=== PATIENT | male | born 1965 | race Two or more races ===

== ENCOUNTER 2020-02-14 14:00 | Emergency (ER) | payer SELFPAY ==
--- NOTE | 2020-02-14 14:34 | XR_ITS ---
EXAMINATION: XR CHEST CLINICAL INFORMATION: Lower extremity swelling. Rule out CHF COMPARISON: None TECHNIQUE: Frontal view of the chest was obtained. FINDINGS: The lungs are hypoinflated. There is mild cardiac enlargement. There may be some minimal upper zone redistribution but some of this could be due to hypoinflation and no gross CHF is present. No pleural effusions are seen. No consolidation or lung mass present. XR/XR chest 1V IMPRESSION: Hypoinflated lungs. No acute intrathoracic disease.
--- NOTE | 2020-02-14 14:36 | ED.EXTPRO ---
HPI - Extremity Problem General Chief complaint: General Medical Stated complaint: BOTH LEG SWELLING Time Seen by Provider: 02/14/20 14:34 Source: patient and no experience Mode of arrival: ambulatory Limitations: no limitations History of Present Illness HPI Narrative: 55-year-old male presented with bilateral lower extremity swelling for couple weeks, patient declined fever or chills, patient also declined any shortness of breath. MD Complaint: extremity swelling Onset (ago): week(s) (3) Pain Consistency: constant Location: left and right Severity scale (1-10): 7 Radiation: none Relieving factors: nothing Exacerbating factors: nothing Related Data Previous Rx's Medication Instructions Recorded furosemide [Lasix] 20 mg PO DAILY #10 tab 02/14/20 Allergies Allergy/AdvReac Type Severity Reaction Status Date / Time No Known Allergies Allergy Unverified 01/01/20 15:41 Review of Systems Review of Systems: All other systems are reviewed and are negative Constitutional: Reports as per HPI and Reports no additional constitutional complaints Eyes: Reports as per HPI and Reports no additional eye complaints Reports system reviewed and no additional complaints, except as documented Cardiovascular: Reports as per HPI and Reports no additional cardiovascular complaints Respiratory: Reports as per HPI and Reports no additional respiratory complaints Gastrointestinal: Reports as per HPI and Reports no additional gastrointestinal complaints Genitourinary: Reports no additional female genitourinary complaints Musculoskeletal: Reports no additional musculoskeletal complaints Skin/Breast: Reports system reviewed and no additional complaints, except as docu Psychiatric: Reports no additional psychiatric complaints Endocrine: Reports no additional endocrine complaints Hematologic/Lymphatic: Reports no additional hematologic/lymphatic complaints Allergic/Immunologic: Reports no additional allergic/immunologic complaints Reports system reviewed and no additional complaints, except as documented and Reports Abnormal speech present [facility] Past Medical History Medical History Depression Hypertension Social History Social History Alcohol intake: never Smoking Status: Never smoker Use of substances other than those prescribed or required for medical reasons: No Advance Directives: No Advance Directives Information Provided: Yes Physical Exam Vital Signs: Vital Signs: Vital Signs Temp Pulse Resp BP Pulse Ox 02/14/20 15:22 98.5 F 75 18 122/76 94 02/14/20 14:37 99.2 F 77 18 161/89 H 97 Body Mass Index 43.2 Appearance: Alert. Oriented X3. No acute distress. Head: Normal external exam. Normocephalic. Atraumatic. No Reed signs noted. No raccoon eyes noted Eyes: PERRLA. EOMI. Conjunctiva and sclera normal. Eyelids normal. ENT: EAC normal. TM's Normal. Pharynx normal. Uvula midline. Moist mucous membranes. No trismus noted. No drooling noted. No muffled voice noted. Neck: Normal inspection. Neck supple. FROM. No adenopathy. Thyroid Normal. No meningeal signs. No neck mass noted. CVS: Normal heart rate and rhythm. Heart sound normal. No murmurs noted. Pulses normal throughout. Respiratory: No respiratory distress. Painless inspiration. Breath sounds normal. No wheezes/rales/rhonchi noted. Chest nontender. No accessory muscle usage noted or decreased air movement noted. Abdomen: Soft and nontender. Bowel sounds normal in all 4 quadrants. No distention noted. No organomegaly noted. No visible injury noted. Back: No CVA tenderness. Full range of motion noted. Skin: Skin warm and dry. Normal skin color. Normal skin turgor. No rashes/lesions/lacerations noted. Extremities: bilateral lower extremity Pitting edema +2. Extremities exhibit normal range of motion. Extremities nontender. Neuro: Oriented X 3. No motor deficit. No sensory deficit. Reflexes normal. Course Course Course Narrative: 55 years old male presented with few weeks of bilateral lower extremity swelling, patient declined any respiratory symptoms, no history of liver/ renal is show, will check chest x-ray check renal function test, LFTs, BMP, patient has no risk for PE/DVT. Will reassess. MDM - Extremity (Nontraumatic) MDM Narrative Medical decision making narrative: assessment and plan. 55-year-old male presented with bilateral leg swelling for the past month, patient had workup in the emergency department showed normal x-ray for CHF, with a negative BNP, patient also have a normal renal function test, and normal LFTs. At this point will start the patient on low-dose of Lasix helped to diurese and will instruct the patient to follow-up with PCP, and elevate lower extremities. Lab Data Result diagrams: 02/14/20 15:00 02/14/20 15:00 Labs: Lab Results 02/14/20 02/14/20 02/14/20 Range/Units 15:00 15:00 15:00 WBC 7.6 (4.8-10.8) X10*3/uL RBC 4.51 L (4.60-5.80) X10*6/uL Hgb 14.1 (14.0-18.0) g/dl Hct 43.4 (42-52) % MCV 96.2 (80-98) fL MCH 31.3 (27.0-33.0) pg MCHC 32.5 (31.0-36.0) g/dl RDW 14.3 (11.0-16.0) % Plt Count 204 (160-400) X10*3/uL MPV 9.9 (9.4-12.4) fL Immature Gran % (Auto) 0.4 (0.0-0.4) % Neut % (Auto) 61.2 (45-73) % Lymph % (Auto) 27.9 (20-40) % [place] % (Auto) 7.9 (2-11) % Eos % (Auto) 2.1 (0-4) % Baso % (Auto) 0.5 (0-2) % Lymph # (Auto) 2.1 (1.2-4.9) X10*3/uL [place] # (Auto) 0.6 (0.1-1.2) X10*3/uL Eos # (Auto) 0.2 (0.0-0.4) X10*3/uL Baso # (Auto) 0.0 (0.0-0.2) X10*3/uL Abs Immat Gran (auto) 0.03 (0.00-0.03) X10*3/uL Absolute Neuts (auto) 4.6 (2.0-8.3) X10*3/uL Absolute Nucleated RBC 0.000 (0.0-0.012) X10*3/uL Nucleated RBC % (auto) 0.0 (0.0-0.2) /100WBC Sodium 140 (135-145) mmol/L Potassium 4.3 (3.3-5.1) mmol/l Chloride 101 (96-108) mmol/L Carbon Dioxide 31 H (22-29) mmol/L Anion Gap 12 (12-20) BUN 13 (9-16) mg/dL Creatinine 0.84 (0.5-1.4) mg/dL Estim Creat Clear Calc 110.2 Estimated GFR > 60 Random Glucose 93 (60-115) mg/dL Calcium 8.3 L (8.4-10.2) mg/dL Total Bilirubin 0.4 (0.0-1.0) mg/dL Direct Bilirubin 0.2 (0.0-0.5) mg/dL AST 46 H (5-37) U/L ALT 40 (0-40) U/L Alkaline Phosphatase 98 (39-117) U/L B-Natriuretic Peptide 55 (<100) pg/mL Total Protein 7.7 (6.5-8.0) g/dL Albumin 4.4 (3.5-5.0) g/dL Lipase 17 (8-78) U/L Urine Color Urine Appearance Urine pH (5.0-8.0) Ur Specific [place] (1.005-1.025) Urine Protein (NEG-TRACE) MG/DL Urine Glucose (UA) (NEG) MG/DL Urine Ketones (NEG) MG/DL Urine Blood (NEG) Urine Nitrite (NEG) Ur Leukocyte Esterase (NEG) 02/14/20 Range/Units 15:13 WBC (4.8-10.8) X10*3/uL RBC (4.60-5.80) X10*6/uL Hgb (14.0-18.0) g/dl Hct (42-52) % MCV (80-98) fL MCH (27.0-33.0) pg MCHC (31.0-36.0) g/dl RDW (11.0-16.0) % Plt Count (160-400) X10*3/uL MPV (9.4-12.4) fL Immature Gran % (Auto) (0.0-0.4) % Neut % (Auto) (45-73) % Lymph % (Auto) (20-40) % [place] % (Auto) (2-11) % Eos % (Auto) (0-4) % Baso % (Auto) (0-2) % Lymph # (Auto) (1.2-4.9) X10*3/uL [place] # (Auto) (0.1-1.2) X10*3/uL Eos # (Auto) (0.0-0.4) X10*3/uL Baso # (Auto) (0.0-0.2) X10*3/uL Abs Immat Gran (auto) (0.00-0.03) X10*3/uL Absolute Neuts (auto) (2.0-8.3) X10*3/uL Absolute Nucleated RBC (0.0-0.012) X10*3/uL Nucleated RBC % (auto) (0.0-0.2) /100WBC Sodium (135-145) mmol/L Potassium (3.3-5.1) mmol/l Chloride (96-108) mmol/L Carbon Dioxide (22-29) mmol/L Anion Gap (12-20) BUN (9-16) mg/dL Creatinine (0.5-1.4) mg/dL Estim Creat Clear Calc Estimated GFR Random Glucose (60-115) mg/dL Calcium (8.4-10.2) mg/dL Total Bilirubin (0.0-1.0) mg/dL Direct Bilirubin (0.0-0.5) mg/dL AST (5-37) U/L ALT (0-40) U/L Alkaline Phosphatase (39-117) U/L B-Natriuretic Peptide (<100) pg/mL Total Protein (6.5-8.0) g/dL Albumin (3.5-5.0) g/dL Lipase (8-78) U/L Urine Color YELLOW Urine Appearance CLEAR Urine pH 6.5 (5.0-8.0) Ur Specific [place] 1.025 (1.005-1.025) Urine Protein NEG (NEG-TRACE) MG/DL Urine Glucose (UA) NEG (NEG) MG/DL Urine Ketones NEG (NEG) MG/DL Urine Blood NEG (NEG) Urine Nitrite NEG (NEG) Ur Leukocyte Esterase NEG (NEG) Discharge Plan Discharge Clinical Impression: Lower extremity edema Patient Disposition: Home, Self-Care Instructions: Edema (ED) Prescriptions: New furosemide [Lasix] 20 mg tablet 20 mg PO DAILY Qty: 10 RF: 0 Referrals: Name,MD Olayinka [Primary Care Provider] - 2 days
[2020-02-14 14:37] VITALS: BP 161/89; PULSE 77; RESP 18; TEMP 37.3; O2SAT 97; BMI 43.2
[2020-02-14 15:20] LABS: MANUAL DIFF FLAG NO
[2020-02-14 15:22] VITALS: BP 122/76; PULSE 75; RESP 18; TEMP 36.9; O2SAT 94
[2020-02-14 15:23] LABS: Basophils Percent Auto 0.5 % (0-2); Eosinophils Absolute Auto 0.2 X10*3/uL (0.0-0.4); Eosinophils Percent Auto 2.1 % (0-4); Hematocrit 43.4 % (42-52); Hemoglobin 14.1 g/dl (14.0-18.0); Imm Gran Abs Auto 0.03 X10*3/uL (0.00-0.03); Imm Gran Pct Auto 0.4 % (0.0-0.4); Lymphocytes Absolute Auto 2.1 X10*3/uL (1.2-4.9); Lymphocytes Percent Auto 27.9 % (20-40); Mean Corpuscular HGB Conc 32.5 g/dl (31.0-36.0); Mean Corpuscular Hemoglobin 31.3 pg (27.0-33.0); Mean Corpuscular Volume 96.2 fL (80-98); Mean Platelet Volume 9.9 fL (9.4-12.4); Monocytes Absolute Auto 0.6 X10*3/uL (0.1-1.2); Monocytes Percent Auto 7.9 % (2-11); Neutrophils Absolute Auto 4.6 X10*3/uL (2.0-8.3); Neutrophils Percent Auto 61.2 % (45-73); Platelet Count 204 X10*3/uL (160-400); Red Blood Count 4.51 X10*6/uL (4.60-5.80); Red Cell Distribution Width 14.3 % (11.0-16.0); White Blood Count 7.6 X10*3/uL (4.8-10.8)
[2020-02-14 15:45] LABS: Glucose Urine UA NEG (NEG); Leukocyte Esterase Urine NEG (NEG); Nitrite Urine NEG (NEG); PH 6.5 (5.0-8.0); Specific Gravity - Urine 1.025 (1.005-1.025); Urine Blood NEG (NEG); Urine Ketones NEG (NEG); Urine Protein NEG (NEG-TRACE)
[2020-02-14 15:46] LABS: Appearance Urine CLEAR; Color Urine YELLOW
[2020-02-14 15:55] LABS: Alanine Aminotransferase 40 U/L (0-40); Albumin Level 4.4 g/dL (3.5-5.0); Alkaline Phosphatase 98 U/L (39-117); Anion Gap 12 (12-20); Aspartate Amino Transferase 46 U/L (5-37); Bilirubin Direct 0.2 mg/dL (0.0-0.5); Bilirubin Total 0.4 mg/dL (0.0-1.0); Blood Urea Nitrogen 13 mg/dL (9-16); Calcium 8.3 mg/dL (8.4-10.2); Carbon Dioxide 31 mmol/L (22-29); Chloride 101 mmol/L (96-108); Creatinine Clr Calc Pharmacy 110.2; Estimated Glomerular Filt Rate > 60; Glucose Random 93 mg/dL (60-115); Lipase 17 U/L (8-78); Potassium 4.3 mmol/l (3.3-5.1); Sodium 140 mmol/L (135-145); Total Protein 7.7 g/dL (6.5-8.0)
[2020-02-14 16:02] LABS: B Type Natriuretic Peptide 55 pg/mL (<100)
[2020-02-14 16:39] VITALS: BP 127/81; PULSE 73; RESP 16; TEMP 36.4; O2SAT 95
== END 2020-02-14 16:43 | disposition home or self-care (01) ==
PROVIDERS: Emergency Provider Emergency Medicine; PCP Internal Medicine Geriatric Medicine
DX: R60.0 Localized edema (principal); M79.605 Pain in left leg; M79.604 Pain in right leg; R06.02 Shortness of breath; Z79.899 Other long term (current) drug therapy
CPT/HCPCS: 36415; 71045; 80048; 80076; 81003; 83690; 83880; 85025; 99283; 99284

== ENCOUNTER → 2020-04-15 11:34 | Outpatient (BNVA) | payer BC, SELFPAY | PROVIDERS: PCP Internal Medicine Geriatric Medicine; Visit Provider Surgery Vascular Surgery | DX: Z76.89 Persons encountering health services in other specified circumstances (principal) ==

== ENCOUNTER 2020-05-03 13:06 | Outpatient (REF) | payer BC, SELFPAY ==
--- NOTE | 2020-05-03 13:10 | US_ITS ---
EXAMINATION: RIGHT and LEFT LOWER EXTREMITY VENOUS ULTRASOUND (Reflux Exam) CLINICAL INDICATION: leg pain and varicose veins. COMPARISON: None. TECHNIQUE: Color flow triplex imaging and compression Doppler was performed to evaluate both the deep and the superficial systems bilaterally. To evaluate the superficial system, the examination was performed in the upright position. Color-flow Doppler ultrasound and compression ultrasound were utilized. In addition, maneuvers were utilized to demonstrate reflux. FINDINGS: 1. DEEP VENOUS ULTRASOUND OF THE RIGHT LOWER EXTREMITY: Respiratory variation, normal compression and augmented flow are noted in the right common femoral vein as well as the right popliteal vein and there is no evidence of deep venous thrombosis at these locations. There is no evidence of reflux in the deep system the common femoral vein. There is 0.7 second reflux in the popliteal vein. Popliteal vein. There is no evidence of a Moulton's cyst. 2. SUPERFICIAL ULTRASOUND WITH DOPPLER OF RIGHT LOWER EXTREMITY: The right great saphenous vein at the saphenofemoral junction measures 8 mm, at the mid thigh 4 mm, vxtkd-jsf-mxka 3 mm, wjjaa-lhs-oeto 3 mm, at mid calf 3 mm and at the ankle measures 3 mm. There is no reflux demonstrated in the right great saphenous vein. The right small saphenous vein measures 2-3 mm and demonstrates 0.8 seconds reflux reflux. There is an accessory lateral greater saphenous vein measures between 3 and 4 mm and does not demonstrate reflux. There is a varicosity in the proximal thigh that measures 3 mm and does not demonstrate reflux. 3. DEEP VENOUS ULTRASOUND OF THE LEFT LOWER EXTREMITY: Respiratory variation, normal compression and augmented flow are noted in the left common femoral vein as well as the left popliteal vein and there is no evidence of deep venous thrombosis at these locations. There is no evidence of reflux in the deep system in either the common femoral vein or the popliteal vein. . There is no evidence of a Moulton's cyst. 4. SUPERFICIAL ULTRASOUND WITH DOPPLER OF LEFT LOWER EXTREMITY: Left great saphenous vein at the saphenofemoral junction measures 9 mm, at the mid thigh 5 mm, qitnx-lmp-zing 4 mm, rwyms-jpb-wkjc 3 mm, at mid calf 1 mm and at the ankle measures 3 mm. There is no reflux demonstrated in the left great saphenous vein. The left small saphenous vein measures 2-3 mm and shows no reflux. There are varicosities in the thigh and calf measuring up to 3 and 4 mm but do not demonstrate reflux. US/US venous duplex LE BI IMPRESSION: 1. No evidence of DVT. Right popliteal vein reflux. 2. No greater saphenous vein reflux. Right lesser saphenous vein reflux.
== END 2020-05-03 13:07 | disposition home or self-care (01) ==
LOC: HO.US 13:06
PROVIDERS: PCP Internal Medicine Geriatric Medicine; Visit Provider Surgery Vascular Surgery
DX: I83.11 Varicose veins of right lower extremity with inflammation (principal); I83.893 Varicose veins of bilateral lower extremities with other complications
CPT/HCPCS: 93970

== ENCOUNTER → 2020-05-18 13:22 | Outpatient (BNVA) | payer BC, SELFPAY | PROVIDERS: PCP Internal Medicine Geriatric Medicine; Visit Provider Surgery Vascular Surgery ==

== ENCOUNTER 2021-06-27 20:35 | Inpatient (IN) | payer BC, SELFPAY ==
--- NOTE | 2021-06-27 | ECG_ITS ---
Test Reason : SOB Blood Pressure : / mmHG Vent. Rate : 076 BPM Atrial Rate : 076 BPM P-R Int : 182 ms QRS Dur : 090 ms QT Int : 414 ms P-R-T Axes : 043 060 063 degrees QTc Int : 465 ms Normal sinus rhythm Normal ECG When compared with ECG of 14-NOV-2017 22:13, No significant change was found Referred By: Generic ED Physician Electronically Signed By:ADELAIDE SENIOR
--- NOTE | ~2021-06-27 | CT_ITS ---
EXAMINATION: CT ABDOMEN AND PELVIS WITHOUT CONTRAST CLINICAL INFORMATION: Abdominal distention with shortness of breath. COMPARISON: 03/07/2019 TECHNIQUE: Multidetector volumetric imaging was performed from the superior aspect of the liver through the pubic symphysis. Sagittal and coronal reformatted images were obtained on the technologist's workstation. This CT examination was performed using dose optimization techniques as appropriate, variously including the following: *Automated exposure control *Adjustment of mA and/or kV according to patient size (this includes techniques or standardized protocols for targeted exams where dose is matched to indication/reason for exam; i.e. extremities or head) *Use of iterative reconstruction technique DLP: 1052 mGy-cm FINDINGS: LUNG BASES: The visualized lung bases are unremarkable. LIVER, GALLBLADDER, AND BILIARY TREE: The liver is normal in size and shape with decreased attenuation. No focal hepatic lesion or biliary ductal dilatation is present. The gallbladder is unremarkable with no evidence of radiopaque gallstones, gallbladder wall thickening, or obvious pericholecystic inflammatory changes. PANCREAS: Mild atrophy with no focal abnormality. No ductal dilatation. SPLEEN: Unremarkable. ADRENAL GLANDS: Unremarkable. KIDNEYS AND URETERS: The kidneys are normal in size, shape, and attenuation. No hydronephrosis, hydroureter, or calculi seen. Mild symmetric perinephric stranding. BLADDER: Unremarkable. GASTROINTESTINAL TRACT: Small hiatal hernia. Decompressed stomach. Normal caliber small bowel. No obstruction. A portion of the small bowel extends into a periumbilical hernia with no associated abnormality. Scattered colonic diverticulosis. No diverticulitis. Normal appendix. No free air or free fluid. ABDOMINAL WALL: Periumbilical hernia containing a portion of small bowel. This is not obstructing. LYMPH NODES: Normal. VASCULAR: Unremarkable. PELVIC VISCERA: The prostate and seminal vesicles are unremarkable. OSSEOUS STRUCTURES: No acute or suspicious osseous abnormality. Degenerative changes of the spine and hips. CT/CT abdomen pelvis wo con IMPRESSION: No acute finding in the abdomen or pelvis. Small periumbilical hernia containing a short segment of small bowel. No obstruction or inflammation. Colonic diverticulosis without diverticulitis. Hepatic steatosis. Fleischner guidelines were followed.
--- NOTE | ~2021-06-27 | XR_ITS ---
EXAMINATION: XR CHEST CLINICAL INFORMATION: Shortness of breath COMPARISON: 02/14/2020 TECHNIQUE: Frontal view of the chest was obtained. FINDINGS: The lungs are well expanded. Central vascular prominence without overt edema. No consolidation or effusion. No pneumothorax. The cardiomediastinal silhouette is within normal limits. XR/XR chest 1V IMPRESSION: Central vascular prominence without overt edema.
[2021-06-27 21:12] VITALS: BP 153/77; PULSE 79; RESP 17; TEMP 36.9; O2SAT 98; BMI 41.1
[2021-06-27 22:29] LABS: MANUAL DIFF FLAG NO
[2021-06-27 22:36] LABS: Basophils Absolute Auto 0.1 X10*3/uL (0.0-0.2); Basophils Percent Auto 0.6 % (0-2); Eosinophils Absolute Auto 0.1 X10*3/uL (0.0-0.4); Eosinophils Percent Auto 1.2 % (0-4); Hematocrit 43.8 % (42.0-52.0); Hemoglobin 14.3 g/dl (14.0-18.0); Imm Gran Abs Auto 0.04 X10*3/uL (0.00-0.03); Imm Gran Pct Auto 0.5 % (0.0-0.4); Lymphocytes Absolute Auto 1.3 X10*3/uL (1.2-4.9); Lymphocytes Percent Auto 15.8 % (20-40); Mean Corpuscular HGB Conc 32.6 g/dl (31.0-36.0); Mean Corpuscular Hemoglobin 32.4 pg (27.0-33.0); Mean Corpuscular Volume 99.1 fL (80.0-98.0); Mean Platelet Volume 9.9 fL (9.4-12.4); Monocytes Absolute Auto 0.5 X10*3/uL (0.1-1.2); Monocytes Percent Auto 5.3 % (2-11); Neutrophils Absolute Auto 6.5 x10*3/uL (2.0-8.3); Neutrophils Percent Auto 76.6 % (45-73); Platelet Count 163 X10*3/uL (160-400); Red Blood Count 4.42 X10*6/uL (4.60-5.80); Red Cell Distribution Width 14.3 % (11.0-16.0); White Blood Count 8.4 X10*3/uL (4.8-10.8)
[2021-06-27 23:02] LABS: Alanine Aminotransferase 80 U/L (0-40); Albumin Level 3.9 g/dL (3.5-5.0); Alkaline Phosphatase 107 U/L (39-117); Anion Gap 12 (12-20); Aspartate Amino Transferase 73 U/L (5-37); Bilirubin Total 0.3 mg/dL (0.0-1.0); Blood Urea Nitrogen 11 mg/dL (9-16); Carbon Dioxide 31 mmol/L (22-29); Chloride 100 mmol/L (96-108); Creatinine Clr Calc Pharmacy 132.2; Estimated Glomerular Filt Rate > 60; Glucose Random 114 mg/dL (60-115); Potassium 4.4 mmol/L (3.3-5.1); Sodium 139 mmol/L (135-145); Total Protein 7.7 g/dL (6.5-8.0)
[2021-06-27 23:35] VITALS: BP 182/92; PULSE 82; RESP 18; TEMP 36.6; O2SAT 94
[2021-06-28] VITALS (7 sets, daily range): BP systolic 136–157; BP diastolic 75–95; PULSE 72–88; RESP 15–20; TEMP 36.6–37.9; O2SAT 91–99
--- NOTE | 2021-06-28 00:42 | ED_ITS ---
HPI - General Adult General Chief complaint: Abdominal Pain Stated complaint: Multiple complaints/SOB Time Seen by Provider: 06/28/21 00:40 Source: patient, family () and educational sign language interpreter Mode of arrival: ambulatory Limitations: no limitations History of Present Illness HPI narrative: 56 years old male male came in for evaluation of abdominal distension and body swelling. Alcoholic patient actively and currently drinking alcohol daily, patient was told by PCP he had liver issue but patient continued to drink alcohol. For the past 3- 4 days patient noted that he is swelling and gaining weight faster than his usual, significant abdominal swelling causing bloating feeling with difficulty breathing especially at night time when he lays supine. Patient gained about 20 lb in the last week. Related Data Home Medications Medication Instructions Recorded Confirmed buprenorphine 8 mg-naloxone 2 mg 2 film BUCCAL DAILY 04/15/20 sublingual film (Suboxone) docusate sodium 100 mg capsule 100 mg PO DAILY 04/15/20 (Colace) lisinopril 10 mg tablet 10 mg PO DAILY 04/15/20 naloxone 4 mg/actuation nasal 4 mg INTRANASAL Q2M PRN 04/15/20 spray (Narcan) nicotine 21 mg/24 hr daily 1 patch TRANSDERMAL DAILY 04/15/20 transdermal patch quetiapine 100 mg tablet (Seroquel) 100 mg PO DAILY 04/15/20 sennosides 8.6 mg capsule (senna) 8.6 mg PO BID 04/15/20 Previous Rx's Medication Instructions Recorded furosemide 20 mg tablet (Lasix) 20 mg PO DAILY #10 tab 02/14/20 Allergies Allergy/AdvReac Type Severity Reaction Status Date / Time No Known Allergies Allergy Verified 05/18/20 13:27 Review of Systems Review of Systems: All other systems are reviewed and are negative Constitutional: Reports as per HPI and Reports no additional constitutional comp laints Eyes: Reports as per HPI and Reports no additional eye complaints Reports system reviewed and no additional complaints, except as documented Cardiovascular: Reports as per HPI and Reports no additional cardiovascular complaints Respiratory: Reports as per HPI and Reports no additional respiratory complaints Gastrointestinal: Reports as per HPI and Reports no additional gastrointestinal complaints Genitourinary: Reports no additional female genitourinary complaints Musculoskeletal: Reports no additional musculoskeletal complaints Skin/Breast: Reports system reviewed and no additional complaints, except as docu Psychiatric: Reports no additional psychiatric complaints Endocrine: Reports no additional endocrine complaints Hematologic/Lymphatic: Reports no additional hematologic/lymphatic complaints Allergic/Immunologic: Reports no additional allergic/immunologic complaints Reports system reviewed and no additional complaints, except as documented and Reports Abnormal speech present [facility], [facility] Past Medical History Medical History Depression Hypertension Social History Social History Alcohol intake: never Advance Directives: No Physical Exam ED Vital Signs: Vital Signs - 24 hr 06/27/21 21:12 06/27/21 23:35 Temperature 98.4 F 97.9 F Pulse Rate 79 82 Respiratory Rate 17 18 Blood Pressure 153/77 H 182/92 H Pulse Oximetry 98 94 BMI result Body Mass Index 41.1 Vital signs have been reviewed as appeared to be correct. Blood pressure normal. Heart rate normal. Respiration rate normal. Temperature normal. Oxygen saturation normal. Appearance: Alert. Oriented X3. No acute distress. Head: Normal external exam. Normocephalic. Atraumatic. No Reed signs noted. No raccoon eyes noted Eyes: PERRLA. EOMI. Conjunctiva and sclera normal. Eyelids normal. ENT: TM's Normal. Pharynx normal. Uvula midline. Moist mucous membranes. No trismus noted. No drooling noted. No muffled voice noted. Neck: Normal inspection. Neck supple. FROM. No adenopathy. Thyroid Normal. No m eningeal signs. No neck mass noted. CVS: Normal heart rate and rhythm. Heart sound normal. No murmurs noted. Pulses normal throughout. Respiratory: No respiratory distress. Painless inspiration. Breath sounds normal. No wheezes/rales/rhonchi noted. Chest nontender. No accessory muscle usage noted or decreased air movement noted. Abdomen: Soft, distended, nontender, no rebound tenderness, Bowel sounds normal in all 4 quadrants. No distention noted. No organomegaly noted. No visible injury noted. Back: No CVA tenderness. Full range of motion noted. Skin: Skin warm and dry. Normal skin color. Normal skin turgor. No rashes/lesions/lacerations noted. Extremities: No lower extremity edema. Extremities exhibit normal range of motion. Extremities nontender. Neuro: Oriented X 3. Cranial nerve exam: II-XII are grossly intact No motor deficit. No sensory deficit. Reflexes normal. Course Course Course Narrative: Assessment and plan. 56-year-old male came in for evaluation of generalized body swelling and gaining 20 lb in about 7 days, patient is alcohol abuser and a daily basis, CT of the abdomen pelvis did not reveal severe or advanced liver disease, no ascites in the abdomen. Will admit the patient for diureses. Medical Decision Making Medical Records Medical records reviewed: Yes I reviewed the patient's medical records. Lab Data Lab results reviewed: Yes I reviewed the patient's lab results. Result diagrams: 06/27/21 22:21 06/27/21 22:21 Labs: Lab Results 06/27/21 06/27/21 06/28/21 Range/Units 22:21 22:21 01:01 WBC 8.4 (4.8-10.8) X10*3/uL RBC 4.42 L (4.60-5.80) X10*6/uL Hgb 14.3 (14.0-18.0) g/dl Hct 43.8 (42.0-52.0) % MCV 99.1 H (80.0-98.0) fL MCH 32.4 (27.0-33.0) pg MCHC 32.6 (31.0-36.0) g/dl RDW 14.3 (11.0-16.0) % Plt Count 163 (160-400) X10*3/uL MPV 9.9 (9.4-12.4) fL Immature Gran % (Auto) 0.5 H (0.0-0.4) % Neut % (Auto) 76.6 H (45-73) % Lymph % (Auto) 15.8 L (20-40) % [place] % (Auto) 5.3 (2-11) % Eos % (Auto) 1.2 (0-4) % Baso % (Auto) 0.6 (0-2) % Lymph # (Auto) 1.3 (1.2-4.9) X10*3/uL [place] # (Auto) 0.5 (0.1-1.2) X10*3/uL Eos # (Auto) 0.1 (0.0-0.4) X10*3/uL Baso # (Auto) 0.1 (0.0-0.2) X10*3/uL Abs Immat Gran (auto) 0.04 H (0.00-0.03) X10*3/uL Absolute Neuts (auto) 6.5 (2.0-8.3) x10*3/uL Absolute Nucleated RBC 0.000 (0.0-0.012) X10*3/uL Nucleated RBC % (auto) 0.0 (0.0-0.2) /100WBC PT 12.7 (9.9-13.0) SEC INR 1.1 (0.9-1.1) APTT 34.2 (24.1-38.0) SEC Sodium 139 (135-145) mmol/L Potassium 4.4 (3.3-5.1) mmol/L Chloride 100 (96-108) mmol/L Carbon Dioxide 31 H (22-29) mmol/L Anion Gap 12 (12-20) BUN 11 (9-16) mg/dL Creatinine 0.82 (0.5-1.4) mg/dL Estim Creat Clear Calc 132.2 Estimated GFR > 60 Random Glucose 114 (60-115) mg/dL Calcium 9.0 D (8.4-10.2) mg/dL Total Bilirubin 0.3 (0.0-1.0) mg/dL AST 73 H (5-37) U/L ALT 80 H (0-40) U/L Alkaline Phosphatase 107 (39-117) U/L Troponin I High Sens (<3.5-35.0) ng/L B-Natriuretic Peptide (<100) pg/mL Total Protein 7.7 (6.5-8.0) g/dL Albumin 3.9 (3.5-5.0) g/dL 06/28/21 Range/Units 01:01 WBC (4.8-10.8) X10*3/uL RBC (4.60-5.80) X10*6/uL Hgb (14.0-18.0) g/dl Hct (42.0-52.0) % MCV (80.0-98.0) fL MCH (27.0-33.0) pg MCHC (31.0-36.0) g/dl RDW (11.0-16.0) % Plt Count (160-400) X10*3/uL MPV (9.4-12.4) fL Immature Gran % (Auto) (0.0-0.4) % Neut % (Auto) (45-73) % Lymph % (Auto) (20-40) % [place] % (Auto) (2-11) % Eos % (Auto) (0-4) % Baso % (Auto) (0-2) % Lymph # (Auto) (1.2-4.9) X10*3/uL [place] # (Auto) (0.1-1.2) X10*3/uL Eos # (Auto) (0.0-0.4) X10*3/uL Baso # (Auto) (0.0-0.2) X10*3/uL Abs Immat Gran (auto) (0.00-0.03) X10*3/uL Absolute Neuts (auto) (2.0-8.3) x10*3/uL Absolute Nucleated RBC (0.0-0.012) X10*3/uL Nucleated RBC % (auto) (0.0-0.2) /100WBC PT (9.9-13.0) SEC INR (0.9-1.1) APTT (24.1-38.0) SEC Sodium (135-145) mmol/L Potassium (3.3-5.1) mmol/L Chloride (96-108) mmol/L Carbon Dioxide (22-29) mmol/L Anion Gap (12-20) BUN (9-16) mg/dL Creatinine (0.5-1.4) mg/dL Estim Creat Clear Calc Estimated GFR Random Glucose (60-115) mg/dL Calcium (8.4-10.2) mg/dL Total Bilirubin (0.0-1.0) mg/dL AST (5-37) U/L ALT (0-40) U/L Alkaline Phosphatase (39-117) U/L Troponin I High Sens 9.0 (<3.5-35.0) ng/L B-Natriuretic Peptide 66 (<100) pg/mL Total Protein (6.5-8.0) g/dL Albumin (3.5-5.0) g/dL Imaging Data CT abdomen pelvis: Attestation: I personally reviewed and interpreted this imaging study as follows: Radiologist's impression: No acute finding in the abdomen or pelvis. Small periumbilical hernia containing a short segment of small bowel. No obstruction or inflammation. Colonic diverticulosis without diverticulitis. Chest x-ray: Attestation: I personally reviewed and interpreted this imaging study as follows: Radiologist's impression: Central vascular prominence without overt edema. Discharge Plan Discharge Clinical Impression: Edema Patient Disposition: Admitted As Inpatient Prescriptions: No Action furosemide [Lasix] 20 mg tablet 20 mg PO DAILY Qty: 10 0RF
[2021-06-28 01:14] LABS: INTERNATIONAL NORM RATIO 1.1 (0.9-1.1); Prothrombin Time 12.7 SEC (9.9-13.0)
[2021-06-28 01:17] LABS: Partial Thromboplastin Time 34.2 SEC (24.1-38.0)
[2021-06-28 01:28] LABS: B Type Natriuretic Peptide 66 pg/mL (<100)
[2021-06-28] MEDS: Furosemide 40 MG/4 ML VIAL IVPUSH ×3 (03:30→17:28)
--- NOTE | 2021-06-28 05:24 | P.HPHOSP_ITS ---
History of Present Illness Date of Service: 06/28/21 Chief Complaint: Weight gain 56-year-old male with a past medical history of tobacco dependence, alcohol abuse, anxiety, depression, hypertension presented to the hospital today with a chief complaint of weight gain. Patient reported that over the past 2-3 weeks he has gained about 20 lb. Noted swelling in his bilateral legs; also mentioned that he always has abdominal umbilical hernia-denies any abdominal pain; denies any change in his umbilical hernia. Mentions he has abdominal is distended. X-ray also complains of shortness of breath especially on exertion and also reports orthopnea but attributes to possible AMANDA. Mentions he snores a lot. Having a formal diagnosis of AMANDA. Also reports he has been tired lately. Denies any fever chills cough. Denies any GI symptoms. Mentioned that because of the weight pain he went to the clinic today and he was asked to go to the ER for further evaluation. Mentions that he drinks alcohol daily. Reports he was in alcohol detox in the past. Denies any history of alcohol withdrawal seizures. Review of all other systems is negative except mentioned above ER course: Per ER team patient's chest x-ray showed conditions; proBNP within normal limits; noted to have significant swelling concern for anasarca; CT abdomen showed no acute intra-abdominal process; noted hepatic steatosis. Given Lasix 40 mg IV. Admitted for further management. [facility] Medical History Depression Hypertension Pertinent family history: Reviewed Social History Alcohol intake: never Advance Directives: No Meds Allergies Allergy/AdvReac Type Severity Reaction Status Date / Time No Known Allergies Allergy Verified 05/18/20 13:27 Active Medications: Current Medications Acetaminophen (Acetaminophen 325 Mg Tablet) 650 mg PO Q6H PRN PRN Reason: Pain, Mild (Pain Scale 1-3) Enoxaparin Sodium (Enoxaparin Sodium 40 Mg/0.4 Ml Syringe) 40 mg SUBCUT Q24H [facility] Famotidine (Famotidine 20 Mg Tablet) 20 mg PO BID [facility] Famotidine (Famotidine/Pf 20 Mg/2 Ml Vial) 20 mg IVPUSH BID [facility] Folic Acid (Folic Acid 1 Mg Tablet) 1 mg PO DAILY [facility] Stop: 07/01/21 08:59 Furosemide (Furosemide 40 Mg/4 Ml Vial) 40 mg IVPUSH BIDWM ROBYN; Protocol Melatonin (Melatonin 3 Mg Tablet) 6 mg PO BEDTIME PRN PRN Reason: Insomnia Multivitamins/Vitamin C (Multivitamin Tablet) 1 tab PO DAILY [facility] Stop: 07/01/21 08:59 Nicotine (Nicotine 14 Mg Patch.Td24) 14 mg TRANSDERMA DAILY [facility] Senna (Sennosides 8.6 Mg Tablet) 17.2 mg PO BEDTIME PRN PRN Reason: Constipation Sodium Chloride (0.9 % Sodium Chloride Flush 3 Ml Syringe) 3 ml IVFLUSH QSHIFT [facility]YN Thiamine HCl (Thiamine Hcl 100 Mg Tablet) 100 mg PO DAILY [facility] Stop: 07/01/21 08:59 Home Medications Medication Instructions Recorded Confirmed Last Taken Type buprenorphine 8 mg-naloxone 2 mg 2 film BUCCAL DAILY 04/15/20 Unknown History sublingual film (Suboxone) docusate sodium 100 mg capsule 100 mg PO DAILY 04/15/20 Unknown History (Colace) lisinopril 10 mg tablet 10 mg PO DAILY 04/15/20 Unknown History naloxone 4 mg/actuation nasal 4 mg INTRANASAL Q2M PRN 04/15/20 Unknown History spray (Narcan) nicotine 21 mg/24 hr daily 1 patch TRANSDERMAL DAILY 04/15/20 Unknown History transdermal patch quetiapine 100 mg tablet (Seroquel) 100 mg PO DAILY 04/15/20 Unknown History sennosides 8.6 mg capsule (senna) 8.6 mg PO BID 04/15/20 Unknown History Physical Exam Vital Signs and Narrative: Vital Signs: Last Vital Signs Temp 97.9 F 06/28/21 04:29 Pulse 80 06/28/21 04:29 Resp 16 06/28/21 04:29 BP 136/75 06/28/21 04:29 Pulse Ox 92 06/28/21 04:29 BMI result Body Mass Index 41.1 Gen: Appears be in no acute distress HEENT: NCAT, Moist mucosa. Pulmonary: Vesicular breath sounds, fair air entry. Fine crackles present CVS: Normal S1-S2 Abdomen: BS+, Soft, Nontender. Distended; umbilical hernia noted; no tenderness or erythema. Extremities: Warm well perfused. 2+ pitting edema Neuro: Alert and awake. Grossly nonfocal Results Labs CBC and Chem 7: 06/27/21 22:21 06/27/21 22:21 Labs: Laboratory Results - last 24 hr 06/27/21 06/27/21 06/28/21 22:21 22:21 01:01 MCV 99.1 H MCH 32.4 MCHC 32.6 RDW 14.3 Plt Count 163 MPV 9.9 Immature Gran % (Auto) 0.5 H Neut % (Auto) 76.6 H Lymph % (Auto) 15.8 L [place] % (Auto) 5.3 Eos % (Auto) 1.2 Baso % (Auto) 0.6 Lymph # (Auto) 1.3 [place] # (Auto) 0.5 Eos # (Auto) 0.1 Baso # (Auto) 0.1 Abs Immat Gran (auto) 0.04 H Absolute Neuts (auto) 6.5 Absolute Nucleated RBC 0.000 Nucleated RBC % (auto) 0.0 PT 12.7 INR 1.1 APTT 34.2 Anion Gap 12 Estim Creat Clear Calc 132.2 Estimated GFR > 60 Random Glucose 114 Calcium 9.0 D Total Bilirubin 0.3 AST 73 H ALT 80 H Alkaline Phosphatase 107 B-Natriuretic Peptide Total Protein 7.7 Albumin 3.9 06/28/21 01:01 MCV MCH MCHC RDW Plt Count MPV Immature Gran % (Auto) Neut % (Auto) Lymph % (Auto) [place] % (Auto) Eos % (Auto) Baso % (Auto) Lymph # (Auto) [place] # (Auto) Eos # (Auto) Baso # (Auto) Abs Immat Gran (auto) Absolute Neuts (auto) Absolute Nucleated RBC Nucleated RBC % (auto) PT INR APTT Anion Gap Estim Creat Clear Calc Estimated GFR Random Glucose Calcium Total Bilirubin AST ALT Alkaline Phosphatase B-Natriuretic Peptide 66 Total Protein Albumin Imaging Radiologist's Impressions: Impressions Abdomen/Pelvis CT 06/28/21 01:40 IMPRESSION: No acute finding in the abdomen or pelvis. Small periumbilical hernia containing a short segment of small bowel. No obstruction or inflammation. Colonic diverticulosis without diverticulitis. Hepatic steatosis. Fleischner guidelines were followed. Chest X-Ray 06/28/21 03:15 IMPRESSION: Central vascular prominence without overt edema. Assessment and Plan (1) Edema: Status: Acute (2) CHF (congestive heart failure): Status: Acute Plan 56-year-old male with a past medical history of tobacco dependence, alcohol abuse, anxiety, depression, hypertension presented to the hospital today with a chief complaint of weight gain/shortness of breath/orthopnea/tiredness. Admitted for following New onset CHF: Patient reports 21 lb weight gain in 2-3 weeks. Noted have pedal edema; congestion on chest x-ray; abdominal distension noted as well. Concern for an sulcal. Liver panel within normal limits CT scan showed hepatic steatosis; no evidence of ascites. ProBNP within normal limits-probably confounded by obesity. Continue Lasix 40 mg IV b.i.d. Cardiology consult Echocardiogram Daily weights and I's and O's Will obtain a venous duplex EKG nonischemic. High sensitivity Troponin 9. Shortness of breath: Likely in the setting of CHF. Also consult for possible AMANDA versus obesity hypoventilation syndrome. Patient would benefit pulmonology follow-up/disease sleep studies. D-dimer pending History of hypertension: Patient was on lisinopril. Will continue. Alcohol abuse: Monitor on CIWA protocol with Ativan. -folate and multivitamins. DVT prophylaxis: Lovenox Code status: Full code Quality Stroke Does the patient have a stroke diagnosis?: No VTE Prior VTE?: No VTE Risk Level:: Medical - moderate - high VTE Device Contraindication: Treatment Not Indicated VTE Drug Contraindication: N/A - Med Ordered
[2021-06-28 06:01] LABS: COVID-19 Test Negative (Negative)
[2021-06-28 07:32] LABS: Magnesium 1.7 mg/dL (1.6-2.6)
[2021-06-28] MEDS: Folic Acid 1 MG TABLET PO (07:32)
[2021-06-28] MEDS: Nicotine 14 MG PATCH.TD24 TRANSDERMA (07:32)
[2021-06-28] MEDS: Thiamine HCL 100 MG TABLET PO (07:33)
[2021-06-28] MEDS: lisinopriL 20 MG TABLET PO (07:33)
[2021-06-28] MEDS: Famotidine 20 MG TABLET PO ×2 (07:33→21:29)
[2021-06-28] MEDS: Multivitamin TABLET 1 TAB PO (07:33)
[2021-06-28] MEDS: Enoxaparin Sodium 40 MG/0.4 ML SYRINGE SUBCUT (07:33)
[2021-06-28 07:41] LABS: D Dimer High Sensitivity 220 NG/ML
[2021-06-28] MEDS: ondansetron HCL 4 MG/2 ML VIAL IVPUSH ×2 (07:50→21:20)
--- NOTE | 2021-06-28 08:00 | CA_ITS ---
Transthoracic Echocardiogram Patient (Last, First, Middle): Eliot Ivan, Gender: Male Date of : 1965 Age: 56 Procedure Date: 06/28/2021 Procedure Type: Transthoracic Echocardiogram Location: ER Height: 175.26 cm Weight: 126.1 kg BSA: 2.38 m2 Heart Rate: bpm BP: 136 / 75 mmHg [employer]: Referring MD: Jose Kelly MD Symptoms: chf Study Quality: Fair ECG Rhythm: Sinus Conclusions: - The left ventricular systolic function is normal. The visually estimated ejection fraction is between 65-70%. - No obvious valvular pathology seen on this study. Findings Left Ventricle Normal left ventricular cavity size. There is mildly increased left ventricular wall thickness. The left ventricular systolic function is normal. The visually estimated ejection fraction is between 65-70%. There is no evidence of regional wall motion abnormalities. Diastolic function is normal for age. Right Ventricle Normal right ventricular cavity size and systolic function. Atria Both atria are normal in size. Aortic Valve The aortic valve was not well visualized. There is no aortic valve stenosis. There is no aortic valve regurgitation. Mitral Valve The mitral valve appears normal. There is no mitral valve regurgitation. There is no mitral valve stenosis. Pulmonic Valve The pulmonic valve was not well visualized. Tricuspid Valve Normal tricuspid valve structure. There is trace tricuspid valve regurgitation. The pulmonary artery systolic pressure is normal. Great Vessels The asc aorta is normal in size. Venous The inferior vena cava is normal in size and collapses greater than 50% with inspiration. Pericardium/Pleural There is no evidence of pericardial effusion. Prior Study Comparison No prior study available for comparison. Recommendations, Care & Conclusions No obvious valvular pathology seen on this study. Measurements 2D Linear Measurements IVSd: 1.22 0.6-0.9/0.6-1.0 cm LVIDd: 5.29 3.9-5.3/4.2-5.9 cm LVIDd Index: 2.22 2.4-3.2/2.2-3.1 cm/m2 LVIDs: 3.16 2.0-3.6 cm LVPWd: 1.28 0.7-1.1 cm LA Diam: 4.00 2.7-3.8/3.0-4.0 cm LAIDs Index: 1.68 1.5-2.3 cm/m2 LV Mass: 337.68 67-162/88-224 g LV Mass Index: 141.88 43-95/49-115 g/m2 LVOT Diam: 2.20 3.0+(-)1.3 cm Mitral Valve MV Pk E: 0.67 MV PK A: 0.60 MV Decel Time: 190.00 E/A: 1.10 E'Lateral: 8.81 E'Medial: 7.62 E/E' Med: 8.80 E/E' Lat: 7.60 PHT: 56.00 MVA PHT: 3.93 Decel Real: 3.52 Aortic Valve AoV Pk Jn: 1.40 AoV Mn Jn: 1.02 AoV VTI: 0.28 AoV Pk Grad: 8.00 Aov Mn Grad: 5.00 MICHAEL Cont.VTI: 3.92 LVOT LVOT Pk Jn: 1.27 LVOT Mn Jn: 0.96 LVOT VTI: 0.29 LVOT Pk Grad: 6.00 LVOT Mn Grad: 4.00 LVOT Diam: 2.20 LVOT Area: 3.80 Diastolic Function MV Pk E: 0.67 MV Pk A: 0.60 E/A: 1.10 E'Medial: 7.62 E/E' Med: 8.80 E' Laterial: 8.81 E/E' Lat: 7.60 Tricuspid Valve TR Pk Jn: 2.54 TR Pk Grad: 26.00 Great Vessels Aorta Sinus of Valsalva: 3.70 2.0-3.[address] [place]: 3.30 1.7-3.4 cm Ao Asc: 3.40 2.1-3.4 cm Pulmonary Valve PV Pk Jn: 0.96 Peak PV Grad: 4.00 Updated in Other Vendor System with Status of Final Tee Farias MD electronically signed on 06/28/2021 12:40:15 PM with status of Final
--- NOTE | 2021-06-28 08:28 | PHA.MEDREC ---
Pharmacy Consult ? Medication Reconciliation Pharmacy has completed the medication reconciliation. Patient states he is only currently taking Lisinopril.
--- NOTE | 2021-06-28 10:20 | PM.CNCAR ---
History of Present Illness History of Present Illness Date of Service: 06/28/21 Chief complaint: CHF Narrative: This is a cardiology consultation regarding congestive heart failure. Patient denies any known cardiac problems including coronary disease or congestive heart failure or in fact anything else cardiac related. It seems that he smokes as well as consumes excessive alcohol. Additionally, he states that he uses heroin nasally. Last doses within the last couple of days. Presentation is because of shortness of breath as well as leg swelling, feeling of distention in the abdomen, weight gain. He is not able to clearly say how long it has been going on for. No clear anginal-type complaints. He has been diagnosed to have possibly congestive heart failure hence we have been asked to see him. Review of Systems Review of Systems: Yes all other systems are reviewed and are negative Cardiovascular: Cardiovascular: Reports as per HPI, Reports no additional cardiovascular complaints, Denies acrocyanosis, Denies cool extremities, Denies chest pain, Denies diaphoresis, Denies syncope, Denies claudication, Reports leg edema, Denies lightheadedness, Denies palpitations and Reports dyspnea Respiratory: Respiratory: Reports dyspnea Neurologic: Denies syncope Endocrine: Endocrine: Denies palpitations [facility] Past Medical History Medical History Depression Heroin abuse Hypertension Family History Pertinent family history: Patient denies any significant cardiac history in the family. Social History Social History Alcohol intake: current Patient Tobacco Use Status: Current everyday Tobacco user Advance Directives: No Meds Allergies Allergy/AdvReac Type Severity Reaction Status Date / Time No Known Allergies Allergy Verified 05/18/20 13:27 Active Medications: Current Medications Acetaminophen (Acetaminophen 325 Mg Tablet) 650 mg PO Q6H PRN PRN Reason: Pain, Mild (Pain Scale 1-3) Enoxaparin Sodium (Enoxaparin Sodium 40 Mg/0.4 Ml Syringe) 40 mg SUBCUT Q24H [facility] Last Admin: 06/28/21 07:33 Dose: 40 mg Documented by: Famotidine (Famotidine 20 Mg Tablet) 20 mg PO BID [facility] Last Admin: 06/28/21 07:33 Dose: 20 mg Documented by: Folic Acid (Folic Acid 1 Mg Tablet) 1 mg PO DAILY [facility] Stop: 07/01/21 08:59 Last Admin: 06/28/21 07:32 Dose: 1 mg Documented by: Furosemide (Furosemide 40 Mg/4 Ml Vial) 40 mg IVPUSH BIDWM [facility]; Protocol Last Admin: 06/28/21 07:33 Dose: 40 mg Documented by: Lisinopril (Lisinopril 20 Mg Tablet) 20 mg PO DAILY [facility]; Protocol Last Admin: 06/28/21 07:33 Dose: 20 mg Documented by: Lorazepam (Lorazepam 1 Mg Tablet) 1 mg PO Q4H PRN PRN Reason: Breakthrough alcohol withdrawa Stop: 07/02/21 05:23 Melatonin (Melatonin 3 Mg Tablet) 6 mg PO BEDTIME PRN PRN Reason: Insomnia Multivitamins/Vitamin C (Multivitamin Tablet) 1 tab PO DAILY [facility] Stop: 07/01/21 08:59 Last Admin: 06/28/21 07:33 Dose: 1 tab Documented by: Nicotine (Nicotine 14 Mg Patch.Td24) 14 mg TRANSDERMA DAILY [facility] Last Admin: 06/28/21 07:32 Dose: 14 mg Documented by: Ondansetron HCl (Ondansetron Hcl 4 Mg/2 Ml Vial) 4 mg IVPUSH Q8H PRN PRN Reason: Nausea and Vomiting Last Admin: 06/28/21 07:50 Dose: 4 mg Documented by: Senna (Sennosides 8.6 Mg Tablet) 17.2 mg PO BEDTIME PRN PRN Reason: Constipation Sodium Chloride (0.9 % Sodium Chloride Flush 3 Ml Syringe) 3 ml IVFLUSH QSHIFT [facility] Last Admin: 06/28/21 07:07 Dose: Not Given Documented by: Thiamine HCl (Thiamine Hcl 100 Mg Tablet) 100 mg PO DAILY [facility] Stop: 07/01/21 08:59 Last Admin: 06/28/21 07:33 Dose: 100 mg Documented by: Home Medications Medication Instructions Recorded Confirmed Last Taken Type lisinopril 20 mg tablet 1 tab PO DAILY 06/28/21 06/28/21 06/28/21 History Physical Exam Vital Signs: Vital Signs: Last Vital Signs Temp 100.3 F 06/28/21 07:16 Pulse 72 06/28/21 07:16 Resp 17 06/28/21 07:16 BP 152/81 H 06/28/21 07:16 Pulse Ox 93 06/28/21 07:16 BMI result Body Mass Index 41.1 Const: General: comfortable HENMT: Other: Unremarkable Neck: Neck: Yes normal visual inspection Chest: Chest palpation & inspection: normal inspection of the chest Resp: Auscultation: clear to auscultation bilaterally Cardio: Palpation: normal PMI Heart sounds: S1 normal heart sound present, S2 normal heart sound present, no gallops, no murmurs and no rubs GI: Palpation (GI): Soft to palpation Back/Spine/Pelvis: Other: unremarkable Skin: Lesions: other Neuro: General: other Extrem: Other: 1+ edema General: Yes other Psych: Mental Status: other Objective Labs and Meds Result diagrams: 06/27/21 22:21 06/27/21 22:21 Lab results: Laboratory Results - last 24 hr 06/27/21 06/27/21 06/28/21 22:21 22:21 01:01 WBC 8.4 RBC 4.42 L Hgb 14.3 Hct 43.8 MCV 99.1 H MCH 32.4 MCHC 32.6 RDW 14.3 Plt Count 163 MPV 9.9 Immature Gran % (Auto) 0.5 H Neut % (Auto) 76.6 H Lymph % (Auto) 15.8 L [place] % (Auto) 5.3 Eos % (Auto) 1.2 Baso % (Auto) 0.6 Lymph # (Auto) 1.3 [place] # (Auto) 0.5 Eos # (Auto) 0.1 Baso # (Auto) 0.1 Abs Immat Gran (auto) 0.04 H Absolute Neuts (auto) 6.5 Absolute Nucleated RBC 0.000 Nucleated RBC % (auto) 0.0 PT 12.7 INR 1.1 APTT 34.2 D-Dimer High Sensitivty Sodium 139 Potassium 4.4 Chloride 100 Carbon Dioxide 31 H Anion Gap 12 BUN 11 Creatinine 0.82 Estim Creat Clear Calc 132.2 Estimated GFR > 60 Random Glucose 114 Calcium 9.0 D Magnesium Total Bilirubin 0.3 AST 73 H ALT 80 H Alkaline Phosphatase 107 Troponin I High Sens B-Natriuretic Peptide Total Protein 7.7 Albumin 3.9 COVID-19 ([facility]) COVID-19 Clin Com 06/28/21 06/28/21 06/28/21 01:01 05:41 07:02 WBC RBC Hgb Hct MCV MCH MCHC RDW Plt Count MPV Immature Gran % (Auto) Neut % (Auto) Lymph % (Auto) [place] % (Auto) Eos % (Auto) Baso % (Auto) Lymph # (Auto) [place] # (Auto) Eos # (Auto) Baso # (Auto) Abs Immat Gran (auto) Absolute Neuts (auto) Absolute Nucleated RBC Nucleated RBC % (auto) PT INR APTT D-Dimer High Sensitivty Sodium Potassium Chloride Carbon Dioxide Anion Gap BUN Creatinine Estim Creat Clear Calc Estimated GFR Random Glucose Calcium Magnesium 1.7 Total Bilirubin AST ALT Alkaline Phosphatase Troponin I High Sens 9.0 B-Natriuretic Peptide 66 Total Protein Albumin COVID-19 ([facility]) Negative COVID-19 Clin Com See Note 06/28/21 07:02 WBC RBC Hgb Hct MCV MCH MCHC RDW Plt Count MPV Immature Gran % (Auto) Neut % (Auto) Lymph % (Auto) [place] % (Auto) Eos % (Auto) Baso % (Auto) Lymph # (Auto) [place] # (Auto) Eos # (Auto) Baso # (Auto) Abs Immat Gran (auto) Absolute Neuts (auto) Absolute Nucleated RBC Nucleated RBC % (auto) PT INR APTT D-Dimer High Sensitivty 220 Sodium Potassium Chloride Carbon Dioxide Anion Gap BUN Creatinine Estim Creat Clear Calc Estimated GFR Random Glucose Calcium Magnesium Total Bilirubin AST ALT Alkaline Phosphatase Troponin I High Sens B-Natriuretic Peptide Total Protein Albumin COVID-19 ([facility]) COVID-19 Clin Com ECG Interpretation: EKG with sinus rhythm at 76; no significant ST-T changes and otherwise unremarkable. Imaging Radiologist's impression: Impressions Abdomen/Pelvis CT 06/28/21 01:40 IMPRESSION: No acute finding in the abdomen or pelvis. Small periumbilical hernia containing a short segment of small bowel. No obstruction or inflammation. Colonic diverticulosis without diverticulitis. Hepatic steatosis. Fleischner guidelines were followed. Chest X-Ray 06/28/21 03:15 IMPRESSION: Central vascular prominence without overt edema. Assessment and Plan (1) Acute congestive heart failure: Status: Acute (2) Essential hypertension: Status: Acute (3) Heroin abuse: Status: Acute Plan Blood pressure is on the higher side but not too high. Currently 152/81 mm Hg. Renal function seems stable. LFTs are abnormal. High sensitivity troponins within range. Cardiac BNP is also within range. Chest x-ray reported to have central vascular prominence without overt edema. He could possibly have right heart dysfunction related to obesity, probable sleep apnea. We could empirically diurese him. Echocardiogram to be obtained. Will follow up with you. Procedures Date of Service Date of Service: 06/28/21
--- NOTE | 2021-06-28 11:07 | PM.EVENT ---
Event Note Date of Service: 06/28/21 Event Note: here with heart failure--continue IV diuretics
--- NOTE | 2021-06-28 11:46 | MHC.CM.PN ---
pt in ed called and spoke with pts who he lives with,she explions that pt was coming to op support for his etoh ..but astopped he is vax x 3 she will bring hi mho me when dcd
--- NOTE | 2021-06-28 17:52 | PC.NURSE ---
Pt is alert and oriented, abdomen is distended, BLE swollen. pt resting in hospital bed. RN went in to take pts vitals and give pt his IV lasix pts O2 sat found to be 75% on room air. Pt placed on 4L O2 via nasal cannula with positve effect O2sat 98%. Dr. Mathias made aware via tigertext with no response to follow. Pt also requesting something to help hime with detox because he is an active heroin user. Dr. Mathias made aware and RN awaiting further orders.
--- NOTE | 2021-06-28 20:00 | PM.EVENT ---
Event Note Date of Service: 06/28/21 Event Note: ETOH withdrawal: pt scoring 12 on CIWA s/w phenobarb protocol; discontinued Ativan. Opiate abuse: Clonidine prn; Addiction medicine consult. COWS protocol.
[2021-06-28] MEDS: PHENobarbitaL sodium 130 MG/ML VIAL 283 MG IM (21:20)
[2021-06-28] MEDS: PHENobarbitaL sodium 130 MG/ML VIAL 212 MG IM (23:41)
--- NOTE | 2021-06-29 00:03 | PC.NURSE ---
Pt medicated per JUN. Pt tolerated well Pt states complete relief from nausea and JUÁREZ Denies any aches Denies any hallucinations Will continue to monitor
[2021-06-29 00:04] VITALS: PULSE 85
[2021-06-29] MEDS: PHENobarbitaL sodium 130 MG/ML VIAL 212 MG IM (03:17)
[2021-06-29 04:00] VITALS: BP 110/56; PULSE 68; RESP 16; TEMP 36.2; O2SAT 95
[2021-06-29 04:56] LABS: MANUAL DIFF FLAG NO
[2021-06-29 04:59] LABS: Basophils Percent Auto 0.3 % (0-2); Eosinophils Absolute Auto 0.1 X10*3/uL (0.0-0.4); Eosinophils Percent Auto 0.5 % (0-4); Hematocrit 44.2 % (42.0-52.0); Hemoglobin 13.9 g/dl (14.0-18.0); Imm Gran Abs Auto 0.03 X10*3/uL (0.00-0.03); Imm Gran Pct Auto 0.3 % (0.0-0.4); Lymphocytes Absolute Auto 1.7 X10*3/uL (1.2-4.9); Lymphocytes Percent Auto 16.4 % (20-40); Mean Corpuscular HGB Conc 31.4 g/dl (31.0-36.0); Mean Corpuscular Hemoglobin 31.9 pg (27.0-33.0); Mean Corpuscular Volume 101.4 fL (80.0-98.0); Mean Platelet Volume 9.7 fL (9.4-12.4); Monocytes Absolute Auto 0.9 X10*3/uL (0.1-1.2); Monocytes Percent Auto 8.6 % (2-11); Neutrophils Absolute Auto 7.9 x10*3/uL (2.0-8.3); Neutrophils Percent Auto 73.9 % (45-73); Platelet Count 164 X10*3/uL (160-400); Red Blood Count 4.36 X10*6/uL (4.60-5.80); Red Cell Distribution Width 14.5 % (11.0-16.0); White Blood Count 10.6 X10*3/uL (4.8-10.8)
[2021-06-29 05:17] LABS: Anion Gap 13 (12-20); Blood Urea Nitrogen 21 mg/dL (9-16); Calcium 9.4 mg/dL (8.4-10.2); Carbon Dioxide 34 mmol/L (22-29); Chloride 96 mmol/L (96-108); Creatinine Clr Calc Pharmacy 56.4; Estimated Glomerular Filt Rate 36; Glucose Random 126 mg/dL (60-115); Potassium 4.3 mmol/L (3.3-5.1); Sodium 139 mmol/L (135-145)
[2021-06-29 08:25] VITALS: BP 131/56; PULSE 77; RESP 13; TEMP 36.3; O2SAT 92
[2021-06-29] MEDS: Folic Acid 1 MG TABLET PO (08:37)
[2021-06-29] MEDS: Famotidine 20 MG TABLET PO (08:37)
[2021-06-29] MEDS: PHENobarbitaL 15 MG TABLET 45 MG PO (08:37)
[2021-06-29] MEDS: lisinopriL 20 MG TABLET PO (08:37)
[2021-06-29] MEDS: Enoxaparin Sodium 40 MG/0.4 ML SYRINGE SUBCUT (08:37)
[2021-06-29] MEDS: Multivitamin TABLET 1 TAB PO (08:37)
[2021-06-29] MEDS: Thiamine HCL 100 MG TABLET PO (08:37)
[2021-06-29] MEDS: Furosemide 40 MG/4 ML VIAL IVPUSH (08:38)
[2021-06-29] MEDS: 0.9 % Sodium Chloride Flush 3 ML SYRINGE IVFLUSH (08:38)
[2021-06-29] MEDS: Nicotine 14 MG PATCH.TD24 TRANSDERMA (08:42)
[2021-06-29 08:45] VITALS: BP 149/91; PULSE 79; RESP 20; O2SAT 94
--- NOTE | 2021-06-29 08:49 | PC.NURSE ---
pt alert and oriented, skin appropriate for ethnicity, respirations even and unlabored, pt reports back pain but statues it is do to the bed, prding edema to the lower extremities is improving about +1 at this time, no visible tremer at this time, vs stable, ns on the monitor
[2021-06-29] MEDS: ondansetron HCL 4 MG/2 ML VIAL IVPUSH (10:18)
--- NOTE | 2021-06-29 10:18 | PC.NURSE ---
pt medicated with zofran for nausea
--- NOTE | 2021-06-29 11:16 | PM.DS ---
DS: Providers Provider Date of Service: 06/29/21 Date of admission: 06/28/21 05:21 Primary care physician: Olayinka Shi MD Consults: 06/28/21 05:21 Consult to Cardiology Routine Consulting Provider: Tee Farias Reason for consultation: CHF 06/28/21 19:58 Addiction Medicine Routine Consulting Provider: Elvira Evans Reason for consultation: opiate abuse DS: Diagnosis Discharge Diagnosis (1) Acute congestive heart failure: Status: Resolved (2) Essential hypertension: (3) Heroin abuse: Status: Acute DS: Summary Hospital Course Hospital Course: Chief Complaint: Weight gain 56-year-old male with a past medical history of tobacco dependence, alcohol abuse, anxiety, depression, hypertension presented to the hospital today with a chief complaint of weight gain.? Patient reported that over the past 2-3 weeks he has gained about 20 lb.? Noted swelling in his bilateral legs; also mentioned that he always has abdominal umbilical hernia-denies any abdominal pain; denies any change in his umbilical hernia.? Mentions he has abdominal is distended.? X-ray also complains of shortness of breath especially on exertion and also reports orthopnea but attributes to possible AMANDA.? Mentions he snores a lot.? Having a formal diagnosis of AMANDA. Also reports he has been tired lately. Denies any fever chills cough.? Denies any GI symptoms.? Mentioned that because of the weight pain he went to the clinic today and he was asked to go to the ER for further evaluation. Mentions that he drinks alcohol daily.? Reports he was in alcohol detox in the past.? Denies any history of alcohol withdrawal seizures. Review of all other systems is negative except mentioned above ER course: Per ER team patient's chest x-ray showed conditions; proBNP within normal limits; noted to have significant swelling concern for anasarca; CT abdomen showed no acute intra-abdominal process; noted hepatic steatosis.? Given Lasix 40 mg IV.? Admitted for further management. Hospital course: 56-year-old male with a past medical history of tobacco dependence, alcohol abuse, anxiety, depression, hypertension presented to the hospital today with a chief complaint of weight gain/shortness of breath/orthopnea/tiredness. Admitted for following New onset CHF: Patient reports 21 lb weight gain in 2-3 weeks. Noted have pedal edema; congestion on chest x-ray; abdominal distension noted as well.? Concern for an sulcal.? Liver panel within normal limits CT scan showed hepatic steatosis; no evidence of ascites.? ProBNP within normal limits-probably confounded by obesity. Continue Lasix 40 mg IV b.i.d. Cardiology consult Echocardiogram Daily weights and I's and O's Will obtain a venous duplex EKG nonischemic.? High sensitivity Troponin 9. Shortness of breath:? Likely in the setting of CHF.? Also consult for possible AMANDA versus obesity hypoventilation syndrome.? Patient would benefit pulmonology follow-up/disease sleep studies. D-dimer pending History of hypertension:? Patient was on lisinopril.? Will continue.? Alcohol abuse: Monitor on CIWA protocol with Ativan. -folate and multivitamins. Time Spent with Patient Time attestation: Total time spent providing and/or coordinating discharge services: Discharge coordination time: Greater than 30 minutes Quality: Stroke Does the patient have a stroke diagnosis?: No Physical Exam Vital Signs: Vital Signs: Last Vital Signs Temp 97.3 F 06/29/21 08:25 Pulse 79 06/29/21 08:45 Resp 20 06/29/21 08:45 BP 149/91 H 06/29/21 08:45 Pulse Ox 94 06/29/21 08:45 BMI result Body Mass Index 41.1 DS: Data Data Completed and Pending Labs on day of discharge: Laboratory Results - last 24 hr 06/29/21 06/29/21 04:35 04:35 WBC 10.6 RBC 4.36 L Hgb 13.9 L Hct 44.2 MCV 101.4 H MCH 31.9 MCHC 31.4 RDW 14.5 Plt Count 164 MPV 9.7 Immature Gran % (Auto) 0.3 Neut % (Auto) 73.9 H Lymph % (Auto) 16.4 L [place] % (Auto) 8.6 Eos % (Auto) 0.5 Baso % (Auto) 0.3 Lymph # (Auto) 1.7 [place] # (Auto) 0.9 Eos # (Auto) 0.1 Baso # (Auto) 0.0 Abs Immat Gran (auto) 0.03 Absolute Neuts (auto) 7.9 Absolute Nucleated RBC 0.000 Nucleated RBC % (auto) 0.0 Sodium 139 Potassium 4.3 Chloride 96 Carbon Dioxide 34 H Anion Gap 13 BUN 21 H D Creatinine 1.92 H Estim Creat Clear Calc 56.4 Estimated GFR 36 Random Glucose 126 H Calcium 9.4 Discharge Plan Discharge Anticipated Discharge Date/Time: 06/29/21 11:03 Patient Disposition: Home, Self-Care Discharge Diagnosis: Acute on chronic heart failure Referrals: Name,MD Olayinka [Primary Care Provider] - 1 Week Discharge Medications: Continued lisinopril 20 mg tablet 1 tab PO DAILY 0RF Discharge Orders: Discharge Order (Routine); Ordered 07/16/21 Ordered By: Antony Mathias Diet: advance to usual diet Activity on Discharge: As tolerated Stand Alone Forms: Patient Portal Discharge page Care Plan Goals: Control of heart failure, avoid rehospitalization Health Concerns: congestive heart failure, cocaine use Plan of Treatment: Take all your medications as directed and avoid cocaine use Assessment: as above Discharge Date/Time: 06/29/21 17:55
--- NOTE | 2021-06-29 11:28 | MHC.CM.PN ---
pt dcd home no skilled services ordered by
--- NOTE | 2021-06-29 11:38 | PM.PNCARD ---
Subjective Subjective Date of Service: 06/29/21 Interval history: He states that he feels well. No specific complaints. Review of Systems Review of Systems Yes all other systems are reviewed and are negative Cardiovascular: Reports as per HPI, Reports no additional cardiovascular complaints, Denies acrocyanosis, Denies cool extremities, Denies chest pain, Denies diaphoresis, Denies syncope, Denies claudication, Denies leg edema, Denies lightheadedness, Denies palpitations and Denies dyspnea Respiratory: Denies dyspnea Denies syncope Endocrine: Denies palpitations Physical Exam Vital Signs: Last Vital Signs Temp 97.3 F 06/29/21 08:25 Pulse 79 06/29/21 08:45 Resp 20 06/29/21 08:45 BP 149/91 H 06/29/21 08:45 Pulse Ox 94 06/29/21 08:45 BMI result Body Mass Index 41.1 Const General: comfortable HENMT Other: Unremarkable Neck Neck: Yes normal visual inspection Chest Chest palpation & inspection: normal inspection of the chest Resp Auscultation: clear to auscultation bilaterally Cardio Palpation: normal PMI Heart sounds: S1 normal heart sound present, S2 normal heart sound present, no gallops, no murmurs and no rubs GI Palpation (GI): Soft to palpation Back/Spine/Pelvis Other: unremarkable Skin Lesions: other Neuro General: other Extrem General: Yes other Psych Mental Status: other Objective Labs and Meds Result diagrams: 06/29/21 04:35 06/29/21 04:35 Lab results: Laboratory Results - last 24 hr 06/29/21 06/29/21 04:35 04:35 WBC 10.6 RBC 4.36 L Hgb 13.9 L Hct 44.2 MCV 101.4 H MCH 31.9 MCHC 31.4 RDW 14.5 Plt Count 164 MPV 9.7 Immature Gran % (Auto) 0.3 Neut % (Auto) 73.9 H Lymph % (Auto) 16.4 L [place] % (Auto) 8.6 Eos % (Auto) 0.5 Baso % (Auto) 0.3 Lymph # (Auto) 1.7 [place] # (Auto) 0.9 Eos # (Auto) 0.1 Baso # (Auto) 0.0 Abs Immat Gran (auto) 0.03 Absolute Neuts (auto) 7.9 Absolute Nucleated RBC 0.000 Nucleated RBC % (auto) 0.0 Sodium 139 Potassium 4.3 Chloride 96 Carbon Dioxide 34 H Anion Gap 13 BUN 21 H D Creatinine 1.92 H Estim Creat Clear Calc 56.4 Estimated GFR 36 Random Glucose 126 H Calcium 9.4 Progress Note: A&P Assessment and plan (1) Essential hypertension: Status: Acute (2) Heroin abuse: Status: Acute (3) Alcohol abuse: Status: Acute (4) NAIN (acute kidney injury): Status: Acute Plan Based on echocardiogram as well as cardiac BNP, no evidence of any heart failure. Probably all from excessive drinking as well as heroin use. His creatinine is also bumped since arrival. Hence we can hold off on diuretics. Also hold lisinopril and consider some IV fluids. Strongly counseled patient about cutting back on alcohol as well as not using heroin. 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 Discussed with Dr. Mathias. Fall Risk Details Current Medications: Current Medications Acetaminophen (Acetaminophen 325 Mg Tablet) 650 mg PO Q6H PRN PRN Reason: Pain, Mild (Pain Scale 1-3) Clonidine HCl (Clonidine Hcl 0.1 Mg Tablet) 0.1 mg PO BID PRN; Protocol PRN Reason: Anxiety Enoxaparin Sodium (Enoxaparin Sodium 40 Mg/0.4 Ml Syringe) 40 mg SUBCUT Q24H [facility] Last Admin: 06/29/21 08:37 Dose: 40 mg Documented by: Famotidine (Famotidine 20 Mg Tablet) 20 mg PO BID [facility] Last Admin: 06/29/21 08:37 Dose: 20 mg Documented by: Folic Acid (Folic Acid 1 Mg Tablet) 1 mg PO DAILY [facility] Stop: 07/01/21 08:59 Last Admin: 06/29/21 08:37 Dose: 1 mg Documented by: Furosemide (Furosemide 40 Mg/4 Ml Vial) 40 mg IVPUSH BIDWM [facility]; Protocol Last Admin: 06/29/21 08:38 Dose: 40 mg Documented by: Lisinopril (Lisinopril 20 Mg Tablet) 20 mg PO DAILY [facility]; Protocol Last Admin: 06/29/21 08:37 Dose: 20 mg Documented by: Medication (No Benzodiazepines) 1 each MISCELLANE DAILY [facility] Melatonin (Melatonin 3 Mg Tablet) 6 mg PO BEDTIME PRN PRN Reason: Insomnia Multivitamins/Vitamin C (Multivitamin Tablet) 1 tab PO DAILY [facility] Stop: 07/01/21 08:59 Last Admin: 06/29/21 08:37 Dose: 1 tab Documented by: Nicotine (Nicotine 14 Mg Patch.Td24) 14 mg TRANSDERMA DAILY [facility] Last Admin: 06/29/21 08:42 Dose: 14 mg Documented by: Ondansetron HCl (Ondansetron Hcl 4 Mg/2 Ml Vial) 4 mg IVPUSH Q8H PRN PRN Reason: Nausea and Vomiting Last Admin: 06/29/21 10:18 Dose: 4 mg Documented by: Phenobarbital (Phenobarbital 15 Mg Tablet) 45 mg PO BID [facility] Stop: 06/30/21 21:01 Last Admin: 06/29/21 08:37 Dose: 45 mg Documented by: Phenobarbital (Phenobarbital 15 Mg Tablet) 15 mg PO BID [facility] Stop: 07/02/21 21:01 Phenobarbital (Phenobarbital 15 Mg Tablet) 15 mg PO DAILY [facility] Stop: 07/04/21 09:01 Senna (Sennosides 8.6 Mg Tablet) 17.2 mg PO BEDTIME PRN PRN Reason: Constipation Sodium Chloride (0.9 % Sodium Chloride Flush 3 Ml Syringe) 3 ml IVFLUSH QSHIFT [facility] Last Admin: 06/29/21 08:38 Dose: 3 ml Documented by: Thiamine HCl (Thiamine Hcl 100 Mg Tablet) 100 mg PO DAILY [facility] Stop: 07/01/21 08:59 Last Admin: 06/29/21 08:37 Dose: 100 mg Documented by: Time Spent With Patient Time: Total time spent is greater than 50% in coordination of care (as documented) at patient's floor/unit and/or counseling patient: Time with patient: less than 15 minutes Progress Note: Quality Stroke Does the patient have a stroke diagnosis?: No Procedures Date of Service Date of Service: 06/29/21
--- NOTE | 2021-06-29 12:07 | P.PNIM_ITS ---
Subjective Subjective Date of Service: 06/29/21 Interval History: f/u on heart failure--unclear if heart failure despite leg edema, creatine has nearly double on Lasix Review of Systems no sob no chest pain Physical Exam Vital Signs: Vital Signs: Last Vital Signs Temp 97.3 F 06/29/21 08:25 Pulse 79 06/29/21 08:45 Resp 20 06/29/21 08:45 BP 149/91 H 06/29/21 08:45 Pulse Ox 94 06/29/21 08:45 BMI result Body Mass Index 41.1 Const: Other: General: AO X 3, no acute distress Resp: CTA bilateral CVS: S1,S2,RRR GI: +BS, NT, no distention Skin: No rash Neuro: motor grossly intact Psych: appropriate affect Objective Data Active Medications Acetaminophen (Acetaminophen 325 Mg Tablet) 650 mg PO Q6H PRN PRN Reason: Pain, Mild (Pain Scale 1-3) Clonidine HCl (Clonidine Hcl 0.1 Mg Tablet) 0.1 mg PO BID PRN; Protocol PRN Reason: Anxiety Enoxaparin Sodium (Enoxaparin Sodium 40 Mg/0.4 Ml Syringe) 40 mg SUBCUT Q24H [facility] Last Admin: 06/29/21 08:37 Dose: 40 mg Documented by: TIANA Famotidine (Famotidine 20 Mg Tablet) 20 mg PO BID [facility] Last Admin: 06/29/21 08:37 Dose: 20 mg Documented by: TIANA Folic Acid (Folic Acid 1 Mg Tablet) 1 mg PO DAILY [facility] Stop: 07/01/21 08:59 Last Admin: 06/29/21 08:37 Dose: 1 mg Documented by: TIANA Furosemide (Furosemide 40 Mg/4 Ml Vial) 40 mg IVPUSH BIDWM [facility]; Protocol Last Admin: 06/29/21 08:38 Dose: 40 mg Documented by: TIANA Sodium Chloride (Ns) 1,000 mls @ 100 mls/hr IVCONT .Q10H [facility] Lisinopril (Lisinopril 20 Mg Tablet) 20 mg PO DAILY [facility]; Protocol Last Admin: 06/29/21 08:37 Dose: 20 mg Documented by: TIANA Medication (No Benzodiazepines) 1 each MISCELLANE DAILY [facility] Melatonin (Melatonin 3 Mg Tablet) 6 mg PO BEDTIME PRN PRN Reason: Insomnia Multivitamins/Vitamin C (Multivitamin Tablet) 1 tab PO DAILY [facility] Stop: 07/01/21 08:59 Last Admin: 06/29/21 08:37 Dose: 1 tab Documented by: TIANA Nicotine (Nicotine 14 Mg Patch.Td24) 14 mg TRANSDERMA DAILY [facility] Last Admin: 06/29/21 08:42 Dose: 14 mg Documented by: TIANA Ondansetron HCl (Ondansetron Hcl 4 Mg/2 Ml Vial) 4 mg IVPUSH Q8H PRN PRN Reason: Nausea and Vomiting Last Admin: 06/29/21 10:18 Dose: 4 mg Documented by: TIANA Phenobarbital (Phenobarbital 15 Mg Tablet) 45 mg PO BID [facility] Stop: 06/30/21 21:01 Last Admin: 06/29/21 08:37 Dose: 45 mg Documented by: TIANA Phenobarbital (Phenobarbital 15 Mg Tablet) 15 mg PO BID [facility] Stop: 07/02/21 21:01 Phenobarbital (Phenobarbital 15 Mg Tablet) 15 mg PO DAILY [facility] Stop: 07/04/21 09:01 Senna (Sennosides 8.6 Mg Tablet) 17.2 mg PO BEDTIME PRN PRN Reason: Constipation Sodium Chloride (0.9 % Sodium Chloride Flush 3 Ml Syringe) 3 ml IVFLUSH QSHIFT [facility] Last Admin: 06/29/21 08:38 Dose: 3 ml Documented by: TIANA Thiamine HCl (Thiamine Hcl 100 Mg Tablet) 100 mg PO DAILY [facility] Stop: 07/01/21 08:59 Last Admin: 06/29/21 08:37 Dose: 100 mg Documented by: TIANA Labs CBC & Chem 7: 06/29/21 04:35 06/29/21 04:35 Labs: Laboratory Results - last 24 hr 06/29/21 06/29/21 04:35 04:35 MCV 101.4 H MCH 31.9 MCHC 31.4 RDW 14.5 Plt Count 164 MPV 9.7 Immature Gran % (Auto) 0.3 Neut % (Auto) 73.9 H Lymph % (Auto) 16.4 L [place] % (Auto) 8.6 Eos % (Auto) 0.5 Baso % (Auto) 0.3 Lymph # (Auto) 1.7 [place] # (Auto) 0.9 Eos # (Auto) 0.1 Baso # (Auto) 0.0 Abs Immat Gran (auto) 0.03 Absolute Neuts (auto) 7.9 Absolute Nucleated RBC 0.000 Nucleated RBC % (auto) 0.0 Anion Gap 13 Estim Creat Clear Calc 56.4 Estimated GFR 36 Random Glucose 126 H Calcium 9.4 Assessment and Plan (1) NAIN (acute kidney injury): Status: Acute (2) Alcohol abuse: Status: Acute (3) Heroin abuse: Status: Acute Plan 56-year-old male with a past medical history of tobacco dependence, alcohol abuse, anxiety, depression, hypertension presented to the hospital today with a chief complaint of weight gain/shortness of breath/orthopnea/tiredness. Admitted for following Leg edema--no clear evidence of heart failure and worse renal function with diuretics.. Stop Lasix, and monitor NAIN likely from Lasix and Lisinpril. DC Lasix, hold Lisinopril and give IVF History of hypertension:? Hold lisinopril for now Alcohol abuse: Monitor on CIWA protocol with Ativan. -folate and multivitamins. cocaine use --advised to stop Neep for inaptient: NAIN that needs IV fluid and further monitoring DVT prophylaxis:? Lovenox Code status:? Full code Quality Stroke Does the patient have a stroke diagnosis?: No VTE Prior VTE?: No VTE Risk Level:: Medical - moderate - high VTE Device Contraindication: Treatment Not Indicated VTE Drug Contraindication: N/A - Med Ordered
[2021-06-29 13:09] VITALS: BP 144/82; PULSE 77; RESP 13; O2SAT 95
[2021-06-29] MEDS: 0.9 % Sodium Chloride 1,000 ML 100 ML IVCONT (13:20)
--- NOTE | 2021-06-29 16:46 | HO.ADDICT_ITS ---
History of Present Illness Date of Service: 06/29/2021 Chief Complaint: CHF Reason for Consult: opioid use Requesting physician: Jose Kelly Sources of Information: patient interviewed and chart reviewed HPI Narrative: Patient is a 56 year old Hebrew speaking male with alcohol use disorder currently medically admitted with acute CHF. Consult requested as patient reported heroin use. Patient seen in overflow room 1.He was awake, alert, pleasant and engaged in interview. He reports significant alcohol use, I start at 6am and stop at 7pm --several beers, nips and 1/2-1 litre of vodka. He is currently receiving phenobarb per protocol. Regarding opioid use he states he has been using on and off for about 20 years, but withing the last 1-2 years he has started using with more regularity. Difficult to determine amount of use as he provided several different answers ranging from 1-2 bags IN to 15bags IN everyday. Also inconsistent reporting last use, initially states 3 days prior to ED visit, then stating right before ED visit. COWS was ordered overnight and score of 2 obtained. When seen by this bid writer he reported nausea, but denied any other withdrawal sx including anxiety, restlessness, chills, diaphoresis, loose stools, yawning, runny nose or teary eyes. None observed by this bid writer either. Patient stating that he would like to initiate methadone and had presented to [facility] in the past, but was declined admission due to alcohol use. He has been prescribed suboxone--most recently January 2021, but reports that he is unable to maintain recovery with this medication. Reports occasional cocaine use. Review of Systems Constitutional: Reports as per HPI and Reports no additional constitutional com plaints Diagnostics Vital Signs (24Hr): Vital Signs - 24 hr 06/28/21 17:22 06/28/21 21:22 06/28/21 23:42 Temperature 98.6 F Pulse Rate 87 82 85 Respiratory Rate 20 18 20 Blood Pressure 157/92 H 136/81 139/95 H Pulse Oximetry 94 99 91 L 06/29/21 04:00 06/29/21 08:25 06/29/21 08:45 Temperature 97.2 F 97.3 F Pulse Rate 68 77 79 Respiratory Rate 16 13 20 Blood Pressure 110/56 L 131/56 L 149/91 H Pulse Oximetry 95 92 94 06/29/21 13:09 Temperature Pulse Rate 77 Respiratory Rate 13 Blood Pressure 144/82 H Pulse Oximetry 95 BMI result Body Mass Index 41.1 Labs Results: 06/29/21 04:35 06/29/21 04:35 Labs: Laboratory Results - last 48 hr 06/27/21 06/27/21 06/28/21 22:21 22:21 01:01 WBC 8.4 RBC 4.42 L Hgb 14.3 Hct 43.8 MCV 99.1 H MCH 32.4 MCHC 32.6 RDW 14.3 Plt Count 163 MPV 9.9 Immature Gran % (Auto) 0.5 H Neut % (Auto) 76.6 H Lymph % (Auto) 15.8 L [place] % (Auto) 5.3 Eos % (Auto) 1.2 Baso % (Auto) 0.6 Lymph # (Auto) 1.3 [place] # (Auto) 0.5 Eos # (Auto) 0.1 Baso # (Auto) 0.1 Abs Immat Gran (auto) 0.04 H Absolute Neuts (auto) 6.5 Absolute Nucleated RBC 0.000 Nucleated RBC % (auto) 0.0 PT 12.7 INR 1.1 APTT 34.2 D-Dimer High Sensitivty Sodium 139 Potassium 4.4 Chloride 100 Carbon Dioxide 31 H Anion Gap 12 BUN 11 Creatinine 0.82 Estim Creat Clear Calc 132.2 Estimated GFR > 60 Random Glucose 114 Calcium 9.0 D Magnesium Total Bilirubin 0.3 AST 73 H ALT 80 H Alkaline Phosphatase 107 Troponin I High Sens B-Natriuretic Peptide Total Protein 7.7 Albumin 3.9 COVID-19 ([facility]) COVID-19 Clin Com 06/28/21 06/28/21 06/28/21 01:01 05:41 07:02 WBC RBC Hgb Hct MCV MCH MCHC RDW Plt Count MPV Immature Gran % (Auto) Neut % (Auto) Lymph % (Auto) [place] % (Auto) Eos % (Auto) Baso % (Auto) Lymph # (Auto) [place] # (Auto) Eos # (Auto) Baso # (Auto) Abs Immat Gran (auto) Absolute Neuts (auto) Absolute Nucleated RBC Nucleated RBC % (auto) PT INR APTT D-Dimer High Sensitivty Sodium Potassium Chloride Carbon Dioxide Anion Gap BUN Creatinine Estim Creat Clear Calc Estimated GFR Random Glucose Calcium Magnesium 1.7 Total Bilirubin AST ALT Alkaline Phosphatase Troponin I High Sens 9.0 B-Natriuretic Peptide 66 Total Protein Albumin COVID-19 ([facility]) Negative COVID-19 Clin Com See Note 06/28/21 06/29/21 06/29/21 07:02 04:35 04:35 WBC 10.6 RBC 4.36 L Hgb 13.9 L Hct 44.2 MCV 101.4 H MCH 31.9 MCHC 31.4 RDW 14.5 Plt Count 164 MPV 9.7 Immature Gran % (Auto) 0.3 Neut % (Auto) 73.9 H Lymph % (Auto) 16.4 L [place] % (Auto) 8.6 Eos % (Auto) 0.5 Baso % (Auto) 0.3 Lymph # (Auto) 1.7 [place] # (Auto) 0.9 Eos # (Auto) 0.1 Baso # (Auto) 0.0 Abs Immat Gran (auto) 0.03 Absolute Neuts (auto) 7.9 Absolute Nucleated RBC 0.000 Nucleated RBC % (auto) 0.0 PT INR APTT D-Dimer High Sensitivty 220 Sodium 139 Potassium 4.3 Chloride 96 Carbon Dioxide 34 H Anion Gap 13 BUN 21 H D Creatinine 1.92 H Estim Creat Clear Calc 56.4 Estimated GFR 36 Random Glucose 126 H Calcium 9.4 Magnesium Total Bilirubin AST ALT Alkaline Phosphatase Troponin I High Sens B-Natriuretic Peptide Total Protein Albumin COVID-19 ([facility]) COVID-19 Clin Com Imaging Radiology Impressions: ITS Impressions Abdomen/Pelvis CT 06/28/21 01:40 IMPRESSION: No acute finding in the abdomen or pelvis. Small periumbilical hernia containing a short segment of small bowel. No obstruction or inflammation. Colonic diverticulosis without diverticulitis. Hepatic steatosis. Fleischner guidelines were followed. Chest X-Ray 06/28/21 03:15 IMPRESSION: Central vascular prominence without overt edema. Mental Status Exam Mental Status Exam Patient Appearance: Appropriate (distnended abdomen ) Patient Orientation: Person, Place, Time and Situation Level of Consciousness: Awake, Appropriate and Alert Mood Description: Relaxed Affect Description: Appropriate and Relaxed Speech Pattern: Clear Thought Process: Goal Oriented Thought Content: positive for Goal Oriented Judgement: Fair Medications Medications Current Medications Acetaminophen (Acetaminophen 325 Mg Tablet) 650 mg PO Q6H PRN PRN Reason: Pain, Mild (Pain Scale 1-3) Clonidine HCl (Clonidine Hcl 0.1 Mg Tablet) 0.1 mg PO BID PRN; Protocol PRN Reason: Anxiety Enoxaparin Sodium (Enoxaparin Sodium 40 Mg/0.4 Ml Syringe) 40 mg SUBCUT Q24H [facility] Last Admin: 06/29/21 08:37 Dose: 40 mg Documented by: Famotidine (Famotidine 20 Mg Tablet) 20 mg PO BID [facility] Last Admin: 06/29/21 08:37 Dose: 20 mg Documented by: Folic Acid (Folic Acid 1 Mg Tablet) 1 mg PO DAILY [facility] Stop: 07/01/21 08:59 Last Admin: 06/29/21 08:37 Dose: 1 mg Documented by: Furosemide (Furosemide 40 Mg/4 Ml Vial) 40 mg IVPUSH BIDWM [facility]; Protocol Last Admin: 06/29/21 08:38 Dose: 40 mg Documented by: Sodium Chloride (Ns) 1,000 mls @ 100 mls/hr IVCONT .Q10H [facility] Last Admin: 06/29/21 13:20 Dose: 100 mls/hr Documented by: Medication (No Benzodiazepines) 1 each MISCELLANE DAILY [facility] Melatonin (Melatonin 3 Mg Tablet) 6 mg PO BEDTIME PRN PRN Reason: Insomnia Multivitamins/Vitamin C (Multivitamin Tablet) 1 tab PO DAILY [facility] Stop: 07/01/21 08:59 Last Admin: 06/29/21 08:37 Dose: 1 tab Documented by: Nicotine (Nicotine 14 Mg Patch.Td24) 14 mg TRANSDERMA DAILY [facility] Last Admin: 06/29/21 08:42 Dose: 14 mg Documented by: Ondansetron HCl (Ondansetron Hcl 4 Mg/2 Ml Vial) 4 mg IVPUSH Q8H PRN PRN Reason: Nausea and Vomiting Last Admin: 06/29/21 10:18 Dose: 4 mg Documented by: Phenobarbital (Phenobarbital 15 Mg Tablet) 45 mg PO BID [facility] Stop: 06/30/21 21:01 Last Admin: 06/29/21 08:37 Dose: 45 mg Documented by: Phenobarbital (Phenobarbital 15 Mg Tablet) 15 mg PO BID [facility] Stop: 07/02/21 21:01 Phenobarbital (Phenobarbital 15 Mg Tablet) 15 mg PO DAILY [facility] Stop: 07/04/21 09:01 Senna (Sennosides 8.6 Mg Tablet) 17.2 mg PO BEDTIME PRN PRN Reason: Constipation Sodium Chloride (0.9 % Sodium Chloride Flush 3 Ml Syringe) 3 ml IVFLUSH QSHIFT [facility] Last Admin: 06/29/21 08:38 Dose: 3 ml Documented by: Thiamine HCl (Thiamine Hcl 100 Mg Tablet) 100 mg PO DAILY [facility] Stop: 07/01/21 08:59 Last Admin: 06/29/21 08:37 Dose: 100 mg Documented by: Allergies Allergies Allergy/AdvReac Type Severity Reaction Status Date / Time No Known Allergies Allergy Verified 05/18/20 13:27 Assessment & Plan Assessment & Plan (1) Alcohol use disorder, severe, dependence: Status: Acute Code(s): F10.20 - Alcohol dependence, uncomplicated Assessment and Plan: * still receiving phenobarb * ? of OUD. Currently not showing any signs or symptoms of opioid withdrawal. Continue to monitor COWS. If he begins to score on the COWS, may administer 10mg methadone and reassess need for additional dose * UDS ordered. * Will follow up in AM I spent _50 minutes with the patient and/or on the patient floor today, greater than?50% of which was spent counseling/coordinating care. PMFSH Past Medical History Medical History Depression Heroin abuse Hypertension Social History Social History Alcohol intake: current Patient Tobacco Use Status: Current everyday Tobacco user Use of substances other than those prescribed or required for medical reasons: Yes Substance Use Type: Heroin Advance Directives: No service: No
[2021-06-29 17:20] VITALS: BP 142/75; PULSE 82; RESP 12; TEMP 36.7; O2SAT 93
== END 2021-06-29 17:55 | disposition home or self-care (01) | DRG 469 ==
LOC: HO.ED 06-28 03:37 → HO.EDOVER 06-28 05:26
PROVIDERS: Admitting Provider Hospitalist; Emergency Provider Emergency Medicine; PCP Internal Medicine Geriatric Medicine; Visit Provider Internal Medicine
DX: N17.9 Acute kidney failure, unspecified (principal); E66.2 Morbid (severe) obesity with alveolar hypoventilation; I10 Essential (primary) hypertension; F32.A Depression, unspecified; F11.10 Opioid abuse, uncomplicated; F17.210 Nicotine dependence, cigarettes, uncomplicated; T50.1X5A Adverse effect of loop [high-ceiling] diuretics, initial encounter; T46.4X5A Adverse effect of angiotensin-converting-enzyme inhibitors, initial encounter; F41.9 Anxiety disorder, unspecified; Z68.41 Body mass index [BMI] 40.0-44.9, adult; F10.10 Alcohol abuse, uncomplicated; Z20.822 Contact with and (suspected) exposure to COVID-19; Z71.6 Tobacco abuse counseling; Z79.899 Other long term (current) drug therapy
CPT/HCPCS: 36415; 71045; 74176; 80048; 80053; 83735; 83880; 84484; 85025; 85379; 85610; 85730; 87635; 93005; 93306; 96374; 99285; J1650; J1940; J2405; J2560

== ENCOUNTER 2022-02-17 17:46 | Inpatient (IN) | payer MEDICAID, SELFPAY ==
--- NOTE | ~2022-02-17 | XR_ITS ---
EXAMINATION: XR CHEST CLINICAL INFORMATION: Shortness of breath COMPARISON: Chest x-ray June 2021 TECHNIQUE: Frontal view of the chest was obtained. FINDINGS: No significant abnormality is noted involving the heart, lungs, mediastinum, bony thorax or soft tissues. XR/XR chest 1V IMPRESSION: Unremarkable examination.
[2022-02-17 18:09] VITALS: BP 122/65; PULSE 82; RESP 22; TEMP 36.6; O2SAT 90; BMI 53.9
[2022-02-17 18:15] VITALS: O2SAT 96
[2022-02-17 18:29] LABS: MANUAL DIFF FLAG NO
[2022-02-17 18:30] LABS: Basophils Absolute Auto 0.1 X10*3/uL (0.0-0.2); Basophils Percent Auto 0.4 % (0-2); Eosinophils Absolute Auto 0.1 X10*3/uL (0.0-0.4); Eosinophils Percent Auto 0.5 % (0-4); Hematocrit 43.8 % (42.0-52.0); Hemoglobin 14.3 g/dl (14.0-18.0); Imm Gran Abs Auto 0.04 X10*3/uL (0.00-0.03); Imm Gran Pct Auto 0.3 % (0.0-0.4); Lymphocytes Absolute Auto 1.8 X10*3/uL (1.2-4.9); Lymphocytes Percent Auto 12.2 % (20-40); Mean Corpuscular HGB Conc 32.6 g/dl (31.0-36.0); Mean Corpuscular Hemoglobin 32.9 pg (27.0-33.0); Mean Corpuscular Volume 100.7 fL (80.0-98.0); Mean Platelet Volume 9.4 fL (9.4-12.4); Monocytes Absolute Auto 0.8 X10*3/uL (0.1-1.2); Monocytes Percent Auto 5.6 % (2-11); Neutrophils Absolute Auto 11.9 x10*3/uL (2.0-8.3); Platelet Count 198 X10*3/uL (160-400); Red Blood Count 4.35 X10*6/uL (4.60-5.80); Red Cell Distribution Width 13.8 % (11.0-16.0); White Blood Count 14.7 X10*3/uL (4.8-10.8)
[2022-02-17 18:42] LABS: Anion Gap 19 (12-20); Blood Urea Nitrogen 8 mg/dL (9-16); Calcium 8.7 mg/dL (8.4-10.2); Carbon Dioxide 27 mmol/L (22-29); Chloride 96 mmol/L (96-108); Creatinine Clr Calc Pharmacy 121.3; Estimated Glomerular Filt Rate > 60; Glucose Random 123 mg/dL (60-115); Potassium 4.1 mmol/L (3.3-5.1); Sodium 138 mmol/L (135-145)
[2022-02-17 18:43] LABS: COVID-19 Test Negative (Negative)
[2022-02-17 18:49] LABS: B Type Natriuretic Peptide 77 pg/mL (<100)
--- NOTE | 2022-02-17 23:30 | ED_ITS ---
HPI - General Adult General Chief complaint: General Medical Stated complaint: cellulitis in legs, pain, cant walk Time Seen by Provider: 02/17/22 23:00 Source: patient and family Mode of arrival: ambulatory Limitations: no limitations History of Present Illness HPI narrative: Patient comes to the emergency room complaining of left lower extremity pain, redness and more swelling than usual. Patient does have history of CHF. Denies fever chills. Patient reports that he has noticed blisters in his feet. Mariam francois did not want to come to the emergency room but his made him come. The patient's reports that the patient is not compliant with his medications. He does take some of his medications intermittently, skips days at the time. Related Data Home Medications Medication Instructions Recorded Confirmed lisinopril 20 mg tablet 1 tab PO DAILY 06/28/21 06/28/21 Allergies Allergy/AdvReac Type Severity Reaction Status Date / Time No Known Allergies Allergy Verified 05/18/20 13:27 Review of Systems Review of Systems: Constitutional : No Weight loss, No Fever, No Chills, No Night Sweats, No Fatigue, No Malaise ENT/Mouth : No Hearing loss, No Ear Pain, No Nasal Congestion, No Sinus Pain, No Hoarseness, No sore throat, No Rhinorrhea, No Swallowing Difficulty Eyes: No Eye Pain, No Swelling, No Redness, No Foreign Body, No Discharge, No Vision Changes Cardiovascular : No Chest Pain, No SOB, No Dyspnea on Exertion, No Orthopnea, No Edema, No Palpitations Respiratory : No Cough, No Sputum, No Wheezing, No Smoke Exposure, No Dyspnea Gastrointestinal : No Nausea, No Vomiting, No Diarrhea, No Constipation, No abdominal Pain, No Hematochezia, No Melena Genitourinary : no irregular bleeding, No Dysuria, No Urinary Frequency, No Hematuria, No Urinary Incontinence, No Urgency, No Flank Pain, No Urinary Flow Changes, No Hesitancy Musculoskeletal : No joint pain, No Myalgias, No Joint Swelling Skin : Complaining of lower extremities skin erythema, pain to palpation, warm lower extremities Neuro : No Weakness, No Numbness, No Paresthesias, No Loss of Consciousness, No Dizziness, No Headache Psych : No Anxiety/Panic, No Depression, No SI/HI/AH/VH, No Social Issues, Heme/Lymph: No Bruising, No Bleeding,No Lymphadenopathy Endocrine : No Polyuria, No Polydipsia, No Temperature Intolerance PENDING SALE TO [facility] Past Medical History Medical History CHF (congestive heart failure) Depression Edema Essential hypertension Heroin abuse Hypertension Social History Social History Alcohol intake: current Alcohol intake frequency: a few times a week Alcohol type: beer Patient Tobacco Use Status: Current everyday Tobacco user Smoked in Last 30 Days: Yes Use of substances other than those prescribed or required for medical reasons: Yes Substance Use Type: Heroin Substance Use Frequency: Occasionally Last Used Substance: Hours (ago) Advance Directives: No Advance Directives Information Provided: No service: No Physical Exam ED Vital Signs: Vital Signs - 24 hr 02/17/22 18:09 02/17/22 18:15 Temperature 97.9 F Pulse Rate 82 Respiratory Rate 22 H Blood Pressure 122/65 Pulse Oximetry 90 L 96 Oxygen Delivery Method Room Air Nasal Cannula Oxygen Flow Rate 2 BMI result Body Mass Index 53.9 Const Other: Appearance: Alert. Oriented X3. No acute distress. Eyes: Pupils equal, round and reactive to light. ENT: Pharynx normal. Neck: Normal inspection. Neck supple. No lymph nodes noted. No crepitus CVS: Normal heart rate and rhythm. Pulses normal. Normal S1 and S2 Respiratory: No respiratory distress. Breath sounds normal. No Wheezing. No rales Abdomen: Soft and nontender. No rigidity. No distention. Skin: Skin warm and dry. See extremities below Extremities: Bilateral +3 pitting edema, erythema present from toes to below the knee, painful to palpation, warm to touch Neuro: Oriented X 3. No motor deficit. No sensory deficit. Moving all extremities. No slurred speech. CN 2 through 12 grossly intact Psych: calm, cooperative, normal affect Course Course Course Narrative: I discussed with the patient on his the labs. I discussed with the patient that we could increase his Lasix and also he could start antibiotics. However, the patient's states that she is very concerned that the patient is not compliant with medications. She is concerned that the cellulitis might get worse because of the patient's noncompliance and even if the cellulitis gets worse at home, it would be very hard to get him to the hospital. I discussed the above-mentioned with Dr. Turner, we will admit the patient to the hospital. Patient was started on IV cefazolin. Medical Decision Making Lab Data Result diagrams: 02/17/22 18:25 02/17/22 18:25 Labs: Lab Results 02/17/22 02/17/22 02/17/22 Range/Units 18:25 18:25 18:25 WBC 14.7 H (4.8-10.8) X10*3/uL RBC 4.35 L (4.60-5.80) X10*6/uL Hgb 14.3 (14.0-18.0) g/dl Hct 43.8 (42.0-52.0) % MCV 100.7 H (80.0-98.0) fL MCH 32.9 (27.0-33.0) pg MCHC 32.6 (31.0-36.0) g/dl RDW 13.8 (11.0-16.0) % Plt Count 198 (160-400) X10*3/uL MPV 9.4 (9.4-12.4) fL Immature Gran % (Auto) 0.3 (0.0-0.4) % Neut % (Auto) 81.0 H (45-73) % Lymph % (Auto) 12.2 L (20-40) % [place] % (Auto) 5.6 (2-11) % Eos % (Auto) 0.5 (0-4) % Baso % (Auto) 0.4 (0-2) % Lymph # (Auto) 1.8 (1.2-4.9) X10*3/uL [place] # (Auto) 0.8 (0.1-1.2) X10*3/uL Eos # (Auto) 0.1 (0.0-0.4) X10*3/uL Baso # (Auto) 0.1 (0.0-0.2) X10*3/uL Abs Immat Gran (auto) 0.04 H (0.00-0.03) X10*3/uL Absolute Neuts (auto) 11.9 H (2.0-8.3) x10*3/uL Absolute Nucleated RBC 0.000 (0.0-0.012) X10*3/uL Nucleated RBC % (auto) 0.0 (0.0-0.2) /100WBC Sodium 138 (135-145) mmol/L Potassium 4.1 (3.3-5.1) mmol/L Chloride 96 (96-108) mmol/L Carbon Dioxide 27 (22-29) mmol/L Anion Gap 19 (12-20) BUN 8 L D (9-16) mg/dL Creatinine 0.82 (0.5-1.4) mg/dL Estim Creat Clear Calc 121.3 Estimated GFR > 60 Random Glucose 123 H (60-115) mg/dL Calcium 8.7 D (8.4-10.2) mg/dL B-Natriuretic Peptide 77 (<100) pg/mL COVID-19 ([facility]) (Negative) COVID-19 Clin Com 02/17/22 Range/Units 18:25 WBC (4.8-10.8) X10*3/uL RBC (4.60-5.80) X10*6/uL Hgb (14.0-18.0) g/dl Hct (42.0-52.0) % MCV (80.0-98.0) fL MCH (27.0-33.0) pg MCHC (31.0-36.0) g/dl RDW (11.0-16.0) % Plt Count (160-400) X10*3/uL MPV (9.4-12.4) fL Immature Gran % (Auto) (0.0-0.4) % Neut % (Auto) (45-73) % Lymph % (Auto) (20-40) % [place] % (Auto) (2-11) % Eos % (Auto) (0-4) % Baso % (Auto) (0-2) % Lymph # (Auto) (1.2-4.9) X10*3/uL [place] # (Auto) (0.1-1.2) X10*3/uL Eos # (Auto) (0.0-0.4) X10*3/uL Baso # (Auto) (0.0-0.2) X10*3/uL Abs Immat Gran (auto) (0.00-0.03) X10*3/uL Absolute Neuts (auto) (2.0-8.3) x10*3/uL Absolute Nucleated RBC (0.0-0.012) X10*3/uL Nucleated RBC % (auto) (0.0-0.2) /100WBC Sodium (135-145) mmol/L Potassium (3.3-5.1) mmol/L Chloride (96-108) mmol/L Carbon Dioxide (22-29) mmol/L Anion Gap (12-20) BUN (9-16) mg/dL Creatinine (0.5-1.4) mg/dL Estim Creat Clear Calc Estimated GFR Random Glucose (60-115) mg/dL Calcium (8.4-10.2) mg/dL B-Natriuretic Peptide (<100) pg/mL COVID-19 ([facility]) Negative (Negative) COVID-19 Clin Com See Note Critical Care Time Critical Care Time Critical Care Time: Yes Total Critical Care Time: 30 Attestation: I have personally provided critical care time. Time includes review of lab data, radiology results, discussion with consultants, and monitoring for potential decompensation. Intervention performed as documented. Discharge Plan Discharge Clinical Impression: Lower extremity cellulitis Patient Disposition: Admitted As Inpatient Prescriptions: No Action lisinopril 20 mg tablet 1 tab PO DAILY
--- NOTE | 2022-02-17 23:56 | PM.IMHP ---
History of Present Illness Date of Service: 02/17/22 Chief Complaint: leg redness, and swelling 57-year-old male with past medical history of abuse, presents to the hospital with complaints of right lower extremity redness, swelling for the past 1 week. is concerned because she has to use the patient is a very poor patient, he does not take medications, on does not take care while of himself. He reports no fever no chills, reports pain in the right lower extremity that worsened over the past few days. Pt uses 2L of oxygen at home- states his doctor started him on it because he was SOB. Denies hx of COPD or heart ds. On review of EMR- it seems pt placed on O2 for ROJAS, pending pulm eval. Denies any chest pain, no shortness of breath, no headache or change in vision, no abdominal pain, no urinary symptoms. On arrival to the ED patient hemodynamically stable with no significant abnormal vitals except for slightly elevated respiratory rate of 22 Labs are significant for WBC count of 14.7, AST of 93, ALT of 72, alk-phos of 182 , BNP of 77, Patient's started on IV antibiotics will be admitted for further management Review of Systems Review of Systems: Yes all other systems are reviewed and are negative [facility] Medical History (Updated 02/18/22 @ 06:27 by Houston Campbell MD) CHF (congestive heart failure) Depression Edema Essential hypertension Heroin abuse Hypertension Family History (Updated 02/18/22 @ 06:27 by Houston Campbell MD) Other No family history of coronary artery disease Surgical History (Updated 02/18/22 @ 06:27 by Houston Campbell MD) No pertinent past surgical history Social History Alcohol intake: current Alcohol intake frequency: a few times a week Alcohol type: beer Patient Tobacco Use Status: Current everyday Tobacco user Smoked in Last 30 Days: Yes Use of substances other than those prescribed or required for medical reasons: Yes Substance Use Type: Heroin Substance Use Frequency: Occasionally Last Used Substance: Hours (ago) Advance Directives: No Advance Directives Information Provided: No service: No Meds Allergies Allergy/AdvReac Type Severity Reaction Status Date / Time No Known Allergies Allergy Verified 05/18/20 13:27 Active Medications: Current Medications Acetaminophen (Acetaminophen 325 Mg Tablet) 650 mg PO Q6H PRN PRN Reason: Pain, Mild (Pain Scale 1-3) Docusate Sodium (Docusate Sodium 100 Mg Capsule) 100 mg PO DAILY PRN PRN Reason: Constipation Enoxaparin Sodium (Enoxaparin Sodium 40 Mg/0.4 Ml Syringe) 40 mg SUBCUT Q24H [facility] Ondansetron HCl (Ondansetron Hcl 4 Mg/2 Ml Vial) 4 mg IVPUSH Q8H PRN PRN Reason: Nausea and Vomiting Sodium Chloride (0.9 % Sodium Chloride Flush 3 Ml Syringe) 3 ml IVFLUSH QSHIFT [facility] Home Medications Medication Instructions Recorded Confirmed Last Taken Type lisinopril 20 mg tablet 1 tab PO DAILY 06/28/21 02/18/22 06/28/21 History Physical Exam Vital Signs and Narrative: Vital Signs: Last Vital Signs Temp 97.9 F 02/17/22 18:09 Pulse 82 02/17/22 18:09 Resp 22 H 02/17/22 18:09 BP 122/65 02/17/22 18:09 Pulse Ox 96 02/17/22 18:15 O2 Del Method 02/17/22 18:15 O2 Flow Rate 2 02/17/22 18:15 BMI result Body Mass Index 53.9 Const: General: cooperative and no acute distress Orientation/consciousness: patient oriented x3 Eyes: General: appearance normal, both eyes and all related structures Resp: Effort & Inspection: normal respiratory effort Auscultation: clear to auscultation bilaterally Cardio: Rate: regular rate Rhythm: regular rhythm GI: Palpation (GI): Soft to palpation Auscultation: normal bowel sounds Skin: Other: Right lower extremity erythema, warmth, edema, tenderness Neuro: General: patient oriented x3 Cognition (Neuro): normal cognition Extrem: Other: Lower extremities both with nonpitting pedal edema worse on the right General: Yes normal to inspection Results Labs CBC and Chem 7: 02/17/22 18:25 02/17/22 18:25 Labs: Laboratory Results - last 24 hr 02/17/22 02/17/22 02/17/22 18:25 18:25 18:25 MCV 100.7 H MCH 32.9 MCHC 32.6 RDW 13.8 Plt Count 198 MPV 9.4 Immature Gran % (Auto) 0.3 Neut % (Auto) 81.0 H Lymph % (Auto) 12.2 L [place] % (Auto) 5.6 Eos % (Auto) 0.5 Baso % (Auto) 0.4 Lymph # (Auto) 1.8 [place] # (Auto) 0.8 Eos # (Auto) 0.1 Baso # (Auto) 0.1 Abs Immat Gran (auto) 0.04 H Absolute Neuts (auto) 11.9 H Absolute Nucleated RBC 0.000 Nucleated RBC % (auto) 0.0 Anion Gap 19 Estim Creat Clear Calc 121.3 Estimated GFR > 60 Random Glucose 123 H Calcium 8.7 D B-Natriuretic Peptide 77 COVID-19 ([facility]) COVID-19 Clin Com 02/17/22 18:25 MCV MCH MCHC RDW Plt Count MPV Immature Gran % (Auto) Neut % (Auto) Lymph % (Auto) [place] % (Auto) Eos % (Auto) Baso % (Auto) Lymph # (Auto) [place] # (Auto) Eos # (Auto) Baso # (Auto) Abs Immat Gran (auto) Absolute Neuts (auto) Absolute Nucleated RBC Nucleated RBC % (auto) Anion Gap Estim Creat Clear Calc Estimated GFR Random Glucose Calcium B-Natriuretic Peptide COVID-19 ([facility]) Negative COVID-19 Clin Com See Note Assessment and Plan (1) Cellulitis of right leg: Status: Acute (2) Alcohol use disorder, severe, dependence: Status: Acute Plan 57-year-old male with past medical history of heroin as well as alcohol abuse presents to the hospital with complaints of lower extremity redness swelling and tenderness # acute cellulitis of right lower extremity - has erythema, tenderness, warmth, extending all the way to the just below the knee - has leukocytosis - will treat with IV antibiotics - Follow cultures # chronic hypoxic respiratory failure - patient on 2 L of oxygen at baseline - echocardiogram from earlier this year evaluated shows ejection fraction of 60-65% with no systolic or diastolic dysfunction - patient was to be seen by pulmonology for the above - continue oxygen as needed # lower extremity edema - no evidence of CHF - patient has low BNP, is also evaluated by Cardiology back in June and felt that patient does not have any underlying CHF, unlikely related to alcohol and heroin abuse - albumin is normal - SCDs # alcohol abuse - no evidence of withdrawal at this time - reports that he drinks 6 pack every day - will place on CIWa - thiamine and folic acid # hypertension - stable - continue lisinopril DVT prophylaxis: Lovenox Quality Stroke Does the patient have a stroke diagnosis?: No VTE Prior VTE?: No VTE Risk Level:: Medical - moderate - high VTE Device Contraindication: Treatment Not Indicated VTE Drug Contraindication: N/A - Med Ordered
[2022-02-17 23:57] LABS: COVID-19 Test Negative (Negative); IDNOW Serial# 16C4AD1C
[2022-02-17 23:59] LABS: Lactic Acid 1.5 mmol/L (0.5-2.0)
[2022-02-18] MEDS: ondansetron HCL 4 MG/2 ML VIAL IVPUSH ×2 (00:01→23:00)
[2022-02-18] MEDS: Enoxaparin Sodium 40 MG/0.4 ML SYRINGE SUBCUT ×2 (00:01→22:59)
[2022-02-18] MEDS: ceFAZolin Sodium/Dextrose,Iso 2 GM/50 ML PIGGYBACK IV ×2 (00:01→23:00)
[2022-02-18 00:03] LABS: Alanine Aminotransferase 72 U/L (0-40); Albumin Level 3.9 g/dL (3.5-5.0); Alkaline Phosphatase 182 U/L (39-117); Aspartate Amino Transferase 93 U/L (5-37); Bilirubin Direct 0.4 mg/dL (0.0-0.5); Bilirubin Total 0.9 mg/dL (0.0-1.0)
[2022-02-18] MEDS: 0.9 % Sodium Chloride Flush 3 ML SYRINGE IVFLUSH ×3 (01:30→23:17)
[2022-02-18 05:55] VITALS: BP 128/65; PULSE 75; RESP 20; TEMP 37.2; O2SAT 95
[2022-02-18 06:38] LABS: MANUAL DIFF FLAG NO
[2022-02-18 06:41] LABS: Basophils Absolute Auto 0.1 X10*3/uL (0.0-0.2); Basophils Percent Auto 0.4 % (0-2); Eosinophils Absolute Auto 0.2 X10*3/uL (0.0-0.4); Hemoglobin 14.7 g/dl (14.0-18.0); Imm Gran Abs Auto 0.09 X10*3/uL (0.00-0.03); Imm Gran Pct Auto 0.5 % (0.0-0.4); Lymphocytes Absolute Auto 3.3 X10*3/uL (1.2-4.9); Lymphocytes Percent Auto 18.5 % (20-40); Mean Corpuscular Volume 103.4 fL (80.0-98.0); Mean Platelet Volume 9.8 fL (9.4-12.4); Monocytes Absolute Auto 1.2 X10*3/uL (0.1-1.2); Monocytes Percent Auto 6.7 % (2-11); Neutrophils Percent Auto 72.9 % (45-73); Platelet Count 231 X10*3/uL (160-400); Red Blood Count 4.45 X10*6/uL (4.60-5.80); Red Cell Distribution Width 14.1 % (11.0-16.0); White Blood Count 17.8 X10*3/uL (4.8-10.8)
[2022-02-18 06:57] LABS: Anion Gap 19 (12-20); Blood Urea Nitrogen 13 mg/dL (9-16); Calcium 9.1 mg/dL (8.4-10.2); Carbon Dioxide 30 mmol/L (22-29); Chloride 93 mmol/L (96-108); Creatinine Clr Calc Pharmacy 59.9; Estimated Glomerular Filt Rate 43; Glucose Random 115 mg/dL (60-115); Potassium 4.3 mmol/L (3.3-5.1); Sodium 138 mmol/L (135-145)
[2022-02-18 07:57] VITALS: BP 124/70
[2022-02-18] MEDS: lisinopriL 20 MG TABLET PO (07:59)
--- NOTE | 2022-02-18 08:36 | MHC.CM.PN ---
PT REPORTS HE LIVES ALONE, HIS LIVES IN A SEPARATE APARTMENT HE REPORTS HE IS INDEPENDENT WITH CARE HE HAS A CANE AND USES 2L OR O2 @ [facility] HE DENIES HAVING ANY HOME SERVICES PT REPORTS HE IS COVID VAX, NOT BOOSTED PCP: JORDY CHAPMAN OBSERVATION NOTICE DELIVERED, COPY SENT TO [facility] CURRENT DC PLAN IS HOME VS HOME WITH [facility] TO TRANSPORT
[2022-02-18 10:07] LABS: C Reactive Protein 4.72 mg/dL (< or = 0.50); Magnesium 1.6 mg/dL (1.6-2.6)
--- NOTE | 2022-02-18 10:09 | PHA.MEDREC ---
Pharmacy Consult ? Medication Reconciliation Pharmacy has completed the medication reconciliation. Patient states they stopped taking the quetiapine. Despite claim history, patient states they take medications daily and last took it yesterday.
[2022-02-18 10:45] LABS: Folate 10.8 ng/mL (> or = 4.0); Vitamin B12 700 pg/mL (200-900)
[2022-02-18 10:47] LABS: Amphetamine Screen Urine Not Detected (Not Detect); Barbiturates, Urine Not Detected (Not Detect); Benzodiazepines Screen Urine Not Detected (Not Detect); Cannabinoid Screen Urine Not Detected (Not Detect); Cocaine Screen Urine Not Detected (Not Detect); Fentanyl, urine POSITIVE (Not Detect); Opiate Screen Urine POSITIVE (Not Detect); Phencyclidine Screen Urine Not Detected (Not Detect)
[2022-02-18] MEDS: Thiamine HCL 100 MG TABLET PO (10:50)
[2022-02-18] MEDS: Cyanocobalamin (Vitamin B-12) 1,000 MCG TABLET 1000 MCG PO (10:50)
[2022-02-18] MEDS: 0.9 % Sodium Chloride 1,000 ML 999 ML IV (10:51)
[2022-02-18] MEDS: Lactated Ringers 1,000 ML 125 ML IVCONT ×2 (12:46→20:13)
[2022-02-18 12:47] VITALS: BP 122/61; PULSE 74; RESP 18; O2SAT 97
[2022-02-18 13:09] VITALS: BP 140/81; PULSE 74; RESP 24; TEMP 37.2; O2SAT 98
--- NOTE | 2022-02-18 14:11 | PC.NURSE ---
report obtained from melchor pt brought from main ed, this nurse resumed care for patient, patient a&ox3, c/o mild 2/10 lower back pain, pt ate 100% of lunch, IVF running per order, O2 NC intact, call nichols within reach, will continue to monitor
--- NOTE | 2022-02-18 14:58 | HO.PM.IMPN ---
Subjective Subjective Date of Service: 02/18/22 Interval History: RLE pain/redness ongoing inhalation heroin use Review of Systems Review of Systems: Yes all other systems are reviewed and are negative Physical Exam Vital Signs: Vital Signs: Last Vital Signs Temp 98.9 F 02/18/22 13:09 Pulse 74 02/18/22 13:09 Resp 24 H 02/18/22 13:09 BP 140/81 H 02/18/22 13:09 Pulse Ox 98 02/18/22 13:09 O2 Del Method 02/18/22 13:09 O2 Flow Rate 4 02/18/22 13:09 BMI result Body Mass Index 53.9 Gen: in no acute distress HEENT: sclera anicteric, moist mucus membranes Neck: supple Lungs: clear to auscultation bilaterally Heart: regular rate and rhythm, no murmurs Abd: soft, non-tender, non-distended, obese Ext: bilateral lower extremity edema Skin: warm/well-perfused, RLE warmth/tenderness without purulent collections Neuro: alert and oriented x3, no focal findings Psych: appropriate affect Objective Data Active Medications Acetaminophen (Acetaminophen 325 Mg Tablet) 650 mg PO Q6H PRN PRN Reason: Pain, Mild (Pain Scale 1-3) Cyanocobalamin (Cyanocobalamin (Vitamin B-12) 1,000 Mcg Tablet) 1,000 mcg PO DAILY [facility] Last Admin: 02/18/22 10:50 Dose: 1,000 mcg Documented By: IRINA Docusate Sodium (Docusate Sodium 100 Mg Capsule) 100 mg PO DAILY PRN PRN Reason: Constipation Enoxaparin Sodium (Enoxaparin Sodium 40 Mg/0.4 Ml Syringe) 40 mg SUBCUT Q24H [facility] Last Admin: 02/18/22 00:01 Dose: 40 mg Documented By: IRINA Folic Acid (Folic Acid 1 Mg Tablet) 1 mg PO DAILY [facility] Cefazolin Sodium/Dextrose (Ancef) 2 gm in 50 mls @ 100 mls/hr IV Q8H [facility] Lactated Ringer's (Lr) 1,000 mls @ 125 mls/hr IVCONT .Q8H [facility] Last Admin: 02/18/22 12:46 Dose: 125 mls/hr Documented By: IRINA Lisinopril (Lisinopril 20 Mg Tablet) 20 mg PO DAILY [facility]; Protocol Last Admin: 02/18/22 07:59 Dose: 20 mg Documented By: LIZZY Comments: 124/70 Ondansetron HCl (Ondansetron Hcl 4 Mg/2 Ml Vial) 4 mg IVPUSH Q8H PRN PRN Reason: Nausea and Vomiting Last Admin: 02/18/22 00:01 Dose: 4 mg Documented By: IRINA Sodium Chloride (0.9 % Sodium Chloride Flush 3 Ml Syringe) 3 ml IVFLUSH QSHIFT [facility] Last Admin: 02/18/22 08:00 Dose: 3 ml Documented By: LIZZY Thiamine HCl (Thiamine Hcl 100 Mg Tablet) 100 mg PO DAILY [facility] Last Admin: 02/18/22 10:50 Dose: 100 mg Documented By: IRINA Labs CBC & Chem 7: 02/18/22 06:31 02/18/22 06:31 Labs: Laboratory Results - last 24 hr 02/17/22 02/17/22 02/17/22 18:25 18:25 18:25 MCV 100.7 H MCH 32.9 MCHC 32.6 RDW 13.8 Plt Count 198 MPV 9.4 Immature Gran % (Auto) 0.3 Neut % (Auto) 81.0 H Lymph % (Auto) 12.2 L [place] % (Auto) 5.6 Eos % (Auto) 0.5 Baso % (Auto) 0.4 Lymph # (Auto) 1.8 [place] # (Auto) 0.8 Eos # (Auto) 0.1 Baso # (Auto) 0.1 Abs Immat Gran (auto) 0.04 H Absolute Neuts (auto) 11.9 H Absolute Nucleated RBC 0.000 Nucleated RBC % (auto) 0.0 Anion Gap 19 Estim Creat Clear Calc 121.3 Estimated GFR > 60 Random Glucose 123 H Lactic Acid Calcium 8.7 D Magnesium Total Bilirubin Direct Bilirubin AST ALT Alkaline Phosphatase C-Reactive Protein B-Natriuretic Peptide 77 Total Protein Albumin Vitamin B12 Folate Ur Random Sodium Urine Creatinine Urine Opiates Screen Urine Fentanyl Screen Ur Barbiturates Screen Ur Phencyclidine Scrn Ur Amphetamines Screen U Benzodiazepines Scrn Urine Cocaine Screen U Marijuana (THC) Screen COVID-19 ([facility]) COVID-19 Clin Com 02/17/22 02/17/22 02/17/22 18:25 23:34 23:34 MCV MCH MCHC RDW Plt Count MPV Immature Gran % (Auto) Neut % (Auto) Lymph % (Auto) [place] % (Auto) Eos % (Auto) Baso % (Auto) Lymph # (Auto) [place] # (Auto) Eos # (Auto) Baso # (Auto) Abs Immat Gran (auto) Absolute Neuts (auto) Absolute Nucleated RBC Nucleated RBC % (auto) Anion Gap Estim Creat Clear Calc Estimated GFR Random Glucose Lactic Acid 1.5 Calcium Magnesium Total Bilirubin 0.9 Direct Bilirubin 0.4 AST 93 H ALT 72 H Alkaline Phosphatase 182 H D C-Reactive Protein B-Natriuretic Peptide Total Protein 8.0 Albumin 3.9 Vitamin B12 Folate Ur Random Sodium Urine Creatinine Urine Opiates Screen Urine Fentanyl Screen Ur Barbiturates Screen Ur Phencyclidine Scrn Ur Amphetamines Screen U Benzodiazepines Scrn Urine Cocaine Screen U Marijuana (THC) Screen COVID-19 ([facility]) Negative COVID-MedSynergies See Note 02/17/22 02/18/22 02/18/22 23:40 06:31 06:31 MCV 103.4 H MCH 33.0 MCHC 32.0 RDW 14.1 Plt Count 231 MPV 9.8 Immature Gran % (Auto) 0.5 H Neut % (Auto) 72.9 Lymph % (Auto) 18.5 L [place] % (Auto) 6.7 Eos % (Auto) 1.0 Baso % (Auto) 0.4 Lymph # (Auto) 3.3 [place] # (Auto) 1.2 Eos # (Auto) 0.2 Baso # (Auto) 0.1 Abs Immat Gran (auto) 0.09 H Absolute Neuts (auto) 13.0 H Absolute Nucleated RBC 0.000 Nucleated RBC % (auto) 0.0 Anion Gap 19 Estim Creat Clear Calc 59.9 Estimated GFR 43 Random Glucose 115 Lactic Acid Calcium 9.1 Magnesium 1.6 Total Bilirubin Direct Bilirubin AST ALT Alkaline Phosphatase C-Reactive Protein 4.72 H B-Natriuretic Peptide Total Protein Albumin Vitamin B12 Folate Ur Random Sodium Urine Creatinine Urine Opiates Screen Urine Fentanyl Screen Ur Barbiturates Screen Ur Phencyclidine Scrn Ur Amphetamines Screen U Benzodiazepines Scrn Urine Cocaine Screen U Marijuana (THC) Screen COVID-19 ([facility]) Negative COVID-Med[employer]nerg[employer] See Note 02/18/22 02/18/22 02/18/22 06:31 09:42 09:42 MCV MCH MCHC RDW Plt Count MPV Immature Gran % (Auto) Neut % (Auto) Lymph % (Auto) [place] % (Auto) Eos % (Auto) Baso % (Auto) Lymph # (Auto) [place] # (Auto) Eos # (Auto) Baso # (Auto) Abs Immat Gran (auto) Absolute Neuts (auto) Absolute Nucleated RBC Nucleated RBC % (auto) Anion Gap Estim Creat Clear Calc Estimated GFR Random Glucose Lactic Acid Calcium Magnesium Total Bilirubin Direct Bilirubin AST ALT Alkaline Phosphatase C-Reactive Protein B-Natriuretic Peptide Total Protein Albumin Vitamin B12 700 Folate 10.8 Ur Random Sodium 43.0 Urine Creatinine 349.49 Urine Opiates Screen POSITIVE H Urine Fentanyl Screen POSITIVE H Ur Barbiturates Screen Not Detected Ur Phencyclidine Scrn Not Detected Ur Amphetamines Screen Not Detected U Benzodiazepines Scrn Not Detected Urine Cocaine Screen Not Detected U Marijuana (THC) Screen Not Detected COVID-19 ([facility]) COVID-19 Clin Com Assessment and Plan (1) Cellulitis of right leg: Status: Acute Plan d#2 57yo M with alcohol + opioid abuse presenting with RLE redness/swelling # RLE cellulitis - continue cefazolin d#2, follow cultures, monitor WBCs # chronic hypoxic resp failure - on 2L O2. no evidence of CHF per prior Cardiology eval. Outpt pulm appt needs to be rescheduled # chronic LE edema - furosemide # alcohol abuse - CIWA, B vitamins # opioid abuse - Addiction Medicine consultation # mood disorder - bupropion # HTN - continue lisinopril # VTE ppx: LMWH In my clinical judgment, the patient requires continued inpatient hospitalization for the following reasons: IV ABX Quality Stroke Does the patient have a stroke diagnosis?: No VTE Prior VTE?: No VTE Risk Level:: Medical - moderate - high VTE Device Contraindication: Treatment Not Indicated VTE Drug Contraindication: N/A - Med Ordered
[2022-02-18 15:24] VITALS: BP 132/81; PULSE 79; RESP 18; TEMP 36.6; O2SAT 95
--- NOTE | 2022-02-18 18:37 | P.PNADD_ITS ---
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 Currently medically admitted lower extremity cellulitis. Consult requested due to ongoing alcohol and opioid use. Patient seen in overflow room 6. Awake, alert, pleasant and engaged in interview. Patient reports he drinks at least a 6 pack of beer and 6-8 nips of rum every day. Also using intranasal heroin btwn 2-4 days per week--using btwn 5-6 bags on the days he does use. He reports nausea and back pain as withdrawal sx at home when he doesn't use. He is very familiar with [facility] as he was previously prescribed buprenorphine (which he did not find effective) and methadone--but due to ongoing alcohol use could not continue (or start--unclear which one). Reports that after last medical admission he had seval days of not using or drinking and he noted a positive change in his motivation, mood, etc. Declined initiation of buprenorphine during this admission. Discussed risks for ongoing use and also had an extensive discussion regarding safer use as he appears to be in precontemplation or contemplation stage of change related to substance use. At time of interview denied any withdrawal sx and did not appear to be experiencing any restlessness, rhinorrhea, tremor, etc. Review of Systems Constitutional: Reports as per HPI Mental Status Exam Mental Status Exam Patient Appearance: Appropriate Level of Consciousness: Awake, Appropriate and Alert Patient Behavior: Appropriate, Talkative and Cooperative Mood Description: Calm Affect Description: Calm and Appropriate Patient Cognition Impaired: No Thought Process: Intact and Linear Judgement: Fair Diagnostics Vital Signs (24Hr): Vital Signs - 24 hr 02/18/22 05:55 02/18/22 07:57 02/18/22 12:47 Temperature 98.9 F Pulse Rate 75 74 Respiratory Rate 20 18 Blood Pressure 128/65 124/70 122/61 Pulse Oximetry 95 97 Oxygen Delivery Method Nasal Cannula Nasal Cannula Oxygen Flow Rate 3 3 02/18/22 13:09 02/18/22 15:24 Temperature 98.9 F 98 F Pulse Rate 74 79 Respiratory Rate 24 H 18 Blood Pressure 140/81 H 132/81 Pulse Oximetry 98 95 Oxygen Delivery Method Nasal Cannula Nasal Cannula Oxygen Flow Rate 4 3 BMI result Body Mass Index 53.9 Labs Results: 02/18/22 06:31 02/18/22 06:31 Labs: Laboratory Results - last 48 hr 02/17/22 02/17/22 02/17/22 18:25 18:25 18:25 WBC 14.7 H RBC 4.35 L Hgb 14.3 Hct 43.8 MCV 100.7 H MCH 32.9 MCHC 32.6 RDW 13.8 Plt Count 198 MPV 9.4 Immature Gran % (Auto) 0.3 Neut % (Auto) 81.0 H Lymph % (Auto) 12.2 L [place] % (Auto) 5.6 Eos % (Auto) 0.5 Baso % (Auto) 0.4 Lymph # (Auto) 1.8 [place] # (Auto) 0.8 Eos # (Auto) 0.1 Baso # (Auto) 0.1 Abs Immat Gran (auto) 0.04 H Absolute Neuts (auto) 11.9 H Absolute Nucleated RBC 0.000 Nucleated RBC % (auto) 0.0 Sodium 138 Potassium 4.1 Chloride 96 Carbon Dioxide 27 Anion Gap 19 BUN 8 L D Creatinine 0.82 Estim Creat Clear Calc 121.3 Estimated GFR > 60 Random Glucose 123 H Lactic Acid Calcium 8.7 D Magnesium Total Bilirubin Direct Bilirubin AST ALT Alkaline Phosphatase C-Reactive Protein B-Natriuretic Peptide 77 Total Protein Albumin Vitamin B12 Folate Ur Random Sodium Urine Creatinine Urine Opiates Screen Urine Fentanyl Screen Ur Barbiturates Screen Ur Phencyclidine Scrn Ur Amphetamines Screen U Benzodiazepines Scrn Urine Cocaine Screen U Marijuana (THC) Screen COVID-19 ([facility]) COVID-19 Clin Com 02/17/22 02/17/22 02/17/22 18:25 23:34 23:34 WBC RBC Hgb Hct MCV MCH MCHC RDW Plt Count MPV Immature Gran % (Auto) Neut % (Auto) Lymph % (Auto) [place] % (Auto) Eos % (Auto) Baso % (Auto) Lymph # (Auto) [place] # (Auto) Eos # (Auto) Baso # (Auto) Abs Immat Gran (auto) Absolute Neuts (auto) Absolute Nucleated RBC Nucleated RBC % (auto) Sodium Potassium Chloride Carbon Dioxide Anion Gap BUN Creatinine Estim Creat Clear Calc Estimated GFR Random Glucose Lactic Acid 1.5 Calcium Magnesium Total Bilirubin 0.9 Direct Bilirubin 0.4 AST 93 H ALT 72 H Alkaline Phosphatase 182 H D C-Reactive Protein B-Natriuretic Peptide Total Protein 8.0 Albumin 3.9 Vitamin B12 Folate Ur Random Sodium Urine Creatinine Urine Opiates Screen Urine Fentanyl Screen Ur Barbiturates Screen Ur Phencyclidine Scrn Ur Amphetamines Screen U Benzodiazepines Scrn Urine Cocaine Screen U Marijuana (THC) Screen COVID-19 ([facility]) Negative COVID-19 Clin Com See Note 02/17/22 02/18/22 02/18/22 23:40 06:31 06:31 WBC 17.8 H RBC 4.45 L Hgb 14.7 Hct 46.0 MCV 103.4 H MCH 33.0 MCHC 32.0 RDW 14.1 Plt Count 231 MPV 9.8 Immature Gran % (Auto) 0.5 H Neut % (Auto) 72.9 Lymph % (Auto) 18.5 L [place] % (Auto) 6.7 Eos % (Auto) 1.0 Baso % (Auto) 0.4 Lymph # (Auto) 3.3 [place] # (Auto) 1.2 Eos # (Auto) 0.2 Baso # (Auto) 0.1 Abs Immat Gran (auto) 0.09 H Absolute Neuts (auto) 13.0 H Absolute Nucleated RBC 0.000 Nucleated RBC % (auto) 0.0 Sodium 138 Potassium 4.3 Chloride 93 L Carbon Dioxide 30 H Anion Gap 19 BUN 13 D Creatinine 1.66 H Estim Creat Clear Calc 59.9 Estimated GFR 43 Random Glucose 115 Lactic Acid Calcium 9.1 Magnesium 1.6 Total Bilirubin Direct Bilirubin AST ALT Alkaline Phosphatase C-Reactive Protein 4.72 H B-Natriuretic Peptide Total Protein Albumin Vitamin B12 Folate Ur Random Sodium Urine Creatinine Urine Opiates Screen Urine Fentanyl Screen Ur Barbiturates Screen Ur Phencyclidine Scrn Ur Amphetamines Screen U Benzodiazepines Scrn Urine Cocaine Screen U Marijuana (THC) Screen COVID-19 ([facility]) Negative COVID-19 Clin Com See Note 02/18/22 02/18/22 02/18/22 06:31 09:42 09:42 WBC RBC Hgb Hct MCV MCH MCHC RDW Plt Count MPV Immature Gran % (Auto) Neut % (Auto) Lymph % (Auto) [place] % (Auto) Eos % (Auto) Baso % (Auto) Lymph # (Auto) [place] # (Auto) Eos # (Auto) Baso # (Auto) Abs Immat Gran (auto) Absolute Neuts (auto) Absolute Nucleated RBC Nucleated RBC % (auto) Sodium Potassium Chloride Carbon Dioxide Anion Gap BUN Creatinine Estim Creat Clear Calc Estimated GFR Random Glucose Lactic Acid Calcium Magnesium Total Bilirubin Direct Bilirubin AST ALT Alkaline Phosphatase C-Reactive Protein B-Natriuretic Peptide Total Protein Albumin Vitamin B12 700 Folate 10.8 Ur Random Sodium 43.0 Urine Creatinine 349.49 Urine Opiates Screen POSITIVE H Urine Fentanyl Screen POSITIVE H Ur Barbiturates Screen Not Detected Ur Phencyclidine Scrn Not Detected Ur Amphetamines Screen Not Detected U Benzodiazepines Scrn Not Detected Urine Cocaine Screen Not Detected U Marijuana (THC) Screen Not Detected COVID-19 ([facility]) COVID-19 Clin Com Imaging Radiology Impressions: ITS Impressions Chest X-Ray 02/18/22 06:35 IMPRESSION: Unremarkable examination. Medications Medications Current Medications Acetaminophen (Acetaminophen 325 Mg Tablet) 650 mg PO Q6H PRN PRN Reason: Pain, Mild (Pain Scale 1-3) Bupropion HCl (Bupropion Hcl Xl 300 Mg Tab.Er.24h) 300 mg [facility] Cyanocobalamin (Cyanocobalamin (Vitamin B-12) 1,000 Mcg Tablet) 1,000 mcg PO DAILY [facility] Last Admin: 02/18/22 10:50 Dose: 1,000 mcg Docusate Sodium (Docusate Sodium 100 Mg Capsule) 100 mg PO DAILY PRN PRN Reason: Constipation Enoxaparin Sodium (Enoxaparin Sodium 40 Mg/0.4 Ml Syringe) 40 mg SUBCUT Q24H [facility] Last Admin: 02/18/22 00:01 Dose: 40 mg Folic Acid (Folic Acid 1 Mg Tablet) 1 mg PO [facility]ILY [facility] Furosemide (Furosemide 40 Mg Tablet) 40 mg PO DAILY [facility]; Protocol Cefazolin Sodium/Dextrose (Ancef) 2 gm in 50 mls @ 100 mls/hr IV Q8H [facility] Lactated Ringer's (Lr) 1,000 mls @ 125 mls/hr IVCONT .Q8H [facility] Last Admin: 02/18/22 12:46 Dose: 125 mls/hr Lisinopril (Lisinopril 20 Mg Tablet) 20 mg PO DAILY [facility]; Protocol Last Admin: 02/18/22 07:59 Dose: 20 mg Ondansetron HCl (Ondansetron Hcl 4 Mg/2 Ml Vial) 4 mg IVPUSH Q8H PRN PRN Reason: Nausea and Vomiting Last Admin: 02/18/22 00:01 Dose: 4 mg Sodium Chloride (0.9 % Sodium Chloride Flush 3 Ml Syringe) 3 ml IVFLUSH QSHIFT [facility] Last Admin: 02/18/22 16:05 Dose: Not Given Thiamine HCl (Thiamine Hcl 100 Mg Tablet) 100 mg PO DAILY [facility] Last Admin: 02/18/22 10:50 Dose: 100 mg Allergies Allergies Allergy/AdvReac Type Severity Reaction Status Date / Time No Known Allergies Allergy Verified 05/18/20 13:27 Assessment & Plan Assessment & Plan (1) Alcohol use disorder, severe, dependence: Status: Acute Code(s): F10.20 - Alcohol dependence, uncomplicated Assessment and Plan: * discussed CSS admission following discharge from [facility]--unclear if patient will be open to this (2) Opioid use disorder: Status: Acute Code(s): F11.90 - Opioid use, unspecified, uncomplicated Assessment and Plan: * no withdrawal sx noted or reported * declined buprenorphine induction at time of interview--encouraged to request follow up should he change his mind * RS to follow up during admission I spent __45____ minutes with the patient and/or on the patient floor today, greater than?50% of which was spent counseling/coordinating care.
[2022-02-18 20:30] VITALS: BP 129/75; PULSE 84; RESP 18; TEMP 36.6; O2SAT 98
[2022-02-18] MEDS: diazePAM 2 MG TABLET PO (23:00)
[2022-02-19] VITALS: BP 138/72; PULSE 70; RESP 16; TEMP 36.3; O2SAT 98
[2022-02-19] MEDS: Lactated Ringers 1,000 ML 125 ML IVCONT
--- NOTE | 2022-02-19 01:02 | PC.NURSE ---
Pt asleep resting comfortably
[2022-02-19 04:00] VITALS: BP 118/75; PULSE 70; RESP 16; TEMP 36; O2SAT 100
[2022-02-19] MEDS: ceFAZolin Sodium/Dextrose,Iso 2 GM/50 ML PIGGYBACK IV ×3 (06:18→22:37)
[2022-02-19 07:02] LABS: Hematocrit 42.5 % (42.0-52.0); Hemoglobin 13.5 g/dl (14.0-18.0); Mean Corpuscular HGB Conc 31.8 g/dl (31.0-36.0); Mean Corpuscular Hemoglobin 33.3 pg (27.0-33.0); Mean Corpuscular Volume 104.9 fL (80.0-98.0); Platelet Count 190 X10*3/uL (160-400); Red Blood Count 4.05 X10*6/uL (4.60-5.80); Red Cell Distribution Width 13.9 % (11.0-16.0); White Blood Count 12.8 X10*3/uL (4.8-10.8)
[2022-02-19 07:06] LABS: Alanine Aminotransferase 57 U/L (0-40); Albumin Level 3.6 g/dL (3.5-5.0); Alkaline Phosphatase 161 U/L (39-117); Anion Gap 17 (12-20); Aspartate Amino Transferase 86 U/L (5-37); Blood Urea Nitrogen 13 mg/dL (9-16); Calcium 9.1 mg/dL (8.4-10.2); Carbon Dioxide 32 mmol/L (22-29); Chloride 95 mmol/L (96-108); Creatinine Clr Calc Pharmacy 104.7; Estimated Glomerular Filt Rate > 60; Glucose Random 94 mg/dL (60-115); Magnesium 1.8 mg/dL (1.6-2.6); Potassium 4.7 mmol/L (3.3-5.1); Sodium 139 mmol/L (135-145); Total Protein 7.6 g/dL (6.5-8.0)
[2022-02-19 07:52] VITALS: BP 142/81; PULSE 73; RESP 14; O2SAT 94
[2022-02-19] MEDS: lisinopriL 20 MG TABLET PO (09:19)
[2022-02-19] MEDS: Furosemide 40 MG TABLET PO (09:19)
[2022-02-19] MEDS: buPROPion HCl XL 300 MG TAB.ER.24H PO (09:19)
[2022-02-19] MEDS: Cyanocobalamin (Vitamin B-12) 1,000 MCG TABLET 1000 MCG PO (09:20)
[2022-02-19] MEDS: Folic Acid 1 MG TABLET PO (09:20)
[2022-02-19] MEDS: Thiamine HCL 100 MG TABLET PO (09:20)
--- NOTE | 2022-02-19 09:29 | PC.NURSE ---
pt received walking back from BR. Ambulates with steady gait. A/O x 4. Lungs with slight wheezes throughout, SaO2 89% without O2, O2 replaced. Pt medicated, made comfortable. Now resting in NAD. Awaiting bed assignment.
--- NOTE | 2022-02-19 10:18 | HO.PM.IMPN ---
Subjective Subjective Date of Service: 02/19/22 Interval History: RLE pain/redness/swelling improved no fever no withdrawal symptoms not interested in MAT Review of Systems Review of Systems: Yes all other systems are reviewed and are negative Physical Exam Vital Signs: Vital Signs: Last Vital Signs Temp 96.8 F 02/19/22 04:00 Pulse 73 02/19/22 07:52 Resp 14 02/19/22 07:52 BP 142/81 H 02/19/22 07:52 Pulse Ox 94 02/19/22 07:52 O2 Del Method 02/19/22 07:52 O2 Flow Rate 3 02/19/22 07:52 BMI result Body Mass Index 53.9 Gen: in no acute distress HEENT: sclera anicteric, moist mucus membranes Neck: supple Lungs: clear to auscultation bilaterally Heart: regular rate and rhythm, no murmurs Abd: soft, non-tender, non-distended, obese Ext: bilateral lower extremity edema 2+ chronic Skin: warm/well-perfused, RLE warmth/tenderness without fluctuant areas Neuro: alert and oriented x3, no focal findings Psych: appropriate affect Objective Data Active Medications Acetaminophen (Acetaminophen 325 Mg Tablet) 650 mg PO Q6H PRN PRN Reason: Pain, Mild (Pain Scale 1-3) Bupropion HCl (Bupropion Hcl Xl 300 Mg Tab.Er.24h) 300 mg PO DAILY [facility]S [facility] Last Admin: 02/19/22 09:19 Dose: 300 mg Documented By: JAILENE Cyanocobalamin (Cyanocobalamin (Vitamin B-12) 1,000 Mcg Tablet) 1,000 mcg PO DAILY [facility] 234 BEDS AT [facility] Last Admin: 02/19/22 09:20 Dose: 1,000 mcg Documented By: JAILENE Docusate Sodium (Docusate Sodium 100 Mg Capsule) 100 mg PO DAILY PRN PRN Reason: Constipation Enoxaparin Sodium (Enoxaparin Sodium 40 Mg/0.4 Ml Syringe) 40 mg SUBCUT Q24H [facility]S [facility]CLUDE 234 BEDS AT [facility] Last Admin: 02/18/22 22:59 Dose: 40 mg Documented By: IRENE Folic Acid (Folic Acid 1 Mg Tablet) 1 mg PO DAILY [facility] 234 BEDS AT [facility] Last Admin: 02/19/22 09:20 Dose: 1 mg Documented By: JAILENE Furosemide (Furosemide 40 Mg Tablet) 40 mg PO DAILY [facility] 234 BEDS AT [facility]; Protocol Last Admin: 02/19/22 09:19 Dose: 40 mg Documented By: JAILENE Cefazolin Sodium/Dextrose (Ancef) 2 gm in 50 mls @ 100 mls/hr IV Q8H [facility]S [facility]CLUDE 234 BEDS AT [facility] Last Infusion: 02/19/22 06:57 Dose: 0 mls/hr Documented By: IRENE Lactated Ringer's (Lr) 1,000 mls @ 100 mls/hr IVCONT .Q10H [facility]S [facility]CLUDE 234 BEDS AT THE [facility] Stop: 02/20/22 12:00 Lisinopril (Lisinopril 20 Mg Tablet) 20 mg PO DAILY [facility] 234 BEDS AT [facility]; Protocol Last Admin: 02/19/22 09:19 Dose: 20 mg Documented By: JAILENE Ondansetron HCl (Ondansetron Hcl 4 Mg/2 Ml Vial) 4 mg IVPUSH Q8H PRN PRN Reason: Nausea and Vomiting Last Admin: 02/18/22 23:00 Dose: 4 mg Documented By: IRENE Sodium Chloride (0.9 % Sodium Chloride Flush 3 Ml Syringe) 3 ml IVFLUSH QSHIFT COUNTS INCLUDE 234 BEDS AT [facility] Last Admin: 02/18/22 23:17 Dose: 3 ml Documented By: IRENE Thiamine HCl (Thiamine Hcl 100 Mg Tablet) 100 mg PO DAILY [facility] 234 BEDS AT [facility] Last Admin: 02/19/22 09:20 Dose: 100 mg Documented By: JAILENE Labs CBC & Chem 7: 02/19/22 06:32 02/19/22 06:32 Labs: Laboratory Results - last 24 hr 02/19/22 02/19/22 06:32 06:32 MCV 104.9 H MCH 33.3 H MCHC 31.8 RDW 13.9 Plt Count 190 MPV 10.0 Absolute Nucleated RBC 0.000 Nucleated RBC % (auto) 0.0 Anion Gap 17 Estim Creat Clear Calc 104.7 Estimated GFR > 60 Random Glucose 94 Calcium 9.1 Magnesium 1.8 Total Bilirubin 1.0 AST 86 H ALT 57 H Alkaline Phosphatase 161 H Total Protein 7.6 Albumin 3.6 Microbiology Microbiology Results: Microbiology 02/17/22 23:34 Blood Culture - Preliminary Blood - Venous No growth after 24 hours. 02/17/22 23:34 Blood Culture - Preliminary Blood - Venous No growth after 24 hours. Assessment and Plan (1) Cellulitis of right leg: Status: Acute Plan d#3 57yo M with alcohol + opioid abuse presenting with RLE redness/swelling # RLE cellulitis - continue cefazolin d#3, follow blood cultures, monitor WBCs which are coming down # chronic hypoxic resp failure - on 2L O2. no evidence of CHF per prior Cardiology eval. Outpt pulm appt needs to be rescheduled # chronic LE edema - continue maintenance furosemide # alcohol abuse - CIWA, B vitamins; no withdrawal syndrome # opioid abuse - Addiction Medicine consulted + pt uninterested in MAT - screen for HBV/HCV/HIV # mood disorder - continue bupropion # HTN - continue lisinopril # morbid obesity - diet/exercise counseling # VTE ppx: LMWH In my clinical judgment, the patient requires continued inpatient hospitalization for the following reasons: IV ABX Quality Stroke Does the patient have a stroke diagnosis?: No VTE Prior VTE?: No VTE Risk Level:: Medical - moderate - high VTE Device Contraindication: Treatment Not Indicated VTE Drug Contraindication: N/A - Med Ordered
[2022-02-19 11:15] VITALS: BP 122/68; PULSE 77; RESP 18; O2SAT 96
[2022-02-19] MEDS: Enoxaparin Sodium 40 MG/0.4 ML SYRINGE SUBCUT (23:32)
[2022-02-19] MEDS: 0.9 % Sodium Chloride Flush 3 ML SYRINGE IVFLUSH (23:32)
--- NOTE | 2022-02-19 23:35 | PC.NURSE ---
care of patient assumed at 2300. he is found watching TV in stretcher. he is alert, oriented x4. he is receiving IV antibiotics for lower extremity cellulitis. pitting edema and discoloration noted to bilatearl lower legs. abdomen also obese and firm. he denies pain currently and states he was told he might be discharged in the morning. he is provided with a cup of ice per request. call nichols within reach.
[2022-02-20 01:08] VITALS: PULSE 70; RESP 20; TEMP 35.8; O2SAT 98
[2022-02-20] MEDS: Lactated Ringers 1,000 ML 100 ML IVCONT (01:15)
[2022-02-20 05:14] LABS: HBS Num1 1.45 mIU/mL (0-7.99); HBc Num1 0.07 S/CO (0.00-0.79); HBsAGNum1 0.21 S/CO (0.00-0.99); HIV AB/AG Nonreactive (Nonreactive); HIV Num 1 0.13 S/CO (0.00-0.99); Hepatitis B Core Antibody Nonreactive (Nonreactive); Hepatitis B Surface Antigen Negative (Negative); ~Hepatitis B Surface Antibody NONREACTIVE (Nonreactive)
[2022-02-20 06:10] VITALS: BP 154/82; PULSE 70; RESP 20; TEMP 36.1; O2SAT 97
[2022-02-20] MEDS: ceFAZolin Sodium/Dextrose,Iso 2 GM/50 ML PIGGYBACK IV (06:33)
[2022-02-20 08:11] VITALS: BP 154/82; PULSE 70; O2SAT 90
[2022-02-20] MEDS: Cyanocobalamin (Vitamin B-12) 1,000 MCG TABLET 1000 MCG PO (08:33)
[2022-02-20] MEDS: lisinopriL 20 MG TABLET PO (08:33)
[2022-02-20] MEDS: Folic Acid 1 MG TABLET PO (08:33)
[2022-02-20] MEDS: Furosemide 40 MG TABLET PO (08:33)
[2022-02-20] MEDS: Thiamine HCL 100 MG TABLET PO (08:33)
[2022-02-20] MEDS: buPROPion HCl XL 300 MG TAB.ER.24H PO (08:33)
[2022-02-20] MEDS: 0.9 % Sodium Chloride Flush 3 ML SYRINGE IVFLUSH (08:34)
--- NOTE | 2022-02-20 08:38 | PC.NURSE ---
PT IS A/O X 4 NO SOB/ANA ROSA NOTED LUNGS - CTA. SPEAKS IN FULL SENTENCES, AMB (I) GAIT STEADY TO AND FROM BATHROOM AND BTB. HEART SOUNDS REGULAR, ABD - OBESE, ROUND FIRM NON-TENDER, BX = X 4 QUADS. GIULIANA LOWER LEG 2-3+ PITTING EDEMA WITH REDNESS WITH R LEG REDNESS. PT AWARE OF PLAN OF CARE.
[2022-02-20 09:16] LABS: Hematocrit 41.2 % (42.0-52.0); Hemoglobin 13.1 g/dl (14.0-18.0); Mean Corpuscular HGB Conc 31.8 g/dl (31.0-36.0); Mean Corpuscular Volume 103.8 fL (80.0-98.0); Platelet Count 178 X10*3/uL (160-400); Red Blood Count 3.97 X10*6/uL (4.60-5.80); Red Cell Distribution Width 13.6 % (11.0-16.0); White Blood Count 10.8 X10*3/uL (4.8-10.8)
[2022-02-20 09:32] LABS: Anion Gap 14 (12-20); Blood Urea Nitrogen 12 mg/dL (9-16); C Reactive Protein 4.92 mg/dL (< or = 0.50); Calcium 9.3 mg/dL (8.4-10.2); Carbon Dioxide 35 mmol/L (22-29); Chloride 94 mmol/L (96-108); Creatinine Clr Calc Pharmacy 111.7; Estimated Glomerular Filt Rate > 60; Glucose Random 110 mg/dL (60-115); Potassium 4.9 mmol/L (3.3-5.1); Sodium 138 mmol/L (135-145)
--- NOTE | 2022-02-20 11:52 | W.MHC.F2F ---
Service Date Service Date: 02/20/22 Encounter Date of encounter: 02/20/22 Reasons for Services Signs and symptoms assessed: dyspnea balance gait Reason for physical therapy: home safety and mobility, therapeutic exercises, gait/transfer training, assess need for DME, ADL training and energy conservation MD Overseeing Care: Olayinka Jose Guadalupe Homebound: Leaving the home is medically contraindicated at this time without the asist of a device and/or another person due th the listed conditions above and below. Reason homebound: shortness of breath with minimal effort and weakness related to hospital stay Certification: Based on the above findings, I certify that this patient is confined to the home and needs intermittent [facility] care, physical therapy and/or speech therapy, or continues to need occupational therapy. The patient is under my care, and I have initiated the establishment of the plan of care. The patient will be followed by a physician who will periodically review the plan of care.
--- NOTE | 2022-02-20 12:00 | PM.DS ---
DS: Providers Provider Date of Service: 02/20/22 Date of admission: 02/17/22 23:26 Date of discharge: 02/20/22 Primary care physician: Olayinka Shi MD Consults: 02/18/22 09:37 Addiction Medicine Routine Consulting Provider: Addiction Covering Reason for consultation: etoh + heroin DS: Diagnosis Discharge Diagnosis (1) Cellulitis of right leg: Status: Acute (2) Opioid use disorder: Status: Acute (3) Alcohol use disorder, severe, dependence: Status: Acute (4) NAIN (acute kidney injury): Status: Acute (5) Varicose veins of right lower extremity with inflammation: Status: Acute DS: Summary Hospital Course Hospital Course: from admission H+P by hospitalist Houston Campbell MD, 02/17/22: 57-year-old male with past medical history of abuse, presents to the hospital with complaints of right lower extremity redness, swelling for the past 1 week.? is concerned because she has to use the patient is a very poor patient, he does not take medications, on does not take care while of himself.? He reports no fever no chills, reports pain in the right lower extremity that worsened over the past few days. Pt uses 2L of oxygen at home- states his doctor started him on it because he was SOB. Denies hx of COPD or heart ds. On review of EMR- it seems pt placed on O2 for ROJAS, pending pulm eval. Denies any chest pain, no shortness of breath, no headache or change in vision, no abdominal pain, no urinary symptoms. On arrival to the ED patient hemodynamically stable with no significant abnormal vitals except for slightly elevated respiratory rate of 22 Labs are significant for WBC count of 14.7, AST of 93, ALT of 72, alk-phos of 182 , BNP of 77, Patient's started on IV antibiotics will be admitted for further management 57yo M with alcohol + opioid abuse and varicose veins with chronic venous insufficiency presenting with worsening RLE redness/swelling. Found to have leukocytosis and NAIN with SCr 1.66. He was admitted to the hospitalist service on observation status and treated with IV cefazolin. Blood cultures were negative and leukocytosis resolved. No signs of alcohol withdrawal. He was started on B vitamin supplementation. He was not interested in MAT for opioid use disorder [urine toxicology was positive for fentanyl]. NAIN resolved with IV fluid hydration and furosemide was resumed. He was discharged home with [facility] services for home PT and should follow-up with his primary care doctor in [address] [facility]'s outpatient MAT programs for AUD and OUD should be considered if the patient expresses willingness. Time Spent with Patient Time attestation: Total time spent providing and/or coordinating discharge services: 30 Discharge coordination time: Less than 30 minutes Quality: Safe Use of Opioids Does Pt have an Active Cancer Diagnosis on the Problem List?: No Quality: Stroke Does the patient have a stroke diagnosis?: No Physical Exam Vital Signs: Vital Signs: Last Vital Signs Temp 96.9 F 02/20/22 06:10 Pulse 70 02/20/22 08:11 Resp 20 02/20/22 06:10 BP 154/82 H 02/20/22 08:11 Pulse Ox 90 L 02/20/22 08:11 O2 Del Method 02/20/22 06:10 O2 Flow Rate 3 02/20/22 06:10 BMI result Body Mass Index 53.9 Gen: in no acute distress HEENT: sclera anicteric, moist mucus membranes Neck: supple Lungs: clear to auscultation bilaterally Heart: regular rate and rhythm, no murmurs Abd: soft, non-tender, non-distended, obese Ext: bilateral lower extremity edema 2+ chronic Skin: warm/well-perfused, RLE minimal redness/warmth/tenderness without fluctuant areas Neuro: alert and oriented x3, no focal findings Psych: appropriate affect DS: Data Data Completed and Pending Completed studies during hospitalization [Text1]: Laboratory Results WBC 10.8 X10*3/uL (4.8-10.8) 02/20/22 08:49 RBC 3.97 X10*6/uL (4.60-5.80) L 02/20/22 08:49 Hgb 13.1 g/dl (14.0-18.0) L 02/20/22 08:49 Hct 41.2 % (42.0-52.0) L 02/20/22 08:49 MCV 103.8 fL (80.0-98.0) H 02/20/22 08:49 MCH 33.0 pg (27.0-33.0) 02/20/22 08:49 MCHC 31.8 g/dl (31.0-36.0) 02/20/22 08:49 RDW 13.6 % (11.0-16.0) 02/20/22 08:49 Plt Count 178 X10*3/uL (160-400) 02/20/22 08:49 MPV 10.0 fL (9.4-12.4) 02/20/22 08:49 Immature Gran % (Auto) 0.5 % (0.0-0.4) H 02/18/22 06:31 Neut % (Auto) 72.9 % (45-73) 02/18/22 06:31 Lymph % (Auto) 18.5 % (20-40) L 02/18/22 06:31 [place] % (Auto) 6.7 % (2-11) 02/18/22 06:31 Eos % (Auto) 1.0 % (0-4) 02/18/22 06:31 Baso % (Auto) 0.4 % (0-2) 02/18/22 06:31 Lymph # (Auto) 3.3 X10*3/uL (1.2-4.9) 02/18/22 06:31 [place] # (Auto) 1.2 X10*3/uL (0.1-1.2) 02/18/22 06:31 Eos # (Auto) 0.2 X10*3/uL (0.0-0.4) 02/18/22 06:31 Baso # (Auto) 0.1 X10*3/uL (0.0-0.2) 02/18/22 06:31 Abs Immat Gran (auto) 0.09 X10*3/uL (0.00-0.03) H 02/18/22 06:31 Absolute Neuts (auto) 13.0 x10*3/uL (2.0-8.3) H 02/18/22 06:31 Absolute Nucleated RBC 0.000 X10*3/uL (0.0-0.012) 02/20/22 08:49 Nucleated RBC % (auto) 0.0 /100WBC (0.0-0.2) 02/20/22 08:49 Sodium 138 mmol/L (135-145) 02/20/22 08:49 Potassium 4.9 mmol/L (3.3-5.1) 02/20/22 08:49 Chloride 94 mmol/L (96-108) L 02/20/22 08:49 Carbon Dioxide 35 mmol/L (22-29) H 02/20/22 08:49 Anion Gap 14 (12-20) 02/20/22 08:49 BUN 12 mg/dL (9-16) 02/20/22 08:49 Creatinine 0.89 mg/dL (0.5-1.4) 02/20/22 08:49 Estim Creat Clear Calc 111.7 02/20/22 08:49 Estimated GFR > 60 02/20/22 08:49 Random Glucose 110 mg/dL (60-115) 02/20/22 08:49 Lactic Acid 1.5 mmol/L (0.5-2.0) 02/17/22 23:34 Calcium 9.3 mg/dL (8.4-10.2) 02/20/22 08:49 Magnesium 1.8 mg/dL (1.6-2.6) 02/19/22 06:32 Total Bilirubin 1.0 mg/dL (0.0-1.0) 02/19/22 06:32 Direct Bilirubin 0.4 mg/dL (0.0-0.5) 02/17/22 23:34 AST 86 U/L (5-37) H 02/19/22 06:32 ALT 57 U/L (0-40) H 02/19/22 06:32 Alkaline Phosphatase 161 U/L (39-117) H 02/19/22 06:32 C-Reactive Protein 4.92 mg/dL (< or = 0.50) H 02/20/22 08:49 B-Natriuretic Peptide 77 pg/mL (<100) 02/17/22 18:25 Total Protein 7.6 g/dL (6.5-8.0) 02/19/22 06:32 Albumin 3.6 g/dL (3.5-5.0) 02/19/22 06:32 Vitamin B12 700 pg/mL (200-900) 02/18/22 06:31 Folate 10.8 ng/mL (> or = 4.0) 02/18/22 06:31 Ur Random Sodium 43.0 mmol/L 02/18/22 09:42 Urine Creatinine 349.49 mg/dL 02/18/22 09:42 Urine Opiates Screen POSITIVE (Not Detect) H 02/18/22 09:42 Urine Fentanyl Screen POSITIVE (Not Detect) H 02/18/22 09:42 Ur Barbiturates Screen Not Detected (Not Detect) 02/18/22 09:42 Ur Phencyclidine Scrn Not Detected (Not Detect) 02/18/22 09:42 Ur Amphetamines Screen Not Detected (Not Detect) 02/18/22 09:42 U Benzodiazepines Scrn Not Detected (Not Detect) 02/18/22 09:42 Urine Cocaine Screen Not Detected (Not Detect) 02/18/22 09:42 U Marijuana (THC) Screen Not Detected (Not Detect) 02/18/22 09:42 COVID-19 (KOLBY) Negative (Negative) 02/17/22 23:40 COVID-19 Clin Com See Note 02/17/22 23:40 Hep Bs Antigen Negative (Negative) 02/19/22 06:32 Hep Bs Antibody NONREACTIVE (Nonreactive) 02/19/22 06:32 Hep B Core Total Ab Nonreactive (Nonreactive) 02/19/22 06:32 HIV 1&2 Ab/P24 Ag 4thGn Nonreactive (Nonreactive) 02/19/22 06:32 Impressions Chest X-Ray 02/18/22 06:35 IMPRESSION: Unremarkable examination. Discharge Plan Discharge Patient Disposition: Home Health Service Discharge Diagnosis: cellulitis, nonpurulent opioid use disorder alcohol use disorder Referrals: Name,MD Olayinka [Primary Care Provider] - 1 Week Discharge Medications: New cyanocobalamin (vitamin B-12) [Vitamin B-12] 1,000 mcg Tablet 1,000 mcg PO DAILY Qty: 30 0RF folic acid 1 mg Tablet 1 mg PO DAILY Qty: 30 0RF thiamine mononitrate (vit B1) 100 mg Tablet 100 mg PO DAILY Qty: 30 0RF cefadroxil 1 gram tablet 1,000 mg PO DAILY 5 Days Qty: 5 0RF nicotine (polacrilex) 2 mg gum 2 mg buccal Q2H PRN (Reason: nicotine craving) Qty: 110 0RF Continued lisinopril 20 mg tablet 1 tab PO DAILY furosemide 40 mg tablet 1 tab PO DAILY bupropion HCl 300 mg tablet extended release 24 hr 1 tab PO DAILY naloxone 4 mg/actuation spray,non-aerosol 4 mg intranasal Q2M PRN (Reason: Opioid Overdose) Qty: 2 0RF Discharge Orders: Discharge Order (Routine); Ordered 02/20/22 Ordered By: Rey Taveras Diet: Low salt diet Activity on Discharge: As tolerated Stand Alone Forms: Patient Portal Discharge page Care Plan Goals: cure of infection sobriety Health Concerns: cellulitis, nonpurulent opioid use disorder alcohol use disorder Plan of Treatment: take cefadroxil 1000 mg daily for 5 days avoid opioids like fentanyl and heroin and all substance of abuse. Naloxone in case of overdose. consider medication-assisted treatment at [facility]. avoid alcohol. consider treatment at [facility]. stop smoking; use nicotine gum to help you quit. Please follow up with your primary care doctor within 1 week. Return to the hospital if you experience recurrent or worsening symptoms. Assessment: See Discharge Summary.
--- NOTE | 2022-02-20 13:53 | MHC.CM.PN ---
PT WILL DC HOME TODAY WITH [facility] FOR PT SERVICES TO TRANSPORT
[2022-02-22 17:46] LABS: HCV Log PCR <1.18 NOT DETECTED Log IU/mL (NOT DETECTED); HepC Viral Load <15 NOT DETECTED IU/mL (NOT DETECTED)
== END 2022-02-20 13:00 | disposition home health service (06) | DRG 383 ==
LOC: HO.ED 23:44 → HO.EDOVER 23:49
PROVIDERS: Admitting Provider Internal Medicine; Emergency Provider Emergency Medicine; PCP Internal Medicine Geriatric Medicine; Visit Provider Family Medicine
DX: L03.115 Cellulitis of right lower limb (principal); J96.11 Chronic respiratory failure with hypoxia; N17.9 Acute kidney failure, unspecified; Z99.81 Dependence on supplemental oxygen; Z68.43 Body mass index [BMI] 50.0-59.9, adult; F11.10 Opioid abuse, uncomplicated; F10.20 Alcohol dependence, uncomplicated; R26.81 Unsteadiness on feet; I87.323 Chronic venous hypertension (idiopathic) with inflammation of bilateral lower extremity; G47.31 Primary central sleep apnea; E66.01 Morbid (severe) obesity due to excess calories; F17.210 Nicotine dependence, cigarettes, uncomplicated; Z71.6 Tobacco abuse counseling; Z20.822 Contact with and (suspected) exposure to COVID-19; Z91.14 Patient's other noncompliance with medication regimen; Z79.899 Other long term (current) drug therapy
CPT/HCPCS: 36415; 71045; 80048; 80053; 80076; 80307; 82607; 82746; 83605; 83735; 83880; 84300; 85025; 85027; 86140; 86704; 86706; 87040; 87340; 87389; 87522; 87635; 96365; 96366; 96372; 96375; 97162; 99218; 99285; J0690; J1650; J2405

== ENCOUNTER → 2022-03-16 14:27 | Outpatient (BNVA) | payer MEDICAID, SELFPAY | PROVIDERS: PCP Internal Medicine Geriatric Medicine; Visit Provider Internal Medicine | DX: G47.33 Obstructive sleep apnea (adult) (pediatric) (principal); E66.01 Morbid (severe) obesity due to excess calories; J98.4 Other disorders of lung; J96.91 Respiratory failure, unspecified with hypoxia | CPT/HCPCS: 99202 ==

== ENCOUNTER 2022-04-06 14:50 | Outpatient (REF) | payer MEDICAID, SELFPAY | END 2022-04-06 14:51 | disposition home or self-care (01) | LOC: HO.RESP 14:50 | PROVIDERS: PCP Internal Medicine Geriatric Medicine; Visit Provider Internal Medicine | DX: J96.91 Respiratory failure, unspecified with hypoxia (principal); E66.01 Morbid (severe) obesity due to excess calories; J98.4 Other disorders of lung | CPT/HCPCS: 94060; 94727; 94729 ==

== ENCOUNTER → 2022-04-30 20:47 | Outpatient (REF) | payer MEDICAID, SELFPAY | LOC: HO.SL 20:47 | PROVIDERS: Visit Provider Internal Medicine | DX: G47.33 Obstructive sleep apnea (adult) (pediatric) (principal) | CPT/HCPCS: 95810 ==

== ENCOUNTER → 2022-05-18 14:54 | Outpatient (BNVA) | payer MEDICAID, SELFPAY | PROVIDERS: PCP Internal Medicine Geriatric Medicine; Visit Provider Internal Medicine | DX: G47.33 Obstructive sleep apnea (adult) (pediatric) (principal); G47.31 Primary central sleep apnea; J96.91 Respiratory failure, unspecified with hypoxia; E66.01 Morbid (severe) obesity due to excess calories; F11.20 Opioid dependence, uncomplicated; F10.20 Alcohol dependence, uncomplicated; F17.210 Nicotine dependence, cigarettes, uncomplicated; Z68.42 Body mass index [BMI] 45.0-49.9, adult | CPT/HCPCS: 99212 ==

== ENCOUNTER 2022-12-14 13:19 | Outpatient (AMB) | payer MEDICAID, SELFPAY ==
--- NOTE | 2022-12-14 13:27 | A.OFFVIS_ITS ---
Intake Vital Signs 12/14/22 13:41 Height 5 ft 2 in Weight 259 lb 4 oz BMI 47.4 BP 138/68 Blood Pressure Location Lt brachial Position Sitting Intake Visit Reasons: Umbilical Hernia Intake Note: Patient is seen in office for evaluation and treatment of an umbilical hernia. Patient c/o: onset for years, has increase in size, admits to pain, sometimes feels nausea, back pain, due to constipation, denies vomit, diarrhea, or prior imaging Manager Transportation Required: No Accompanied by: Spouse Allergies No Known Allergies Allergy (Verified 12/14/22 13:37) Medication List - Last Reconciled 12/14/22 by De Orellana MD bupropion HCl 1 tab PO DAILY docusate sodium 100 mg PO BID folic acid 1 mg PO DAILY furosemide 1 tab PO DAILY lisinopril 1 tab PO DAILY naloxone 4 mg/actuation 4 mg intranasal Q2M PRN prazosin 2 mg PO BEDTIME tamsulosin 0.4 mg PO BEDTIME HPI HPI Comments History of Present Illness Details 57-year-old male patient presenting with an umbilical hernia. The hernia is been present for approximately 1 year was initially quite small but now has increased in size. He denies any significant pain but mainly is concerned about constipation. He denies nausea, vomiting, fever or chills. He denies any previous history of surgery in this location. CT abdomen and pelvis confirms an umbilical hernia containing a loop of small bowel without obstruction or inflammation. He presents to discuss possible repair. [facility] Medical History Alcohol abuse Alcohol use disorder, severe, dependence Central sleep apnea CHF (congestive heart failure) Depression Edema Essential hypertension Heroin abuse Hypertension Morbid obesity AMANDA (obstructive sleep apnea) Respiratory failure with hypoxia Restrictive lung disease Surgical History No pertinent past surgical history Family History Other No family history of coronary artery disease Social History Alcohol intake: current Alcohol intake frequency: a few times a week Alcohol type: beer Patient Tobacco Use Status: Current everyday Tobacco user Cigarette Packs Per Day: 0.5 Cigarettes Per Day: 2 Substance Use Type: Heroin service: No Current occupational status: unemployed and disabled Review of Systems Const All systems reviewed & are unremarkable except as noted in HPI and below GI Reports constipation Physical Exam Vital Signs: Last Vital Signs BP 138/68 12/14/22 13:41 BMI result Body Mass Index 47.4 Const General: cooperative and no acute distress Nutritional Appearance: well nourished Orientation/consciousness: patient oriented x3 Limitations: no limitations HEENT Head: Yes normocephalic and Yes atraumatic Ears: hearing grossly normal bilaterally Resp Effort & Inspection: normal respiratory effort, no audible wheezes, no cough and no respiratory distress Cardio Jugular venous distension: no JVD GI Other: Large pannus. No fluid wave. Obvious umbilical hernia measuring approximately 3 cm in diameter. Easily reducible with light pressure. Increases in size with Valsalva maneuvers. Nontender to palpation. No scar. Inspection: Yes normal to inspection Skin Other: Warm, dry, no rash Neuro General: patient oriented x3 Extrem General: Yes no clubbing, cyanosis or edema Assessment & Plan Assessment & Plan (1) Umbilical hernia: Code(s): K42.9 - Umbilical hernia without obstruction or gangrene Plan 57-year-old male patient presenting with a moderate size umbilical hernia which is reducible and possibly causing constipation. On examination the hernia is easily reducible with light pressure and is associated with any tenderness. I recommended an elective repair of this umbilical hernia. He is reluctant to proceed with surgery at this time. I reviewed the signs and symptoms of incarceration and strangulation encouraged him to call should any the symptoms developed. He expressed understanding and agrees with the plan. I also discussed wearing an abdominal binder to help keep the hernia reduced. He will purchase this at his local pharmacy. Coding Level of Care Code New Pt Level 4 (91127) Diagnoses Umbilical hernia K42.9
[2022-12-14 13:41] VITALS: BP 138/68; BMI 47.4
== END 2022-12-14 13:54 | disposition home or self-care (01) ==
PROVIDERS: PCP Internal Medicine Geriatric Medicine; Referring Provider Internal Medicine Geriatric Medicine; Visit Provider Surgery
DX: K42.9 Umbilical hernia without obstruction or gangrene (principal)
CPT/HCPCS: 99203

== ENCOUNTER → 2022-12-14 13:19 | Outpatient (BNVA) | payer MEDICAID, SELFPAY | PROVIDERS: PCP Internal Medicine Geriatric Medicine; Referring Provider Internal Medicine Geriatric Medicine; Visit Provider Surgery ==

== ENCOUNTER 2023-03-12 12:40 | Outpatient (REF) | payer MEDICAID, SELFPAY ==
--- NOTE | ~2023-03-12 | US_ITS ---
EXAMINATION: US SCROTUM CLINICAL INFORMATION: Right lower quadrant pain. Rule out hernia. COMPARISON: None available. TECHNIQUE: A sonogram of the scrotum was performed assessing leon-scale appearance and color Doppler flow. Spectral Doppler analysis of the arterial and venous flow were performed in the testes bilaterally. FINDINGS: RIGHT: Right testicle measures 4.3 x 2.0 x 2.7 cm, volume 12.1 mL. No focal testicular parenchymal lesions are visualized. Spectral Doppler analysis of the arterial and venous flow is normal in the right testis. Right epididymal head is normal in size. Right epididymal cyst measuring up to 1.0 cm. No right hydrocele or varicocele is seen. Right epididymal Doppler flow is normal. LEFT: Left testicle measures 4.6 x 2.1 x 2.8 cm, volume 14.1 mL. No focal testicular parenchymal lesions are visualized. Spectral Doppler analysis of the arterial and venous flow is normal in the left testis. Left epididymal head is normal in size. Left epididymal cyst measuring up to 0.5 cm. No left hydrocele or varicocele is seen. Left epididymal Doppler flow is normal. US/US scrotum IMPRESSION: 1. Bilateral testicular vascular flow identified. 2. Bilateral epididymal cysts.
[2023-03-12 13:25] LABS: MANUAL DIFF FLAG NO
[2023-03-12 13:36] LABS: Basophils Absolute Auto 0.1 X10*3/uL (0.0-0.2); Basophils Percent Auto 0.5 % (0-2); Eosinophils Absolute Auto 0.1 X10*3/uL (0.0-0.4); Eosinophils Percent Auto 1.4 % (0-4); Hematocrit 46.2 % (42.0-52.0); Hemoglobin 15.1 g/dl (14.0-18.0); Imm Gran Abs Auto 0.02 X10*3/uL (0.00-0.03); Imm Gran Pct Auto 0.2 % (0.0-0.4); Lymphocytes Absolute Auto 2.5 X10*3/uL (1.2-4.9); Lymphocytes Percent Auto 26.5 % (20-40); Mean Corpuscular HGB Conc 32.7 g/dl (31.0-36.0); Mean Corpuscular Hemoglobin 30.9 pg (27.0-33.0); Mean Corpuscular Volume 94.7 fL (80.0-98.0); Mean Platelet Volume 10.5 fL (9.4-12.4); Monocytes Absolute Auto 0.6 X10*3/uL (0.1-1.2); Monocytes Percent Auto 6.8 % (2-11); Neutrophils Percent Auto 64.6 % (45-73); Platelet Count 199 X10*3/uL (160-400); Red Blood Count 4.88 X10*6/uL (4.60-5.80); Red Cell Distribution Width 13.1 % (11.0-16.0); White Blood Count 9.4 X10*3/uL (4.8-10.8)
[2023-03-12 14:17] LABS: Alanine Aminotransferase 39 U/L (0-40); Albumin Level 3.9 g/dL (3.5-5.0); Alkaline Phosphatase 122 U/L (39-117); Anion Gap 12 (12-20); Aspartate Amino Transferase 57 U/L (5-37); Bilirubin Total 0.6 mg/dL (0.0-1.0); Blood Urea Nitrogen 12 mg/dL (9-16); Calcium 9.1 mg/dL (8.4-10.2); Carbon Dioxide 27 mmol/L (22-29); Chloride 102 mmol/L (96-108); Estimated Glomerular Filt Rate > 60; Glucose Random 98 mg/dL (60-115); Potassium 3.4 mmol/L (3.3-5.1); Sodium 138 mmol/L (135-145); Total Protein 7.8 g/dL (6.5-8.0)
[2023-03-13 07:55] LABS: HIV AB/AG Nonreactive (Nonreactive); HIV Num 1 0.04 S/CO (0.00-0.99); ~HepC Num1 0.18 S/CO (0.00-0.79); ~Hepatitis C Antibody Nonreactive (Nonreactive)
== END 2023-03-12 12:41 | disposition home or self-care (01) ==
LOC: HO.HHCL 12:40
PROVIDERS: Visit Provider Internal Medicine Geriatric Medicine
DX: Z11.4 Encounter for screening for human immunodeficiency virus [HIV] (principal); R10.31 Right lower quadrant pain; F11.10 Opioid abuse, uncomplicated; F10.10 Alcohol abuse, uncomplicated
CPT/HCPCS: 36415; 76870; 80053; 85025; 86803; 87389

== ENCOUNTER 2023-03-12 14:44 | Outpatient (REF) | payer MEDICAID, SELFPAY | END 2023-03-12 14:45 | disposition home or self-care (01) | LOC: HO.US 14:44 | PROVIDERS: PCP Internal Medicine Geriatric Medicine; Visit Provider Internal Medicine Geriatric Medicine | DX: Z13.89 Encounter for screening for other disorder (principal) ==

== ENCOUNTER 2023-07-08 20:06 | Emergency (ER) | payer MEDICAID, SELFPAY | END 2023-07-08 21:30 | disposition left against medical advice (07) | PROVIDERS: Emergency Provider Emergency Medicine; PCP Internal Medicine Geriatric Medicine | DX: R10.9 Unspecified abdominal pain (principal) ==

== ENCOUNTER 2024-08-12 20:53 | Inpatient (IN) | payer OTHER, SELFPAY ==
--- NOTE | ~2024-08-12 | CT_ITS ---
CLINICAL HISTORY: unwitnessed fall possible seizure CT Head WO Contrast COMPARISON: None FINDINGS: No acute intracranial hemorrhage. No evidence of acute infarction. No mass-effect or midline shift. Mild diffuse cortical volume loss. No hydrocephalus. Mucosal thickening and cysts or polyps in the maxillary sinuses. The mastoid air cells are clear. The visible orbits are normal. No acute fracture. Unremarkable soft tissues. IMPRESSION: No acute intracranial findings. This document has been electronically signed by: Arnaud Mcgee MD on 08/14/2024 01:30:39
[2024-08-12 20:56] VITALS: BP 166/85; PULSE 71; RESP 20; TEMP 36; O2SAT 100; BMI 32.4
--- NOTE | 2024-08-12 20:56 | ECG_ITS ---
Test Reason : MED CLEARANCE Blood Pressure : */* mmHG Vent. Rate : 58 BPM Atrial Rate : 58 BPM P-R Int : 182 ms QRS Dur : 100 ms QT Int : 448 ms P-R-T Axes : 63 31 49 degrees QTcB Int : 439 ms Sinus bradycardia Otherwise normal ECG When compared with ECG of 27-Jun-2021 22:12, No significant change was found Referred By: Shaquille Mclaughlin Electronically Signed By: Dominic Benítez
--- NOTE | 2024-08-12 20:56 | ED_ITS ---
HPI - General Adult General Chief complaint: Psychiatric Symptoms Stated complaint: Depression Time Seen by Provider: 08/12/24 21:37 Source: patient Mode of arrival: ambulatory Limitations: no limitations History of Present Illness ED Provider: Dr. Pippa Mendenhall HPI narrative: patient comes to the emergency room complaining that he is vaguely suicidal. Patient states that he has too many problems, patient states that he has not been taking his medication for several months. Denies HI Related Data Home Medications ?Medication ?Instructions ?Recorded ?Confirmed lisinopril 20 mg tablet 1 tab PO DAILY 06/28/21 08/13/24 bupropion HCl 300 mg 24 hr tablet, 1 tab PO DAILY 02/18/22 08/13/24 extended release furosemide 40 mg tablet 1 tab PO DAILY 02/18/22 08/13/24 prazosin 2 mg capsule 2 mg PO BEDTIME 03/16/22 08/13/24 tamsulosin 0.4 mg capsule 0.4 mg PO BEDTIME 03/16/22 08/13/24 docusate sodium 100 mg capsule 100 mg PO BID 12/14/22 08/13/24 hydroxyzine pamoate 25 mg capsule 25 mg PO TID PRN anxiety 08/13/24 08/13/24 nicotine (polacrilex) 2 mg buccal 2 - 4 mg PO Q2-4H PRN smoke 08/13/24 08/13/24 lozenge cessation sennosides 8.6 mg tablet (senna) 8.6 - 17.2 mg PO BEDTIME PRN 08/13/24 08/13/24 constipation trazodone 50 mg tablet 50 mg PO BEDTIME 08/13/24 08/13/24 Previous Rx's ?Medication ?Instructions ?Recorded folic acid 1 mg tablet 1 mg PO DAILY #30 tabs 02/20/22 naloxone 4 mg/actuation nasal spray 4 mg intranasal Q2M PRN Opioid 02/20/22 Overdose #2 ea Allergies Allergy/AdvReac Type Severity Reaction Status Date / Time No Known Allergies Allergy Verified 08/12/24 20:57 Review of Systems 2 Review of Systems: Constitutional : No Weight loss, No Fever, No Chills, No Night Sweats, No Fatigue, No Malaise ENT/Mouth : No Hearing loss, No Ear Pain, No Nasal Congestion, No Sinus Pain, No Hoarseness, No sore throat, No Rhinorrhea, No Swallowing Difficulty Eyes: No Eye Pain, No Swelling, No Redness, No Foreign Body, No Discharge, No Vision Changes Cardiovascular : No Chest Pain, No SOB, No Dyspnea on Exertion, No Orthopnea, No Edema, No Palpitations Respiratory : No Cough, No Sputum, No Wheezing, No Smoke Exposure, No Dyspnea Gastrointestinal : No Nausea, No Vomiting, No Diarrhea, No Constipation, No abdominal Pain, No Hematochezia, No Melena Genitourinary : no irregular bleeding, No Dysuria, No Urinary Frequency, No Hematuria, No Urinary Incontinence, No Urgency, No Flank Pain, No Urinary Flow Changes, No Hesitancy Musculoskeletal : No joint pain, No Myalgias, No Joint Swelling Skin : No Skin Lesions, No rash Neuro : No Weakness, No Numbness, No Paresthesias, No Loss of Consciousness, No Dizziness, No Headache Psych : denies anxiety, complaining of depression, vague suicidal ideation Heme/Lymph: No Bruising, No Bleeding,No Lymphadenopathy Endocrine : No Polyuria, No Polydipsia, No Temperature Intolerance PMFSH Past Medical History Medical History Central sleep apnea Respiratory failure with hypoxia Restrictive lung disease AMANDA (obstructive sleep apnea) Morbid obesity Alcohol use disorder, severe, dependence Alcohol abuse Heroin abuse Essential hypertension CHF (congestive heart failure) Edema Depression Hypertension Surgical History No pertinent past surgical history Family History Family History Other No family history of coronary artery disease Social History Social History Alcohol intake: current Alcohol intake frequency: a few times a week Alcohol type: beer Patient Tobacco Use Status: Current everyday Tobacco user Cigarette Packs Per Day: 0.5 Cigarettes Per Day: 2 Substance Use Type: Heroin Advance Directives: No Advance Directives Information Provided: No service: No Current occupational status: unemployed and disabled Physical Exam ED Vital Signs: Vital Signs - 24 hr 08/12/24 20:56 08/13/24 07:49 Temperature 96.8 F 97.9 F Pulse Rate 71 70 Respiratory Rate 20 20 Blood Pressure 166/85 H 191/92 H Pulse Oximetry 100 100 Oxygen Delivery Method Room Air Room Air Blow By BMI result Body Mass Index 32.4 Const Other: Appearance: Alert. Oriented X3. No acute distress. seems to be under the influence of alcohol versus drugs Eyes: Pupils equal, round and reactive to light. ENT: Pharynx normal. Neck: Normal inspection. Neck supple. No lymph nodes noted. No crepitus CVS: Normal heart rate and rhythm. Pulses normal. Normal S1 and S2 Respiratory: No respiratory distress. Breath sounds normal. No Wheezing. No rales Abdomen: Soft and nontender. No rigidity. No distention. Skin: Skin warm and dry. Normal skin color. Normal skin turgor. Extremities: No lower extremity edema. No Lacerations. No Rash Neuro: Oriented X 3. No motor deficit. No sensory deficit. Moving all extremities. No slurred speech. CN 2 through 12 grossly intact Psych: calm, cooperative, unwilling to answer specific questions, patient keeps saying that he has too many polyps Course Course Course Narrative: RME, this is a rapid medical exam performed by Diego Mclaughlin please refer to primary provider for complete H&P- 59 year old male presents for evaluation of depression. He reports that he has been off of his meds for the last few days. Plan for medical clearance and care team evaluation Reevaluation(s) Reevaluation #1: Time: 07:31 Date: 08/13/24 Provider: Gilberto Talbot MD Patient in physician observation for psychiatric evaluation.? No acute events reported overnight. No current complaints. VS stable.? pending CARE team evaluation. Will continue to monitor. Reevaluation #2: pt will be admited to psych unit Time: 12:25 Medications Administered Discontinued Medications Generic Name Dose Route Start Last Admin Trade Name Merna PRN Reason Stop Dose Admin Buprenorphine/Naloxone 2 film 08/13/24 07:53 08/13/24 07:56 Buprenorphine/Naloxone 8/2 Mg Film SUBLINGUAL 08/13/24 07:54 2 film ONCE ONE Administration Lorazepam 1 mg 08/13/24 08:29 08/13/24 08:35 Lorazepam 1 Mg Tablet PO 08/13/24 08:30 1 mg ONCE ONE Administration Medical Decision Making Medical Decision Making MDM Narrative: my interpretation of labs: No significant abnormality in patient's hematology and chemistry. Patient's hemoglobin is 12. Denies bloody stool or black stool. Patient has a low hemoglobin in the past Similar to today. Urinalysis negative for UTI given positive for fentanyl/opiates and cocaine care team consult pending physician observation started at 22:00 Differential Diagnosis Differential Diagnoses: The differential diagnosis associated with the presentation includes ( anxiety, depression, polysubstance abuse) Lab Data MDM Lab Attestation statement: I reviewed the patient's lab results. 08/12/24 21:29 08/12/24 21:29 Labs: Lab Results 08/12/24 08/12/24 Range/Units 21:29 21:34 WBC 7.1 (4.8-10.8) X10*3/uL RBC 3.94 L (4.60-5.80) X10*6/uL Hgb 12.0 L D (14.0-18.0) g/dl Hct 35.7 L D (42.0-52.0) % MCV 90.6 (80.0-98.0) fL MCH 30.5 (27.0-33.0) pg MCHC 33.6 (31.0-36.0) g/dl RDW 14.4 (11.0-16.0) % Plt Count 187 (160-400) X10*3/uL MPV 9.8 (9.4-12.4) fL Immature Gran % (Auto) 0.1 (0.0-0.4) % Neut % (Auto) 61.8 (45-73) % Lymph % (Auto) 30.9 (20-40) % [place] % (Auto) 5.5 (2-11) % Eos % (Auto) 1.1 (0-4) % Baso % (Auto) 0.6 (0-2) % Lymph # (Auto) 2.2 (1.2-4.9) X10*3/uL [place] # (Auto) 0.4 (0.1-1.2) X10*3/uL Eos # (Auto) 0.1 (0.0-0.4) X10*3/uL Baso # (Auto) 0.0 (0.0-0.2) X10*3/uL Abs Immat Gran (auto) 0.01 (0.00-0.03) X10*3/uL Absolute Neuts (auto) 4.4 (2.0-8.3) x10*3/uL Absolute Nucleated RBC 0.000 (0.0-0.012) X10*3/uL Nucleated RBC % (auto) 0.0 (0.0-0.2) /100WBC Sodium 140 (135-145) mmol/L Potassium 3.9 (3.3-5.1) mmol/L Chloride 106 (96-108) mmol/L Carbon Dioxide 26 (22-29) mmol/L Anion Gap 12 (12-20) BUN 11 (9-16) mg/dL Creatinine 0.64 (0.5-1.4) mg/dL Estim Creat Clear Calc 118.3 Estimated GFR > 60 Random Glucose 85 (60-115) mg/dL Calcium 9.1 (8.4-10.2) mg/dL Total Bilirubin 0.4 (0.0-1.0) mg/dL AST 49 H (5-37) U/L ALT 30 (0-40) U/L Alkaline Phosphatase 69 (39-117) U/L Total Protein 7.2 (6.5-8.0) g/dL Albumin 4.1 (3.5-5.0) g/dL Urine Color Yellow Urine Appearance Clear Urine pH 5.5 (5.0-9.0) Ur Specific [place] 1.020 (1.005-1.025) Urine Protein Negative (Neg-Trace) mg/dL Urine Glucose (UA) Negative (Negative) mg/dL Urine Ketones Negative (Negative) mg/dL Urine Blood Negative (Negative) Urine Nitrite Negative (Negative) Ur Leukocyte Esterase Negative (Negative) Urine RBC 0-2 (0-2) /HPF Urine WBC 0-5 (0-5) /HPF Ur Squamous Epith Cells 0-2 (0-2) /HPF Urine Bacteria None Seen (None Seen) Hyaline Casts 0-2 (0-2) /LPF Salicylates < 5.0 L (15-30) mg/dL Urine Opiates Screen POSITIVE H (Not Detect) Ur Buprenorphine Scrn Not Detected (Not Detect) ng/mL Ur Oxycodone Screen Not Detected (Not Detect) ng/mL Urine Methadone Screen Not Detected (Not Detect) ng/mL Urine Fentanyl Screen POSITIVE H (Not Detect) Acetaminophen < 3 (<30) mcg/mL Ur Barbiturates Screen Not Detected (Not Detect) Ur Phencyclidine Scrn Not Detected (Not Detect) Ur Amphetamines Screen Not Detected (Not Detect) U Benzodiazepines Scrn Not Detected (Not Detect) Urine Cocaine Screen POSITIVE H (Not Detect) U Marijuana (THC) Screen Not Detected (Not Detect) Ethyl Alcohol 88 mg/dL Critical Care Time Critical Care Time Critical Care Time: Yes Total Critical Care Time: 35 Attestation: I have personally provided critical care time. Time includes review of lab data, radiology results, discussion with consultants, and monitoring for potential decompensation. Intervention performed as documented. Discharge Plan Discharge Clinical Impression: Depression, Suicidal ideation, Polysubstance abuse Patient Disposition: Admitted As Inpatient Interventions: [place]roggins-Suicide Risk Severity Scale Last Done: 08/12/24 21:40 Discharge Date/Time: 08/13/24 12:22
[2024-08-12 21:33] LABS: MANUAL DIFF FLAG NO
[2024-08-12 21:35] LABS: Basophils Percent Auto 0.6 % (0-2); Eosinophils Absolute Auto 0.1 X10*3/uL (0.0-0.4); Eosinophils Percent Auto 1.1 % (0-4); Hematocrit 35.7 % (42.0-52.0); Imm Gran Abs Auto 0.01 X10*3/uL (0.00-0.03); Imm Gran Pct Auto 0.1 % (0.0-0.4); Lymphocytes Absolute Auto 2.2 X10*3/uL (1.2-4.9); Lymphocytes Percent Auto 30.9 % (20-40); Mean Corpuscular HGB Conc 33.6 g/dl (31.0-36.0); Mean Corpuscular Hemoglobin 30.5 pg (27.0-33.0); Mean Corpuscular Volume 90.6 fL (80.0-98.0); Mean Platelet Volume 9.8 fL (9.4-12.4); Monocytes Absolute Auto 0.4 X10*3/uL (0.1-1.2); Monocytes Percent Auto 5.5 % (2-11); Neutrophils Absolute Auto 4.4 x10*3/uL (2.0-8.3); Neutrophils Percent Auto 61.8 % (45-73); Platelet Count 187 X10*3/uL (160-400); Red Blood Count 3.94 X10*6/uL (4.60-5.80); Red Cell Distribution Width 14.4 % (11.0-16.0); White Blood Count 7.1 X10*3/uL (4.8-10.8)
[2024-08-12 21:49] LABS: Alanine Aminotransferase 30 U/L (0-40); Albumin Level 4.1 g/dL (3.5-5.0); Alkaline Phosphatase 69 U/L (39-117); Anion Gap 12 (12-20); Aspartate Amino Transferase 49 U/L (5-37); Bilirubin Total 0.4 mg/dL (0.0-1.0); Blood Urea Nitrogen 11 mg/dL (9-16); Calcium 9.1 mg/dL (8.4-10.2); Carbon Dioxide 26 mmol/L (22-29); Chloride 106 mmol/L (96-108); Creatinine Clr Calc Pharmacy 118.3; Estimated Glomerular Filt Rate > 60; Ethanol 88 mg/dL; Glucose Random 85 mg/dL (60-115); Potassium 3.9 mmol/L (3.3-5.1); Sodium 140 mmol/L (135-145); Total Protein 7.2 g/dL (6.5-8.0)
[2024-08-12 21:52] LABS: Appearance Urine Clear; Color Urine Yellow; Glucose Urine UA Negative (Negative); Leukocyte Esterase Urine Negative (Negative); Nitrite Urine Negative (Negative); PH 5.5 (5.0-9.0); Urine Blood Negative (Negative); Urine Ketones Negative (Negative); Urine Protein Negative (Neg-Trace)
[2024-08-12 21:54] LABS: Acetaminophen LAB < 3 mcg/mL (<30); Salicylate < 5.0 mg/dL (15-30)
[2024-08-12 21:56] LABS: Bacteria Urine None Seen (None Seen); Hyaline Casts Urine 0-2 /LPF (0-2); RBC Urine 0-2 /HPF (0-2); Squamous Epithelial Cell Urine 0-2 /HPF (0-2); WBC Urine 0-5 /HPF (0-5)
--- OUTSIDE RECORDS SUMMARY | 2024-08-12 21:58 | XMS_ITS | Encounter Summary ---
Author Organization [employer] Address [address] [facility] 7[address] [place] [address] Care Team Providers Care Regulatory Manager Name Role Phone Name, Olayinka NUGENT Primary Care Provider [phone] Reason for Visit * Reason Onset Date Comments Nurse Triage 05/17/2023 Encounter Details Date Type Department Care Team (Late st Contact Info) Description 05/17/2023 Telephone [facility] MEDICINE [address], [place] [phone] Name, MD Olayinka [address] [place], [place] [phone] Nurse Triage Social History Tobacco Use Types Packs/Day Years Used Date Smoking Tobacco: Every Day Cigarettes Passive Smoke Exposure: Current Alcohol Use Standard Drinks/Week Comments Yes 0 (1 standard drink = 0.6 oz pur e alcohol) 70 per week, 10 a day Depression Answer Date Recorded Patient Health Questionnaire-9 Score 14 08/23/2022 Housing Stability Answer Date Recorded What is your housing situation today? I have housing today, but I am worried about losing housing in the future 02/09/[address] you li ve. Do you have problems with any of the following? None of the above 02/09/2023 Food Insecurity Answer Date Recorded Within the past 12 months, y ou worried that your food would run out before you got money to buy more: Sometimes True 2022 Within the past 12 months,th e food you bought just didn't last and you didn't have enough money to get more: Sometimes True 02/09/2023 Transportation Answer Date Recorded In the past 12 months, has l ack of transportation kept you from medical appts, meetings, work or from getting things needed for daily living? No 02/09/2023 Utilities Answer Date Recorded In the past 12 months, has t he electric, gas, oil or water company threatened to shut off services in your home? I am not sure 02/09/2023 Depression Answer Date Recorded Patient Health Questionnaire-2 Score 4 08/23/2022 Sex and Gender Information Value Date Recorded Sex Assigned at Male 02/13/2022 10:15 AM EDT Legal Sex Male 10:15 AM EDT Gender Identity Male 02/13/2022 10:15 AM EDT Sexual Orientation Straight 02/13/2022 10 :15 AM EDT documented as of this encounter Miscellaneous Notes * Telephone Encounter - Ludwin Garcia RN - 05/21/2023 10:15 AM EST T/C to [phone] through [employer] id - [id number] for status check. No answer. LVM to call [facility] on [phone]. * Telephone Encounter - Maday Rodriguez RN - 05/17/2023 2:54 PM EST Call to [facility] , spoke with both pt and spouse. Pt reports having worsening depressionx 3 week. Pt has stopped all meds for depression. PT denies any SI. Pt states has occasional passing thoughts of harming others but denies a plan or intent. Pt also confirms having auditory hallucinations, anxiety depression and mood swings. Pt has hx of Pt states has no MH services in place. Pt currently at home with spouse and feels safe in home. Pt and spouse advised that pt should seek ER nowfor exam to rule out medical concerns and then if needed for Crisis eval. Offered to call EMS with spouse and patient on line. Spouse states she will call to have them come assess patient. Advised raghavendra after discharge for follow up with PCP. Spouse and pt verbalized understanding. Sent to team for ER status check PRN. Protocol Used: Depression (Adult) Protocol-Based Disposition: Go to ED Now Positive Triage Question: * Depression and unable to do any of normal activities (e.g., self care, school, work; in comparison to baseline). * All higher-acuity triage questions were negative Care Advice Discussed: * Reasons To Call Back - You feel like harming yourself - You become worse * Telephone Encounter - Maday Rodriguez RN - 05/17/2023 2:36 PM EST Second call to [facility], no answer, LVM to return call to [facility] * Telephone Encounter - Maday Rodriguez RN - 05/17/2023 2:31 PM EST Call returned to [facility] for triage. No answer LVM to return call to [facility] triage line [phone]. * Telephone Encounter - Trey Montgomery - 05/17/2023 2:24 PM EST Symptoms: Anxiety or Panic Attack, Hallucinations Outcome: Talk to a nurse or provider within 15 minutes Reason: Caller denied all higher acuity questions The caller accepted this outcome documented in this encounter Plan of Treatment Upcoming Encounters Date Type Department Care Team (Late st Contact Info) Description 08/14/2024 11:30 AM EDT Clinical Support [facility] MEDICINE [address] [place] [phone] Mark Mena, MASTER [address] [place] [address] 08/21/2024 3:00 PM EDT Office Visit [facility] MEDICINE [address] [place] [address] Giovanna Zacarias MD [address] [place] [address] 09/03/2024 2:45 PM EDT Office Visit [facility] OPTOMETRY [address] [place] [phone] Malou Leavitt, OD [address] [place] [address] 09/15/2024 10:45 AM EDT Office Visit [facility] MEDICINE [address] [place] [address] Name, MD Olayinka [address] [place] [address] documented as of this encounter Visit Diagnoses Not on filedocumented in this encounter Additional Health Concerns Assessment Noted Time PHQ-9 Depression Total Score: 14 023 3:00 PM EDT documented as of this encounter Care Teams Regulatory Manager Relationship Specialty Start Date End Date Name, MD Olayinka [address] [place] [phone] PCP - General Family Medicine 03/22/18 documented as of this encounter
--- OUTSIDE RECORDS SUMMARY | 2024-08-12 21:58 | XMS_ITS | Encounter Summary ---
Author Organization [employer] Address [address] [facility] 7t [place] [address] Care Team Providers Care Tight Barrel Inspector Name Role Phone Name, Olayinka NUGENT Primary Care Provider [phone] Encounter Details Date Type Department Care Team (Late st Contact Info) Description 05/02/2022 Orders Only [facility] MED & PEDS [address] [place], [place] [phone] Leeanne Rice LPN Social History Tobacco Use Types Packs/Day Years Used Date Smoking Tobacco: Never Assessed Sex and Gender Information Value Date Recorded Sex Assigned at Male 02/13/2022 10:15 AM EDT Legal Sex Male 10:15 AM EDT Gender Identity Male 02/13/2022 10:15 AM EDT Sexual Orientation Straight 02/13/2022 10 :15 AM EDT documented as of this encounter Plan of Treatment Upcoming Encounters Date Type Department Care Team (Late st Contact Info) Description 08/14/2024 11:30 AM EDT Clinical Support [facility] MEDICINE [address] [place] [phone] Mark Mena, MASTER [address] [place] [address] 08/21/2024 3:00 PM EDT Office Visit [facility] MEDICINE [address] [place] [phone] Giovanna Zacarias MD [address] [place] [address] 09/03/2024 2:45 PM EDT Office Visit [facility] OPTOMETRY [address] [place] [address] Malou Leavitt, OD [address] [place] [address] 09/15/2024 10:45 AM EDT Office Visit [facility] MEDICINE [address] [place] [address] Name, MD Olayinka [address] [place] [address] documented as of this encounter Visit Diagnoses Not on filedocumented in this encounter Care Teams Tight Barrel Inspector Relationship Specialty Start Date End Date Name, MD Olayinka [address] [place] [address] PCP - General Family Medicine 03/22/18 documented as of this encounter
--- OUTSIDE RECORDS SUMMARY | 2024-08-12 21:58 | XMS_ITS | Encounter Summary ---
Author Organization [email or web address] Address [address] [facility] [address] [address] [place] [address] Care Team Providers Care Home Insurance Agent Name Role Phone Name, Olayinka NUGENT Primary Care Provider [phone] Encounter Details Date Type Department Care Team (Late st Contact Info) Description 04/20/2023 Orders Only [facility] [address] [place], [place] [phone] Lashanda Oviedo FNP Constipation, unspecified constipation type (Primary Dx) Social History Tobacco Use Types Packs/Day Years [...] Description 08/14/2024 11:30 AM EDT Clinical Support [facility] MEDICINE [address] [place] [phone] Mark Mena, MASTER [address] [place] [phone] 08/21/2024 3:00 PM EDT Office Visit [facility] MEDICINE [address] [place] [phone] Giovanna Zacarias MD [address] [place] [phone] 09/03/2024 2:45 PM EDT Office Visit [facility] OPTOMETRY [address] [place] [address] Malou Leavitt, OD [address] [place] [address] 09/15/2024 10:45 AM EDT Office Visit [facility] MED[facility]INE [address] [place] [phone] Olayinka Shi MD [address] [place] [phone] Scheduled Orders Name Type Priority Associated Diagnoses Orde r Schedule Basic Metabolic Panel Lab Routine Constipation, unspecified constipation type Expected: 04/20/2023 (Approximate), Expires: 04/20/2024 documented as of this encounter Visit Diagnoses Diagnosis Constipation, unspecified constipation type- Primary documented in this encounter Additional Health Concerns Assessment Noted Time PHQ-9 Depression Total Score: 14 023 3:00 PM EDT documented as of this encounter Care Teams Home Insurance Agent Relationship Specialty Start Date End Date Name, MD Olayinka [address] [place] [address] PCP - General Family Medicine 03/22/18 documented as of this encounter
--- OUTSIDE RECORDS SUMMARY | 2024-08-12 21:58 | XMS_ITS | Clinical Summary ---
Author Organization [facility] Address [address] [place] [address] Care Team Providers Care Direct Mail Coordinator Name Role Phone Unavailable Primary Care Provider Unavailabl e Social History Tobacco Use Types Packs/Day Years Used Date Smoking Tobacco: Never Assessed Sex and Gender Information Value Date Recorded Sex Assigned at Not on file Legal Sex Male 4:55 AM EST Gender Identity Not on file Sexual Orientation Not on file Plan of Treatment Health Maintenance Due Date Last Done Comments DTaP,Tdap,and Td Vaccines (1 - Tdap) 02/08/1984 Hepatitis B Vaccines (1 of 3 - 19+ 3-dose series) 02/08/1984 Pneumococcal Vaccine: 50+ Ye ars (1 of 1 - PCV) 2015 Zoster Vaccines (1 of 2) 2015 COVID-19 Vaccine ( - 2023-2 5 season) 2023 Influenza Vaccine (Season Ended) 2024 RSV Immunization Adult Patie nts (1 - 1-dose 75+ series) 02/08/2040 HIB Vaccines Aged Out No longer eligi ble based on patient's age to complete this topic HPV Vaccines Aged Out No longer eligi ble based on patient's age to complete this topic Hepatitis A Vaccines Aged Out No long er eligible based on patient's age to complete this topic IPV Vaccines Aged Out No longer eligi ble based on patient's age to complete this topic MMR Vaccines Aged Out No longer eligi ble based on patient's age to complete this topic Meningococcal ACWY Vaccine Aged Out N o longer eligible based on patient's age to complete this topic Meningococcal B Vaccine Aged Out No l onger eligible based on patient's age to complete this topic Pneumococcal Vaccine: Pediat rics (0 to 5 Years) and At-Risk Patients (6 to 64 Years) Aged Out No longer eligible b ased on patient's age to complete this topic RSV Immunization Patients Un luna 20 months Aged Out No longer eligible b ased on patient's age to complete this topic Varicella Vaccines Aged Out No longer eligible based on patient's age to complete this topic
--- OUTSIDE RECORDS SUMMARY | 2024-08-12 21:58 | XMS_ITS | Clinical Summary ---
Author Organization [employer] Address [address] [facility] 7[address] [place] [address] Care Team Providers Care Java Systems Analyst Name Role Phone Name, Olayinka NUGENT Primary Care Provider [phone] Allergies Active Allergy Reactions Criticality Noted Date Comments Penicillins 03/22/2018 Medications * This document contains information received from the source organization and may not represent a complete record from that organization. sildenafil (Viagra) 50 MG tabletIndicati ons:Other male erectile dysfunction Take 1 tablet (50 mg) by mouth if needed each day for erectile dysfunction. 10 tablet 09/12/19 24 Active acamprosate (Campral) 333 MG EC tablet 1 tablet PO BID x 1 day, then 1 tablet PO TID for 2-3 days, then 2 pills PO TID. Do not crush, chew, or split. 180 tablet 3 02/01/20 24 Active docusate sodium (Colace) 100 MG capsule 1 or 2 capsules PO at bedtime prn constipation (stool softener). 60 capsule 2 07/16/19 25 Active sennosides (Senokot) 8.6 MG tablet 1 or 2 tablets PO at bedtime prn constipation (natural intestinal stimulant) 60 tablet 2 07/16/19 25 Active nicotine (Nicoderm CQ) 14 MG/24HR patch Place 1 patch on the skin 1 (one) time each day at the same time. 42 patch 07/16/19 25 2024 Active nicotine polacrilex (Nicorette) 2 MG lozenge 1 or 2 lozenges PO q 2-4 hours instead of a cigarette. 100 lozenge 1 07/16/19 25 Active hydrOXYzine pamoate (Vistaril) 25 MG capsule 1 tablet PO TID prn anxiety. May cause drowsiness. 45 capsule 1 07/16/19 25 Active traZODone (Desyrel) 50 MG tablet Take 1 tablet (50 mg) by mouth at bedtime. 30 tablet 1 07/16/19 25 2024 Active Buprenorphine HCl-Naloxone HCl (Suboxone) 8-2 MG SL filmIndication s:Opioid type dependence, continuous (CMS/HCC) Place 1 Film under the tongue 2 times daily for 7 days. 14 Film 07/18/19 25 Active docusate sodium (Colace) 100 MG capsule Take 1 tab po bid prn constipation 20 capsule 04/13/20 23 2024 Discontinued(D uplicate order (will not trigger notification to Pharmacy)) traZODone (Desyrel) 50 MG tablet Take 1 tablet (50 mg) by mouth at bedtime. 30 tablet 01/07/20 24 2024 Discontinued(D uplicate order (will not trigger notification to Pharmacy)) hydrOXYzine HCl (Atarax) 25 MG tabletIndicati ons:Anxiety Take 1 tablet (25 mg) by mouth if needed in the morning, at noon, and at bedtime for itching or anxiety. 90 tablet 01/07/20 24 2024 Discontinued(D uplicate order (will not trigger notification to Pharmacy)) nicotine (Nicoderm CQ) 21 MG/24HR patch Place 1 patch on the skin 1 (one) time each day at the same time. 30 patch 3 01/07/20 24 2024 Discontinued nicotine polacrilex (Nicotine Mini) 2 MG lozenge 1 lozenge PO every 2-4 hours instead of a cigarette. 100 lozenge 1 02/01/20 24 2024 Discontinued(D uplicate order (will not trigger notification to Pharmacy)) Buprenorphine HCl-Naloxone HCl (Suboxone) 8-2 MG SL filmIndication s:Opioid type dependence, continuous (CMS/HCC) Place 1 Film under the tongue 2 times daily for 10 days. 19 Film 07/16/19 25 2024 Discontinued(R eorder (will not trigger notification to Pharmacy)) Active Problems Problem Noted Date Diagnosed Date AMANDA (obstructive sleep apnea) 11/30/2022 Anxiety 08/23/2022 Benign prostatic hyperplasia 08/23/2022 Daytime somnolence 08/23/2022 Severe obesity 08/23/2022 Snoring 08/23/2022 Vascular insufficiency 08/23/2022 Auditory hallucinations 08/07/2018 Depressive disorder 08/07/2018 Mood swings 08/07/2018 Polysubstance abuse 05/29/2018 Alcohol abuse 03/22/2018 Hypertensive disorder 03/22/2018 Obesity (BMI 30-39.9) 03/22/2018 Opioid abuse 03/22/2018 Encounters Date Type Department Care Team Description 08/12/2024 Orders Only GENERIC EXTERNAL DATA DEPARTMENT Provider, Generic External Data 07/21/2024 Patient Outreach [facility] [address] [place] [phone] Royer Hansen Recovery Supports 07/18/2024 Patient Outreach [facility] [address] [place] [phone] Royer Hansen Recovery Supports 07/17/2024 Refill [facility] [address] [place] [phone] Giovanna Zacarias MD Opioid type dependence, continuous (CMS/HCC) 07/15/2024 10:30 AM EDT Office Visit [address] [address] Robin Bean MD Opioid type dependence, continuous (CMS/HCC) (Primary Dx); Tobacco use disorder; Opioid use, unspecified, uncomplicated 07/15/2024 Travel 07/08/2024 10:00 AM EDT Office Visit [address] [address] Baylee Contreras RN Uncomplicated opioid dependence (CMS/HCC) (Primary Dx) 07/08/2024 Patient Outreach [address] [address] Royer Hansen Recovery Supports 07/08/2024 Travel 07/04/[address] [address] Agata Rojas, MASTER OBAT Communication 06/27/2024 Population Health Risk Score [facility] ([facility]) Department [address] [place] [phone] Provider, Population Health Generic 05/15/2024 Telephone [facility] [address] [place] [address] Name, MD Olayinka [employer] (Oxygen) from Last 3 Months Immunizations Name Administration Dates Next Due Hep B, adult 09/12/2023,11/15/2018 Influenza, seasonal, injectable, preservative fr ee 01/07/2024 Moderna Covid-19 Vaccine 12+ 08/04/2020,07/08/19 21 Pneumococcal Conjugate PCV 20 09/12/2023 Pneumococcal Polysaccharide PPSV23 08/03/2021 Tdap 08/03/2021 Zoster, Recombinant 11/02/2022,09/01/2022 Social History Tobacco Use Types Packs/Day Years Used Date Smoking Tobacco: Some Days Cigarettes Passive Smoke Exposure: Current Tobacco Cessation:Ready to Q uit: Not Asked; Counseling Given: Not Answered Alcohol Use Standard Drinks/Week Comments Yes 0 (1 standard drink = 0.6 oz pur e alcohol) 70 per week, 10 a day Depression Answer Date Recorded Patient Health Questionnaire-9 Score 17 09/12/2023 Patient Health Questionnaire-9 Score 17 09/12/2023 Last PHQ-9: Questionnaire Data Not on file 0 09/12/2023 Housing Stability Answer Date Recorded What is your housing situation today? I have ronnie plasencia 09/12/[address] you li ve. Do you have problems with any of the following? None of the above 09/12/2023 Food Insecurity Answer Date Recorded Within the past 12 months, y ou worried that your food would run out before you got money to buy more: Never True 09/12/2023 Within the past 12 months,th e food you bought just didn't last and you didn't have enough money to get more: Never True Transportation Answer Date Recorded In the past 12 months, has l ack of transportation kept you from medical appts, meetings, work or from getting things needed for daily living? No 09/12/2023 Utilities Answer Date Recorded In the past 12 months, has t he electric, gas, oil or water company threatened to shut off services in your home? No 09/12/2023 Depression Answer Date Recorded Patient Health Questionnaire-2 Score 6 09/12/2023 Sex and Gender Information Value Date Recorded Sex Assigned at Male 02/13/2022 10:15 AM EDT Legal Sex Male 10:15 AM EDT Gender Identity Male 02/13/2022 10:15 AM EDT Sexual Orientation Straight 02/13/2022 10 :15 AM EDT Last Filed Vital Signs Vital Sign Reading Time Taken Comments Blood Pressure 136/81 02/01/2024 11:15 AM EDT Pulse 67 02/01/2024 11:15 AM EDT Temperature 36.4 ??C (97.6 ??F) 02/01/2024 11:15 AM E DT Respiratory Rate 14 01/07/2024 3:27 PM EDT Oxygen Saturation 98% 01/07/2024 3:27 PM EDT Inhaled Oxygen Concentration - - Weight 77.3 kg (170 lb 6.4 oz) 01/07/2024 3:27 P M EDT Height 167.6 cm (5' 6 ) 01/07/2024 3:27 PM EDT Body Mass Index 27.5 01/07/2024 3:27 PM EDT Plan of Treatment Upcoming Encounters Date Type Department Care Team (Late st Contact Info) Description 08/14/2024 11:30 AM EDT Clinical Support [facility] [address] [place] [phone] Mark Mena, MASTER [address] [place] [address] 08/21/2024 3:00 PM EDT Office Visit [facility] [address] [place] [phone] Giovanna Zacarias MD [address] [place] [address] 09/03/2024 2:45 PM EDT Office Visit [facility] [address] [place] [address] Malou Leavitt, RENAN [address] [place] [address] 09/15/2024 10:45 AM EDT Office Visit [facility] [address] [place] [phone] Name, MD Olayinka [address] [place] [address] Health Maintenance Due Date Last Done Comments CT Colonography 1965 Colonoscopy 1965 Colorectal Cancer Screening 1965 FIT DNA/Cologuard 1965 FIT 1965 FOBT 1965 Lipid Panel 1965 Sigmoidoscopy 1965 Alcohol/Substance Use Screening 1977 Hepatitis B Vaccines (3 of 3 - 19+ 3-dose series) 11/07/2023 09/12/2023, 11/15/2018 COVID-19 Vaccine (2023-2 5 season) 2023 09/19/2021, 08/04/2020, 07/07/2020 Depression Screening 09/11/2024 09/12/2023, 09/12/2023 SDOH Screening 09/11/2024 09/12/2023 Tobacco Screening 01/31/2025 02/01/2024 DTaP/Tdap/Td Vaccines (2 - T d or Tdap) 08/04/2031 08/03/2021 RSV Patients and Patients Aged 60 years or older (1 - 1-dose 75+ series) 02/08/2040 Zoster Vaccines Completed 11/02/2022, 09/01/2022 HIV Screening Completed 03/12/2023, 03/19/2020 Hepatitis C Screening Completed 03/12/2023 , 03/19/2020 Pneumococcal Vaccine: 50+ Years Completed 09/12/2023, 08/03/2021 Influenza Vaccine Completed 01/07/2024 HIB Vaccines Aged Out No longer eligi ble based on patient's age to complete this topic HPV Vaccines Aged Out No longer eligi ble based on patient's age to complete this topic Hepatitis A Vaccines Discontinued IPV Vaccines Aged Out No longer eligi ble based on patient's age to complete this topic Meningococcal Vaccine Aged Out No caio jeannie eligible based on patient's age to complete this topic RSV under 20 months Aged Out No longe r eligible based on patient's age to complete this topic Rotavirus Vaccines Aged Out No longer eligible based on patient's age to complete this topic Procedures Procedure Name Priority Date/Time Associated Diagnosis Comments URINALYSIS, COMPLETE, WITH REFLEX TO CULTURE Routine 08/12/2024 9:34 PM EDT ACETAMINOPHEN LEVEL Routine 08/12/2024 9 :29 PM EDT SALICYLATE Routine 08/12/2024 9:29 PM EDT ETHANOL Routine 08/12/2024 9:29 PM EDT COMPREHENSIVE METABOLIC PANEL Routine 08/12/2024 9:29 PM EDT CBC WITH AUTO DIFFERENTIAL Routine 08/12/2024 9:29 PM EDT POCT ZACHARY-14 URINE DRUG SCREEN Routine 07/15/2024 12:01 PM EDT Opioid type dependence, continuous (CMS/HCC) POCT ZACHARY-14 URINE DRUG SCREEN Routine 07/08/2024 10:28 AM EDT Uncomplicated opioid dependence (CMS/HCC) HEPATITIS C ANTIBODY Routine 03/12/2023 12:44 PM EST Opioid abuse (CMS/HCC) Alcohol abuse HIV 1/2 ANTIGEN/ANTIBODY, FOURTH GENERATION W/RFL Routine 03/12/2023 12:44 PM EST Opioid abuse (CMS/HCC) Alcohol abuse from Last 3 Months or Most Recently Relevant to Health Maintenance Results * Ethanol (08/12/2024 9:29 PM EDT) ETHANOL (MG/DL) IN SER/PLAS 88 mg/dL [facility] Comment:Serum/plasma ethanol results are to be used formedical/treatment purposes only. 08/12/2024 9:29 PM EDT 08/12/2024 9:32 PM EDT us Generic External Data Provider LAB BLOOD ORDERAB LES Final Result [facility] [address] [place] [phone] * (ABNORMAL) CBC auto differential (08/12/2024 9:29 PM EDT) White Blood Count 7.1 4.8 - 10.8 X10*3/uL [facility] Red Blood Count 3.94(L) 4.60 - 5.80 X10*6/uL [facility] Hemoglobin 12.0(L) 14.0 - 18.0 g/dl [facility] Hematocrit 35.7(L) 42.0 - 52.0 % [facility] Mean Corpuscular Volume 90.6 80.0 - 98.0 fL [facility] Mean Corpuscular Hemoglobin 30.5 27.0 - 33.0 pg [facility] Mean Corpuscular HGB Conc 33.6 31.0 - 36.0 g/dl [facility] Red Cell Distribution Width 14.4 11.0 - 16.0 % [facility] Platelet Count 187 160 - 400 X10*3/uL [facility] Mean Platelet Volume 9.8 9.4 - 12.4 fL [facility] Neutrophils Percent Auto 61.8 45 - 73 % [facility] Imm Gran Pct Auto 0.1 0.0 - 0.4 % [facility] Lymphocytes Percent Auto 30.9 20 - 40 % [facility] Monocytes Percent Auto 5.5 2 - 11 % [facility] Eosinophils Percent Auto 1.1 0 - 4 % [facility] Basophils Percent Auto 0.6 0 - 2 % [facility] NRBC Pct Auto 0.0 0.0 - 0.2 /100WBC [facility] Neutrophils Absolute Auto 4.4 2.0 - 8.3 x10*3/uL [facility] Imm Gran Abs Auto 0.01 0.00 - 0.03 X10*3/uL [facility] Lymphocytes Absolute Auto 2.2 1.2 - 4.9 X10*3/uL [facility] Monocytes Absolute Auto 0.4 0.1 - 1.2 X10*3/uL [facility] Eosinophils Absolute Auto 0.1 0.0 - 0.4 X10*3/uL [facility] Basophils Absolute Auto 0.0 0.0 - 0.2 X10*3/uL [facility] NRBC Abs Auto 0.000 0.0 - 0.012 X10*3/uL [facility] 08/12/2024 9:29 PM EDT 08/12/2024 9:32 PM EDT us Generic External Data Provider LAB BLOOD ORDERAB LES Final Result Performing Organization Address City/[facility]/ZIP Co de Phone Number [facility] [address] [place] [phone] * Acetaminophen level (08/12/2024 9:29 PM EDT) Acetaminophen LAB <3 <30 mcg/mL [facility] 08/12/2024 9:29 PM EDT 08/12/2024 9:32 PM EDT us Generic External Data Provider LAB BLOOD ORDERAB LES Final Result Performing Organization Address [facility] Co de Phone Number [facility] [address] [place] [address] [phone] * (ABNORMAL) Salicylate (08/12/2024 9:29 PM EDT) Salicylate <5.0(L) 15 - 30 mg/dL [facility] 08/12/2024 9:29 PM EDT 08/12/2024 9:32 PM EDT us Generic External Data Provider LAB BLOOD ORDERAB LES Final Result Performing Organization Address [facility] Co de Phone Number [facility] [address] [place] [phone] * (ABNORMAL) Comprehensive Metabolic Panel (08/12/2024 9:29 PM EDT) Sodium 140 135 - 145 mmol/L [facility] Potassium 3.9 3.3 - 5.1 mmol/L [facility] Chloride 106 96 - 108 mmol/L [facility] Carbon Dioxide 26 22 - 29 mmol/L [facility] Anion Gap 12 12 - 20 [facility] Urea Nitrogen (BUN) 11 9 - 16 mg/dL [facility] Creatinine, Serum 0.64 0.5 - 1.4 mg/dL [facility] Creatinine Clr Calc Pharmacy 118.3 [facility] Comment:eGFR (calculated fro m the MDRD study equation) and eCrCl(calculated from the Cockcroft-Gault equation) are based ondifferent parameters and may not yield comparable results.If eCrCl result is absurd, please check patient'sheight/weight. Estimated Glomerular Filt Rate >60 [facility] Comment:Chronic Kidney Disea se: Estimated GFR < 60 mL/min/[id number] Kidney Disease: Estimated GFR < 15 mL/min/1.73m2 Glucose 85 60 - 115 mg/dL [facility] Calcium 9.1 8.4 - 10.2 mg/dL [facility] Bilirubin, Total 0.4 0.0 - 1.0 mg/dL [facility] Aspartate Amino Transferase 49(H) 5 - 37 U/L [facility] Alanine Aminotransferase 30 0 - 40 U/L [facility] Total Protein 7.2 6.5 - 8.0 g/dL [facility] Albumin Level 4.1 3.5 - 5.0 g/dL [facility] Alkaline Phosphatase 69 39 - 117 U/L [facility] 08/12/2024 9:29 PM EDT 08/12/2024 9:32 PM EDT us Generic External Data Provider LAB BLOOD ORDERAB LES Final Result [facility] [address] [place] [phone] [phone] * POCT ZACHARY-14 Urine Drug Screen (07/15/2024 12:01 PM EDT) Only the most recent of2 resultswithin the time period is included. Pathologist [facility] THC Negative Cocaine Screen, Urine Negative Opiate Screen, Urine Negative Methamphetamine Screen Urine Negative Amphetamine Screen, Urine Negative Benzodiazepines Screen, Urine Negative Barbiturate Screen, Urine Negative Methadone Screen, Urine Negative Buprenophine Screen, Urine Positive TCA, Urine Negative MDMA Urine Negative ng/mL Oxycodone Screen, Urine Negative Phencyclidine (PCP), Urine Negative Fentanyl, Urine Positive Urine Urine specimen obtained by clean catch procedure / Unknown 07/15/2024 12:01 PM EDT Robin Bean MD POINT OF CARE TEST ENTER/EDIT ORDERABLES Final Result * Hepatitis C Ab (03/12/2023 12:44 PM EST) [facility] Hepatitis C Antibody Nonreactive Nonreactive [facility] Comment:Antibodies to HCV no t detected; does not exclude early acuteHCV infection. Blood Venous blood specimen / Unknown 03/12/2023 12:44 PM EST 03/12/2023 1:22 PM EST Olayinka Shi MD LAB BLOOD ORDERABLES Final Resul t [facility] [address] [place] [phone] * HIV-1/2 Antigen and Antibodies, Fourth Generation, with Reflexes (03/12/2023 12:44 PM EST) [facility] HIV AB/AG Nonreactive Nonreactive [facility] Comment:HIV-1 p24 Ag and/or HIV-1/HIV-2 Ab not detected.A test result that is nonreactive does not exclude thepossibility of exposure to or infection with HIV-1 and/orHIV-2. Nonreactive results in this assay for individualswith prior exposure to HIV-1 and/or HIV-2 may be due toantigen and antibody levels that are below the limit ofdetection of this assay.The [email or web address] HIV Ag/Ab Combo assay result andsupplemental assay results should be interpreted inconjunction with the patient's clinical presentation,history and other laboratory results. If the results areinconsistent with clinical evidence, additional testing issuggested to confirm the result. Blood Venous blood specimen / Unknown 03/12/2023 12:44 PM EST 03/12/2023 1:22 PM EST us Olayinka Shi MD LAB BLOOD ORDERABLES Final Resul t [facility] [address] [place] [phone] from Last 3 Months or Most Recently Relevant to Health Maintenance [facility] * Guarantor: Eliot Ivan Account Type Relation to Patient Date of Phone Billing Address Personal/Family Self Geetha Cardenas [place] Care Teams Java Systems Analyst Relationship Specialty Start Date End Date Name, MD Olayinka [address] [place] [address] PCP - General Family Medicine 03/22/18
--- OUTSIDE RECORDS SUMMARY | 2024-08-12 21:58 | XMS_ITS | Encounter Summary ---
Author Organization [email or web address] Address [address] [place] [address] Care Team Providers Care Grocery Store Bagger Name Role Phone Name, Olayinka NUGENT Primary Care Provider [phone] Encounter Details Date Type Department Care Team ([facility] st Contact Info) Description 02/09/2023 Abstract [facility] [address] [place], [place] [phone] Name, MD Olayinka [address] [place] [address] Social History Tobacco Use Types Packs/Day Years Used Date Smoking Tobacco: Every Day Cigarettes Alcohol Use Standard Drinks/Week Comments Yes 0 [...] the past 12 months, has t he [employer], gas, oil or water company threatened to [...] Description 08/14/2024 11:30 AM EDT Clinical Support [facility] [address] [place] [phone] Mark Mena, MASTER [address] [place] [phone] 08/21/2024 3:00 PM EDT Office Visit [facility] [address] [place] [phone] Giovanna Zacarias MD [address] [place] [phone] 09/03/2024 2:45 PM EDT Office Visit [facility] OPTOMETRY [address] [place] [phone] TarMalou do, OD [address] [place] [phone] 09/15/2024 10:45 AM EDT Office Visit [facility] [address] [place] [phone] Olayinka Shi MD [address] [place] [phone] documented as of this encounter Visit Diagnoses Not on filedocumented in this encounter Additional Health Concerns Assessment Noted Time PHQ-9 Depression Total Score: 14 023 3:00 PM EDT documented as of this encounter Care Teams Grocery Store Bagger Relationship Specialty Start Date End Date Olayinka Shi MD [address] [place] [phone] PCP - General Family Medicine 03/22/18 documented as of this encounter
--- OUTSIDE RECORDS SUMMARY | 2024-08-12 21:58 | XMS_ITS | Encounter Summary ---
Author Organization [employer] Address [address] [facility] [address] [place] [address] Care Team Providers Care Transporter Driver Name Role Phone Name, Olayinka NUGENT Primary Care Provider [phone] Encounter Details Date Type Department Care Team (Late st Contact Info) Description 08/12/2024 Orders Only GENERIC EXTERNAL DATA DEPARTMENT Provider, Generic External Data Social History Tobacco Use Types Packs/Day Years Used Date Smoking Tobacco: Some Days Cigarettes Passive Smoke Exposure: Current Alcohol Use [...] Description 08/14/2024 11:30 AM EDT Clinical Support [facility] [address] [place] [phone] Mark Mena, RN [address] [place] [address] 08/21/2024 3:00 PM EDT Office Visit [facility] [address] [place] [phone] Giovanna Zacarias MD [address] [place] [phone] 09/03/2024 2:45 PM EDT Office Visit [facility] OPTOMETRY [address] [place] [address] Tarka, Malou, OD [address] [place] [address] 09/15/2024 10:45 AM EDT Office Visit [facility] [address] [place] [phone] Olayinka Shi MD [address] [place] [phone] Pending Results Name Type Priority Associated Diagnoses Date /Time Urinalysis, Complete, with Reflex to Culture Lab Routine 08/12/2024 9:3 4 PM EDT documented as of this encounter Procedures Procedure Name Priority Date/Time Associated Diagnosis Comments URINALYSIS, COMPLETE, WITH REFLEX TO CULTURE Routine 08/12/2024 9:34 PM EDT ETHANOL Routine 08/12/2024 9:29 PM EDT CBC WITH AUTO DIFFERENTIAL Routine 08/12/2024 9:29 PM EDT ACETAMINOPHEN LEVEL Routine 08/12/2024 9 :29 PM EDT SALICYLATE Routine 08/12/2024 9:29 PM EDT COMPREHENSIVE METABOLIC PANEL Routine 08/12/2024 9:29 PM EDT documented in this encounter Results * Acetaminophen level (08/12/2024 9:29 PM EDT) Acetaminophen LAB <3 <30 mcg/mL [facility] 08/12/2024 9:29 PM EDT 08/12/2024 9:32 PM EDT Generic External Data Provider LAB BLOOD ORDERAB LES Final Result Performing Organization Address City/[facility]/ZIP Co de Phone Number [facility] [address] [place] [phone] * (ABNORMAL) Salicylate (08/12/2024 9:29 PM EDT) Salicylate <5.0(L) 15 - 30 mg/dL [facility] 08/12/2024 9:29 PM EDT 08/12/2024 9:32 PM EDT Generic External Data Provider LAB BLOOD ORDERAB LES Final Result Performing Organization Address City/[facility]/ZIP Co de Phone Number [facility] [address] [place] [phone] * Ethanol (08/12/2024 9:29 PM EDT) ETHANOL (MG/DL) IN SER/PLAS 88 mg/dL [facility] Comment:Serum/plasma ethanol results are to be used formedical/treatment purposes only. 08/12/2024 9:29 PM EDT 08/12/2024 9:32 PM EDT us Generic External Data Provider LAB BLOOD ORDERAB LES Final Result [facility] [address] [place], [place] [phone] * (ABNORMAL) Comprehensive Metabolic Panel (08/12/2024 9:29 PM EDT) Sodium 140 135 - 145 mmol/L [facility] Potassium 3.9 3.3 - 5.1 mmol/L [facility] Chloride 106 96 - 108 mmol/L [facility] Carbon Dioxide 26 22 - 29 mmol/L [facility] Anion Gap 12 12 - 20 [facility] Urea Nitrogen (BUN) 11 9 - 16 mg/dL [facility] Creatinine, Serum 0.64 0.5 - 1.4 mg/dL [facility] Creatinine Clr Calc Pharmacy 118.3 [facility] Comment:eGFR (calculated fro m the MDRD study equation) and eCrCl(calculated from the Cockcroft-Gault equation) are based ondifferent parameters and may not yield comparable results.If eCrCl result is absurd, please check patient'sheight/weight. Estimated Glomerular Filt Rate >60 [facility] Comment:Chronic Kidney Disea se: Estimated GFR < 60 mL/min/[id number] Kidney Disease: Estimated GFR < 15 mL/min/1.73m2 Glucose 85 60 - 115 mg/dL [facility] Calcium 9.1 8.4 - 10.2 mg/dL [facility] Bilirubin, Total 0.4 0.0 - 1.0 mg/dL [facility] Aspartate Amino Transferase 49(H) 5 - 37 U/L [facility] Alanine Aminotransferase 30 0 - 40 U/L [facility] Total Protein 7.2 6.5 - 8.0 g/dL [facility] Albumin Level 4.1 3.5 - 5.0 g/dL [facility] Alkaline Phosphatase 69 39 - 117 U/L [facility] 08/12/2024 9:29 PM EDT 08/12/2024 9:32 PM EDT us Generic External Data Provider LAB BLOOD ORDERAB LES Final Result [facility] [address] [place] [phone] * (ABNORMAL) CBC auto differential (08/12/2024 9:29 PM EDT) White Blood Count 7.1 4.8 - 10.8 X10*3/uL [facility] Red Blood Count 3.94(L) 4.60 - 5.80 X10*6/uL [facility] Hemoglobin 12.0(L) 14.0 - 18.0 g/dl [facility] Hematocrit 35.7(L) 42.0 - 52.0 % [facility] Mean Corpuscular Volume 90.6 80.0 - 98.0 fL [facility] Mean Corpuscular Hemoglobin 30.5 27.0 - 33.0 pg [facility] Mean Corpuscular HGB Conc 33.6 31.0 - 36.0 g/dl [facility] Red Cell Distribution Width 14.4 11.0 - 16.0 % [facility] Platelet Count 187 160 - 400 X10*3/uL [facility] Mean Platelet Volume 9.8 9.4 - 12.4 fL [facility] Neutrophils Percent Auto 61.8 45 - 73 % [facility] Imm Gran Pct Auto 0.1 0.0 - 0.4 % [facility] Lymphocytes Percent Auto 30.9 20 - 40 % [facility] Monocytes Percent Auto 5.5 2 - 11 % [facility] Eosinophils Percent Auto 1.1 0 - 4 % [facility] Basophils Percent Auto 0.6 0 - 2 % [facility] NRBC Pct Auto 0.0 0.0 - 0.2 /100WBC [facility] Neutrophils Absolute Auto 4.4 2.0 - 8.3 x10*3/uL [facility] Imm Gran Abs Auto 0.01 0.00 - 0.03 X10*3/uL [facility] Lymphocytes Absolute Auto 2.2 1.2 - 4.9 X10*3/uL [facility] Monocytes Absolute Auto 0.4 0.1 - 1.2 X10*3/uL [facility] Eosinophils Absolute Auto 0.1 0.0 - 0.4 X10*3/uL [facility] Basophils Absolute Auto 0.0 0.0 - 0.2 X10*3/uL [facility] NRBC Abs Auto 0.000 0.0 - 0.012 X10*3/uL [facility] 08/12/2024 9:29 PM EDT 08/12/2024 9:32 PM EDT us Generic External Data Provider LAB BLOOD ORDERAB LES Final Result Performing Organization Address City/State/[facility] Co de Phone Number [facility] [address] [place] [phone] documented in this encounter Visit Diagnoses Not on filedocumented in this encounter Additional Health Concerns Assessment Noted Time PHQ-9 Depression Total Score: 17 024 2:41 PM EDT documented as of this encounter Care Teams Transporter Driver Relationship Specialty Start Date End Date Name, MD Olayinka [address] [place] [address] PCP - General Family Medicine 03/22/18 documented as of this encounter
[2024-08-12 22:01] LABS: Amphetamine Screen Urine Not Detected (Not Detect); Barbiturates, Urine Not Detected (Not Detect); Benzodiazepines Screen Urine Not Detected (Not Detect); Buprenorphine Scr Not Detected (Not Detect); Cannabinoid Screen Urine Not Detected (Not Detect); Cocaine Screen Urine POSITIVE (Not Detect); Fentanyl, urine POSITIVE (Not Detect); Methadone Screen, Urine Not Detected (Not Detect); Opiate Screen Urine POSITIVE (Not Detect); Oxycodone Screen Urine Not Detected (Not Detect); Phencyclidine Screen Urine Not Detected (Not Detect)
--- NOTE | 2024-08-12 23:00 | PC.NURSE ---
late entry- assumed care of pt at 2300. PT appears to be sleeping, respirations even an unlabored, even chest wall rising. [address] plan for dual diagnosis bed search
[2024-08-13 07:49] VITALS: BP 191/92; PULSE 70; RESP 20; TEMP 36.6; O2SAT 100
[2024-08-13] MEDS: Buprenorphine/Naloxone 8/2 mg FILM 2 FILM SUBLINGUAL (07:56)
--- NOTE | 2024-08-13 07:57 | PC.NURSE ---
Pt restless, pacing around unit requesting suboxone. MD Talbot made aware.
--- NOTE | 2024-08-13 08:29 | PC.NURSE ---
Pt requesting medication for anxiety, MD Talbot made aware.
[2024-08-13] MEDS: LORazepam 1 MG TABLET PO ×2 (08:35→21:28)
--- NOTE | 2024-08-13 12:02 | PC.NURSE ---
Report called to Katherine on M3.
[2024-08-13 12:43] VITALS: BP 153/83; PULSE 66; RESP 17; TEMP 36.3; O2SAT 95; BMI 29.1
--- NOTE | 2024-08-13 15:00 | HO.PSYADMNOT ---
[facility] Date of Service: 08/13/24 Chief Complaint: SI Sources of Information: patient interviewed, chart reviewed and crisis/core team assessment reviewed HPI Subjective Notes: Woo Warning and Conditional Voluntary Narrative: Patient is a 59-year-old male with history of MDD, PTSD, opiate use disorder and alcohol use disorder who self presented to [facility] due to suicidal ideation, homicidal ideation, increased auditory and visual hallucinations secondary to increased depression and substance use. Per crisis report, patient reports having increased depression, suicidal ideation, homicidal ideation and an increase in auditory and visual hallucinations. Patient reports he has been struggling with substance use and has been staying on the streets. He reports he from his 2 months ago and has been homeless since. Patient reports poor sleep and appetite. Reports no plan or intent of harming a specific person or himself. He reports auditory hallucinations of voices calling him. Utox positive for opiates, fentanyl, cocaine, alcohol. During admission assessment, patient presents alert and oriented x3. Calm and cooperative. dope maintenance worker present. Patient reports feeling anxious and depressed; patient stated, I feel too depressed to do anything. I want to get help to get into a substance program and I want to start something for my depression . Patient reports auditory hallucinations at times; but did not go into detail. He reports poor sleep. Denies SI/HI/VH at this time. Patient reports he does not have outpatient psychiatric providers but he would like referrals. This is patient's 1st inpatient psychiatric hospitalization. Denies history of SA/SIB. Patient reports he has been using heroin and cocaine(3-4 bags daily) and drinking a pt of vodka and a 12 pack of beer daily for the past 3 weeks. Patient is in the process of with his and is currently homeless. Past Psychiatric History: Patient reports he does not have outpatient psychiatric providers. This is patient's 1st inpatient psychiatric hospitalization. Denies history of SA/SIB. Medical Evaluation Reviewed: Yes [facility] Medical History Central sleep apnea Respiratory failure with hypoxia Restrictive lung disease AMANDA (obstructive sleep apnea) Morbid obesity Alcohol use disorder, severe, dependence Alcohol abuse Heroin abuse Essential hypertension CHF (congestive heart failure) Edema Depression Hypertension Surgical History No pertinent past surgical history Family History: Unknown Social History: Homeless. In the process of a divorce. Two children. Disability. Highest level of education completed 11th grade. Substance History: He reports Luis Angel heroin and cocaine use. Daily alcohol use. Trauma History: Yes Diagnostics Vital Signs (24Hr): Vital Signs - 24 hr 08/12/24 20:56 08/13/24 07:49 08/13/24 12:43 Temperature 96.8 F 97.9 F 97.3 F Pulse Rate 71 70 66 Respiratory Rate 20 20 17 Blood Pressure 166/85 H 191/92 H 153/83 H Pulse Oximetry 100 100 95 Oxygen Delivery Method Room Air Room Air Blow By Room Air BMI result Body Mass Index 29.1 Labs 08/12/24 21:29 08/12/24 21:29 Labs: Laboratory Results - last 48 hr 08/12/24 08/12/24 21:29 21:34 WBC 7.1 RBC 3.94 L Hgb 12.0 L D Hct 35.7 L D MCV 90.6 MCH 30.5 MCHC 33.6 RDW 14.4 Plt Count 187 MPV 9.8 Immature Gran % (Auto) 0.1 Neut % (Auto) 61.8 Lymph % (Auto) 30.9 [place] % (Auto) 5.5 Eos % (Auto) 1.1 Baso % (Auto) 0.6 Lymph # (Auto) 2.2 [place] # (Auto) 0.4 Eos # (Auto) 0.1 Baso # (Auto) 0.0 Abs Immat Gran (auto) 0.01 Absolute Neuts (auto) 4.4 Absolute Nucleated RBC 0.000 Nucleated RBC % (auto) 0.0 Sodium 140 Potassium 3.9 Chloride 106 Carbon Dioxide 26 Anion Gap 12 BUN 11 Creatinine 0.64 Estim Creat Clear Calc 118.3 Estimated GFR > 60 Random Glucose 85 Calcium 9.1 Total Bilirubin 0.4 AST 49 H ALT 30 Alkaline Phosphatase 69 Total Protein 7.2 Albumin 4.1 Urine Color Yellow Urine Appearance Clear Urine pH 5.5 Ur Specific [place] 1.020 Urine Protein Negative Urine Glucose (UA) Negative Urine Ketones Negative Urine Blood Negative Urine Nitrite Negative Ur Leukocyte Esterase Negative Urine RBC 0-2 Urine WBC 0-5 Ur Squamous Epith Cells 0-2 Urine Bacteria None Seen Hyaline Casts 0-2 Salicylates < 5.0 L Urine Opiates Screen POSITIVE H Ur Buprenorphine Scrn Not Detected Ur Oxycodone Screen Not Detected Urine Methadone Screen Not Detected Urine Fentanyl Screen POSITIVE H Acetaminophen < 3 Ur Barbiturates Screen Not Detected Ur Phencyclidine Scrn Not Detected Ur Amphetamines Screen Not Detected U Benzodiazepines Scrn Not Detected Urine Cocaine Screen POSITIVE H U Marijuana (THC) Screen Not Detected Ethyl Alcohol 88 Meds/Allergies Meds Home Medications ?Medication ?Instructions ?Recorded ?Confirmed ?Type lisinopril 20 mg tablet 1 tab PO DAILY 06/28/21 08/13/24 History bupropion HCl 300 mg 24 hr tablet, 1 tab PO DAILY 02/18/22 08/13/24 History extended release furosemide 40 mg tablet 1 tab PO DAILY 02/18/22 08/13/24 History prazosin 2 mg capsule 2 mg PO BEDTIME 03/16/22 08/13/24 History tamsulosin 0.4 mg capsule 0.4 mg PO BEDTIME 03/16/22 08/13/24 History docusate sodium 100 mg capsule 100 mg PO BID 12/14/22 08/13/24 History buprenorphine 8 mg-naloxone 2 mg 1 film sublingual BID 08/13/24 08/13/24 History sublingual film (Suboxone) hydroxyzine pamoate 25 mg capsule 25 mg PO TID PRN anxiety 08/13/24 08/13/24 History nicotine (polacrilex) 2 mg buccal 2 - 4 mg PO Q2-4H PRN smoke 08/13/24 08/13/24 History lozenge cessation sennosides 8.6 mg tablet (senna) 8.6 - 17.2 mg PO BEDTIME PRN 08/13/24 08/13/24 History constipation trazodone 50 mg tablet 50 mg PO BEDTIME 08/13/24 08/13/24 History Allergies Allergies Allergy/AdvReac Type Severity Reaction Status Date / Time No Known Allergies Allergy Verified 08/12/24 20:57 Mental Status Exam Mental Status Exam Narrative: Pt is alert and oriented; behavior is cooperative and calm; dressed in casual attire; mood is described as anxious and depressed ; eye contact appropriate; Speech is normal rate, volume and not pressured; thought process is organized and goal directed; Thought content is on tx; denies SI/HI/VH. +AH Assessment & Plan Assessment & Plan (1) MDD (major depressive disorder), recurrent episode, moderate: Status: Acute Code(s): F33.1 - Major depressive disorder, recurrent, moderate (2) PTSD (post-traumatic stress disorder): Status: Acute Code(s): F43.10 - Post-traumatic stress disorder, unspecified (3) Opioid use disorder: Status: Acute Code(s): F11.90 - Opioid use, unspecified, uncomplicated (4) Cocaine use disorder: Status: Acute Code(s): F14.10 - Cocaine abuse, uncomplicated (5) Homelessness: Status: Acute Code(s): Z59.00 - Homelessness unspecified Plan Patient is a 59-year-old male with history of MDD, PTSD, opiate use disorder and alcohol use disorder who self presented to [facility] ER due to suicidal ideation, homicidal ideation, increased auditory and visual hallucinations secondary to increased depression and substance use. Plan: CV 15 minute safety checks Continue home medications CIWA protocol Obtain collateral Referral to outpatient psychiatric providers Referral to substance abuse program Encourage groups Discharge planning Patient educated on: diagnosis and medication risk/benefits Reason for continued inpatient stay Substantial Risk for: med/psych decompensation Statement Statement: I have reviewed the history and physical and performed a pertinent examination on my patient. No changes have occurred unless specified. If the History and Physical was not performed prior to admission, the Hospitalist's service will be consulted for completing the admission physical. Time Spent With Patient Time: Total time managing care of this patient today _60___ minutes.
--- NOTE | 2024-08-13 16:58 | PC.ADMIT ---
Patient is a 59 year old male admitted from the ED POD on a CV for treatment of Major Depressive Disorder and Polysubstance abuse. Eliot cancino presented to the ED with increased depression, passive SI/HI and reports of AVH. Per crisis eval, pt has also been struggling with substance abuse while staying on the streets . Upon arrival to the unit, patient is visibly anxious/restless, unable to sit still and reports feeling as if he's experiencing withdrawals . Patient reports coming to the hospital d/t increased anxiety and depression. When asked what things have been causing this recently, pt stated That I cannot do things, like finding an apartment or figuring out my social security stuff . Patient reports going through a recent divorce which has caused him to become homeless, states I don't have an address right now, I'm just staying with someone . This is this patients first inpatient psych stay, and he expresses concerns of having no current providers (but would like referrals). Patient denies current SI/HI or AVH, but reports occasionally hearing voices calling his name when he's alone. Patient's tox screen was positive for opiates, fentanyl, cocaine, reports using 3-4 bags daily of both cocaine and heroine the past three weeks prior to coming in. Patient also reports drinking a pint and a twelve pack of vodka daily. States he's experienced 1 seizure 6months ago from withdrawals but never went to the hospital. Patient states appetite is okay, sleep is poor and he has a dx for sleep apnea, but has not been consistent in using a CPAP at home. Patient states his goal is to get into a program for substance use . Skin check was completed with no abnormal findings, placed on 15 minute checks for safety.
[2024-08-13 20:00] VITALS: BP 124/79; PULSE 89; RESP 16; TEMP 36.4; O2SAT 97
[2024-08-13 21:28] VITALS: BP 124/72
[2024-08-13] MEDS: Buprenorphine/Naloxone 8/2 mg FILM 1 FILM SUBLINGUAL (21:28)
[2024-08-13] MEDS: Prazosin HCL 1 MG CAPSULE 2 MG PO (21:28)
[2024-08-13] MEDS: Tamsulosin HCL 0.4 MG CAPSULE PO (21:28)
--- NOTE | 2024-08-14 | ECG_ITS ---
Test Reason : seizure and fall Blood Pressure : */* mmHG Vent. Rate : 78 BPM Atrial Rate : 78 BPM P-R Int : 146 ms QRS Dur : 94 ms QT Int : 416 ms P-R-T Axes : 69 62 59 degrees QTcB Int : 474 ms Normal sinus rhythm with sinus arrhythmia Possible Left atrial enlargement Borderline ECG When compared with ECG of 12-Aug-2024 21:16, No significant change was found Referred By: Katherine Navas Electronically Signed By: Dominic Benítez
[2024-08-14 00:04] VITALS: BP 96/58; PULSE 72; RESP 22; O2SAT 96
[2024-08-14 00:16] LABS: Glucose, Whole Blood 115 mg/dL (60-115)
--- NOTE | 2024-08-14 00:17 | PM.EVENT ---
Documented by User: Lise Mojica NP 08/14/24 00:19 Event Note Date of Service: 08/14/24 Event Note: rapid response called- unwitnessed seizure, hit head on the wall, seen by hospitalist, will transferred to medical floor. 00:04 Time Spent With Patient Time: Total time managing care of this patient today ____ minutes. Documented by User: Yfn Breen MD 08/24/24 23:44 Event Note Date of Service: 08/24/24
== END 2024-08-14 00:43 | disposition short-term general hospital (02) | DRG 751 ==
LOC: HO.ED 21:57 → HO.PADLT16 08-13 11:50
PROVIDERS: Physician Assistant; Admitting Provider Registered Nurse; Emergency Provider Emergency Medicine; PCP Internal Medicine Geriatric Medicine; Responsible Provider Registered Nurse; Visit Provider Psychiatry & Neurology Psychiatry
DX: F33.1 Major depressive disorder, recurrent, moderate (principal); R45.851 Suicidal ideations; R45.850 Homicidal ideations; R56.9 Unspecified convulsions; Y90.4 Blood alcohol level of 80-99 mg/100 ml; F10.90 Alcohol use, unspecified, uncomplicated; F43.10 Post-traumatic stress disorder, unspecified; F14.10 Cocaine abuse, uncomplicated; Z59.02 Unsheltered homelessness; F19.10 Other psychoactive substance abuse, uncomplicated; F11.20 Opioid dependence, uncomplicated; F17.210 Nicotine dependence, cigarettes, uncomplicated; Z71.6 Tobacco abuse counseling; Z79.899 Other long term (current) drug therapy
CPT/HCPCS: 36415; 70450; 80053; 80143; 80179; 80307; 81001; 82947; 85025; 93005; 99284; S9485

== ENCOUNTER → 2024-08-12 20:56 | Outpatient (BNV) | payer MEDICAID, SELFPAY | PROVIDERS: Admitting Provider Registered Nurse; Emergency Provider Emergency Medicine; PCP Internal Medicine Geriatric Medicine; Responsible Provider Registered Nurse; Visit Provider Internal Medicine Cardiovascular Disease | DX: R00.1 Bradycardia, unspecified (principal) | CPT/HCPCS: 93010 ==

== ENCOUNTER 2024-08-13 11:09 | Outpatient (BNV) | payer MEDICAID, SELFPAY | END 2024-08-14 | PROVIDERS: Admitting Provider Registered Nurse; Emergency Provider Emergency Medicine; PCP Internal Medicine Geriatric Medicine; Responsible Provider Registered Nurse; Visit Provider Internal Medicine Cardiovascular Disease | DX: R56.9 Unspecified convulsions (principal); W19.XXXA Unspecified fall, initial encounter | CPT/HCPCS: 93010 ==

== ENCOUNTER 2024-08-13 11:09 | Outpatient (BNV) | payer MEDICAID, SELFPAY | END 2024-08-14 | PROVIDERS: Admitting Provider Registered Nurse; Emergency Provider Emergency Medicine; PCP Internal Medicine Geriatric Medicine; Responsible Provider Registered Nurse; Visit Provider Radiology Diagnostic Radiology | DX: R56.9 Unspecified convulsions (principal); W19.XXXA Unspecified fall, initial encounter | CPT/HCPCS: 70450 ==

== ENCOUNTER → 2024-08-13 11:09 | Outpatient (BNV) | payer OTHER, MEDICAID, SELFPAY | PROVIDERS: Admitting Provider Registered Nurse; Emergency Provider Emergency Medicine; PCP Internal Medicine Geriatric Medicine; Responsible Provider Registered Nurse; Visit Provider Registered Nurse | DX: F33.1 Major depressive disorder, recurrent, moderate (principal); F43.10 Post-traumatic stress disorder, unspecified; F11.90 Opioid use, unspecified, uncomplicated; F14.10 Cocaine abuse, uncomplicated; Z59.00 Homelessness unspecified | CPT/HCPCS: 99499 ==

== ENCOUNTER → 2024-08-13 11:09 | Outpatient (BNV) | payer OTHER, SELFPAY | PROVIDERS: Admitting Provider Registered Nurse; Emergency Provider Emergency Medicine; PCP Internal Medicine Geriatric Medicine; Responsible Provider Registered Nurse; Visit Provider Registered Nurse | DX: F33.1 Major depressive disorder, recurrent, moderate (principal); F14.10 Cocaine abuse, uncomplicated; F11.90 Opioid use, unspecified, uncomplicated; F43.11 Post-traumatic stress disorder, acute; Z59.00 Homelessness unspecified | CPT/HCPCS: 99233; 99499 ==

== ENCOUNTER 2024-08-14 00:58 | Inpatient (IN) | payer MEDICAID, SELFPAY ==
--- NOTE | ~2024-08-14 | CT_ITS ---
CLINICAL HISTORY: second seizure new hit to the head --- Additional Notes or Special Instructions: se cond seizure new hit to the head CT Head WO Contrast COMPARISON: CT/SR - CT HEAD/BRAIN WO IV CON - 08/14/24 00:19 EDT FINDINGS: No acute intracranial hemorrhage. No evidence of acute infarction. No mass-effect or midline shift. Mild diffuse cortical volume loss. No hydrocephalus. Mucosal thickening in the maxillary sinuses. Cysts or polyps in the maxillary sinuses. The mastoid air cells are clear. The visible orbits are normal. No acute fracture. Unremarkable soft tissues. IMPRESSION: No acute intracranial findings. Nonemergent/incidental findings above. This document has been electronically signed by: Arnaud Mcgee MD on 08/14/2024 04:18:38
[2024-08-14] MEDS: Lactated Ringers 1,000 ML 999 ML IV (00:55)
--- NOTE | 2024-08-14 01:03 | P.HPHOSP_ITS ---
History of Present Illness Date of Service: 08/14/24 Attending physician on admission: Kevin Fenton Chief Complaint: seizure Patient is a 59-year-old male with past medical history left lower extremity cellulitis, MDD, PTSD, AMANDA not on CPAP, ETOH abuse, cocaine, fentanyl and opioid abuse encountered unwitnessed fall secondary to suspected seizure on the psychiatric unit 2330 08/13. Rapid response was called. Patient was found partly lying on the floor incontinent of urine appeared to be in a postictal state. Patient responding verbally and following commands. CT of the head ordered stat. Patient not currently on blood thinners or aspirin. While awaiting CT scan to rule out brain bleed, patient transferred to telemetry floor and an another rapid response was called for witnessed fall and active seizure activity. Unknown time of duration for 2nd seizure. Patient again responsive post seizure with postictal symptoms. Per nursing, patient did make contact with the floor and hit his head with direct impact. No open wounds found and no active bleeding. Repeat CT of the head ordered. Patient is started on Keppra load 1000 mg and Valium 10 mg IV. Seizure precautions placed. One-to-one constant observation ordered. Patient remains bed-bound. Neuro exam reassuring post 2nd seizure. Patient did not bite his tongue or the inside of his mouth. Teeth remain intact. Patient admitted to the psychiatric unit on 08/13/2024 secondary to suicidal and homicidal ideations with hallucinations. Toxicology screen positive for alcohol, opioids, cocaine and fentanyl. Patient does have record of withdrawal seizure in the past but patient is not able to recall this. Patient is not normally on antiseizure medication. Review of Systems 2 Review of Systems: Patient currently denies any chest pain or shortness of breath. Patient denied having a current headache, visual changes or nausea. Review of symptoms limited due to postictal state. [facility] Medical History Central sleep apnea Respiratory failure with hypoxia Restrictive lung disease AMANDA (obstructive sleep apnea) Morbid obesity Alcohol use disorder, severe, dependence Alcohol abuse Heroin abuse Essential hypertension CHF (congestive heart failure) Edema Depression Hypertension Functional capacity: independent ambulation Family History Other No family history of coronary artery disease Pertinent family history: Patient unable to provide Surgical History No pertinent past surgical history Social History Household Members: Friend(s) Housing: Other Housing Other:: not specified Do you presently have visiting nurse or other home services: No Alcohol intake: current Alcohol intake frequency: a few times a week Alcohol type: beer Patient Tobacco Use Status: Current everyday Tobacco user Tobacco use type: Cigarette Cigarette Packs Per Day: 0.5 Cigarettes Per Day: 2 e-Cigarette/Vaping Use: Never Used Second Hand Smoke Exposure: No Substance Use Type: Crack/Cocaine and Heroin Advance Directives: No Advance Directives Information Provided: Yes service: No Current occupational status: unemployed and disabled Ebola Risk: Travel/Contact With Anyone From Affected Area/s: No Has Patient Experienced Ebola Symptoms: No Meds Allergies Allergy/AdvReac Type Severity Reaction Status Date / Time No Known Allergies Allergy Verified 08/12/24 20:57 Active Medications: Current Medications Acetaminophen (Acetaminophen 325 Mg Tablet) 650 mg PO Q6H PRN PRN Reason: Pain, Mild 1-3,fever,headache Calcium Carbonate (Calcium Carbonate 750 Mg Tab.Chew) 750 mg PO Q4H PRN PRN Reason: Heartburn Diazepam (Diazepam 10 Mg/2 Ml Cartridge) 10 mg IVPUSH STAT STA Stop: 08/14/24 00:53 Diazepam (Diazepam 10 Mg/2 Ml Cartridge) 10 mg IVPUSH Q4H PRN PRN Reason: Seizures Lactated Ringer's (Lr) 1,000 mls @ 999 mls/hr IV .Q1H1M ROBYN Stop: 08/14/24 02:00 Lactated Ringer's (Lr) 1,000 mls @ 100 mls/hr IVCONT .Q10H ROBYN Levetiracetam (Keppra) 1,000 mg in 100 mls @ 400 mls/hr IV ONCE ONE Stop: 08/14/24 01:14 Magnesium Hydroxide (Milk Of Magnesia 30 Ml Oral.Susp) 30 ml PO DAILY PRN PRN Reason: Constipation Melatonin (Melatonin 3 Mg Tablet) 6 mg PO BEDTIME PRN PRN Reason: Insomnia Ondansetron HCl (Ondansetron Hcl 4 Mg/2 Ml Vial) 4 mg IVPUSH Q8H PRN PRN Reason: Nausea and Vomiting Senna (Sennosides 8.6 Mg Tablet) 17.2 mg PO BEDTIME ROBYN Sodium Chloride (0.9 % Sodium Chloride Flush 3 Ml Syringe) 3 ml IVFLUSH QSHIFT ROBYN Home Medications ?Medication ?Instructions ?Recorded ?Confirmed ?Last Taken ?Type furosemide 40 mg tablet 1 tab PO DAILY 02/18/22 08/13/24 02/17/22 History docusate sodium 100 mg capsule 100 mg PO BID 12/14/22 08/13/24 Unknown History nicotine (polacrilex) 2 mg buccal 2 - 4 mg PO Q2-4H PRN smoke 08/13/24 08/13/24 Unknown History lozenge cessation sennosides 8.6 mg tablet (senna) 8.6 - 17.2 mg PO BEDTIME PRN 08/13/24 08/13/24 Unknown History constipation Physical Exam 2 Vital Signs and Narrative: s/p second seizure: Alert to self only, sleepy Neuro: CN II-X11 intact, no deficits, visual acuity intact EYES: PERRLA, EOM intact HEENT: Head normocephalic atraumatic, hearing intact, no issues with swallowing, uvula midline, lips moist, nares patent no epistaxis, no laceration of tongue or inner mouth area, no teeth missing or broken Cardiac: S1 S2 RRR, no murmur, no JVD, no edema in Lower ext Pulmonary: lungs clear to ausculation B Abdominal: BS active in all 4 quadrants, no guarding, tenderness, rebounding MSK: strength 4/5 upper and lower extremities procedure : no CVA tenderness no bladder distension Extremities: no edema in lower extremities, PT and DP pulses palpable +2 Psych: Patient is sleepy, not lethargic or somnolent. Skin: Intact, no lacerations or abrasions on the scalp back and torso areas. No skin breakdown on the lower extremities. Results Labs 08/14/24 01:33 08/14/24 01:33 ECG Attestation: I personally reviewed and interpreted this ECG as follows: (Normal sinus rhythm, normal QTC, JANET) Prior ECG tracings: available for review Imaging Radiologist's Impressions: CT of the head x2 pending Initial assessment of 1st CT no obvious evidence of hemorrhaging, await radiologist's read Assessment and Plan (1) Seizure: Status: Acute Plan Patient is a 59-year-old male with past medical history left lower extremity cellulitis, MDD, PTSD, AMANDA not on CPAP, ETOH abuse, cocaine, fentanyl and opioid abuse transferred from the psychiatric unit to the medical telemetry floor status post unwitnessed fall with urinary incontinence and suspected seizure possibly from withdrawal. CT of the head pending. Patient transferred to telemetry and had a witnessed fall with seizure and further impact to the head but no obvious injury and no lacerations found involving the tongue or in the mouth. All dentition intact. Repeat CT of the head pending. Patient will require medical management for seizure activity likely secondary to withdrawal. Per nursing there is record that patient had history of withdrawal seizure in the past but patient can not recall details of this. Patient was not on antiseizure medication prior to admission. Patient was admitted approximately 24 hours ago and toxicology screen was positive for opioids, cocaine, fentanyl and alcohol. Patient received loading dose of Keppra 1000 mg. Seizure x2, possibly related to withdrawal -CT of the head x2 pending, neuro exam reassuring -EKG normal sinus rhythm, normal QTC with possible JANET -Neurology consulted for recommendations on continued Keppra dosing, MRI of the brain and EEG testing. Patient received loading dose of Keppra 1000 mg. -Valium 10 mg IV x1, Valium p.r.n. -Patient placed on CIWA protocol and one-to-one continuous observation -Seizure precautions and aspiration precautions ordered -Stat labs also ordered including CBC, CMP, magnesium, TSH Polysubstance abuse/Alcohol abuse -CIWA protocol started, IV Ativan not available, Valium ordered IV p.r.n. -Constant observation ordered -Addictions consult placed -Thiamine and folic acid ordered MDD/SI, HI, hallucinations -Per psychiatry -constant observation ordered DVT prophylaxis: Held until CT scans are completed, we will start Lovenox if CTs are negative for any hemorrhaging PPI prophylaxis: Protonix IV Quality Stroke Does the patient have a stroke diagnosis?: No Reason for No Anti-thrombotic by Day Two: Contraindicated (Until CT scans are completed) VTE Prior VTE?: No VTE Risk Level:: Medical - moderate - high VTE Device Contraindication: N/A - Device Ordered VTE Drug Contraindication: Treatment Not Tolerated
[2024-08-14 01:30] VITALS: BMI 21.4
[2024-08-14 01:38] LABS: Venous Blood Gas Refer to POC result
[2024-08-14 01:40] LABS: VBG Base Excess -4.5 mmol/L; VBG HCO3 18 mmol/L (22-26); VBG pCO2 29 mmHg; VBG pO2 47 mmHg
[2024-08-14 01:45] LABS: Basophils Percent Auto 0.2 % (0-2); Hematocrit 43.1 % (42.0-52.0); Hemoglobin 14.6 g/dl (14.0-18.0); Imm Gran Abs Auto 0.06 X10*3/uL (0.00-0.03); Imm Gran Pct Auto 0.5 % (0.0-0.4); Lymphocytes Absolute Auto 1.2 X10*3/uL (1.2-4.9); Lymphocytes Percent Auto 9.5 % (20-40); MANUAL DIFF FLAG NO; Mean Corpuscular HGB Conc 33.9 g/dl (31.0-36.0); Mean Corpuscular Hemoglobin 30.2 pg (27.0-33.0); Mean Corpuscular Volume 89.2 fL (80.0-98.0); Mean Platelet Volume 10.5 fL (9.4-12.4); Monocytes Absolute Auto 0.3 X10*3/uL (0.1-1.2); Monocytes Percent Auto 2.5 % (2-11); Neutrophils Absolute Auto 11.4 x10*3/uL (2.0-8.3); Neutrophils Percent Auto 87.3 % (45-73); PLT CLUMP 1; Red Blood Count 4.83 X10*6/uL (4.60-5.80); Red Cell Distribution Width 14.2 % (11.0-16.0); SCAN SMEAR FLAG 1; White Blood Count 13.1 X10*3/uL (4.8-10.8)
--- OUTSIDE RECORDS SUMMARY | 2024-08-14 01:46 | XMS_ITS | Clinical Summary ---
Author Organization [employer] Address [address] [facility] 7t [place] [address] Care Team Providers Care Emr Trainer Name Role Phone Name, Olayinka NUGENT Primary Care Provider [phone] Allergies Active Allergy Reactions Criticality Noted Date [...] capsule 1 tablet PO TID prn anxiety. August cause drowsiness. 45 capsule 1 07/16/19 25 Active traZODone (Desyrel) 50 MG tablet Take 1 tablet (50 mg) by mouth at bedtime. 30 tablet 1 07/16/19 25 2024 Active Buprenorphine HCl-Naloxone HCl (Suboxone) 8-2 MG SL filmIndication s:Opioid type dependence, continuous (CMS/HCC) Place 1 Film under the tongue 2 times daily for 7 days. 14 Film 07/18/19 25 Active Buprenorphine HCl-Naloxone HCl (Suboxone) 8-2 MG [...] Provider, Generic External Data 07/21/[address] [facility] [address] [place] [address] Royer Hansen Recovery Supports 07/18/[address] [facility] [address] [place] [address] Royer Hansen Recovery Supports 07/17/[address] [facility] [address] [place] [address] Giovanna Zacarias MD Opioid type dependence, continuous (CMS/HCC) 07/15/2024 10:30 AM EDT Office Visit [facility] [address] [place] [phone] Robin Bean MD Opioid type dependence, continuous (CMS/HCC) (Primary Dx); Tobacco use disorder; Opioid use, unspecified, uncomplicated 07/15/2024 Travel 07/08/2024 10:00 AM EDT Office Visit [facility] [address] [place] [address] Baylee Contreras RN Uncomplicated opioid dependence (CMS/HCC) (Primary Dx) 07/08/[address] [facility] [address] [place] [address] Royer Hansen [facility] Supp[facility] 07/08/2024 Travel 07/04/[address] [facility] [address] [place] [address] Agata Rojas, MASTER OBAT Communication 06/27/2024 Population Health Risk Score [facility] () Department [address] [place] [phone] Provider, Population Health Generic from Last 3 Months Immunizations Name Administration Dates Next Due Hep B, adult 09/12/2023,11/15/2018 Influenza, seasonal, injectable, preservative fr ee 01/07/2024 Moderna Covid-19 Vaccine 12+ 08/04/2020,07/08/19 Pneumococcal Conjugate PCV 20 09/12/2023 Pneumococcal Polysaccharide [...] Description 08/14/2024 11:30 AM EDT Clinical [address] [facility] [address] [place] [address] Mark Mena, RN [address] [place] [address] 08/21/2024 3:00 PM EDT Office Visit [facility] [address] [place] [address] Giovanna Zacarias MD [address] [place] [address] 09/03/2024 2:45 PM EDT Office Visit [facility] [address] [place] [address] Malou Leavitt, OD [address] [place] [address] 09/15/2024 10:45 AM EDT Office Visit [facility] [address] [place] [address] Jose Guadalupe, MD Olayinka [address] [place], [place] [phone] Health Maintenance Due Date Last Done Comments CT Colonography 1965 Colonoscopy 1965 Colorectal Cancer Screening 1965 FIT DNA/Cologuard 1965 FIT 1965 FOBT 1965 Lipid Panel 1965 Sigmoidoscopy 1965 Alcohol/Substance Use Screening 1977 Hepatitis B Vaccines (3 of 3 - 19+ 3-dose series) 11/07/2023 09/12/2023, 11/15/2018 COVID-19 Vaccine (4 - 2023-2 5 season) 2023 09/19/2021, 08/04/2020, 07/07/2020 Depression [...] Procedure Name Priority Date/Time Associated Diagnosis Comments CT HEAD WO CONTRAST Routine 08/14/2024 1 :30 AM EDT DRUG MONITOR, PANEL 1, SCREEN, URINE Routine 08/12/2024 9:34 PM EDT URINALYSIS, COMPLETE, WITH REFLEX TO CULTURE Routine [...] Recently Relevant to Health Maintenance Results * CT Head w/o Contrast (08/14/2024 1:30 AM EDT) Anatomical Region Laterality Modality Head, Neck Computed Tomogra phy 08/14/2024 1:30 AM EDT Narrative 08/14/2024 1:32 AM EDT ? [facility] ?[address] ?[place] [address] ? CT Scan Report ? Signed ? Patient: Moncho,Eliot ?MR#: [id number] ?? [id number] ? : 1965 ?Acct:[id number] ? Age/Sex: 59 / M ?ADM Date: 08/13/24 ? Loc: HO.PADLT16 ?306-2 ? Attending Dr: Yfn Breen MD ? Ordering Physician: Katherine Navas ?? Date of Service: 08/14/24 ?? Procedure(s): CT head/brain wo IV con ?? Accession Number(s): [id number] ? cc: Katherine NavasP-BC; Name,Olayinka NUGENT ? Report Number: ?? [id number]: Total DLP = ??747.00 mGy-cm ? CLINICAL HISTORY: unwitnessed fall possible seizure ? CT Head WO Contrast ? COMPARISON: None ? FINDINGS: ?? No acute intracranial hemorrhage. No evidence of acute infarction. No ?? mass-effect or midline shift. Mild diffuse cortical volume loss. ?? No hydrocephalus. ?? Mucosal thickening and cysts or polyps in the maxillary sinuses. ?? The mastoid air cells are clear. ?? The visible orbits are normal. ?? No acute fracture. ?? Unremarkable soft tissues. ? IMPRESSION: ?? No acute intracranial findings. ? This document has been electronically signed by: Arnaud Mcgee MD on ?? 08/14/2024 01:30:39 ? Dictated By: ?Arnaud Mcgee MD ? Signed By: ?<Electronically signed by Arnaud Mcgee MD in OV> ?08/14/24130 ? DD/ 9 ? TD/TT: 08/14/24129 ? Functional Analyst: ? Procedure Note Donotuseinterpreter, Image - 08/14/[address] [address] [address] Scan Report Signed Patient: Jose Ivan#: [id number] : 1965Acct:[id number] Age/Sex: 59 / MADM Date: 08/13/24 Loc: HO.PADLT16 306-[address]: Yfn Breen MD Ordering Physician: Katherine Navas Date of Service: 08/14/24 Procedure(s): CT head/brain wo IV con Accession Number(s): [id number] cc: Katherine NavasERICA; Name,Olayinka NUGENT Report Number: [id number]: Total DLP = 747.00 mGy-cm CLINICAL HISTORY: unwitnessed fall possible seizure CT Head WO Contrast COMPARISON: None FINDINGS: No acute intracranial hemorrhage. No evidence of acute infarction. No mass-effect or midline shift. Mild diffuse cortical volume loss. No hydrocephalus. Mucosal thickening and cysts or polyps in the maxillary sinuses. The mastoid air cells are clear. The visible orbits are normal. No acute fracture. Unremarkable soft tissues. IMPRESSION: No acute intracranial findings. This document has been electronically signed by: Arnaud Mcgee MD on 08/14/2024 01:30:39 Dictated By: Arnaud Mcgee MD Signed By: <Electronically signed by Arnaud Mcgee MD in OV> 08/14/24130 DD/ 9 TD/TT: 08/14/24129 Functional Analyst: us [facility] External Provider IMG CT PROCEDURES Edited Result - Final * Urinalysis, Complete, with Reflex to Culture (08/12/2024 9:34 PM EDT) Color Urine Yellow [facility] Appearance Urine Clear [facility] PH 5.5 5.0 - 9.0 [facility] Glucose Urine UA Negative Negative mg/dL [facility] Urine Blood Negative Negative [facility] Specific [place] - Urine 1.020 1.005 - 1.025 [facility] Urine Protein Negative Neg-Trace mg/dL [facility] Urine Ketones Negative Negative mg/dL [facility] Nitrite Urine Negative Negative [facility] Leukocyte Esterase Urine Negative Negative [facility] RBC Urine 0-2 0 - 2 /HPF [facility] Urine WBC 0-5 0 - 5 /HPF [facility] Urine Squamous Epithelial Cell 0-2 0 - 2 /HPF [facility] Urine Bacteria None Seen None Seen [facility] Hyaline Casts, Urine 0-2 0 - 2 /LPF [facility] 08/12/2024 9:34 PM EDT 08/12/2024 9:52 PM EDT Narrative [facility] - 08/12/2024 10:00 PM EDT [id number], [employer] us Generic External Data Provider LAB URINE ORDERAB LES Final Result [facility] [address] [place] [phone] * (ABNORMAL) Drug Monitoring, Panel 1, Screen, Urine (08/12/2024 9:34 PM EDT) Opiate Screen Urine POSITIVE(A) Not Detect [facility] Comment:Opiate cut-off is 30 0 ng/mL.Positive results are unconfirmed and should not be used fornon-medical purposes. Barbiturates, Urine Not Detected Not Detect [facility] Comment:Barbiturate cut-off is 200 ng/mL.Positive results are unconfirmed and should not be used fornon-medical purposes. Phencyclidine Screen Urine Not Detected Not Detect [facility] Comment:Phencyclidine cut-of f is 25 ng/mL.Positive results are unconfirmed and should not be used fornon-medical purposes. Amphetamine Screen Urine Not Detected Not Detect [facility] Comment:Amphetamine cut-off is 1000 ng/mL.Positive results are unconfirmed and should not be used fornon-medical purposes. Benzodiazepines Screen Urine Not Detected Not Detect [facility] Comment:Benzodiazepine cut-o ff is 200 ng/mL.Positive results are unconfirmed and should not be used fornon-medical purposes. Cocaine Screen Urine POSITIVE(A) Not Detect [facility] Comment:Cocaine cut-off is 3 00 ng/mL.Positive results are unconfirmed and should not be used fornon-medical purposes. Cannabinoid Screen Urine Not Detected Not Detect [facility] Comment:Cannabinoid cut-off is 50 ng/mL.Positive results are unconfirmed and should not be used fornon-medical purposes. Methadone Screen, Urine Not Detected Not Detect ng/mL [facility] Comment:Methadone cut-off is 300 ng/mL.Positive results are unconfirmed and should not be used fornon-medical purposes. FENTANYL URINE POSITIVE(A) Not Detect [facility] Comment:Fentanyl cut-off is 1 ng/mL.Positive results are unconfirmed and should not be used fornon-medical purposes. Oxycodone Urine Screen Not Detected Not Detect ng/mL [facility] Comment:Oxycodone cut-off is 100 ng/mL.Positive results are unconfirmed and should not be used fornon-medical purposes. Buprenorphine Screen Not Detected Not Detect ng/mL [facility] Comment:Buprenorphine cut-of f is 5 ng/mL.Positive results are unconfirmed and should not be used fornon-medical purposes. 08/12/2024 9:34 PM EDT 08/12/2024 9:45 PM EDT us Generic External Data Provider LAB URINE ORDERAB LES Final Result [facility] [address] [place] [address] [phone] * Ethanol (08/12/2024 9:29 PM EDT) ETHANOL (MG/DL) IN SER/PLAS 88 mg/dL [facility] Comment:Serum/plasma ethanol results are to be used formedical/treatment purposes only. 08/12/2024 9:29 PM EDT 08/12/2024 9:32 PM EDT us Generic External Data Provider LAB BLOOD ORDERAB LES Final Result [facility] [address] [place] [address] [phone] * (ABNORMAL) CBC auto differential (08/12/2024 9:29 PM EDT) White Blood Count 7.1 4.8 - 10.8 X10*3/uL [facility] Red Blood Count 3.94(L) 4.60 - 5.80 X10*6/uL [facility] Hemoglobin 12.0(L) 14.0 - 18.0 g/dl [facility] Hematocrit 35.7(L) 42.0 - 52.0 % [facility] Mean Corpuscular Volume 90.6 80.0 - 98.0 fL [facility] Mean Corpuscular Hemoglobin 30.5 27.0 - 33.0 pg [facility] Mean Corpuscular HGB Conc 33.6 31.0 - 36.0 g/dl [facility] Red Cell Distribution Width 14.4 11.0 - 16.0 % [facility] Platelet Count 187 160 - 400 X10*3/uL [facility] Mean Platelet Volume 9.8 9.4 - 12.4 fL [facility] Neutrophils Percent Auto 61.8 45 - 73 % [facility] Imm Gran Pct Auto 0.1 0.0 - 0.4 % [facility] Lymphocytes Percent Auto 30.9 20 - 40 % [facility] Monocytes Percent Auto 5.5 2 - 11 % [facility] Eosinophils Percent Auto 1.1 0 - 4 % [facility] Basophils Percent Auto 0.6 0 - 2 % [facility] NRBC Pct Auto 0.0 0.0 - 0.2 /100WBC [facility] Neutrophils Absolute Auto 4.4 2.0 - 8.3 x10*3/uL [facility] Imm Gran Abs Auto 0.01 0.00 - 0.03 X10*3/uL [facility] Lymphocytes Absolute Auto 2.2 1.2 - 4.9 X10*3/uL [facility] Monocytes Absolute Auto 0.4 0.1 - 1.2 X10*3/uL [facility] Eosinophils Absolute Auto 0.1 0.0 - 0.4 X10*3/uL [facility] Basophils Absolute Auto 0.0 0.0 - 0.2 X10*3/uL [facility] NRBC Abs Auto 0.000 0.0 - 0.012 X10*3/uL [facility] 08/12/2024 9:29 PM EDT 08/12/2024 9:32 PM EDT Generic External Data Provider LAB BLOOD ORDERAB LES Final Result Performing Organization Address City/[facility]/ZIP Co de Phone Number [facility] [address] [place] [phone] * Acetaminophen level (08/12/2024 9:29 PM EDT) Acetaminophen LAB <3 <30 mcg/mL [facility] 08/12/2024 9:29 PM EDT 08/12/2024 9:32 PM EDT Generic External Data Provider LAB BLOOD ORDERAB LES Final Result Performing Organization Address [facility] Co de Phone Number [facility] [address] [place] [phone] * (ABNORMAL) Salicylate (08/12/2024 9:29 PM EDT) Salicylate <5.0(L) 15 - 30 mg/dL [facility] 08/12/2024 9:29 PM EDT 08/12/2024 9:32 PM EDT us Generic External Data Provider LAB BLOOD ORDERAB LES Final Result [facility] [address] [place], [place] [phone] * (ABNORMAL) Comprehensive Metabolic Panel (08/12/2024 9:29 PM EDT) Sodium 140 135 - 145 mmol/L [facility] Potassium 3.9 3.3 - 5.1 mmol/L [facility] Chloride 106 96 - 108 mmol/L [facility] Carbon Dioxide 26 22 - 29 mmol/L [facility] Anion Gap 12 12 - 20 [facility] Urea Nitrogen (BUN) 11 9 - 16 mg/dL [facility] Creatinine, Serum 0.64 0.5 - 1.4 mg/dL [facility] Creatinine Clr Calc Pharmacy 118.3 [facility] Comment:eGFR (calculated fro m the MDRD study equation) and eCrCl(calculated from the Cockcroft-Gault equation) are based ondifferent parameters and may not yield comparable results.If eCrCl result is absurd, please check patient'sheight/weight. Estimated Glomerular Filt Rate >60 [facility] Comment:Chronic Kidney Disea se: Estimated GFR < 60 mL/min/1.50s8Grahmb Kidney Disease: Estimated GFR < 15 mL/min/1.73m2 Glucose 85 60 - 115 mg/dL [facility] Calcium 9.1 8.4 - 10.2 mg/dL [facility] Bilirubin, Total 0.4 0.0 - 1.0 mg/dL [facility] Aspartate Amino Transferase 49(H) 5 - 37 U/L [facility] Alanine Aminotransferase 30 0 - 40 U/L [facility] Total Protein 7.2 6.5 - 8.0 g/dL [facility] Albumin Level 4.1 3.5 - 5.0 g/dL [facility] Alkaline Phosphatase 69 39 - 117 U/L [facility] 08/12/2024 9:29 PM EDT 08/12/2024 9:32 PM EDT us Generic External Data Provider LAB BLOOD ORDERAB LES Final Result Performing Organization Address City/[facility]/ZIP Co de Phone Number [facility] [address] [place] [phone] * POCT ZACHARY-14 Urine Drug Screen (07/15/2024 12:01 PM EDT) Only the most recent of2 resultswithin the time period is included. Pathologist [facility] THC Negative Cocaine Screen, Urine Negative Opiate [...] procedure / Unknown 07/15/2024 12:01 PM EDT us Robin Bean MD POINT OF CARE TEST ENTER/EDIT ORDERABLES Final Result * Hepatitis C Ab (03/12/2023 12:44 PM EST) [facility] Hepatitis C Antibody Nonreactive Nonreactive [facility] Comment:Antibodies to HCV no t detected; does not exclude early acuteHCV infection. Blood Venous blood specimen / Unknown 03/12/2023 12:44 PM EST 03/12/2023 1:22 PM EST us Olayinka Shi MD LAB BLOOD ORDERABLES Final Resul t [facility] [address] [place] [phone] * HIV-1/2 Antigen and Antibodies, Fourth Generation, with Reflexes (03/12/2023 12:44 PM EST) Pathologist [facility] HIV AB/AG Nonreactive Nonreactive [facility] Comment:HIV-1 p24 Ag and/or HIV-1/HIV-2 Ab not detected.A test result that is nonreactive does not exclude thepossibility of exposure to or infection with HIV-1 and/orHIV-2. Nonreactive results in this assay for individualswith prior exposure to HIV-1 and/or HIV-2 may be due toantigen and antibody levels that are below the limit ofdetection of this assay.The Armor5 HIV Ag/Ab Combo assay result andsupplemental assay results should be interpreted inconjunction with the patient's clinical presentation,history and other laboratory results. If the results areinconsistent with clinical evidence, additional testing issuggested to confirm the result. Blood Venous blood specimen / Unknown 03/12/2023 12:44 PM EST 03/12/2023 1:22 PM EST us Olayinka Shi MD LAB BLOOD ORDERABLES Final Resul t [facility] [address] [place] [phone] from Last 3 Months or Most Recently Relevant to Health Maintenance Insurance [place] [facility] C3 Care Teams Emr Trainer Relationship Specialty Start Date End Date Name, MD Olayinka [address] [place] [phone] PCP - General Family Medicine 03/22/18
--- OUTSIDE RECORDS SUMMARY | 2024-08-14 01:47 | XMS_ITS | Encounter Summary ---
Author Organization [employer] Address [address] [facility] 7t [place] [address] Care Team Providers Care General Service Technician Name Role Phone Name, Olayinka NUGENT Primary Care Provider [phone] Reason for Visit * Reason Onset Date Comments Nurse Triage 05/17/2023 Encounter Details Date Type Department Care Team (Late st Contact Info) Description 05/17/2023 Telephone [facility] [address] [place], [place] [phone] Name, MD Olayinka [address] [place], [place] [phone] Nurse Triage Social History Tobacco Use Types [...] - 05/21/2023 10:15 AM EST T/C to [phone] through [employer] id - [id number] for status check. No answer. LVM to call [facility] on [phone]. * Telephone Encounter - Maday Rodriguez RN [...] no answer, LVM to return call to [facility] * Telephone Encounter - Maday Rodriguez RN - 05/17/2023 2:31 PM EST Call returned to Eliot Ivan for triage. No answer LVM to return call to [facility] triage line [phone]. * Telephone Encounter - Trey Montgomery - [...] Description 08/14/2024 11:30 AM EDT Clinical Support [facility] [address] [place] [phone] Mark Mena, MASTER [address] [place] [address] 08/21/2024 3:00 PM EDT Office Visit [facility] [address] [place] [address] Giovanna Zacarias MD [address] [place] [address] 09/03/2024 2:45 PM EDT Office Visit [facility] [address] [place] [address] Malou Leavitt, OD [address] [place] [address] 09/15/2024 10:45 AM EDT Office Visit [facility] [address] [place] [address] Name, MD Olayinka [address] [place] [address] documented as of this encounter Visit Diagnoses Not on filedocumented in this encounter Additional Health Concerns Assessment Noted Time PHQ-9 Depression Total Score: 14 023 3:00 PM EDT documented as of this encounter Care Teams General Service Technician Relationship Specialty Start Date End Date Name, MD Olayinka [address] [place] [phone] PCP - General Family Medicine 03/22/18 documented as of this encounter
--- OUTSIDE RECORDS SUMMARY | 2024-08-14 01:47 | XMS_ITS | Encounter Summary ---
Author Organization [employer] Address [address] [facility] [address] [facility] [address] [place] [address] Care Team Providers Care Pharmacist Hospital Name Role Phone Name, Olayinka NUGENT Primary Care Provider [phone] Encounter Details Date Type Department Care Team (Late st Contact Info) Description 04/20/2023 Orders Only [facility] [address] [place], [place] [phone] Lashanda Oviedo FNP Constipation, unspecified constipation type [...] Description 08/14/2024 11:30 AM EDT Clinical Support [facility] [address] [place] [address] Mark Mena, MASTER [address] [place] [phone] 08/21/2024 3:00 PM EDT Office Visit [facility] [address] [place] [address] Giovanna Zacarias MD [address] [place] [address] 09/03/2024 2:45 PM EDT Office Visit [facility] [address] [place] [address] Malou Leavitt, OD [address] [place] [address] 09/15/2024 10:45 AM EDT Office Visit [facility] [address] [place] [phone] Olayinka Shi MD [address] [place] [phone] Scheduled Orders Name Type Priority Associated Diagnoses Orde r Schedule Basic Metabolic Panel Lab Routine Constipation, unspecified constipation type Expected: 04/20/2023 (Approximate), Expires: 04/20/2024 documented as of this encounter Visit Diagnoses Diagnosis Constipation, unspecified constipation type- Primary documented in this encounter Additional Health Concerns Assessment Noted Time PHQ-9 Depression Total Score: 14 023 3:00 PM EDT documented as of this encounter Care Teams Pharmacist Hospital Relationship Specialty Start Date End Date Name, MD Olayinka [address] [place] [address] PCP - General Family Medicine 03/22/18 documented as of this encounter
--- OUTSIDE RECORDS SUMMARY | 2024-08-14 01:47 | XMS_ITS | Clinical Summary ---
Author Organization [facility] Address [address] [place] [address] Care Team Providers Care Office Coordinator Receptionist Name Role Phone Unavailable Primary Care Provider [...]
--- OUTSIDE RECORDS SUMMARY | 2024-08-14 01:47 | XMS_ITS | Encounter Summary ---
Author Organization [employer] Address [address] [facility] 7t [place] [address] Care Team Providers Care Soaking Room Operator Name Role Phone Name, Olayinka NUGENT Primary Care Provider [phone] Encounter Details Date Type Department Care Team [...] Description 08/14/2024 11:30 AM EDT Clinical Support [facility] [address] [place] [address] Mark Mena, RN [address] [place] [address] 08/21/2024 3:00 PM EDT Office Visit [facility] [address] [place] [address] Giovanna Zacarias MD [address] [place] [address] 09/03/2024 2:45 PM EDT Office Visit [facility] [address] [place] [address] TarkaMalou, OD [address] [place] [address] 09/15/2024 10:45 AM EDT Office Visit [facility] [address] [place] [address] Jose Guadalupe, MD Olayinka [address] [place] [phone] documented as of this encounter Procedures Procedure Name Priority Date/Time Associated Diagnosis Comments CT HEAD WO CONTRAST Routine 08/14/2024 1 :30 AM EDT URINALYSIS, COMPLETE, WITH REFLEX TO CULTURE Routine 08/12/2024 9:34 PM EDT DRUG MONITOR, PANEL 1, SCREEN, URINE Routine 08/12/2024 9:34 PM EDT ETHANOL Routine 08/12/2024 9:29 PM EDT CBC WITH AUTO DIFFERENTIAL Routine 08/12/2024 9:29 PM EDT ACETAMINOPHEN LEVEL Routine 08/12/2024 9 :29 PM EDT SALICYLATE Routine 08/12/2024 9:29 PM EDT COMPREHENSIVE METABOLIC PANEL Routine 08/12/2024 9:29 PM EDT documented in this encounter Results * CT Head w/o Contrast (08/14/2024 1:30 AM EDT) Anatomical Region Laterality Modality Head, Neck Computed Tomogra phy 08/14/2024 1:30 AM EDT Narrative 08/14/2024 1:32 AM EDT ? [facility] ?[address] ?[place] [address] ? CT Scan Report ? Signed ? Patient: Eliot Ivan ?MR#: [id number] ?? [id number] ? : 1965 ?Acct:[id number] ? Age/Sex: 59 / M ?ADM Date: 08/13/24 ? Loc: HO.[id number] ?306-2 ? Attending Dr: Yfn Breen MD ? Ordering Physician: Katherine Navas BARRELHEAD INSPECTOR-BC ?? Date of Service: 08/14/24 ?? Procedure(s): CT head/brain wo IV con ?? Accession Number(s): [id number] ? cc: Katherine Navas BARRELHEAD INSPECTOR-BC; Name,Olayinka NUGENT ? Report Number: ?? [id number]: Total DLP = ??747.00 mGy-cm ? CLINICAL [...] ? DD/ 9 ? TD/TT: 08/14/24129 ? Mechanical Manufacturing Technician: ? Procedure Note Donotmaninterpreter, Image - 08/14/[address] [address] [address] Scan Report Signed Patient: Jose Ivan#: [id number] : 1965Acct:[id number] Age/Sex: 59 / MADM Date: 08/13/24 Loc: [id number].[id number] 306-[address]: Yfn Breen MD Ordering Physician: Katherine Navas Date of Service: 08/14/24 Procedure(s): CT head/brain wo IV con Accession Number(s): [id number] [facility]: [facility]; Name,Olayinka NUGENT Report Number: [id number]: Total DLP = 747.00 mGy-cm CLINICAL HISTORY: [...] in OV> 08/14/24130 DD/ 9 TD/TT: 08/14/24129 Mechanical Manufacturing Technician: [facility] External Provider IMG CT PROCEDURES Edited Result - Final * (ABNORMAL) Drug Monitoring, Panel 1, Screen, Urine (08/12/2024 9:34 PM EDT) Pathologist [facility] Opiate Screen Urine POSITIVE(A) Not Detect [facility] Comment:Opiate cut-off is 30 0 ng/mL.Positive results are unconfirmed and should not be used fornon-medical purposes. Barbiturates, Urine Not Detected Not Detect [facility] Comment:Barbiturate cut-off is 200 ng/mL.Positive results are unconfirmed and should not be used fornon-medical purposes. Phencyclidine Screen Urine Not Detected Not Detect [facility] Comment:Phencyclidine cut-of f is 25 ng/mL.Positive results are unconfirmed and should not be used fornon-medical purposes. Amphetamine Screen Urine Not Detected Not Detect [facility] Comment:Amphetamine cut-off is 1000 ng/mL.Positive results are unconfirmed and should not be used fornon-medical purposes. Benzodiazepines Screen Urine Not Detected Not Detect [facility] Comment:Benzodiazepine cut-o ff is 200 ng/mL.Positive results are unconfirmed and should not be used fornon-medical purposes. Cocaine Screen Urine POSITIVE(A) Not Detect [facility] Comment:Cocaine cut-off is 3 00 ng/mL.Positive results are unconfirmed and should not be used fornon-medical purposes. Cannabinoid Screen Urine Not Detected Not Detect [facility] Comment:Cannabinoid cut-off is 50 ng/mL.Positive results are unconfirmed and should not be used fornon-medical purposes. Methadone Screen, Urine Not Detected Not Detect ng/mL [facility] Comment:Methadone cut-off is 300 ng/mL.Positive results are unconfirmed and should not be used fornon-medical purposes. FENTANYL URINE POSITIVE(A) Not Detect [facility] Comment:Fentanyl cut-off is 1 ng/mL.Positive results are unconfirmed and should not be used fornon-medical purposes. Oxycodone Urine Screen Not Detected Not Detect ng/mL [facility] Comment:Oxycodone cut-off is 100 ng/mL.Positive results are unconfirmed and should not be used fornon-medical purposes. Buprenorphine Screen Not Detected Not Detect ng/mL [facility] Comment:Buprenorphine cut-of f is 5 ng/mL.Positive results are unconfirmed and should not be used fornon-medical purposes. 08/12/2024 9:34 PM EDT 08/12/2024 9:45 PM EDT Generic External Data Provider LAB URINE ORDERAB LES Final Result Performing Organization Address [facility]/ZIP Co de Phone Number [facility] [address] [place] [address] [phone] * Urinalysis, Complete, with Reflex to Culture (08/12/2024 9:34 PM EDT) Color Urine Yellow [facility] Appearance Urine Clear [facility] PH 5.5 5.0 - 9.0 [facility] Glucose Urine UA Negative Negative mg/dL [facility] Urine Blood Negative Negative [facility] Specific Tram - Urine 1.020 1.005 - 1.025 [facility] Urine Protein Negative Neg-Trace mg/dL [facility] Urine Ketones Negative Negative mg/dL [facility] Nitrite Urine Negative Negative [facility] Leukocyte Esterase Urine Negative Negative [facility] RBC Urine 0-2 0 - 2 /HPF [facility] Urine WBC 0-5 0 - 5 /HPF [facility] Urine Squamous Epithelial Cell 0-2 0 - 2 /HPF [facility] Urine Bacteria None Seen None Seen [facility] Hyaline Casts, Urine 0-2 0 - 2 /LPF [facility] 08/12/2024 9:34 PM EDT 08/12/2024 9:52 PM EDT Narrative [facility] - 08/12/2024 10:00 PM EDT [id number], Clean Catch Generic External Data Provider LAB URINE ORDERAB LES Final Result Performing Organization Address City/[facility]/ZIP Co de Phone Number [facility] [address] [place] [address] [phone] * Acetaminophen level (08/12/2024 9:29 PM EDT) Acetaminophen LAB <3 <30 mcg/mL [facility] 08/12/2024 9:29 PM EDT 08/12/2024 9:32 PM EDT Generic External Data Provider LAB BLOOD ORDERAB LES Final Result Performing Organization Address [facility] Co de Phone Number [facility] [address] [place] [phone] * (ABNORMAL) Salicylate (08/12/2024 9:29 PM EDT) Pathologist [facility] Salicylate <5.0(L) 15 - 30 mg/dL [facility] 08/12/2024 9:29 PM EDT 08/12/2024 9:32 PM EDT Generic External Data Provider LAB BLOOD ORDERAB LES Final Result Performing Organization Address [facility] de Phone Number [facility] [address] [place] [phone] * Ethanol (08/12/2024 9:29 PM EDT) Pathologist [facility] ETHANOL (MG/DL) IN SER/PLAS 88 mg/dL [facility] Comment:Serum/plasma ethanol results are to be used formedical/treatment purposes only. 08/12/2024 9:29 PM EDT 08/12/2024 9:32 PM EDT Generic External Data Provider LAB BLOOD ORDERAB LES Final Result Performing Organization Address [facility] de Phone Number [facility] [address] [place] [phone] * (ABNORMAL) Comprehensive Metabolic Panel (08/12/2024 9:29 PM EDT) Pathologist [facility] Sodium 140 135 - 145 mmol/L [facility] Potassium 3.9 3.3 - 5.1 mmol/L [facility] Chloride 106 96 - 108 mmol/L [facility] Carbon Dioxide 26 22 - 29 mmol/L [facility] Anion Gap 12 12 - 20 [facility] Urea Nitrogen (BUN) 11 9 - 16 mg/dL [facility] Creatinine, Serum 0.64 0.5 - 1.4 mg/dL [facility] Creatinine Clr Calc Pharmacy 118.3 [facility] Comment:eGFR (calculated fro m the MDRD study equation) and eCrCl(calculated from the Cockcroft-Gault equation) are based ondifferent parameters and may not yield comparable results.If eCrCl result is absurd, please check patient'sheight/weight. Estimated Glomerular Filt Rate >60 [facility] Comment:Chronic Kidney Disea se: Estimated GFR < 60 mL/min/[id number] Kidney Disease: Estimated GFR < 15 mL/min/1.73m2 Glucose 85 60 - 115 mg/dL [facility] Calcium 9.1 8.4 - 10.2 mg/dL [facility] Bilirubin, Total 0.4 0.0 - 1.0 mg/dL [facility] Aspartate Amino Transferase 49(H) 5 - 37 U/L [facility] Alanine Aminotransferase 30 0 - 40 U/L [facility] Total Protein 7.2 6.5 - 8.0 g/dL [facility] Albumin Level 4.1 3.5 - 5.0 g/dL [facility] Alkaline Phosphatase 69 39 - 117 U/L [facility] 08/12/2024 9:29 PM EDT 08/12/2024 9:32 PM EDT us Generic External Data Provider LAB BLOOD ORDERAB LES Final Result [facility] [address] [place] [phone] * (ABNORMAL) CBC auto differential (08/12/2024 9:29 PM EDT) White Blood Count 7.1 4.8 - 10.8 X10*3/uL [facility] Red Blood Count 3.94(L) 4.60 - 5.80 X10*6/uL [facility] Hemoglobin 12.0(L) 14.0 - 18.0 g/dl [facility] Hematocrit 35.7(L) 42.0 - 52.0 % [facility] Mean Corpuscular Volume 90.6 80.0 - 98.0 fL [facility] Mean Corpuscular Hemoglobin 30.5 27.0 - 33.0 pg [facility] Mean Corpuscular HGB Conc 33.6 31.0 - 36.0 g/dl [facility] Red Cell Distribution Width 14.4 11.0 - 16.0 % [facility] Platelet Count 187 160 - 400 X10*3/uL [facility] Mean Platelet Volume 9.8 9.4 - 12.4 fL [facility] Neutrophils Percent Auto 61.8 45 - 73 % [facility] Imm Gran Pct Auto 0.1 0.0 - 0.4 % [facility] Lymphocytes Percent Auto 30.9 20 - 40 % [facility] Monocytes Percent Auto 5.5 2 - 11 % [facility] Eosinophils Percent Auto 1.1 0 - 4 % [facility] Basophils Percent Auto 0.6 0 - 2 % [facility] NRBC Pct Auto 0.0 0.0 - 0.2 /100WBC [facility] Neutrophils Absolute Auto 4.4 2.0 - 8.3 x10*3/uL [facility] Imm Gran Abs Auto 0.01 0.00 - 0.03 X10*3/uL [facility] Lymphocytes Absolute Auto 2.2 1.2 - 4.9 X10*3/uL [facility] Monocytes Absolute Auto 0.4 0.1 - 1.2 X10*3/uL [facility] Eosinophils Absolute Auto 0.1 0.0 - 0.4 X10*3/uL [facility] Basophils Absolute Auto 0.0 0.0 - 0.2 X10*3/uL [facility] NRBC Abs Auto 0.000 0.0 - 0.012 X10*3/uL [facility] 08/12/2024 9:29 PM EDT 08/12/2024 9:32 PM EDT us Generic External Data Provider LAB BLOOD ORDERAB LES Final Result Performing Organization Address City/State/[facility] Co de Phone Number [facility] [address] [place] [phone] [phone] documented in this encounter Visit Diagnoses Not on filedocumented in this encounter Additional Health Concerns Assessment Noted Time PHQ-9 Depression Total Score: 17 024 2:41 PM EDT documented as of this encounter Care Teams Soaking Room Operator Relationship Specialty Start Date End Date Name, MD Olayinka [address] [place] [address] PCP - General Family Medicine 03/22/18 documented as of this encounter
--- OUTSIDE RECORDS SUMMARY | 2024-08-14 01:47 | XMS_ITS | Encounter Summary ---
Author Organization [employer] Address [address] [facility] [address] [place] [address] Care Team Providers Care Merchandise Complaint Adjuster Name Role Phone Name, Olayinka NUGENT Primary Care Provider [phone] Encounter Details Date Type Department Care Team ([facility] st Contact Info) Description 02/09/2023 Abstract [facility] [address] [place], [place] [phone] Name, MD Olayinka [address] [place] [address] Social History Tobacco Use Types Packs/Day Years [...] the past 12 months, has t he [employer], gas, oil or water company threatened to [...] 11:30 AM EDT Clinical Support [facility] [address] [place] [phone] Mark Mena, MASTER [address] [place] [phone] 08/21/2024 3:00 PM EDT Office Visit [facility] [address] [place] [phone] Giovanna Zacarias MD [address] [place] [phone] 09/03/2024 2:45 PM EDT Office Visit [facility] OPTOMETRY [address] [place] [address] TarMalou do, OD [address] [place] [phone] 09/15/2024 10:45 AM EDT Office Visit [facility] [address] [place] [phone] Olayinka Shi MD [address] [place] [phone] documented as of this encounter Visit Diagnoses Not on filedocumented in this encounter Additional Health Concerns Assessment Noted Time PHQ-9 Depression Total Score: 14 023 3:00 PM EDT documented as of this encounter Care Teams Merchandise Complaint Adjuster Relationship Specialty Start Date End Date Olayinka Shi MD [address] [place] [phone] PCP - General Family Medicine 03/22/18 documented as of this encounter
[2024-08-14 01:50] VITALS: BP 100/58; PULSE 72; RESP 18; O2SAT 96
[2024-08-14 01:56] LABS: Troponin-I High Sensitivity 11.1 ng/L (<3.5-35.0)
[2024-08-14] MEDS: diazePAM 10 MG/2 ML CARTRIDGE IVPUSH (01:57)
[2024-08-14 02:01] LABS: Lactic Acid 2.4 mmol/L (0.5-2.0)
[2024-08-14 02:04] LABS: Alanine Aminotransferase 26 U/L (0-40); Albumin Level 3.7 g/dL (3.5-5.0); Aspartate Amino Transferase 50 U/L (5-37); Bilirubin Total 1.1 mg/dL (0.0-1.0); Blood Urea Nitrogen 15 mg/dL (9-16); Creatinine Clr Calc Pharmacy 80.8; Estimated Glomerular Filt Rate > 60; Glucose Random 140 mg/dL (60-115); Magnesium 1.5 mg/dL (1.6-2.6); Total Protein 6.9 g/dL (6.5-8.0)
[2024-08-14 02:06] LABS: B Type Natriuretic Peptide 103 pg/mL (<100)
[2024-08-14 02:08] LABS: Alkaline Phosphatase 75 U/L (39-117); Anion Gap 26 (12-20); Carbon Dioxide 18 mmol/L (22-29); Chloride 99 mmol/L (96-108); Potassium 3.8 mmol/L (3.3-5.1); Sodium 139 mmol/L (135-145)
[2024-08-14] MEDS: levETIRAcetam in NaCl (iso-os) 1,000 MG/100 ML PIGGYBACK 400 MG IV (02:41)
[2024-08-14] MEDS: Lactated Ringers 1,000 ML 100 ML IVCONT (02:41)
[2024-08-14 02:55] VITALS: BP 110/53; PULSE 71; RESP 18; TEMP 36.3; O2SAT 96
[2024-08-14] MEDS: Magnesium Sulfate/H2O 2 GM/50 ML PIGGYBACK IV (03:07)
[2024-08-14 03:35] LABS: Reflex Lactate? Lactic Acid Added
[2024-08-14 05:27] VITALS: BMI 20.4
[2024-08-14] MEDS: Pantoprazole Sodium 40 MG/10 ML VIAL IVPUSH (05:57)
[2024-08-14 07:16] VITALS: BP 138/68; PULSE 70; RESP 20; TEMP 36.3; O2SAT 99
--- NOTE | 2024-08-14 08:33 | PHA.MEDREC ---
Pharmacy Consult ? Medication Reconciliation Pharmacy has completed the medication reconciliation. Med rec complete using claim history and medical records as patient was transferred between floors.
[2024-08-14] MEDS: Folic Acid 1 MG in 0.9 % Sodium Chloride 50 ML 100.4 MG IV (09:04)
[2024-08-14] MEDS: Lactated Ringers 1,000 ML 125 ML IVCONT ×2 (09:05→17:08)
--- NOTE | 2024-08-14 09:13 | MHC.CM.PN ---
Addendum entered by Celsa Stone RN 08/15/24 09:27: LATE ENTRY FOR 08/14, CM REATTEMPTED TO SEE PT HOWEVER, PT SOUNDLY SLEEPING. Original Note: CM ATTEMPTED TO MEET W/PT VIA MANAGER RESEARCH AND DEVELOPMENT HOWEVER PT SLEEPING, PT WOKEN UP BY SITTER HOWEVER NOT ANSWERING AND FELL BACK TO SLEEP, CM TO REVISIT LATER IN SHIFT.
[2024-08-14] MEDS: Thiamine HCL 100 MG in 0.9 % Sodium Chloride 100 ML 202 MG IV (09:41)
[2024-08-14 09:46] LABS: Hematocrit 42.3 % (42.0-52.0); Hemoglobin 14.5 g/dl (14.0-18.0); Mean Corpuscular HGB Conc 34.3 g/dl (31.0-36.0); Mean Corpuscular Hemoglobin 30.8 pg (27.0-33.0); Mean Corpuscular Volume 89.8 fL (80.0-98.0); Mean Platelet Volume 10.5 fL (9.4-12.4); Platelet Count 228 X10*3/uL (160-400); Red Blood Count 4.71 X10*6/uL (4.60-5.80); Red Cell Distribution Width 14.2 % (11.0-16.0); White Blood Count 14.9 X10*3/uL (4.8-10.8)
[2024-08-14 10:27] LABS: Anion Gap 21 (12-20); Blood Urea Nitrogen 18 mg/dL (9-16); Calcium 8.6 mg/dL (8.4-10.2); Carbon Dioxide 20 mmol/L (22-29); Chloride 101 mmol/L (96-108); Creatinine Clr Calc Pharmacy 86.4; Estimated Glomerular Filt Rate > 60; Glucose Random 150 mg/dL (60-115); Magnesium 1.7 mg/dL (1.6-2.6); Potassium 3.8 mmol/L (3.3-5.1); Sodium 138 mmol/L (135-145)
[2024-08-14 11:07] VITALS: BP 130/75; PULSE 80; RESP 18; TEMP 36.3; O2SAT 98
[2024-08-14] MEDS: PHENobarbitaL sodium 130 MG/ML IM ONCE 231 MG IM (11:55)
[2024-08-14] MEDS: PHENobarbitaL sodium 130 MG/ML VIAL IM Q3Hx2 173 MG IM ×2 (14:15→17:08)
--- NOTE | 2024-08-14 15:33 | PM.EVENT ---
Event Note Date of Service: 08/14/24 Event Note: seen and examined this morning follow up for seizure Patient sleepy but easily arousable to verbal stimuli Reporting his last alcoholic drink was 3 weeks ago although alcohol level in the emergency department was 88 Reports a history of alcohol withdrawal seizures past Patient is a 59-year-old male with past medical history left lower extremity cellulitis, MDD, PTSD, AMANDA not on CPAP, ETOH abuse, cocaine, fentanyl and opioid abuse transferred from the psychiatric unit to the medical telemetry floor status post unwitnessed fall with urinary incontinence and suspected seizure possibly from withdrawal. Seizure x2, possibly related to withdrawal CT of the head x2 negative, no focal neuro deficits loaded with keppra overnight; seems most likely r/t withdrawal; has h/o etoh withdrawal Neurology consult pending Seizure precautions and aspiration precautions ordered prn benzos for recurrent seizure Started on phenobarbital Polysubstance abuse/Alcohol abuse follow [facility] Addictions consult placed Thiamine and folic acid ordered MDD/SI, HI, hallucinations psychiatry consult constant observation ordered Hypertension Resume lisinopril in a.m. BPH Flomax Mood Continue p.r.n. Atarax, prazosin Time Spent With Patient Time: Total time managing care of this patient today ____ minutes.
[2024-08-14 15:50] LABS: Alanine Aminotransferase 31 U/L (0-40); Albumin Level 3.7 g/dL (3.5-5.0); Alkaline Phosphatase 67 U/L (39-117); Aspartate Amino Transferase 44 U/L (5-37); Bilirubin Direct 0.3 mg/dL (0.0-0.5); Bilirubin Total 0.7 mg/dL (0.0-1.0); Total Protein 6.8 g/dL (6.5-8.0)
[2024-08-14 16:00] VITALS: BP 134/74; PULSE 82; RESP 18; TEMP 36.5; O2SAT 98
--- NOTE | 2024-08-14 16:18 | P.CNNE_ITS ---
History of Present Illness Data of Consult Service Date: 08/14/24 Primary Care Provider: Unknown Physician HPI Reason for consult: Seizure 59-year-old male with past medical history left lower extremity cellulitis, MDD, PTSD, AMANDA not on CPAP, ETOH abuse, cocaine, fentanyl and opioid abuse encountered unwitnessed fall secondary to suspected seizure on the psychiatric unit. He reported drinking 12 packs + half pt of vodka daily. Now he was feeling somewhat drowsy. He did not know exactly what had happened except saying that he had an attack. Review of Systems 2 Review of Systems: No recent cold or flu-like illness or fever PMFSH Past Medical History Medical History Central sleep apnea Respiratory failure with hypoxia Restrictive lung disease AMANDA (obstructive sleep apnea) Morbid obesity Alcohol use disorder, severe, dependence Alcohol abuse Heroin abuse Essential hypertension CHF (congestive heart failure) Edema Depression Hypertension Family History Family History Other No family history of coronary artery disease Surgical History Surgical History No pertinent past surgical history Social History Social History Household Members: None Housing: Homeless Housing Other:: not specified Do you presently have visiting nurse or other home services: No Alcohol intake: current Alcohol intake frequency: a few times a week Alcohol type: beer Comment: 1:1 sitter SI Patient Tobacco Use Status: Tobacco use Unknown Tobacco use type: Cigarette Cigarette Packs Per Day: 0.5 Cigarettes Per Day: 2 e-Cigarette/Vaping Use: Never Used Second Hand Smoke Exposure: No Use of substances other than those prescribed or required for medical reasons: Yes Substance Use Type: Crack/Cocaine and Heroin Substance Use Frequency: Daily Last Used Substance: Just Prior to Admission Currently Displaying Signs/Symptoms of Drug Intoxication Withdrawal: No Any prior treatment program specific to substance use: No Advance Directives: No Advance Directives Information Provided: Yes Do you have a plan to hurt others: No Plan Recently lost weight without trying: No service: No Current occupational status: unemployed and disabled Travel History Ebola Risk: Travel/Contact With Anyone From Affected Area/s: No Has Patient Experienced Ebola Symptoms: No Meds Allergies Allergy/AdvReac Type Severity Reaction Status Date / Time No Known Allergies Allergy Verified 08/12/24 20:57 Active Medications: Current Medications Acetaminophen (Acetaminophen 325 Mg Tablet) 650 mg PO Q6H PRN PRN Reason: Pain, Mild 1-3,fever,headache Calcium Carbonate (Calcium Carbonate 750 Mg Tab.Chew) 750 mg PO Q4H PRN PRN Reason: Heartburn Diazepam (Diazepam 10 Mg/2 Ml Cartridge) 10 mg IVPUSH Q4H PRN PRN Reason: Seizures Folic Acid (Folic Acid 1 Mg Tablet) 1 mg PO DAILY [facility] Furosemide (Furosemide 40 Mg Tablet) 40 mg PO DAILY [facility]; Protocol Hydroxyzine HCl (Hydroxyzine Hcl 25 Mg Tablet) 25 mg PO TID PRN PRN Reason: anxiety Lactated Ringer's (Lr) 1,000 mls @ 125 mls/hr IVCONT .Q8H [facility] Last Admin: 08/14/24 09:05 Dose: 125 mls/hr Thiamine HCl 100 mg/ Sodium (Chloride) 101 mls @ 202 mls/hr IV DAILY [facility] Last Infusion: 08/14/24 10:26 Dose: Infused Lisinopril (Lisinopril 20 Mg Tablet) 20 mg PO DAILY [facility]; Protocol Magnesium Hydroxide (Milk Of Magnesia 30 Ml Oral.Susp) 30 ml PO DAILY PRN PRN Reason: Constipation Melatonin (Melatonin 3 Mg Tablet) 6 mg PO BEDTIME PRN PRN Reason: Insomnia Ondansetron HCl (Ondansetron Hcl 4 Mg/2 Ml Vial) 4 mg IVPUSH Q8H PRN PRN Reason: Nausea and Vomiting Pantoprazole Sodium (Pantoprazole Sodium 40 Mg/10 Ml Vial) 40 mg IVPUSH DAILY@0630 [facility] Last Admin: 08/14/24 05:57 Dose: 40 mg Pharmacy Consult (Consult Rx Etoh Phenob Im/Po) 1 each MISCELLANE ONCE PRN; Protocol PRN Reason: Consult order Phenobarbital (Phenobarbital 15 Mg Tablet) 45 mg PO BID [facility]; Protocol Stop: 08/16/24 21:01 Phenobarbital (Phenobarbital 30 Mg Tablet) 30 mg PO BID [facility]; Protocol Stop: 08/18/24 21:01 Phenobarbital (Phenobarbital 30 Mg Tablet) 30 mg PO DAILY [facility]; Protocol Stop: 08/20/24 09:01 Phenobarbital Sodium (Phenobarbital Sodium 130 Mg/Ml Vial Im Q3hx2) 173 mg IM Q3H [facility]; Protocol Stop: 08/14/24 18:01 Last Admin: 08/14/24 14:15 Dose: 173 mg Prazosin HCl (Prazosin Hcl 1 Mg Capsule) 2 mg PO BEDTIME [facility]; Protocol Senna (Sennosides 8.6 Mg Tablet) 17.2 mg PO BEDTIME PRN PRN Reason: constipation Sodium Chloride (0.9 % Sodium Chloride Flush 3 Ml Syringe) 3 ml IVFLUSH QSHIFT [facility] Last Admin: 08/14/24 08:14 Dose: Not Given Tamsulosin HCl (Tamsulosin Hcl 0.4 Mg Capsule) 0.4 mg PO BEDTIME [facility] Home Medications ?Medication ?Instructions ?Recorded ?Confirmed ?Last Taken ?Type furosemide 40 mg tablet 1 tab PO DAILY 02/18/22 08/14/24 02/17/22 History nicotine (polacrilex) 2 mg buccal 2 - 4 mg PO Q2-4H PRN smoke 08/13/24 08/14/24 Unknown History lozenge cessation sennosides 8.6 mg tablet (senna) 17.2 mg PO BEDTIME PRN constipation 08/13/24 08/14/24 Unknown History acetaminophen 325 mg tablet 650 mg PO Q6H PRN Pain (Scale 08/14/24 08/14/24 Unknown History Score 1-3) calcium carbonate 300 mg PO Q4H PRN Heartburn 08/14/24 08/14/24 Unknown History hydroxyzine pamoate 25 mg capsule 25 mg PO TID PRN anxiety 08/14/24 08/14/24 Unknown History magnesium hydroxide 400 mg/5 mL 30 ml PO DAILY PRN Constipation 08/14/24 08/14/24 Unknown History oral suspension melatonin 3 mg tablet 6 mg PO BEDTIME PRN Insomnia 08/14/24 08/14/24 Unknown History Physical Exam 2 Vital Signs: Vital Signs: Last Vital Signs Temp 97.3 F 08/14/24 11:07 Pulse 80 08/14/24 11:07 Resp 18 08/14/24 11:07 BP 130/75 08/14/24 11:07 Pulse Ox 98 08/14/24 11:07 O2 Del Method Room Air 08/14/24 11:07 BMI result Body Mass Index 20.4 Neuro: Other: Slightly drowsy but able to open eyes and make an eye contact and communicate. Questions were asked with the help of an per diem interpreter. He was following commands. He was able to answer simple questions. Face was symmetrical. Visual araujo are full. There was no focal arm or leg weakness. Plantars were flexor. Faslbr-us-efme testing revealed mild tremor. Results Labs 08/14/24 09:03 08/14/24 09:03 Labs: Short CBC 08/14/24 08/14/24 Range/Units 01:33 09:03 WBC 13.1 H 14.9 H (4.8-10.8) X10*3/uL Hgb 14.6 D 14.5 (14.0-18.0) g/dl Hct 43.1 D 42.3 (42.0-52.0) % Plt Count 228 (160-400) X10*3/uL BMP 08/14/24 08/14/24 01:33 09:03 Sodium 139 138 Potassium 3.8 3.8 Chloride 99 101 Carbon Dioxide 18 L 20 L BUN 15 18 H Creatinine 1.05 0.94 Calcium 9.0 8.6 Liver Function 08/14/24 08/14/24 Range/Units 01:33 09:03 Total Bilirubin 1.1 H 0.7 (0.0-1.0) mg/dL Direct Bilirubin 0.3 (0.0-0.5) mg/dL AST 50 H 44 H (5-37) U/L ALT 26 31 (0-40) U/L Alkaline Phosphatase 75 67 (39-117) U/L Albumin 3.7 3.7 (3.5-5.0) g/dL Head CT revealed mild cortical atrophy Assessment and Plan (1) Seizure: Status: Acute Probably drug related or alcohol-related seizure disorder. At this time mainstay of management is alcohol withdrawal protocol. Re-evaluation for seizure can be arranged if he was committed to stopping alcohol and other drug of abuse. If needed this can be done as an outpatient. Procedures Date of Service Date of Service: 08/14/24
--- NOTE | 2024-08-14 16:35 | HO.ADDICT_ITS ---
History of Present Illness Date of Service: 08/14/2024 Chief Complaint: Seizure Reason for Consult: AUD and OUD HPI Narrative: Patient is a 59 year old [place] speaking male with history of AUD and OUD, who transferred to medical floor from unit after seizure, thought to be related to alcohol withdrawal. Started on phenobarbital taper on medical floor. Question if patient still taking buprenorphine as it was listed on home med list. Patient seen in room 473. He is awake, alert, minimally engaged in interview. Laying with blankets up to his chin, flat affect, brief responses to questions. Reports using 4-5 bags fentanyl daily IN. Also reports drinking a 12 pack of beer and a pint of rum daily. When asked about suboxone , he says he last took the evening before admission, however UDS negative for buprenorphine last rx filled 07/15/24 for 10DS He denies any withdrawal sx. and was not observed to be demonstrating any sx at time of interview. Past Psychiatric History: Patient reports he does not have outpatient psychiatric providers. This is patient's 1st inpatient psychiatric hospitalization. Denies history of SA/SIB. Review of Systems Constitutional: Reports as per HPI Diagnostics Vital Signs (24Hr): Vital Signs - 24 hr 08/14/24 01:50 08/14/24 02:55 08/14/24 07:16 Temperature 97.4 F 97.3 F Pulse Rate 72 71 70 Respiratory Rate 18 18 20 Blood Pressure 100/58 L 110/53 L 138/68 Pulse Oximetry 96 96 99 Oxygen Delivery Method Room Air Room Air Room Air 08/14/24 11:07 08/14/24 16:00 Temperature 97.3 F 97.7 F Pulse Rate 80 82 Respiratory Rate 18 18 Blood Pressure 130/75 134/74 Pulse Oximetry 98 98 Oxygen Delivery Method Room Air Room Air BMI result Body Mass Index 20.4 Labs 08/15/24 09:35 08/15/24 09:35 Labs: Laboratory Results - last 48 hr 08/14/24 08/14/24 08/14/24 01:33 01:36 03:08 WBC 13.1 H RBC 4.83 D Hgb 14.6 D Hct 43.1 D MCV 89.2 MCH 30.2 MCHC 33.9 RDW 14.2 Plt Count MPV 10.5 Immature Gran % (Auto) 0.5 H Neut % (Auto) 87.3 H Lymph % (Auto) 9.5 L Douglas % (Auto) 2.5 Eos % (Auto) 0.0 Baso % (Auto) 0.2 Lymph # (Auto) 1.2 Douglas # (Auto) 0.3 Eos # (Auto) 0.0 Baso # (Auto) 0.0 Abs Immat Gran (auto) 0.06 H Absolute Neuts (auto) 11.4 H Absolute Nucleated RBC 0.000 Nucleated RBC % (auto) 0.0 VBG pH 7.40 VBG pCO2 29 VBG pO2 47 VBG HCO3 18 L VBG O2 Saturation 73.0 VBG Base Excess -4.5 Sodium 139 Potassium 3.8 Chloride 99 Carbon Dioxide 18 L Anion Gap 26 H BUN 15 Creatinine 1.05 Estim Creat Clear Calc 80.8 Estimated GFR > 60 Random Glucose 140 H Lactic Acid 2.4 H* 2.0 Calcium 9.0 Magnesium 1.5 L Total Bilirubin 1.1 H Direct Bilirubin AST 50 H ALT 26 Alkaline Phosphatase 75 Troponin I High Sens 11.1 B-Natriuretic Peptide 103 H Total Protein 6.9 Albumin 3.7 TSH 0.80 08/14/24 09:03 WBC 14.9 H RBC 4.71 Hgb 14.5 Hct 42.3 MCV 89.8 MCH 30.8 MCHC 34.3 RDW 14.2 Plt Count 228 MPV 10.5 Immature Gran % (Auto) Neut % (Auto) Lymph % (Auto) Douglas % (Auto) Eos % (Auto) Baso % (Auto) Lymph # (Auto) Douglas # (Auto) Eos # (Auto) Baso # (Auto) Abs Immat Gran (auto) Absolute Neuts (auto) Absolute Nucleated RBC 0.000 Nucleated RBC % (auto) 0.0 VBG pH VBG pCO2 VBG pO2 VBG HCO3 VBG O2 Saturation VBG Base Excess Sodium 138 Potassium 3.8 Chloride 101 Carbon Dioxide 20 L Anion Gap 21 H BUN 18 H Creatinine 0.94 Estim Creat Clear Calc 86.4 Estimated GFR > 60 Random Glucose 150 H Lactic Acid Calcium 8.6 Magnesium 1.7 Total Bilirubin 0.7 Direct Bilirubin 0.3 AST 44 H ALT 31 Alkaline Phosphatase 67 Troponin I High Sens B-Natriuretic Peptide Total Protein 6.8 Albumin 3.7 TSH Mental Status Exam Mental Status Exam Level of Consciousness: Awake and Alert Patient Behavior: Appropriate Affect Description: Flat Speech Pattern: Clear Medications Medications Current Medications Acetaminophen (Acetaminophen 325 Mg Tablet) 650 mg PO Q6H PRN PRN Reason: Pain, Mild 1-3,fever,headache Calcium Carbonate (Calcium Carbonate 750 Mg Tab.Chew) 750 mg PO Q4H PRN PRN Reason: Heartburn Diazepam (Diazepam 10 Mg/2 Ml Cartridge) 10 mg IVPUSH Q4H PRN PRN Reason: Seizures Folic Acid (Folic Acid 1 Mg Tablet) 1 mg PO DAILY ROBYN Furosemide (Furosemide 40 Mg Tablet) 40 mg PO DAILY ROBYN; Protocol Hydroxyzine HCl (Hydroxyzine Hcl 25 Mg Tablet) 25 mg PO TID PRN PRN Reason: anxiety Lactated Ringer's (Lr) 1,000 mls @ 125 mls/hr IVCONT .Q8H [facility] Last Admin: 08/14/24 09:05 Dose: 125 mls/hr Thiamine HCl 100 mg/ Sodium (Chloride) 101 mls @ 202 mls/hr IV DAILY [facility] Last Infusion: 08/14/24 10:26 Dose: Infused Lisinopril (Lisinopril 20 Mg Tablet) 20 mg PO DAILY [facility]; Protocol Magnesium Hydroxide (Milk Of Magnesia 30 Ml Oral.Susp) 30 ml PO DAILY PRN PRN Reason: Constipation Melatonin (Melatonin 3 Mg Tablet) 6 mg PO BEDTIME PRN PRN Reason: Insomnia Ondansetron HCl (Ondansetron Hcl 4 Mg/2 Ml Vial) 4 mg IVPUSH Q8H PRN PRN Reason: Nausea and Vomiting Pantoprazole Sodium (Pantoprazole Sodium 40 Mg/10 Ml Vial) 40 mg IVPUSH DAILY@0630 [facility] Last Admin: 08/14/24 05:57 Dose: 40 mg Pharmacy Consult (Consult Rx Etoh Phenob Im/Po) 1 each MISCELLANE ONCE PRN; Protocol PRN Reason: Consult order Phenobarbital (Phenobarbital 15 Mg Tablet) 45 mg PO BID ROBYN; Protocol Stop: 08/16/24 21:01 Phenobarbital (Phenobarbital 30 Mg Tablet) 30 mg PO BID ROBYN; Protocol Stop: 08/18/24 21:01 Phenobarbital (Phenobarbital 30 Mg Tablet) 30 mg PO DAILY [facility]; Protocol Stop: 08/20/24 09:01 Phenobarbital Sodium (Phenobarbital Sodium 130 Mg/Ml Vial Im Q3hx2) 173 mg IM Q3H ROBYN; Protocol Stop: 08/14/24 18:01 Last Admin: 08/14/24 14:15 Dose: 173 mg Prazosin HCl (Prazosin Hcl 1 Mg Capsule) 2 mg PO BEDTIME ROBYN; Protocol Senna (Sennosides 8.6 Mg Tablet) 17.2 mg PO BEDTIME PRN PRN Reason: constipation Sodium Chloride (0.9 % Sodium Chloride Flush 3 Ml Syringe) 3 ml IVFLUSH QSHIFT ROBYN Last Admin: 08/14/24 08:14 Dose: Not Given Tamsulosin HCl (Tamsulosin Hcl 0.4 Mg Capsule) 0.4 mg PO BEDTIME ROBYN Allergies Allergies Allergy/AdvReac Type Severity Reaction Status Date / Time No Known Allergies Allergy Verified 08/12/24 20:57 Assessment & Plan Assessment & Plan (1) Opioid use disorder: Status: Acute Code(s): F11.90 - Opioid use, unspecified, uncomplicated Assessment and Plan: * no withdrawal sx at this time--not appropriate to restart suboxone (patient agreeable) * will follow up in AM (2) Alcohol use disorder, severe, dependence: Status: Acute Code(s): F10.20 - Alcohol dependence, uncomplicated Assessment and Plan: * pheno taper in place --mentation has improved * IV thiamine Total time managing care of this patient today __35__ minutes. [facility] Past Medical History Medical History (Updated 08/14/24 @ 16:36 by Elvira Evans CNP) Alcohol use disorder, severe, dependence Central sleep apnea Respiratory failure with hypoxia Restrictive lung disease AMANDA (obstructive sleep apnea) Morbid obesity Alcohol abuse Heroin abuse Essential hypertension CHF (congestive heart failure) Edema Depression Hypertension Family History Family History Other No family history of coronary artery disease Surgical History Surgical History No pertinent past surgical history Social History Social History Household Members: None Housing: Homeless Housing Other:: not specified Do you presently have visiting nurse or other home services: No Alcohol intake: current Alcohol intake frequency: a few times a week Alcohol type: beer Comment: 1:1 sitter Patient Tobacco Use Status: Tobacco use Unknown Tobacco use type: Cigarette Cigarette Packs Per Day: 0.5 Cigarettes Per Day: 2 e-Cigarette/Vaping Use: Never Used Second Hand Smoke Exposure: No Substance Use Type: Crack/Cocaine and Heroin service: No Current occupational status: unemployed and disabled
[2024-08-14] MEDS: 0.9 % Sodium Chloride Flush 3 ML SYRINGE IVFLUSH (17:09)
[2024-08-14 19:54] VITALS: BP 153/68; PULSE 83; RESP 18; TEMP 37.3; O2SAT 97
[2024-08-14] MEDS: Melatonin 3 MG TABLET 6 MG PO (20:02)
[2024-08-14] MEDS: Prazosin HCL 1 MG CAPSULE 2 MG PO (20:02)
[2024-08-14] MEDS: Tamsulosin HCL 0.4 MG CAPSULE PO (20:02)
[2024-08-15] VITALS: BP 139/65; PULSE 83; RESP 16; TEMP 37.5; O2SAT 93
[2024-08-15] MEDS: Lactated Ringers 1,000 ML 125 ML IVCONT ×2 (01:20→08:19)
[2024-08-15 03:21] VITALS: BP 150/73; PULSE 74; RESP 16; TEMP 36.8; O2SAT 97
[2024-08-15] MEDS: Pantoprazole Sodium 40 MG/10 ML VIAL IVPUSH (05:25)
[2024-08-15 05:50] VITALS: BMI 21.0
[2024-08-15 06:59] VITALS: BP 154/79; PULSE 67; RESP 16; TEMP 36.7; O2SAT 98
[2024-08-15] MEDS: PHENobarbitaL 15 MG TABLET 45 MG PO (08:12)
[2024-08-15] MEDS: Folic Acid 1 MG TABLET PO (08:12)
[2024-08-15] MEDS: lisinopriL 20 MG TABLET PO (08:12)
[2024-08-15] MEDS: Furosemide 40 MG TABLET PO (08:12)
[2024-08-15] MEDS: Thiamine HCL 100 MG in 0.9 % Sodium Chloride 100 ML 202 MG IV (08:14)
[2024-08-15] MEDS: 0.9 % Sodium Chloride Flush 3 ML SYRINGE IVFLUSH (08:19)
[2024-08-15 10:06] LABS: Hematocrit 39.2 % (42.0-52.0); Hemoglobin 13.5 g/dl (14.0-18.0); Mean Corpuscular HGB Conc 34.4 g/dl (31.0-36.0); Mean Corpuscular Hemoglobin 30.3 pg (27.0-33.0); Mean Corpuscular Volume 88.1 fL (80.0-98.0); Mean Platelet Volume 10.6 fL (9.4-12.4); Platelet Count 230 X10*3/uL (160-400); Red Blood Count 4.45 X10*6/uL (4.60-5.80); Red Cell Distribution Width 14.4 % (11.0-16.0); White Blood Count 10.8 X10*3/uL (4.8-10.8)
[2024-08-15 10:29] LABS: Anion Gap 9 (12-20); Blood Urea Nitrogen 15 mg/dL (9-16); Calcium 8.8 mg/dL (8.4-10.2); Carbon Dioxide 28 mmol/L (22-29); Chloride 104 mmol/L (96-108); Creatinine Clr Calc Pharmacy 122.5; Estimated Glomerular Filt Rate > 60; Glucose Random 125 mg/dL (60-115); Potassium 3.2 mmol/L (3.3-5.1); Sodium 138 mmol/L (135-145)
[2024-08-15] MEDS: Magnesium Sulfate/H2O 2 GM/50 ML PIGGYBACK IV (10:46)
[2024-08-15] MEDS: Potassium Chloride ER 20 MEQ TAB.ER.PRT 60 MEQ PO (10:46)
[2024-08-15 11:06] VITALS: BP 129/60; PULSE 70; RESP 16; TEMP 36.7; O2SAT 95
--- NOTE | 2024-08-15 12:00 | MHC.CM.PN ---
EMR REVIEWED, PT W/SEIZURE, PT HOMELESS X2MOS AFTER BREAK UP W/, PT W/SI/HI ADMITTED TO PSYCH UNIT, CM MET W/PT WHO REPORTS HE FEELS HE STILL NEEDS [facility], SITTER AT BEDSIDE. PER HOSPITALIST PT MEDICALLY CLEARED AND WILL CONSULT CARE TEAM FOR RETURN TO [facility]. PT IS INDEP W/ALL CARE, DENIES USE OF DME AND REPORTS HE GETS HIS SUBOXONE FROM [facility], PCP IS DR. CHAPMAN AND PT HAS BEEN EDUCATED ON AND DECLINES TO COMPLETE A HCP THIS ADMIT. ANTIC PT WILL RETURN TO PSYCH EARLY TODAY.
--- NOTE | 2024-08-15 13:04 | P.DS_ITS ---
DS: Providers Provider Date of Service: 08/15/24 Date of admission: 08/14/24 00:58 Date of discharge: 08/15/24 Primary care physician: Olayinka Shi MD Consults: 08/14/24 00:54 Consult for Sitter Routine Reason for consultation: SI 08/14/24 01:00 Consult to Neurology Routine Consulting Provider: [facility] Reason for consultation: seziure Has provider been notified: No 08/14/24 01:42 Consult to Psychiatry Routine Consulting Provider: [facility] [place] Psych Covering Reason for consultation: transferred from psych to medicine for seizure Has provider been notified: No 08/14/24 05:17 Addiction Medicine Provider Routine Consulting Provider: Addiction Covering Reason for consultation: polysubstance use 08/15/24 11:03 Inpt CARE Team Crisis Consult Routine Comment: Reason for consultation: transfered from psych floor ?return to psych Attending physician on discharge: Tommy Fuentes Discharging clinician: Cha Stewart DS: Diagnosis Discharge Diagnosis (1) Opioid use disorder: Status: Acute (2) Alcohol use disorder, severe, dependence: Status: Acute DS: Summary Hospital Course Hospital Course: From H&P on the day of admission Patient is a 59-year-old male with past medical history left lower extremity cellulitis, MDD, PTSD, AMANDA not on CPAP, ETOH abuse, cocaine, fentanyl and opioid abuse encountered unwitnessed fall secondary to suspected seizure on the psychiatric unit 08/13. Rapid response was called. Patient was found partly lying on the floor incontinent of urine appeared to be in a postictal state. Patient responding verbally and following commands. CT of the head ordered stat. Patient not currently on blood thinners or aspirin. While awaiting CT scan to rule out brain bleed, patient transferred to telemetry floor and an another rapid response was called for witnessed fall and active seizure activity. Unknown time of duration for 2nd seizure. Patient again responsive post seizure with postictal symptoms. Per nursing, patient did make contact with the floor and hit his head with direct impact. No open wounds found and no active bleeding. Repeat CT of the head ordered. Patient is started on Keppra load 1000 mg and Valium 10 mg IV. Seizure precautions placed. One-to-one constant observation ordered. Patient remains bed-bound. Neuro exam reassuring post 2nd seizure. Patient did not bite his tongue or the inside of his mouth. Teeth remain intact. Patient admitted to the psychiatric unit on 08/13/2024 secondary to suicidal and homicidal ideations with hallucinations. Toxicology screen positive for alcohol, opioids, cocaine and fentanyl. Patient does have record of withdrawal seizure in the past but patient is not able to recall this. Patient is not normally on antiseizure medication. Seizure x2, most likely related to alcohol withdrawal/substance use CT of the head x2 negative, no focal neuro deficits. loaded with keppra initially and then started on phenobarbital. Has had no further seizure activity. Seen by neurology, agrees with the assessment and no further inpatient workup required at this time. We will continue oral phenobarbital taper upon transfer to inpatient psychiatric floor. acute metabolic acidosis with elevated AG likely due to acute lactic acidosis in the setting of seizure. Lactic acidosis and anion gap resolved with IV fluid. Polysubstance abuse/Alcohol abuse CIWA has remained low. We will continue supplementation with thiamine and folic acid. Continue oral phenobarbital taper as above On Suboxone at baseline but has not taken for the past several weeks. Seen by addiction Medicine on the medical floor, Suboxone on hold as no acute withdrawal symptoms. Addiction Medicine to follow. MDD/SI, HI, hallucinations Was maintained on one-to-one sitter while on the medical floor. Seen by care team and deemed to need inpatient level of care, patient will be transferred back to inpatient psych for Mild hypokalemia. Likely due to decreased p.o. intake yesterday. Patient now awake, alert and tolerating diet. Replacement ordered. Mild transaminitis. Likely due to underlying liver disease. Outpatient follow- up Time Attestation Discharge Coordination Time (in mins): 36 Quality: Safe Use of Opioids Does Pt have an Active Cancer Diagnosis on the Problem List?: No Quality: Stroke Does the patient have a stroke diagnosis?: No Physical Exam Vital Signs: Vital Signs: Last Vital Signs Temp 98.0 F 08/15/24 11:06 Pulse 70 08/15/24 11:06 Resp 16 08/15/24 11:06 BP 129/60 08/15/24 11:06 Pulse Ox 95 08/15/24 11:06 O2 Del Method Room Air 08/15/24 11:06 BMI result Body Mass Index 21.0 Const: General: cooperative, comfortable, no acute distress, alert and awake Nutritional Appearance: average body habitus Orientation/consciousness: patient oriented x3 Resp: Effort & Inspection: normal respiratory effort, able to speak in complete sentences, no respiratory distress and no use of accessory muscles Cardio: Rate: regular rate GI: Inspection: No distended Palpation (GI): Soft to palpation and nontender Neuro: General: patient oriented x3, moves all extremities and CN's II-XI intact bilaterally Extrem: General: Yes no pedal edema DS: Data Data Completed and Pending Labs on day of discharge: Laboratory Results - last 24 hr 08/14/24 08/15/24 09:03 09:35 WBC 10.8 RBC 4.45 L Hgb 13.5 L Hct 39.2 L MCV 88.1 MCH 30.3 MCHC 34.4 RDW 14.4 Plt Count 230 MPV 10.6 Absolute Nucleated RBC 0.000 Nucleated RBC % (auto) 0.0 Sodium 138 Potassium 3.2 L Chloride 104 Carbon Dioxide 28 Anion Gap 9 L BUN 15 Creatinine 0.68 Estim Creat Clear Calc 122.5 Estimated GFR > 60 Random Glucose 125 H Calcium 8.8 Total Bilirubin 0.7 Direct Bilirubin 0.3 AST 44 H ALT 31 Alkaline Phosphatase 67 Total Protein 6.8 Albumin 3.7 Discharge Plan Discharge Anticipated Discharge Date/Time: 08/15/24 13:14 Patient Disposition: Xfer Psychiatric Hosp Discharge Diagnosis: Withdrawal seizure Hypokalemia Alcohol withdrawal Polysubstance use Mild transaminitis Referrals: Name,MD Olayinka [Primary Care Provider] - 1 Week Discharge Medications: New phenobarbital 15 mg Tablet 45 mg PO BID Qty: 3 0RF phenobarbital 30 mg Tablet 30 mg PO BID Qty: 4 0RF phenobarbital 30 mg Tablet 30 mg PO DAILY Qty: 2 0RF Continued furosemide 40 mg tablet 1 tab PO DAILY Patient Comments: Patient has been off medications for awhile (told RN a few days, told MD a few months) folic acid 1 mg Tablet 1 mg PO DAILY Qty: 30 0RF Patient Comments: Patient has been off medications for awhile (told RN a few days, told MD a few months) naloxone 4 mg/actuation spray,non-aerosol 4 mg intranasal Q2M PRN (Reason: Opioid Overdose) Qty: 2 0RF Patient Comments: Patient has been off medications for awhile (told RN a few days, told MD a few months) acetaminophen 325 mg Tablet 650 mg PO Q6H PRN (Reason: Pain (Scale Score 1-3)) calcium carbonate 300 mg (750 mg) Tablet,Chewable 300 mg PO Q4H PRN (Reason: Heartburn) melatonin 3 mg Tablet 6 mg PO BEDTIME PRN (Reason: Insomnia) magnesium hydroxide 400 mg/5 mL Suspension 30 ml PO DAILY PRN (Reason: Constipation) hydroxyzine pamoate 25 mg capsule 25 mg PO TID PRN (Reason: anxiety) sennosides [senna] 8.6 mg tablet 17.2 mg PO BEDTIME PRN (Reason: constipation) nicotine (polacrilex) 2 mg lozenge 2 - 4 mg PO Q2-4H PRN (Reason: smoke cessation) prazosin 1 mg Capsule 2 mg PO BEDTIME Qty: 0 0RF Protocol: Hold for SBP< HOLD for SBP < : 90 lisinopril 20 mg Tablet 20 mg PO DAILY Qty: 0 0RF Protocol: Hold for SBP< HOLD for SBP < : 90 tamsulosin 0.4 mg Capsule 0.4 mg PO BEDTIME Qty: 0 0RF thiamine mononitrate (vit B1) 100 mg Tablet 100 mg PO DAILY Qty: 0 0RF Held buprenorphine-naloxone [Suboxone] 8-2 mg Film 1 film sublingual BID Qty: 0 0RF Hold Instructions: addiction med to follow Discharge Orders: Discharge Order (Routine); Ordered 08/15/24 Ordered By: Cha Stewart Activity on Discharge: As tolerated Stand Alone Forms: Patient Portal Discharge page Print Language: Kyrgyz Care Plan Goals: See below Health Concerns: Seizure-likely due to alcohol withdrawal/drug use Hypokalemia, due to decreased p.o. intake. Now tolerating diet Mild transaminitis Alcohol use disorder with withdrawal Polysubstance use Plan of Treatment: For alcohol withdrawal. Complete oral phenobarbital taper, 45 mg twice daily for 2 days, 3 more doses. Then 30 mg twice daily for 2 days, then 30 mg once daily for 2 days. Continue supplementation with thiamine and folic acid Opiate use. Suboxone on hold as patient has not been taking recently, no withdrawal symptoms at this time. Addiction Medicine to follow Mild hypokalemia potassium 3.2 today, given oral replacement and IV magnesium Mild transaminitis. Outpatient follow-up recommended No changes made to baseline medications Assessment: See discharge summary
--- NOTE | 2024-08-15 14:41 | HO.ADDICTPRO ---
Subjective Subjective Date of Service: 08/15/24 Reason For Visit: Seizure Interim History: Patient seen in follow up Awake, alert. Denies any withdrawal sx When asked if he wanted to resume/restart suboxone he declined. Appears similar to when seen yesterday. Flat affect Review of Systems Medical Review of Systems: unchanged Mental Status Exam Mental Status Exam Level of Consciousness: Awake and Alert Patient Behavior: Appropriate Affect Description: Flat Diagnostics Vital Signs (24Hr): Vital Signs - 24 hr 08/14/24 16:00 08/14/24 19:54 08/15/24 00:00 Temperature 97.7 F 99.2 F 99.5 F Pulse Rate 82 83 83 Respiratory Rate 18 18 16 Blood Pressure 134/74 153/68 H 139/65 Pulse Oximetry 98 97 93 Oxygen Delivery Method Room Air Room Air Room Air 08/15/24 03:21 08/15/24 06:59 08/15/24 11:06 Temperature 98.2 F 98.0 F 98.0 F Pulse Rate 74 67 70 Respiratory Rate 16 16 16 Blood Pressure 150/73 H 154/79 H 129/60 Pulse Oximetry 97 98 95 Oxygen Delivery Method Room Air Room Air Room Air BMI result Body Mass Index 21.0 Labs 08/15/24 09:35 08/15/24 09:35 Labs: Laboratory Results - last 48 hr 08/14/24 08/14/24 08/14/24 01:33 01:36 03:08 WBC 13.1 H RBC 4.83 D Hgb 14.6 D Hct 43.1 D MCV 89.2 MCH 30.2 MCHC 33.9 RDW 14.2 Plt Count MPV 10.5 Immature Gran % (Auto) 0.5 H Neut % (Auto) 87.3 H Lymph % (Auto) 9.5 L [place] % (Auto) 2.5 Eos % (Auto) 0.0 Baso % (Auto) 0.2 Lymph # (Auto) 1.2 [place] # (Auto) 0.3 Eos # (Auto) 0.0 Baso # (Auto) 0.0 Abs Immat Gran (auto) 0.06 H Absolute Neuts (auto) 11.4 H Absolute Nucleated RBC 0.000 Nucleated RBC % (auto) 0.0 VBG pH 7.40 VBG pCO2 29 VBG pO2 47 VBG HCO3 18 L VBG O2 Saturation 73.0 VBG Base Excess -4.5 Sodium 139 Potassium 3.8 Chloride 99 Carbon Dioxide 18 L Anion Gap 26 H BUN 15 Creatinine 1.05 Estim Creat Clear Calc 80.8 Estimated GFR > 60 Random Glucose 140 H Lactic Acid 2.4 H* 2.0 Calcium 9.0 Magnesium 1.5 L Total Bilirubin 1.1 H Direct Bilirubin AST 50 H ALT 26 Alkaline Phosphatase 75 Troponin I High Sens 11.1 B-Natriuretic Peptide 103 H Total Protein 6.9 Albumin 3.7 TSH 0.80 08/14/24 08/15/24 09:03 09:35 WBC 14.9 H 10.8 RBC 4.71 4.45 L Hgb 14.5 13.5 L Hct 42.3 39.2 L MCV 89.8 88.1 MCH 30.8 30.3 MCHC 34.3 34.4 RDW 14.2 14.4 Plt Count 228 230 MPV 10.5 10.6 Immature Gran % (Auto) Neut % (Auto) Lymph % (Auto) [place] % (Auto) Eos % (Auto) Baso % (Auto) Lymph # (Auto) [place] # (Auto) Eos # (Auto) Baso # (Auto) Abs Immat Gran (auto) Absolute Neuts (auto) Absolute Nucleated RBC 0.000 0.000 Nucleated RBC % (auto) 0.0 0.0 VBG pH VBG pCO2 VBG pO2 VBG HCO3 VBG O2 Saturation VBG Base Excess Sodium 138 138 Potassium 3.8 3.2 L Chloride 101 104 Carbon Dioxide 20 L 28 Anion Gap 21 H 9 L BUN 18 H 15 Creatinine 0.94 0.68 Estim Creat Clear Calc 86.4 122.5 Estimated GFR > 60 > 60 Random Glucose 150 H 125 H Lactic Acid Calcium 8.6 8.8 Magnesium 1.7 Total Bilirubin 0.7 Direct Bilirubin 0.3 AST 44 H ALT 31 Alkaline Phosphatase 67 Troponin I High Sens B-Natriuretic Peptide Total Protein 6.8 Albumin 3.7 TSH Medications Medications Current Medications Acetaminophen (Acetaminophen 325 Mg Tablet) 650 mg PO Q6H PRN PRN Reason: Pain, Mild 1-3,fever,headache Calcium Carbonate (Calcium Carbonate 750 Mg Tab.Chew) 750 mg PO Q4H PRN PRN Reason: Heartburn Diazepam (Diazepam 10 Mg/2 Ml Cartridge) 10 mg IVPUSH Q4H PRN PRN Reason: Seizures Folic Acid (Folic Acid 1 Mg Tablet) 1 mg PO DAILY REPLACED BY [facility] Last Admin: 08/15/24 08:12 Dose: 1 mg Furosemide (Furosemide 40 Mg Tablet) 40 mg PO DAILY REPLACED BY [facility]; Protocol Last Admin: 08/15/24 08:12 Dose: 40 mg Hydroxyzine HCl (Hydroxyzine Hcl 25 Mg Tablet) 25 mg PO TID PRN PRN Reason: anxiety Thiamine HCl 100 mg/ Sodium (Chloride) 101 mls @ 202 mls/hr IV DAILY REPLACED BY [facility] Last Infusion: 08/15/24 09:02 Dose: Infused Lisinopril (Lisinopril 20 Mg Tablet) 20 mg PO DAILY REPLACED BY [facility]; Protocol Last Admin: 08/15/24 08:12 Dose: 20 mg Magnesium Hydroxide (Milk Of Magnesia 30 Ml Oral.Susp) 30 ml PO DAILY PRN PRN Reason: Constipation Melatonin (Melatonin 3 Mg Tablet) 6 mg PO BEDTIME PRN PRN Reason: Insomnia Last Admin: 08/14/24 20:02 Dose: 6 mg Ondansetron HCl (Ondansetron Hcl 4 Mg/2 Ml Vial) 4 mg IVPUSH Q8H PRN PRN Reason: Nausea and Vomiting Pantoprazole Sodium (Pantoprazole Sodium 40 Mg/10 Ml Vial) 40 mg IVPUSH DAILY@0630 REPLACED BY [facility] Last Admin: 08/15/24 05:25 Dose: 40 mg Pharmacy Consult (Consult Rx Etoh Phenob Im/Po) 1 each MISCELLANE ONCE PRN; Protocol PRN Reason: Consult order Phenobarbital (Phenobarbital 15 Mg Tablet) 45 mg PO BID REPLACED BY [facility]; Protocol Stop: 08/16/24 21:01 Last Admin: 08/15/24 08:12 Dose: 45 mg Phenobarbital (Phenobarbital 30 Mg Tablet) 30 mg PO BID REPLACED BY [facility]; Protocol Stop: 08/18/24 21:01 Phenobarbital (Phenobarbital 30 Mg Tablet) 30 mg PO DAILY REPLACED BY [facility]; Protocol Stop: 08/20/24 09:01 Prazosin HCl (Prazosin Hcl 1 Mg Capsule) 2 mg PO BEDTIME REPLACED BY [facility]; Protocol Last Admin: 08/14/24 20:02 Dose: 2 mg Senna (Sennosides 8.6 Mg Tablet) 17.2 mg PO BEDTIME PRN PRN Reason: constipation Sodium Chloride (0.9 % Sodium Chloride Flush 3 Ml Syringe) [facility] Last Admin: 08/15/24 08:19 Dose: 3 ml Tamsulosin HCl (Tamsulosin Hcl 0.4 Mg Capsule) 0.4 mg PO BEDTIME ROBYN Last Admin: 08/14/24 20:02 Dose: 0.4 mg Allergies Allergies Allergy/AdvReac Type Severity Reaction Status Date / Time No Known Allergies Allergy Verified 08/12/24 20:57 Assessment & Plan Assessment & Plan (1) Opioid use disorder: Status: Acute Code(s): F11.90 - Opioid use, unspecified, uncomplicated Assessment and Plan: declines restart of suboxone at this time can restart at anytime should he change his mind--recommend starting at 8mg X1 and additional 8mg if needed, to manage withdrawal sx (2) Alcohol use disorder, severe, dependence: Status: Acute Code(s): F10.20 - Alcohol dependence, uncomplicated Assessment and Plan: withdrawal managed with phenobarbital taper Total time managing care of this patient today __20__ minutes.
== END 2024-08-15 15:25 | DRG 773 ==
PROVIDERS: Nurse Practitioner Family; Admitting Provider Student in an Organized Health Care Education/Training Program; PCP Internal Medicine Geriatric Medicine; Visit Provider Physician Assistant Medical
DX: F10.239 Alcohol dependence with withdrawal, unspecified (principal); F11.20 Opioid dependence, uncomplicated; E87.21 Acute metabolic acidosis; F32.3 Major depressive disorder, single episode, severe with psychotic features; R45.851 Suicidal ideations; T40.496A Underdosing of other synthetic narcotics, initial encounter; E87.6 Hypokalemia; R56.9 Unspecified convulsions; F19.10 Other psychoactive substance abuse, uncomplicated; R45.850 Homicidal ideations; Z79.899 Other long term (current) drug therapy
CPT/HCPCS: 36415; 70450; 80048; 80053; 80076; 82803; 83605; 83735; 83880; 84443; 84484; 85025; 85027; J1808; J1953; J2470; J2560; J3360; J3411; J3475; J7120; S9485

== ENCOUNTER → 2024-08-14 00:58 | Outpatient (BNV) | payer OTHER, SELFPAY | PROVIDERS: Admitting Provider Student in an Organized Health Care Education/Training Program; PCP Internal Medicine Geriatric Medicine; Visit Provider Nurse Practitioner Psychiatric/Mental Health | DX: F10.20 Alcohol dependence, uncomplicated (principal); F11.90 Opioid use, unspecified, uncomplicated | CPT/HCPCS: 99231; 99232 ==

== ENCOUNTER → 2024-08-14 00:58 | Outpatient (BNV) | payer MEDICAID, SELFPAY | PROVIDERS: Admitting Provider Student in an Organized Health Care Education/Training Program; Visit Provider Nurse Practitioner Family | DX: F11.90 Opioid use, unspecified, uncomplicated (principal); F10.20 Alcohol dependence, uncomplicated | CPT/HCPCS: 99233 ==

== ENCOUNTER → 2024-08-14 00:58 | Outpatient (BNV) | payer MEDICAID, SELFPAY | PROVIDERS: Admitting Provider Student in an Organized Health Care Education/Training Program; Visit Provider Psychiatry & Neurology Neurology | DX: R56.9 Unspecified convulsions (principal) | CPT/HCPCS: 99222 ==

== ENCOUNTER 2024-08-15 15:51 | Inpatient (IN) | payer OTHER, SELFPAY ==
--- OUTSIDE RECORDS SUMMARY | 2024-08-15 15:57 | XMS_ITS | Clinical Summary ---
Author Organization [facility] ity Address [address] [place] [address] Care Team Providers Care Front Desk Supervisor Name Role Phone Unavailable Primary Care Provider [...]
[2024-08-15 16:15] VITALS: BP 127/70; PULSE 68; RESP 16; TEMP 37.1; O2SAT 95
[2024-08-15 16:51] VITALS: BMI 28.9
--- NOTE | 2024-08-15 18:55 | PC.ADMIT ---
Pt is a 59 y/o primarily Burmese speaking male admitted on a CV to at 1557 from [facility]. Pt admitted for depression and alcohol use disorder. Pt was recently admitted to on 08/13 for depression, SI/HI, and reports of AVH. Pt reported he was homeless x 2 months after break-up with his , and that he had been living on the streets. Pt reported he had a deck officer, declined to elaborate why, but stated that he was not allowed to return home. Pt had reportedly been drinking a 12 pack of beer and pint of rum daily, as well using 4-5 bags of fentanyl daily. Pt?s tox screen was positive for ETOH, opioids, cocaine, and fentanyl. Pt reported he received Suboxone from [facility], however reported he had not taken it in several weeks. On the day of admission to , pt was transferred to [facility] after an unwitnessed fall and suspected seizure activity. Shortly after transfer, pt sustained a witnessed fall secondary to an active seizure. Pt had CT scans after each fall due to striking his head, with no acute findings. Pt was seen by Addictions team and placed on Phenobarbital taper. No further seizure activity reported since 08/14, and pt was medically cleared. Pt remains on CIWA and Phenobarbital taper. Suboxone was not restarted as no acute opiate withdrawal sx reported. Pt calm and cooperative on arrival to . Pt reported he wanted help with his depression and anxiety. Pt stated ?I need appointments for therapy and psych?. Pt stated he could stay with his aunt after discharge. Pt denied SI/HI/AVH, and stated he had no memory of reporting AVH a few days ago. Pt had limited memory of his arrival to , and of his seizure activity. Pt reported a past hx of withdrawal seizures, and was accepting of the need for continued monitoring. Pt ambulates with slow, unsteady gait. Pt reported ?They haven?t let me walk in two days.? Pt provided with walker and 1:1 supervision for safety.
[2024-08-15 20:00] VITALS: BP 105/60; PULSE 68; RESP 16; TEMP 36.9; O2SAT 96
[2024-08-15] MEDS: PHENobarbitaL 15 MG TABLET 45 MG PO (22:24)
[2024-08-15 22:25] VITALS: BP 125/85
[2024-08-15] MEDS: Tamsulosin HCL 0.4 MG CAPSULE PO (22:25)
[2024-08-15] MEDS: Prazosin HCL 1 MG CAPSULE 2 MG PO (22:25)
--- NOTE | 2024-08-16 07:27 | HO.PSYADMNOT ---
HPI Date of Service: 08/16/24 Chief Complaint: Alcohol use disorder PTSD Recurrent major depressi Sources of Information: patient interviewed, chart reviewed and crisis/core team assessment reviewed HPI Subjective Notes: Conditional Voluntary Healthcare Proxy: No Guardianship: No Medical Problems Affecting Mental Status: No Narrative: 59 yo reports he has been depressed, and using alcohol and cocaine and heroin He only had MAT when he was last here at hospital - and week before when he went to dr leo at [facility]= He says he is depressed but describes trauma and getting reactive and thending in fights/aggression- Sleep is variable, energy variable, apt down for 3 days, no change in weight no si, but some thoughts of hurting others when angered but no specific target or plan. Past Psychiatric History: Patient reports he does not have outpatient psychiatric providers. This is patient's 1st inpatient psychiatric hospitalization. Denies history of SA/SIB. Medical Evaluation Reviewed: Yes s/p 2 sz from alcohol withdrawal stablized on phenobarb and ? keppra also low K+ due to seizure and not eating- hx amanda no cpap elevated lfts [facility] Medical History (Updated 08/14/24 @ 16:36 by Elvira Evans CNP) Alcohol use disorder, severe, dependence Central sleep apnea Respiratory failure with hypoxia Restrictive lung disease AMANDA (obstructive sleep apnea) Morbid obesity Alcohol abuse Heroin abuse Essential hypertension CHF (congestive heart failure) Edema Depression Hypertension Surgical History No pertinent past surgical history Narrative: Dr Sethi pcp at [facility] Family History: 2 aunts with psychiatric illness he thinks, no completed suicides Social History: Homeless. In the process of a divorce. Two children. Disability. Highest level of education completed 11th grade., on probation Substance History: alcohol, cocaine, heroin- hx detoxes would leave after 7d- ?CSS Trauma History: Yes- non specific about this - emotional Diagnostics Vital Signs (24Hr): Vital Signs - 24 hr 08/15/24 16:15 08/15/24 20:00 08/15/24 22:25 Temperature 98.7 F 98.5 F Pulse Rate 68 68 Respiratory Rate 16 16 Blood Pressure 127/70 105/60 125/85 Pulse Oximetry 95 96 Oxygen Delivery Method Room Air Room Air BMI result Body Mass Index 28.9 Labs 08/16/24 08:03 Meds/Allergies Meds Home Medications ?Medication ?Instructions ?Recorded ?Confirmed ?Type furosemide 40 mg tablet 1 tab PO DAILY 02/18/22 08/15/24 History nicotine (polacrilex) 2 mg buccal 2 - 4 mg PO Q2-4H PRN smoke 08/13/24 08/15/24 History lozenge cessation sennosides 8.6 mg tablet (senna) 17.2 mg PO BEDTIME PRN constipation 08/13/24 08/15/24 History acetaminophen 325 mg tablet 650 mg PO Q6H PRN Pain (Scale 08/14/24 08/15/24 History Score 1-3) calcium carbonate 300 mg PO Q4H PRN Heartburn 08/14/24 08/15/24 History hydroxyzine pamoate 25 mg capsule 25 mg PO TID PRN anxiety 08/14/24 08/15/24 History magnesium hydroxide 400 mg/5 mL 30 ml PO DAILY PRN Constipation 08/14/24 08/15/24 History oral suspension melatonin 3 mg tablet 6 mg PO BEDTIME PRN Insomnia 08/14/24 08/15/24 History Allergies Allergies Allergy/AdvReac Type Severity Reaction Status Date / Time Penicillins [PCN] Allergy Rash Verified 08/15/24 18:32 Mental Status Exam Mental Status Exam Narrative: needs animal ride attendant Patient Appearance: Well Grooomed and Appropriate Patient Orientation: Person, Place, Time and Situation Level of Consciousness: Awake and Appropriate Patient Behavior: Appropriate and Cooperative Mood Description: Calm and Anxious Affect Description: Appropriate Patient Cognition Impaired: No Ability to Follow Directions: Good Speech Pattern: Clear Hallucinations: Auditory (his name being called) Thought Process: Intact and Goal Oriented Thought Content: positive for Homicidal Ideation (vague only reactive by pt report) Depressive Symptoms: Increased Anxiety, Muscle Tension, Difficulty Sleeping and Unhappiness Judgement: Fair Assessment & Plan Assessment & Plan (1) Alcohol use disorder, severe, dependence: Status: Acute Code(s): F10.20 - Alcohol dependence, uncomplicated Assessment and Plan: ciwa 0 on phenobarb (2) Seizure: Status: Acute Code(s): R56.9 - Unspecified convulsions Assessment and Plan: put on phenobarb for alcohol withdrawal with seizures, keppra not continuede (3) PTSD (post-traumatic stress disorder): Status: Acute Code(s): F43.10 - Post-traumatic stress disorder, unspecified Assessment and Plan: ? this vs depression was put on prazosin at night other treatment is therapy if patient stays sober for that may want to add sertraline and then if needed deshawn (4) Polysubstance abuse: Status: Acute Code(s): F19.10 - Other psychoactive substance abuse, uncomplicated Patient educated on: diagnosis, medication risk/benefits, substance abuse and medical condition Informed Consent: understands and further education needed Reason for continued inpatient stay Substantial Risk for: inability to function and med/psych decompensation Statement Statement: I have reviewed the history and physical and performed a pertinent examination on my patient. No changes have occurred unless specified. If the History and Physical was not performed prior to admission, the Hospitalist's service will be consulted for completing the admission physical. Time Spent With Patient Time: Total time managing care of this patient today ____ minutes.
[2024-08-16 08:27] LABS: Estimated Average Glucose 97 mg/dL; Hemoglobin A1C 109.0219 umol/L; Total Hemoglobin (HGBA1C) 3455.5291 umol/L
[2024-08-16 08:28] VITALS: BP 147/72
[2024-08-16] MEDS: PHENobarbitaL 15 MG TABLET 45 MG PO ×2 (08:28→20:06)
[2024-08-16] MEDS: Folic Acid 1 MG TABLET PO (08:28)
[2024-08-16] MEDS: Thiamine HCL 100 MG TABLET PO (08:28)
[2024-08-16] MEDS: Magnesium Oxide 400 MG TABLET PO (08:28)
[2024-08-16] MEDS: Furosemide 40 MG TABLET PO (08:28)
[2024-08-16 08:29] VITALS: BP 147/72
[2024-08-16] MEDS: Nicotine 7 MG PATCH.TD24 TRANSDERMA (08:29)
[2024-08-16] MEDS: lisinopriL 20 MG TABLET PO (08:29)
[2024-08-16 08:45] LABS: Anion Gap 9 (12-20); Blood Urea Nitrogen 12 mg/dL (9-16); Calcium 8.9 mg/dL (8.4-10.2); Carbon Dioxide 29 mmol/L (22-29); Chloride 106 mmol/L (96-108); Cholesterol 138 mg/dL (<200); Estimated Glomerular Filt Rate > 60; Glucose Random 100 mg/dL (60-115); HDL Cholesterol 52 mg/dL (>40); LDL Cholesterol Calculated 72 mg/dL (<100); Magnesium 1.5 mg/dL (1.6-2.6); Sodium 140 mmol/L (135-145); Triglycerides 73 mg/dL (<150)
[2024-08-16 08:51] LABS: Thyroid Stimulating Hormone 0.46 uIU/mL (0.32-4.0)
[2024-08-16 09:02] LABS: Folate 12.8 ng/mL (> or = 4.0); Vitamin B12 426 pg/mL (200-900)
[2024-08-16 09:25] VITALS: BP 147/72; PULSE 53; TEMP 36.9; O2SAT 92
[2024-08-16 12:00] VITALS: BP 134/68; PULSE 75; TEMP 36.7
[2024-08-16 20:00] VITALS: BP 131/88; PULSE 69; RESP 16; TEMP 36.9
[2024-08-16] MEDS: Prazosin HCL 1 MG CAPSULE 2 MG PO (20:08)
[2024-08-16] MEDS: Tamsulosin HCL 0.4 MG CAPSULE PO (20:14)
[2024-08-16] MEDS: Melatonin 3 MG TABLET 6 MG PO (20:25)
[2024-08-16] MEDS: traZODone HCL 50 MG TABLET PO (20:25)
--- NOTE | 2024-08-17 08:07 | HO.PSYCHPN ---
Subjective Subjective Date of Service: 08/17/24 Reason For Visit: Alcohol use disorder PTSD Recurrent major depressi Subjective Notes: Conditional Voluntary Healthcare Proxy: No Guardianship: No Medical Problems Affecting Mental Status: No Interim History: 59 yo HM doing well with current phenobarb no further withdrawal seizures- co trouble sleeping and opiate cravings- no si - ongoing anxiety Medication Compliance: Yes Side effects from medications: No Attending Groups: Intermittent Review of Systems Acute medical concerns: No Medical Review of Systems: unchanged Mental Status Exam Mental Status Exam Patient Appearance: Well Grooomed and Appropriate Patient Orientation: Person, Place, Time and Situation Level of Consciousness: Awake Patient Behavior: Appropriate, Cooperative and Good Eye Contact Mood Description: Anxious Affect Description: Appropriate Hallucinations: None Delusions: Not Present Thought Process: Intact and Goal Oriented Judgement: Fair Diagnostics Vital Signs (24Hr): Vital Signs - 24 hr 08/16/24 08:28 08/16/24 08:29 08/16/24 09:25 Temperature 98.5 F Pulse Rate 53 Respiratory Rate Blood Pressure 147/72 H 147/72 H 147/72 H Pulse Oximetry 92 Oxygen Delivery Method Room Air 08/16/24 12:00 08/16/24 20:00 Temperature 98.0 F 98.5 F Pulse Rate 75 69 Respiratory Rate 16 Blood Pressure 134/68 131/88 Pulse Oximetry Oxygen Delivery Method BMI result Body Mass Index 28.9 Labs 08/16/24 08:03 Labs: Laboratory Results - last 48 hr 08/16/24 08:03 Sodium 140 Potassium 4.0 D Chloride 106 Carbon Dioxide 29 Anion Gap 9 L BUN 12 Creatinine 0.71 Estim Creat Clear Calc 101.0 Estimated GFR > 60 Random Glucose 100 Estimat Average Glucose 97 Hemoglobin A1c % 5.0 Calcium 8.9 Magnesium 1.5 L Triglycerides 73 Cholesterol 138 LDL Cholesterol, Calc 72 HDL Cholesterol 52 Vitamin B12 426 Folate 12.8 TSH 0.46 Free T4 1.00 Medications Medications Current Medications Acetaminophen (Acetaminophen 325 Mg Tablet) 650 mg PO Q6H PRN PRN Reason: pain 1-10 Al Hydroxide/Mg Hydroxide (Magnesium Hydrox/Alum Hydrox 30 Ml Oral.Susp) 30 ml PO Q6H PRN PRN Reason: Heartburn/Nausea Calcium Carbonate (Calcium Carbonate 750 Mg Tab.Chew) 300 mg PO Q4H PRN PRN Reason: Heartburn Folic Acid (Folic Acid 1 Mg Tablet) 1 mg PO DAILY [facility]YN Last Admin: 08/16/24 08:28 Dose: 1 mg Furosemide (Furosemide 40 Mg Tablet) 40 mg PO DAILY [facility]; Protocol Last Admin: 08/16/24 08:28 Dose: 40 mg Hydroxyzine HCl (Hydroxyzine Hcl 25 Mg Tablet) 25 mg PO Q6H PRN PRN Reason: Anxiety Lisinopril (Lisinopril 20 Mg Tablet) 20 mg PO DAILY [facility]; Protocol Last Admin: 08/16/24 08:29 Dose: 20 mg Magnesium Hydroxide (Milk Of Magnesia 30 Ml Oral.Susp) 30 ml PO DAILY PRN PRN Reason: Constipation Magnesium Oxide (Magnesium Oxide 400 Mg Tablet) 400 mg PO DAILY [facility] Last Admin: 08/16/24 08:28 Dose: 400 mg Melatonin (Melatonin 3 Mg Tablet) 6 mg PO BEDTIME PRN PRN Reason: Insomnia Last Admin: 08/16/24 20:25 Dose: 6 mg Naloxone HCl (Naloxone Hcl Nasal 4 Mg [place]) 4 mg NOSTRILALT ONCE PRN PRN Reason: opiate overdose Nicotine (Nicotine 7 Mg Patch.Td24) 7 mg TRANSDERMA DAILY [facility] Last Admin: 08/16/24 08:29 Dose: 7 mg Nicotine Polacrilex (Nicotine Polacrilex Lozenge 4 Mg Lozenge) 4 mg BUCCAL Q2H PRN PRN Reason: Nicotine Cravings Phenobarbital (Phenobarbital 30 Mg Tablet) 30 mg PO BID [facility]; Protocol Stop: 08/18/24 21:01 Phenobarbital (Phenobarbital 30 Mg Tablet) 30 mg PO DAILY [facility]; Protocol Stop: 08/20/24 09:01 Prazosin HCl (Prazosin Hcl 1 Mg Capsule) 2 mg PO BEDTIME [facility]; Protocol Last Admin: 08/16/24 20:08 Dose: 2 mg Senna (Sennosides 8.6 Mg Tablet) 17.2 mg PO BEDTIME PRN PRN Reason: Constipation Sertraline HCl (Sertraline Hcl 25 Mg Tablet) 25 mg PO DAILY [facility] Tamsulosin HCl (Tamsulosin Hcl 0.4 Mg Capsule) 0.4 mg PO BEDTIME [facility] Last Admin: 08/16/24 20:14 Dose: 0.4 mg Thiamine HCl (Thiamine Hcl 100 Mg Tablet) 100 mg PO DAILY [facility] Last Admin: 08/16/24 08:28 Dose: 100 mg Trazodone HCl (Trazodone Hcl 50 Mg Tablet) 50 mg PO BEDTIME MRX1 PRN PRN Reason: Insomnia Last Admin: 08/16/24 20:25 Dose: 50 mg Allergies Allergies Allergy/AdvReac Type Severity Reaction Status Date / Time Penicillins [PCN] Allergy Rash Verified 08/15/24 18:32 Assessment & Plan Assessment & Plan (1) Alcohol use disorder, severe, dependence: Status: Acute Code(s): F10.20 - Alcohol dependence, uncomplicated Assessment and Plan: ciwa 0 on phenobarb (2) Seizure: Status: Acute Code(s): R56.9 - Unspecified convulsions Assessment and Plan: put on phenobarb for alcohol withdrawal with seizures, keppra not continuede (3) PTSD (post-traumatic stress disorder): Status: Acute Code(s): F43.10 - Post-traumatic stress disorder, unspecified Assessment and Plan: 08/16? this vs depression was put on prazosin at night other treatment is therapy if patient stays sober for that may want to add sertraline and then if needed rexulti 08/17/24 started sertraline today, trouble sleeping last pm- looking to start suboxone for opiate MAT, had trial dose prior to transfer to medical - - would have started sreoquel for sleep but for seizure risk so decided on melatonin for now- though they may want to titrate prazosin up (4) Polysubstance abuse: Status: Acute Code(s): F19.10 - Other psychoactive substance abuse, uncomplicated Patient educated on: medication risk/benefits and substance abuse Informed Consent: understands Reason for continued inpatient stay Substantial Risk for: rapid decompensation and med/psych decompensation Time Spent With Patient Time: Total time managing care of this patient today ____ minutes.
[2024-08-17] MEDS: Nicotine 7 MG PATCH.TD24 TRANSDERMA (09:04)
[2024-08-17 09:05] VITALS: BP 144/75
[2024-08-17] MEDS: Sertraline HCL 25 MG TABLET PO (09:05)
[2024-08-17] MEDS: Magnesium Oxide 400 MG TABLET PO (09:05)
[2024-08-17] MEDS: Furosemide 40 MG TABLET PO (09:05)
[2024-08-17 09:06] VITALS: BP 144/75; PULSE 61; RESP 20; TEMP 37.1; O2SAT 98
[2024-08-17] MEDS: lisinopriL 20 MG TABLET PO (09:06)
[2024-08-17] MEDS: Folic Acid 1 MG TABLET PO (09:06)
[2024-08-17] MEDS: Thiamine HCL 100 MG TABLET PO (09:06)
[2024-08-17] MEDS: PHENobarbitaL 30 MG TABLET PO ×2 (09:16→21:08)
[2024-08-17] MEDS: Buprenorphine/Naloxone 8/2 mg FILM 1 FILM SUBLINGUAL (11:16)
--- NOTE | 2024-08-17 14:13 | MHC.RECOVRN ---
Met with pt in 509-2 to follow up and provide support re: Suboxone. Accessed power tong operator Rubén for assist. Pt awake, alert, easily engages in conversation. Pt reports that after experiencing some W/D, specific body temp changes, he asked to go back on Suboxone. He was re started on 8-2mg QD. T/W communicated Elvira Evans's recommendation of 8-2mg Q AM and 8-2mg QPM PRN W/D, to floor nurse and indicated that we would check in tomorrow. Pt denies other concerns at this time.? T/w available as needed. ACS to F/U tomorrow.
[2024-08-17 19:57] VITALS: BP 122/63; PULSE 66; RESP 15; TEMP 36.6; O2SAT 97
[2024-08-17] MEDS: Prazosin HCL 1 MG CAPSULE 2 MG PO (21:08)
[2024-08-17] MEDS: Tamsulosin HCL 0.4 MG CAPSULE PO (21:08)
[2024-08-17] MEDS: Melatonin 3 MG TABLET 6 MG PO (21:09)
[2024-08-17] MEDS: Melatonin 3 MG TABLET PO ×2 (21:09→21:54)
[2024-08-18 07:51] VITALS: BP 118/74; PULSE 83; RESP 18; TEMP 36.6; O2SAT 97
[2024-08-18] MEDS: Nicotine 7 MG PATCH.TD24 TRANSDERMA (08:15)
[2024-08-18] MEDS: lisinopriL 20 MG TABLET PO (08:16)
[2024-08-18] MEDS: Furosemide 40 MG TABLET PO (08:16)
[2024-08-18] MEDS: Sertraline HCL 25 MG TABLET PO (08:17)
[2024-08-18] MEDS: Thiamine HCL 100 MG TABLET PO (08:17)
[2024-08-18] MEDS: Buprenorphine/Naloxone 8/2 mg FILM 1 FILM SUBLINGUAL (08:18)
[2024-08-18] MEDS: PHENobarbitaL 30 MG TABLET PO ×2 (08:18→21:19)
[2024-08-18] MEDS: Folic Acid 1 MG TABLET PO (08:18)
[2024-08-18] MEDS: Magnesium Oxide 400 MG TABLET PO (08:46)
[2024-08-18 12:05] VITALS: BP 120/64; PULSE 73
--- NOTE | 2024-08-18 13:22 | P.PNPSI_ITS ---
Subjective Subjective Date of Service: 08/18/24 Reason For Visit: Alcohol use disorder PTSD Recurrent major depressi Interim History: Active on unit. sign language interpreter present. Patient reports feeling improved from admission; pt stated, I'm still having anxiety about my divorce, not having a stable place to stay and being on probation . Patient reports he has been staying at his aunts house and can return if needed. He reports difficulty sleeping last night; denies nightmares. denies SI/HI/VH/AH. encouraged to utilize PRN's. Continue current tx plan. Medication Compliance: Yes Side effects from medications: No Mental Status Exam Mental Status Exam Patient Appearance: Well Grooomed Patient Orientation: Person, Place, Time and Situation Level of Consciousness: Awake and Alert Patient Behavior: Appropriate, Cooperative and Good Eye Contact Mood Description: Depressed and Anxious Affect Description: Blunted Ability to Follow Directions: Good Speech Pattern: Clear and Appropriate Memory Description: Intact Hallucinations: None Delusions: Not Present Thought Process: Intact and Goal Oriented Thought Content: positive for Intact Diagnostics Vital Signs (24Hr): Vital Signs - 24 hr 08/17/24 19:57 08/18/24 07:51 08/18/24 12:05 Temperature 97.8 F 97.8 F Pulse Rate 66 83 73 Respiratory Rate 15 18 Blood Pressure 122/63 118/74 120/64 Pulse Oximetry 97 97 Oxygen Delivery Method Room Air BMI result Body Mass Index 28.9 Labs 08/16/24 08:03 Medications Medications Current Medications Acetaminophen (Acetaminophen 325 Mg Tablet) 650 mg PO Q6H PRN PRN Reason: pain 1-10 Al Hydroxide/Mg Hydroxide (Magnesium Hydrox/Alum Hydrox 30 Ml Oral.Susp) 30 ml PO Q6H PRN PRN Reason: Heartburn/Nausea Buprenorphine/Naloxone (Buprenorphine/Naloxone 8/2 Mg Film) 1 film SUBLINGUAL DAILY [facility] Last Admin: 08/18/24 08:18 Dose: 1 film Calcium Carbonate (Calcium Carbonate 750 Mg Tab.Chew) 300 mg PO Q4H PRN PRN Reason: Heartburn Folic Acid (Folic Acid 1 Mg Tablet) 1 mg PO DAILY [facility] Last Admin: 08/18/24 08:18 Dose: 1 mg Furosemide (Furosemide 40 Mg Tablet) 40 mg PO DAILY [facility]; Protocol Last Admin: 08/18/24 08:16 Dose: 40 mg Hydroxyzine HCl (Hydroxyzine Hcl 25 Mg Tablet) 25 mg PO Q6H PRN PRN Reason: Anxiety Lisinopril (Lisinopril 20 Mg Tablet) 20 mg PO DAILY [facility]; Protocol Last Admin: 08/18/24 08:16 Dose: 20 mg Magnesium Hydroxide (Milk Of Magnesia 30 Ml Oral.Susp) 30 ml PO DAILY PRN PRN Reason: Constipation Magnesium Oxide (Magnesium Oxide 400 Mg Tablet) 400 mg PO DAILY [facility] Last Admin: 08/18/24 08:46 Dose: 400 mg Melatonin (Melatonin 3 Mg Tablet) 6 mg PO BEDTIME PRN PRN Reason: Insomnia Last Admin: 08/17/24 21:09 Dose: 6 mg Melatonin (Melatonin 3 Mg Tablet) 3 mg PO BEDTIME MRX1 [facility] Last Admin: 08/17/24 21:54 Dose: 3 mg Naloxone HCl (Naloxone Hcl Nasal 4 Mg [place]) 4 mg NOSTRILALT ONCE PRN PRN Reason: opiate overdose Nicotine (Nicotine 7 Mg Patch.Td24) 7 mg TRANSDERMA DAILY [facility] Last Admin: 08/18/24 08:15 Dose: 7 mg Nicotine Polacrilex (Nicotine Polacrilex Lozenge 4 Mg Lozenge) 4 mg BUCCAL Q2H PRN PRN Reason: Nicotine Cravings Phenobarbital (Phenobarbital 30 Mg Tablet) 30 mg PO BID [facility]; Protocol Stop: 08/18/24 21:01 Last Admin: 08/18/24 08:18 Dose: 30 mg Phenobarbital (Phenobarbital 30 Mg Tablet) 30 mg PO DAILY [facility]; Protocol Stop: 08/20/24 09:01 Prazosin HCl (Prazosin Hcl 1 Mg Capsule) 2 mg PO BEDTIME [facility]; Protocol Last Admin: 08/17/24 21:08 Dose: 2 mg Senna (Sennosides 8.6 Mg Tablet) 17.2 mg PO BEDTIME PRN PRN Reason: Constipation Sertraline HCl (Sertraline Hcl 25 Mg Tablet) 25 mg PO DAILY [facility] Last Admin: 08/18/24 08:17 Dose: 25 mg Tamsulosin HCl (Tamsulosin Hcl 0.4 Mg Capsule) 0.4 mg PO BEDTIME [facility] Last Admin: 08/17/24 21:08 Dose: 0.4 mg Thiamine HCl (Thiamine Hcl 100 Mg Tablet) 100 mg PO DAILY [facility] Last Admin: 08/18/24 08:17 Dose: 100 mg Allergies Allergies Allergy/AdvReac Type Severity Reaction Status Date / Time Penicillins [PCN] Allergy Rash Verified 08/15/24 18:32 Assessment & Plan Assessment & Plan (1) Alcohol use disorder, severe, dependence: Status: Acute Code(s): F10.20 - Alcohol dependence, uncomplicated Assessment and Plan: ciwa 0 on phenobarb (2) Seizure: Status: Acute Code(s): R56.9 - Unspecified convulsions Assessment and Plan: put on phenobarb for alcohol withdrawal with seizures, keppra not continuede (3) PTSD (post-traumatic stress disorder): Status: Acute Code(s): F43.10 - Post-traumatic stress disorder, unspecified (4) Polysubstance abuse: Status: Acute Code(s): F19.10 - Other psychoactive substance abuse, uncomplicated Plan 08/16? this vs depression was put on prazosin at night other treatment is therapy if patient stays sober for that may want to add sertraline and then if needed rexulti 08/17/24 started sertraline today, trouble sleeping last pm- looking to start suboxone for opiate MAT, had trial dose prior to transfer to [facility] - - would have started sreoquel for sleep but for seizure risk so decided on melatonin for now- though they may want to titrate prazosin up 08/18: Active on unit. sign language interpreter present. Patient reports feeling improved from admission; pt stated, I'm still having anxiety about my divorce, not having a stable place to stay and being on probation . Patient reports he has been staying at his aunts house and can return if needed. He reports difficulty sleeping last night; denies nightmares. denies SI/HI/VH/AH. encouraged to utilize PRN's. Continue current tx plan. Patient educated on: diagnosis, medication risk/benefits and therapeutic strategies Reason for continued inpatient stay Substantial Risk for: med/psych decompensation Time Spent With Patient Time: Total time managing care of this patient today _20___ minutes.
[2024-08-18 19:56] VITALS: BP 105/60; PULSE 66; RESP 16; TEMP 36.9; O2SAT 97
[2024-08-18] MEDS: Melatonin 3 MG TABLET PO (21:20)
[2024-08-18] MEDS: Tamsulosin HCL 0.4 MG CAPSULE PO (21:20)
[2024-08-18] MEDS: Prazosin HCL 1 MG CAPSULE 2 MG PO (21:20)
[2024-08-19 08:00] VITALS: BP 103/59; PULSE 67; TEMP 36.7; O2SAT 97
[2024-08-19] MEDS: Nicotine 7 MG PATCH.TD24 TRANSDERMA (08:50)
[2024-08-19] MEDS: Sertraline HCL 25 MG TABLET PO (08:51)
[2024-08-19] MEDS: Thiamine HCL 100 MG TABLET PO (08:51)
[2024-08-19] MEDS: Magnesium Oxide 400 MG TABLET PO (08:51)
[2024-08-19] MEDS: Folic Acid 1 MG TABLET PO (08:52)
[2024-08-19] MEDS: PHENobarbitaL 30 MG TABLET PO (08:52)
[2024-08-19] MEDS: Buprenorphine/Naloxone 8/2 mg FILM 1 FILM SUBLINGUAL (08:54)
--- NOTE | 2024-08-19 10:00 | HO.PSYCHPN ---
Subjective Subjective Date of Service: 08/19/24 Reason For Visit: Alcohol use disorder PTSD Recurrent major depressi Interim History: met with pt; discussed with team; reviewed chart pt seen with Post Closer pt says mood is good and denies any SI; denies any AH (which he says is only mood congruent). discussed medications and agrees to increase Zoloft has insomnia and asks for Seroquel which he's used before; discussed risks/side-effects for this vs trazodone and he prefers seroquel does not want substance abuse program; instead will continue with his outpt suboxone provider. dc Ciwa; not scoring and on phenobarb taper plans to go to Aunt[facility] on discharge Mental Status Exam Mental Status Exam Narrative: Pt is alert and oriented; behavior is cooperative, friendly and calm; patient is not in distress; dressed in hospital attire, well groomed with adequate hygiene; mood is described as good and affect congruent; eye contact appropriate; Speech is normal rate, volume and prosody and not pressured; no psychomotor agitation/retardation present; thought process is organized and goal directed; Thought content is on tx; otherwise pertinent to relevant topics and without any delusional content, paranoid ideations or grandiosity; denies any SI/HI. Denies AVH and there is no evidence of perceptual disturbance. Patients insight and judgment appear intact. Diagnostics Vital Signs (24Hr): Vital Signs - 24 hr 08/18/24 12:05 08/18/24 19:56 08/19/24 08:00 Temperature 98.5 F 98.1 F Pulse Rate 73 66 67 Respiratory Rate 16 Blood Pressure 120/64 105/60 103/59 L Pulse Oximetry 97 97 Oxygen Delivery Method Room Air Room Air BMI result Body Mass Index 28.9 Labs 08/16/24 08:03 Medications Medications Current Medications Acetaminophen (Acetaminophen 325 Mg Tablet) 650 mg PO Q6H PRN PRN Reason: pain 1-10 Al Hydroxide/Mg Hydroxide (Magnesium Hydrox/Alum Hydrox 30 Ml Oral.Susp) 30 ml PO Q6H PRN PRN Reason: Heartburn/Nausea Buprenorphine/Naloxone (Buprenorphine/Naloxone 8/2 Mg Film) 1 film SUBLINGUAL DAILY [facility] Last Admin: 08/19/24 08:54 Dose: 1 film Calcium Carbonate (Calcium Carbonate 750 Mg Tab.Chew) 300 mg PO Q4H PRN PRN Reason: Heartburn Folic Acid (Folic Acid 1 Mg Tablet) 1 mg PO DAILY [facility] Last Admin: 08/19/24 08:52 Dose: 1 mg Furosemide (Furosemide 40 Mg Tablet) 40 mg PO DAILY [facility]; Protocol Last Admin: 08/18/24 08:16 Dose: 40 mg Hydroxyzine HCl (Hydroxyzine Hcl 25 Mg Tablet) 25 mg PO Q6H PRN PRN Reason: Anxiety Lisinopril (Lisinopril 20 Mg Tablet) 20 mg PO DAILY [facility]; Protocol Last Admin: 08/18/24 08:16 Dose: 20 mg Magnesium Hydroxide (Milk Of Magnesia 30 Ml Oral.Susp) 30 ml PO DAILY PRN PRN Reason: Constipation Magnesium Oxide (Magnesium Oxide 400 Mg Tablet) 400 mg PO DAILY [facility] Last Admin: 08/19/24 08:51 Dose: 400 mg Melatonin (Melatonin 3 Mg Tablet) 6 mg PO BEDTIME PRN PRN Reason: Insomnia Last Admin: 08/17/24 21:09 Dose: 6 mg Melatonin (Melatonin 3 Mg Tablet) 3 mg PO BEDTIME MRX1 [facility] Last Admin: 08/19/24 00:00 Dose: Not Given Naloxone HCl (Naloxone Hcl Nasal 4 Mg [place]) 4 mg NOSTRILALT ONCE PRN PRN Reason: opiate overdose Nicotine (Nicotine 7 Mg Patch.Td24) 7 mg TRANSDERMA DAILY [facility] Last Admin: 08/19/24 08:50 Dose: 7 mg Nicotine Polacrilex (Nicotine Polacrilex Lozenge 4 Mg Lozenge) 4 mg BUCCAL Q2H PRN PRN Reason: Nicotine Cravings Phenobarbital (Phenobarbital 30 Mg Tablet) 30 mg PO DAILY [facility]; Protocol Stop: 08/20/24 09:01 Last Admin: 08/19/24 08:52 Dose: 30 mg Prazosin HCl (Prazosin Hcl 1 Mg Capsule) 2 mg PO BEDTIME [facility]; Protocol Last Admin: 08/18/24 21:20 Dose: 2 mg Senna (Sennosides 8.6 Mg Tablet) 17.2 mg PO BEDTIME PRN PRN Reason: Constipation Sertraline HCl (Sertraline Hcl 25 Mg Tablet) 25 mg PO DAILY [facility] Last Admin: 08/19/24 08:51 Dose: 25 mg Tamsulosin HCl (Tamsulosin Hcl 0.4 Mg Capsule) 0.4 mg PO BEDTIME [facility] Last Admin: 08/18/24 21:20 Dose: 0.4 mg Thiamine HCl (Thiamine Hcl 100 Mg Tablet) 100 mg PO DAILY [facility] Last Admin: 08/19/24 08:51 Dose: 100 mg Allergies Allergies Allergy/AdvReac Type Severity Reaction Status Date / Time Penicillins [PCN] Allergy Rash Verified 08/15/24 18:32 Assessment & Plan Assessment & Plan (1) Alcohol use disorder, severe, dependence: Status: Acute Code(s): F10.20 - Alcohol dependence, uncomplicated Assessment and Plan: ciwa 0 on phenobarb (2) Seizure: Status: Acute Code(s): R56.9 - Unspecified convulsions Assessment and Plan: put on phenobarb for alcohol withdrawal with seizures, keppra not continuede (3) PTSD (post-traumatic stress disorder): Status: Acute Code(s): F43.10 - Post-traumatic stress disorder, unspecified (4) Polysubstance abuse: Status: Acute Code(s): F19.10 - Other psychoactive substance abuse, uncomplicated Plan HPI: Patient is a 59-year-old male with history of MDD, PTSD, opiate use disorder and alcohol use disorder who self presented to [facility] [place] [place] [facility] due to suicidal ideation, homicidal ideation, increased auditory and visual hallucinations secondary to increased depression and substance use. Per crisis report, patient reports having increased depression, suicidal ideation, homicidal ideation and an increase in auditory and visual hallucinations. Patient reports he has been struggling with substance use and has been staying on the streets. He reports he from his 2 months ago and has been homeless since. Patient reports poor sleep and appetite. Reports no plan or intent of harming a specific person or himself. He reports auditory hallucinations of voices calling him. Utox positive for opiates, fentanyl, cocaine, alcohol. During admission assessment, patient presents alert and oriented x3. Calm and cooperative. associate embalmer/funeral director present. Patient reports feeling anxious and depressed; patient stated, I feel too depressed to do anything. I want to get help to get into a substance program and I want to start something for my depression . Patient reports auditory hallucinations at times; but did not go into detail. He reports poor sleep. Denies SI/HI/VH at this time. Patient reports he does not have outpatient psychiatric providers but he would like referrals. This is patient's 1st inpatient psychiatric hospitalization. Denies history of SA/SIB. Patient reports he has been using heroin and cocaine(3-4 bags daily) and drinking a pt of vodka and a 12 pack of beer daily for the past 3 weeks. Patient is in the process of with his and is currently homeless. Past Psychiatric History: Patient reports he does not have outpatient psychiatric providers. This is patient's 1st inpatient psychiatric hospitalization. Denies history of SA/SIB. Medical floor: On 08/14 encountered unwitnessed fall secondary to suspected seizure on the psychiatric unit 2330 08/13. Rapid response was called. Patient was found partly lying on the floor incontinent of urine appeared to be in a postictal state, s/p 2 seizures?. started on Keppra. Seizure x2, most likely related to alcohol withdrawal/substance use-p started on phenobarbital. Plan: Complete oral phenobarbital taper, 45 mg twice daily for 2 days, 3 more doses. Then 30 mg twice daily for 2 days, then 30 mg once daily for 2 days. Continue supplementation with thiamine and folic acid; angle guadalupe'd Returned to psychiatric unit: was put on prazosin at night for nightmares Started on sertraline Started on suboxone for opiate MAT, Patient's mood improved; he talked about anxiety regarding his divorce, homelessness and being on probation. Says will likely return to his aunt's house if nowhere else to go. SI/HI/VH/AH. 08/19 pt says mood is good and denies any SI; denies any AH (which he says is only mood congruent). discussed medications and agrees to increase Zoloft has insomnia and asks for Seroquel which he's used before; discussed risks/side-effects for this vs trazodone and he prefers seroquel -intermittent flashbacks but not much -does not want substance abuse program; instead will continue with his outpt suboxone provider. collins Tovar; not scoring and on phenobarb taper plans to go to Aunt[facility] on discharge PLAN: CV q15 min Increase zolfot to 50mg starting Seroquel 100mg qhs collins Tovar; not scoring Patient educated on: diagnosis, medication risk/benefits, substance abuse and therapeutic strategies Informed Consent: understands Reason for continued inpatient stay Substantial Risk for: stable for discharge and med/psych decompensation Time Spent With Patient Time: Total time managing care of this patient today ____ minutes.
[2024-08-19 10:42] VITALS: BP 109/68
[2024-08-19] MEDS: lisinopriL 20 MG TABLET PO (10:42)
[2024-08-19] MEDS: Furosemide 40 MG TABLET PO (10:42)
[2024-08-19 20:00] VITALS: BP 106/88; PULSE 66; RESP 16; TEMP 37; O2SAT 98
[2024-08-19] MEDS: Prazosin HCL 1 MG CAPSULE 2 MG PO (20:24)
[2024-08-19] MEDS: Melatonin 3 MG TABLET PO ×2 (20:25→21:53)
[2024-08-19] MEDS: Tamsulosin HCL 0.4 MG CAPSULE PO (20:26)
[2024-08-19] MEDS: QUEtiapine Fumarate 100 MG TABLET PO (21:53)
[2024-08-20 08:00] VITALS: BP 106/57; PULSE 55; RESP 18; TEMP 36.4; O2SAT 98
[2024-08-20] MEDS: lisinopriL 20 MG TABLET PO (09:13)
[2024-08-20] MEDS: Furosemide 40 MG TABLET PO (09:13)
[2024-08-20] MEDS: Magnesium Oxide 400 MG TABLET PO (09:13)
[2024-08-20] MEDS: Folic Acid 1 MG TABLET PO (09:13)
[2024-08-20] MEDS: Buprenorphine/Naloxone 8/2 mg FILM 1 FILM SUBLINGUAL (09:13)
[2024-08-20] MEDS: Thiamine HCL 100 MG TABLET PO (09:13)
[2024-08-20] MEDS: PHENobarbitaL 30 MG TABLET PO (09:13)
[2024-08-20] MEDS: Sertraline HCL 50 MG TABLET PO (09:13)
[2024-08-20] MEDS: Nicotine 7 MG PATCH.TD24 TRANSDERMA (09:14)
--- NOTE | 2024-08-20 10:10 | HO.PSYCHPN ---
Subjective Subjective Date of Service: 08/20/24 Reason For Visit: Alcohol use disorder PTSD Recurrent major depressi Interim History: met with pt; discussed with team Patient reports that he is good and has no complaints or requests. He said he slept better on Seroquel last night but would like it increased to which greeting card writer agrees. Patient feeling safe and ready to go home. Mental Status Exam Mental Status Exam Narrative: Pt is alert and oriented; behavior is cooperative, friendly and calm; patient is not in distress; dressed in hospital attire, well groomed with adequate hygiene; mood is described as good and affect congruent; eye contact appropriate; Speech is normal rate, volume and prosody and not pressured; no psychomotor agitation/retardation present; thought process is organized and goal directed; Thought content is on tx; otherwise pertinent to relevant topics and without any delusional content, paranoid ideations or grandiosity; denies any SI/HI. Denies AVH and there is no evidence of perceptual disturbance. Patients insight and judgment are fair. Diagnostics Vital Signs (24Hr): Vital Signs - 24 hr 08/19/24 10:42 08/19/24 10:42 08/19/24 20:00 Temperature 98.6 F Pulse Rate 66 Respiratory Rate 16 Blood Pressure 109/68 109/68 106/88 Pulse Oximetry 98 Oxygen Delivery Method Room Air 08/20/24 08:00 Temperature 97.5 F Pulse Rate 55 Respiratory Rate 18 Blood Pressure 106/57 L Pulse Oximetry 98 Oxygen Delivery Method Room Air BMI result Body Mass Index 28.9 Labs 08/16/24 08:03 Medications Medications Current Medications Acetaminophen (Acetaminophen 325 Mg Tablet) 650 mg PO Q6H PRN PRN Reason: pain 1-10 Al Hydroxide/Mg Hydroxide (Magnesium Hydrox/Alum Hydrox 30 Ml Oral.Susp) 30 ml PO Q6H PRN PRN Reason: Heartburn/Nausea Buprenorphine/Naloxone (Buprenorphine/Naloxone 8/2 Mg Film) 1 film SUBLINGUAL DAILY [facility] Last Admin: 08/20/24 09:13 Dose: 1 film Calcium Carbonate (Calcium Carbonate 750 Mg Tab.Chew) 300 mg PO Q4H PRN PRN Reason: Heartburn Folic Acid (Folic Acid 1 Mg Tablet) 1 mg PO DAILY [facility] Last Admin: 08/20/24 09:13 Dose: 1 mg Furosemide (Furosemide 40 Mg Tablet) 40 mg PO DAILY [facility]; Protocol Last Admin: 08/20/24 09:13 Dose: 40 mg Hydroxyzine HCl (Hydroxyzine Hcl 25 Mg Tablet) 25 mg PO Q6H PRN PRN Reason: Anxiety Lisinopril (Lisinopril 20 Mg Tablet) 20 mg PO DAILY [facility]; Protocol Last Admin: 08/20/24 09:13 Dose: 20 mg Magnesium Hydroxide (Milk Of Magnesia 30 Ml Oral.Susp) 30 ml PO DAILY PRN PRN Reason: Constipation Magnesium Oxide (Magnesium Oxide 400 Mg Tablet) 400 mg PO DAILY [facility] Last Admin: 08/20/24 09:13 Dose: 400 mg Melatonin (Melatonin 3 Mg Tablet) 6 mg PO BEDTIME PRN PRN Reason: Insomnia Last Admin: 08/17/24 21:09 Dose: 6 mg Melatonin (Melatonin 3 Mg Tablet) 3 mg PO BEDTIME MRX1 [facility] Last Admin: 08/19/24 21:53 Dose: 3 mg Naloxone HCl (Naloxone Hcl Nasal 4 Mg [place]) 4 mg NOSTRILALT ONCE PRN PRN Reason: opiate overdose Nicotine (Nicotine 7 Mg Patch.Td24) 7 mg TRANSDERMA DAILY [facility] Last Admin: 08/20/24 09:14 Dose: 7 mg Nicotine Polacrilex (Nicotine Polacrilex Lozenge 4 Mg Loz[place]) 4 mg BUCCAL Q2H PRN PRN Reason: Nicotine Cravings Prazosin HCl (Prazosin Hcl 1 Mg Capsule) 2 mg PO BEDTIME [facility]; Protocol Last Admin: 08/19/24 20:24 Dose: 2 mg Quetiapine Fumarate (Quetiapine Fumarate 100 Mg Tablet) 100 mg PO BEDTIME [facility] Last Admin: 08/19/24 21:53 Dose: 100 mg Senna (Sennosides 8.6 Mg Tablet) 17.2 mg PO BEDTIME PRN PRN Reason: Constipation Sertraline HCl (Sertraline Hcl 50 Mg Tablet) 50 mg PO DAILY [facility] Last Admin: 08/20/24 09:13 Dose: 50 mg Tamsulosin HCl (Tamsulosin Hcl 0.4 Mg Capsule) 0.4 mg PO BEDTIME [facility] Last Admin: 08/19/24 20:26 Dose: 0.4 mg Thiamine HCl (Thiamine Hcl 100 Mg Tablet) 100 mg PO DAILY [facility] Last Admin: 08/20/24 09:13 Dose: 100 mg Allergies Allergies Allergy/AdvReac Type Severity Reaction Status Date / Time Penicillins [PCN] Allergy Rash Verified 08/15/24 18:32 Assessment & Plan Assessment & Plan (1) Alcohol use disorder, severe, dependence: Status: Acute Code(s): F10.20 - Alcohol dependence, uncomplicated Assessment and Plan: ciwa 0 on phenobarb (2) Seizure: Status: Acute Code(s): R56.9 - Unspecified convulsions Assessment and Plan: put on phenobarb for alcohol withdrawal with seizures, keppra not continuede (3) PTSD (post-traumatic stress disorder): Status: Acute Code(s): F43.10 - Post-traumatic stress disorder, unspecified (4) Polysubstance abuse: Status: Acute Code(s): F19.10 - Other psychoactive substance abuse, uncomplicated Plan HPI: Patient is a 59-year-old male with history of MDD, PTSD, opiate use disorder and alcohol use disorder who self [place] [facility] [facility] [place] due to suicidal ideation, homicidal ideation, increased auditory and visual hallucinations secondary to increased depression and substance use. Per crisis report, patient reports having increased depression, suicidal ideation, homicidal ideation and an increase in auditory and visual hallucinations. Patient reports he has been struggling with substance use and has been staying on the streets. He reports he from his 2 months ago and has been homeless since. Patient reports poor sleep and appetite. Reports no plan or intent of harming a specific person or himself. He reports auditory hallucinations of voices calling him. Utox positive for opiates, fentanyl, cocaine, alcohol. During admission assessment, patient presents alert and oriented x3. Calm and cooperative. american sign language interpreter present. Patient reports feeling anxious and depressed; patient stated, I feel too depressed to do anything. I want to get help to get into a substance program and I want to start something for my depression . Patient reports auditory hallucinations at times; but did not go into detail. He reports poor sleep. Denies SI/HI/VH at this time. Patient reports he does not have outpatient psychiatric providers but he would like referrals. This is patient's 1st inpatient psychiatric hospitalization. Denies history of SA/SIB. Patient reports he has been using heroin and cocaine(3-4 bags daily) and drinking a pt of vodka and a 12 pack of beer daily for the past 3 weeks. Patient is in the process of with his and is currently homeless. Past Psychiatric History: Patient reports he does not have outpatient psychiatric providers. This is patient's 1st inpatient psychiatric hospitalization. Denies history of SA/SIB. Medical floor: On 08/14 encountered unwitnessed fall secondary to suspected seizure on the psychiatric unit 2330 08/13. Rapid response was called. Patient was found partly lying on the floor incontinent of urine appeared to be in a postictal state, s/p 2 seizures?. started on Keppra. Seizure x2, most likely related to alcohol withdrawal/substance use-p started on phenobarbital. Plan: Complete oral phenobarbital taper, 45 mg twice daily for 2 days, 3 more doses. Then 30 mg twice daily for 2 days, then 30 mg once daily for 2 days. Continue supplementation with thiamine and folic acid; radha dc'd Returned to psychiatric unit: was put on prazosin at night for nightmares Started on sertraline Started on suboxone for opiate MAT, Patient's mood improved; he talked about anxiety regarding his divorce, homelessness and being on probation. Says will likely return to his aunt's house if nowhere else to go. SI/HI/VH/AH. 08/19 pt says mood is good and denies any SI; denies any AH (which he says is only mood congruent). discussed medications and agrees to increase Zoloft has insomnia and asks for Seroquel which he's used before; discussed risks/side-effects for this vs trazodone and he prefers seroquel -intermittent flashbacks but not much -does not want substance abuse program; instead will continue with his outpt suboxone provider. collins Tovar; not scoring and on phenobarb taper plans to go to Aunt[facility] on discharge 08/20 Patient reports that he is good and has no complaints or requests. He said he slept better on Seroquel last night but would like it increased to which greeting card writer agrees. Patient feeling safe and ready to go home. Patient has remained in good behavioral and impulse control throughout his time in the unit. Denies any SI at all. Patient has returned to baseline. He feels ready for discharge. He is not in imminent risk for harm to self or others and his request for discharge honored. PLAN: CV q15 min Increase zolfot to 50mg starting Seroquel 100mg qhs collins Tovar; not scoring Patient educated on: diagnosis and medication risk/benefits Informed Consent: understands Reason for continued inpatient stay Substantial Risk for: stable for discharge Time Spent With Patient Time: Total time managing care of this patient today ____ minutes.
[2024-08-20 19:30] VITALS: BP 108/56; PULSE 66; RESP 16; TEMP 36.9; O2SAT 98
[2024-08-20] MEDS: QUEtiapine Fumarate 50 MG TABLET 150 MG PO (21:25)
[2024-08-20] MEDS: Melatonin 3 MG TABLET PO (21:25)
[2024-08-20] MEDS: Prazosin HCL 1 MG CAPSULE 2 MG PO (21:25)
[2024-08-20] MEDS: Tamsulosin HCL 0.4 MG CAPSULE PO (21:25)
[2024-08-21 09:00] VITALS: BP 112/62; PULSE 73; RESP 18; TEMP 36.5; O2SAT 99
[2024-08-21] MEDS: Furosemide 40 MG TABLET PO (09:08)
[2024-08-21] MEDS: Sertraline HCL 50 MG TABLET PO (09:08)
[2024-08-21] MEDS: lisinopriL 20 MG TABLET PO (09:08)
[2024-08-21] MEDS: Folic Acid 1 MG TABLET PO (09:08)
[2024-08-21] MEDS: Magnesium Oxide 400 MG TABLET PO (09:08)
[2024-08-21] MEDS: Thiamine HCL 100 MG TABLET PO (09:08)
[2024-08-21] MEDS: Buprenorphine/Naloxone 8/2 mg FILM 1 FILM SUBLINGUAL (09:09)
--- NOTE | 2024-08-21 09:15 | P.DS_ITS ---
DS: Providers Provider Date of Service: 08/21/24 Date of admission: 08/15/24 15:51 Date of discharge: 08/21/24 Primary care physician: Olayinka Shi MD Attending physician on admission: Aileen Sawyer Attending physician on discharge: Hemant Sullivan DS: Diagnosis Discharge Diagnosis (1) Alcohol use disorder, severe, dependence: Status: Acute (2) Seizure: Status: Acute (3) PTSD (post-traumatic stress disorder): Status: Acute (4) Polysubstance abuse: Status: Acute DS: Medications Discharge Medications Home Medications: Home Medications ?Medication ?Instructions ?Recorded ?Confirmed calcium carbonate 300 mg PO Q4H PRN Heartburn 08/14/24 08/15/24 Previous Rx's ?Medication ?Instructions ?Recorded naloxone 4 mg/actuation nasal spray 4 mg intranasal Q2M PRN Opioid 02/20/22 Overdose #2 ea nicotine 7 mg/24 hr daily 7 mg transdermal DAILY PRN smoking 08/20/24 transdermal patch cessation 28 days #28 ea buprenorphine 8 mg-naloxone 2 mg 1 film sublingual DAILY #0 ea 08/21/24 sublingual film (Suboxone) furosemide 40 mg tablet 40 mg PO DAILY 30 days #30 tabs 08/21/24 lisinopril 20 mg tablet 20 mg PO DAILY 30 days #30 tabs 08/21/24 melatonin 5 mg tablet 5 mg PO BEDTIME PRN sleep 30 days 08/21/24 #30 tabs prazosin 2 mg capsule 2 mg PO BEDTIME 30 days #30 caps 08/21/24 quetiapine 150 mg tablet 150 mg PO DAILY 30 days #30 tabs 08/21/24 sennosides 8.6 mg tablet (senna) 17.2 mg (2 x 8.6 mg) PO BEDTIME 08/21/24 PRN constipation 30 days #30 tabs sertraline 50 mg tablet 50 mg PO DAILY 30 days #30 tabs 08/21/24 tamsulosin 0.4 mg capsule 0.4 mg PO BEDTIME 30 days #30 caps 08/21/24 Mental Status Exam Mental Status Exam Narrative: Pt is alert and oriented; behavior is cooperative, friendly and calm; patient is not in distress; dressed in casual attire, well groomed with adequate hygiene; mood is described as good and affect congruent; eye contact appropriate; Speech is normal rate, volume and prosody and not pressured; no psychomotor agitation/retardation present; thought process is organized and goal directed; Thought content is on tx; otherwise pertinent to relevant topics and without any delusional content, paranoid ideations or grandiosity; denies any SI/HI. Denies AVH and there is no evidence of perceptual disturbance. Patients insight and judgment are fair. Data Data Completed and Pending Completed studies during hospitalization [Text1]: 08/16/24 08:03 Sodium 140 Potassium 4.0 D Chloride 106 Carbon Dioxide 29 Anion Gap 9 L BUN 12 Creatinine 0.71 Estim Creat Clear Calc 101.0 Estimated GFR > 60 Random Glucose 100 Estimat Average Glucose 97 Hemoglobin A1c % 5.0 Calcium 8.9 Magnesium 1.5 L Triglycerides 73 Cholesterol 138 LDL Cholesterol, Calc 72 HDL Cholesterol 52 Vitamin B12 426 Folate 12.8 TSH 0.46 Free T4 1.00 DS: Summary Hospital Course Hospital Course: HPI: Patient is a 59-year-old male with history of MDD, PTSD, opiate use disorder and alcohol use disorder who self presented to [facility] [place] [place] [facility] due to suicidal ideation, homicidal ideation, increased auditory and visual hallucinations secondary to increased depression and substance use. Per crisis report, patient reports having increased depression, suicidal ideation, homicidal ideation and an increase in auditory and visual hallucinations. Patient reports he has been struggling with substance use and has been staying on the streets. He reports he from his 2 months ago and has been homeless since. Patient reports poor sleep and appetite. Reports no plan or intent of harming a specific person or himself. He reports auditory hallucinations of voices calling him. Utox positive for opiates, fentanyl, cocaine, alcohol. During admission assessment, patient presents alert and oriented x3. Calm and cooperative. mud grinder present. Patient reports feeling anxious and depressed; patient stated, I feel too depressed to do anything. I want to get help to get into a substance program and I want to start something for my depression . Patient reports auditory hallucinations at times; but did not go into detail. He reports poor sleep. Denies SI/HI/VH at this time. Patient reports he does not have outpatient psychiatric providers but he would like referrals. This is patient's 1st inpatient psychiatric hospitalization. Denies history of SA/SIB. Patient reports he has been using heroin and cocaine(3-4 bags daily) and drinking a pt of vodka and a 12 pack of beer daily for the past 3 weeks. Patient is in the process of with his and is currently homeless. Past Psychiatric History: Patient reports he does not have outpatient psychiatric providers. This is patient's 1st inpatient psychiatric hospitalization. Denies history of SA/SIB. Hospital course: On admission patient was depressed but looking for help and denied SI. Patient had a suspected seizure on the unit, due to alcohol withdrawal and was transferred to the medical floor Medical floor: On 08/14 patient with unwitnessed fall secondary to suspected seizure on the psychiatric unit 2330 08/13. Rapid response was called. Patient was found partly lying on the floor incontinent of urine appeared to be in a postictal state, s/p 2 seizures?. started on Keppra. Seizure x2, most likely related to alcohol withdrawal/substance use-p started on phenobarbital. Plan: Complete oral phenobarbital taper, 45 mg twice daily for 2 days, 3 more doses. Then 30 mg twice daily for 2 days, then 30 mg once daily for 2 days. Continue supplementation with thiamine and folic acid; radhara dc'd -stabilized and transferred back to the psychiatric unit Returned to psychiatric unit: Patient's mood improved and depression and anxiety abated. He remained without any SI and was future oriented. Patient soon started feeling back to his regular self. On admission patient had mentioned AH at times but this was not present during admission and patient said it was mood congruent; also likely associated with alcohol withdrawal. Patient benefitted from prazosin for nightmares and was restarted on Suboxone for MAT; he did not want any program but instead wanted to work out his sobriety on his own in the community, continuing with Suboxone. Patient was also started on Zoloft which was titrated. Patient's mood continued to improve and depression fully resolved. Patient discussed intermittent anxiety regarding his divorce, homelessness and being on probation but felt it was tolerable. Says will likely return to his aunt's house if nowhere else to go. Patient continued to struggle with insomnia until Seroquel was restarted and patient was able to sleep. Patient remained in good behavioral and impulse control and was appropriate with peers and staff. Patient sleeping and eating well, future oriented and optimistic about staying sober and working on his issues in the community. Patient felt safe and ready for discharge. He is not in imminent risk for harm to self or others and appropriate to return to the community for treatment. Medication zolfot to 50mg Prazosin 2 mg q.h.s. Seroquel 150 mg q.h.s. for insomnia Suboxone Time spent discussing smoking cessation with patient: 3 to 10 minutes Status at Discharge Functional status at discharge: independent ambulation Overall status at discharge: patient is back to baseline Time Spent with Patient Time attestation: Total time managing care of this patient today _40___ minutes. Time spent: Greater than 30 minutes Discharge Plan Discharge Anticipated Discharge Date/Time: 08/21/24 11:00 Patient Disposition: Home, Self-Care Discharge Diagnosis: PTSD Referrals: [facility]: Nataliia Vora (Therapy) [Other] - 08/25/24 2:30 pm (Hospital Discharge appointment with therapist Appointment in person at [facility] ) [facility]: [facility] ([facility]) [Other] - 08/21/24 3: 00 pm (Hospital discharge appointment for medication assisted treatment (Suboxone) ) Jose Guadalupe,MD Olayinka [Primary Care Provider] - 09/04/24 10:00 am (Follow-up discharge appointment with primary care provider at [facility].) Discharge Medications: New nicotine 7 mg/24 hr Patch 24 Hour 7 mg transdermal DAILY PRN (Reason: smoking cessation) 28 Days Qty: 28 0RF Rx Instructions: Remove at bedtime buprenorphine-naloxone [Suboxone] 8-2 mg Film 1 film sublingual DAILY Qty: 0 0RF quetiapine 150 mg tablet 150 mg PO DAILY 30 Days Qty: 30 0RF sertraline 50 mg Tablet 50 mg PO DAILY 30 Days Qty: 30 0RF Continued naloxone 4 mg/actuation spray,non-aerosol 4 mg intranasal Q2M PRN (Reason: Opioid Overdose) Qty: 2 0RF Patient Comments: Patient has been off medications for awhile (told RN a few days, told MD a few months) calcium carbonate 300 mg (750 mg) Tablet,Chewable 300 mg PO Q4H PRN (Reason: Heartburn) lisinopril 20 mg Tablet 20 mg PO DAILY 30 Days Qty: 30 0RF Protocol: Hold for SBP< HOLD for SBP < : 90 tamsulosin 0.4 mg Capsule 0.4 mg PO BEDTIME 30 Days Qty: 30 0RF prazosin 2 mg capsule 2 mg PO BEDTIME 30 Days Qty: 30 0RF sennosides [senna] 8.6 mg tablet 17.2 mg PO BEDTIME PRN (Reason: constipation) 30 Days Qty: 30 0RF Changed furosemide 40 mg tablet 40 mg PO DAILY 30 Days Qty: 30 0RF melatonin 5 mg tablet 5 mg PO BEDTIME PRN (Reason: sleep) 30 Days Qty: 30 0RF Discontinued folic acid 1 mg Tablet 1 mg PO DAILY Qty: 30 0RF Patient Comments: Patient has been off medications for awhile (told RN a few days, told MD a few months) acetaminophen 325 mg Tablet 650 mg PO Q6H PRN (Reason: Pain (Scale Score 1-3)) magnesium hydroxide 400 mg/5 mL Suspension 30 ml PO DAILY PRN (Reason: Constipation) hydroxyzine pamoate 25 mg capsule 25 mg PO TID PRN (Reason: anxiety) phenobarbital 15 mg Tablet 45 mg PO BID Qty: 3 0RF phenobarbital 30 mg Tablet 30 mg PO BID Qty: 4 0RF phenobarbital 30 mg Tablet 30 mg PO DAILY Qty: 2 0RF nicotine (polacrilex) 2 mg lozenge 2 - 4 mg PO Q2-4H PRN (Reason: smoke cessation) thiamine mononitrate (vit B1) 100 mg Tablet 100 mg PO DAILY Qty: 0 0RF buprenorphine-naloxone [Suboxone] 8-2 mg Film 1 film sublingual BID Qty: 0 0RF Discharge Orders: Discharge Order (Routine); Ordered 08/21/24 Ordered By: Hemant Sullivan Diet: Regular diet Activity on Discharge: As tolerated Stand Alone Forms: Patient Portal Discharge page Print Language: [place] Islander Care Plan Goals: Maintain mood and safe behaviors Take medications as prescribed Continue to pursue sobriety Practice coping skills Continue with outpatient providers and reach out to them as needed Health Concerns: Mood stability and behaviors Sobriety Hypertension Plan of Treatment: Follow up with your PCP, psychiatric provider and other outpatient providers regarding above concerns Take medications as prescribed Assessment: Risk assessment at time of discharge:? Patient was interviewed prior to discharge and found to be fully oriented and without any SI or HI. Patient has improved insight and judgment and wants to continue treatment. Patient is not in imminent risk of harm to self or others and has a safety plan that includes presenting to the closest ER or calling 911 if feeling unsafe.? Patient has been observed closely by nursing and unit staff throughout admission; patient has not engaged in any behaviors that suggest dangerousness to self or others and has demonstrated appropriate behaviors and impulse control
[2024-08-21] MEDS: Naloxone HCl Nasal TAKE HOME 4 MG SPRAY 8 MG NOSTRILALT (09:22)
== END 2024-08-21 11:00 | disposition home or self-care (01) | DRG 755 ==
PROVIDERS: Admitting Provider Clinical Nurse Specialist Psychiatric/Mental Health, Adult; PCP Internal Medicine Geriatric Medicine; Visit Provider Psychiatry & Neurology Psychiatry
DX: F43.10 Post-traumatic stress disorder, unspecified (principal); R45.851 Suicidal ideations; R45.850 Homicidal ideations; F10.20 Alcohol dependence, uncomplicated; F19.10 Other psychoactive substance abuse, uncomplicated; F11.20 Opioid dependence, uncomplicated; F17.210 Nicotine dependence, cigarettes, uncomplicated; Z59.02 Unsheltered homelessness; Z71.6 Tobacco abuse counseling; Z79.899 Other long term (current) drug therapy
CPT/HCPCS: 36415; 80048; 80061; 82607; 82746; 83036; 83735; 84439; 84443

== ENCOUNTER → 2024-08-15 15:51 | Outpatient (BNV) | payer OTHER, SELFPAY | PROVIDERS: Admitting Provider Clinical Nurse Specialist Psychiatric/Mental Health, Adult; PCP Internal Medicine Geriatric Medicine; Visit Provider Registered Nurse | DX: F10.20 Alcohol dependence, uncomplicated (principal); F19.10 Other psychoactive substance abuse, uncomplicated; R56.9 Unspecified convulsions; F43.11 Post-traumatic stress disorder, acute | CPT/HCPCS: 99231; 99232 ==

== ENCOUNTER 2024-08-29 16:33 | Emergency (ER) | payer MEDICAID, SELFPAY ==
--- NOTE | ~2024-08-29 | XR_ITS ---
CLINICAL HISTORY: pre-syncope 1 view chest x-ray Comparison: None Findings: Normal size heart. No consolidation, significant pleural effusion or pneumothorax. Mild linear opacity right lung base either subsegmental atelectasis or scarring. No acute fracture. IMPRESSION: 1. No acute findings. This document has been electronically signed by: Fabiola Ch MD on 08/29/2024 18:42:32
--- NOTE | 2024-08-29 17:26 | ED.DIZZY ---
HPI - Dizziness General Chief Complaint: Dizziness Stated Complaint: Dizziness Time Seen by Provider: 08/29/24 20:00 Source: patient Mode of arrival: ambulatory Limitations: no limitations History of Present Illness ED Provider: Dr. Pippa Mendenhall HPI Narrative: Patient comes to the emergency room complaining of multiple episodes of dizziness after standing. Patient states that he had 3 near syncopal episodes yesterday, all after trying to stand up and start walking. No chest pain or shortness of breath. To happened today. Patient denies any loss of consciousness, no falls. Patient denies at this time any chest pain shortness of breath. Patient states that the last time he drank alcohol was yesterday. Patient denies any feelings/ symptoms of alcohol withdrawal . Related Data Home Medications ?Medication ?Instructions ?Recorded ?Confirmed calcium carbonate 300 mg PO Q4H PRN Heartburn 08/14/24 08/15/24 Previous Rx's ?Medication ?Instructions ?Recorded naloxone 4 mg/actuation nasal spray 4 mg intranasal Q2M PRN Opioid 02/20/22 Overdose #2 ea nicotine 7 mg/24 hr daily 7 mg transdermal DAILY PRN smoking 08/20/24 transdermal patch cessation 28 days #28 ea buprenorphine 8 mg-naloxone 2 mg 1 film sublingual DAILY #0 ea 08/21/24 sublingual film (Suboxone) furosemide 40 mg tablet 40 mg PO DAILY 30 days #30 tabs 08/21/24 lisinopril 20 mg tablet 20 mg PO DAILY 30 days #30 tabs 08/21/24 melatonin 5 mg tablet 5 mg PO BEDTIME PRN sleep 30 days 08/21/24 #30 tabs prazosin 2 mg capsule 2 mg PO BEDTIME 30 days #30 caps 08/21/24 quetiapine 150 mg tablet 150 mg PO DAILY 30 days #30 tabs 08/21/24 sennosides 8.6 mg tablet (senna) 17.2 mg (2 x 8.6 mg) PO BEDTIME 08/21/24 PRN constipation 30 days #30 tabs sertraline 50 mg tablet 50 mg PO DAILY 30 days #30 tabs 08/21/24 tamsulosin 0.4 mg capsule 0.4 mg PO BEDTIME 30 days #30 caps 08/21/24 magnesium oxide 300 mg PO DAILY #30 tabs 08/29/24 Allergies Allergy/AdvReac Type Severity Reaction Status Date / Time Penicillins [PCN] Allergy Rash Verified 08/29/24 17:27 Review of Systems Review of Systems: Constitutional : No Weight loss, No Fever, No Chills, No Night Sweats, No Fatigue, No Malaise ENT/Mouth : No Hearing loss, No Ear Pain, No Nasal Congestion, No Sinus Pain, No Hoarseness, No sore throat, No Rhinorrhea, No Swallowing Difficulty Eyes: No Eye Pain, No Swelling, No Redness, No Foreign Body, No Discharge, No Vision Changes Cardiovascular : No Chest Pain, No SOB, No Dyspnea on Exertion, No Orthopnea, No Edema, No Palpitations Respiratory : No Cough, No Sputum, No Wheezing, No Smoke Exposure, No Dyspnea Gastrointestinal : No Nausea, No Vomiting, No Diarrhea, No Constipation, No abdominal Pain, No Hematochezia, No Melena Genitourinary : no irregular bleeding, No Dysuria, No Urinary Frequency, No Hematuria, No Urinary Incontinence, No Urgency, No Flank Pain, No Urinary Flow Changes, No Hesitancy Musculoskeletal : No joint pain, No Myalgias, No Joint Swelling Skin : No Skin Lesions, No rash Neuro : No Weakness, No Numbness, No Paresthesias, Complaining of Multiple near syncopal episodes after standing and walking. Psych : No Anxiety/Panic, No Depression, No SI/HI/AH/VH, No Social Issues, Heme/Lymph: No Bruising, No Bleeding,No Lymphadenopathy Endocrine : No Polyuria, No Polydipsia, No Temperature Intolerance PMFSH Past Medical History Medical History Alcohol use disorder, severe, dependence Central sleep apnea Respiratory failure with hypoxia Restrictive lung disease AMANDA (obstructive sleep apnea) Morbid obesity Alcohol abuse Heroin abuse Essential hypertension CHF (congestive heart failure) Edema Depression Hypertension Surgical History No pertinent past surgical history Family History Family History Other No family history of coronary artery disease Social History Social History (Reviewed 08/14/24 @ 01:23 by KIM BrambilaFORMERLY [facility] Household Members: None Housing: Homeless Housing Other:: not specified Do you presently have visiting nurse or other home services: No Alcohol intake: current Alcohol intake frequency: a few times a week Alcohol type: beer Comment: declines to use walker. reports I don't need it anymore Patient Tobacco Use Status: Current everyday Tobacco user Tobacco use type: Cigarette Cigarette Packs Per Day: 0.5 Cigarettes Per Day: 2 e-Cigarette/Vaping Use: Never Used Second Hand Smoke Exposure: No Substance Use Type: Crack/Cocaine and Opiates Advance Directives: No Advance Directives Information Provided: Yes service: No Current occupational status: unemployed and disabled Sexual orientation: Straight/Heterosexual Physical Exam Vital Signs: Vital Signs: Last Vital Signs Temp 97.8 F 08/29/24 17:27 Pulse 60 08/29/24 20:16 Resp 16 08/29/24 17:27 BP 140/87 H 08/29/24 20:16 Pulse Ox 95 08/29/24 17:27 O2 Del Method Room Air 08/29/24 17:27 BMI result Body Mass Index 30.3 Const: Other: Appearance: Alert. Oriented X3. No acute distress. well-appearing Eyes: Pupils equal, round and reactive to light. ENT: Pharynx normal. Neck: Normal inspection. Neck supple. No lymph nodes noted. No crepitus CVS: Normal heart rate and rhythm. Pulses normal. Normal S1 and S2 Respiratory: No respiratory distress. Breath sounds normal. No Wheezing. No rales Abdomen: Soft and nontender. No rigidity. No distention. Skin: Skin warm and dry. Normal skin color. Normal skin turgor. Extremities: No lower extremity edema. No Lacerations. No Rash Neuro: Oriented X 3. No motor deficit. No sensory deficit. Moving all extremities. No slurred speech. CN 2 through 12 grossly intact Psych: calm, cooperative, normal affect Course Course Course Narrative: This is a Rapid Medical Exam performed in triage by Alexus Soliman PA-C. Full HPI, ROS and PE to be performed by primary ED provider. 59 yo M w/PMHx PTSD, poysubstance use, ETOH abuse, AMANDA, recently discharged from our facility on 08/15/2024 s/p suspected ETOH withdrawal sz's presenting to the ED c/o 3 near syncopal episodes yesterday & 2 today with lightheadedness & leg weakness. Denies LOC. states holds onto wall to get balance, denies falls of head trauma PE: nonfocal, ambulating w/steady gait Plan: EKG, labs, UA, orthos, BABCOCK/ethanol, SARs Medical Decision Making Medical Decision Making [facility] Narrative: My interpretation of EKG: Normal sinus rhythm, heart rate 73, no ST segment depression or elevation, no T-wave inversion, QTC 166. My interpretation of labs: Patient's hematology at baseline, no significant abnormality. Chemistry within normal limits, magnesium 1.4 which was repleted IV, lipase within normal limits, ETOH negative, serology negative for influenza COVID and RSV orthostatic vitals were negative. Patient states that he is asymptomatic. -- I was informed by the patient's nurse that the patent refused IV magnesium. Patient states that he needs to leave immediately. patient leaving against medical advice . patient aware that admission/ observation was recommended. Patient states that if he has recurrent symptoms he will return. on discharge, patient has normal vitals Differential Diagnosis Differential Diagnoses: The differential diagnosis associated with the presentation includes ( cardiac arrhythmia, orthostatic hypotension, ETOH withdrawal) Admission/Observation Consideration of admission/observation: Escalation of care including admission/observation considered ( recommended but patient declined) Lab Data [facility] Lab Attestation statement: I reviewed the patient's lab results. 08/29/24 17:53 08/29/24 17:53 Labs: Lab Results 08/29/24 Range/Units 17:53 WBC 9.7 (4.8-10.8) X10*3/uL RBC 3.96 L (4.60-5.80) X10*6/uL Hgb 12.0 L (14.0-18.0) g/dl Hct 36.1 L (42.0-52.0) % MCV 91.2 (80.0-98.0) fL MCH 30.3 (27.0-33.0) pg MCHC 33.2 (31.0-36.0) g/dl RDW 14.6 (11.0-16.0) % Plt Count 208 (160-400) X10*3/uL MPV 9.6 (9.4-12.4) fL Immature Gran % (Auto) 0.4 (0.0-0.4) % Neut % (Auto) 60.9 (45-73) % Lymph % (Auto) 30.7 (20-40) % Jack % (Auto) 6.5 (2-11) % Eos % (Auto) 1.1 (0-4) % Baso % (Auto) 0.4 (0-2) % Lymph # (Auto) 3.0 (1.2-4.9) X10*3/uL Jack # (Auto) 0.6 (0.1-1.2) X10*3/uL Eos # (Auto) 0.1 (0.0-0.4) X10*3/uL Baso # (Auto) 0.0 (0.0-0.2) X10*3/uL Abs Immat Gran (auto) 0.04 H (0.00-0.03) X10*3/uL Absolute Neuts (auto) 5.9 (2.0-8.3) x10*3/uL Absolute Nucleated RBC 0.000 (0.0-0.012) X10*3/uL Nucleated RBC % (auto) 0.0 (0.0-0.2) /100WBC Sodium 142 (135-145) mmol/L Potassium 3.9 (3.3-5.1) mmol/L Chloride 107 (96-108) mmol/L Carbon Dioxide 26 (22-29) mmol/L Anion Gap 13 (12-20) BUN 15 (9-16) mg/dL Creatinine 0.81 (0.5-1.4) mg/dL Estim Creat Clear Calc 90.5 Estimated GFR > 60 Random Glucose 75 (60-115) mg/dL Calcium 9.4 (8.4-10.2) mg/dL Magnesium 1.4 L* (1.6-2.6) mg/dL Total Bilirubin 0.4 (0.0-1.0) mg/dL Direct Bilirubin 0.2 (0.0-0.5) mg/dL AST 28 (5-37) U/L ALT 20 (0-40) U/L Alkaline Phosphatase 74 (39-117) U/L Troponin I High Sens 3.5 D (<3.5-35.0) ng/L Total Protein 7.4 (6.5-8.0) g/dL Albumin 4.2 (3.5-5.0) g/dL Lipase 5 L (8-78) U/L Ethyl Alcohol < 10 mg/dL Influenza Type A (PCR) NEGATIVE (Negative) Influenza Type B (PCR) NEGATIVE (Negative) RSV RNA Qual (PCR) NEGATIVE (Negative) SARS-CoV-2 RNA (RT-PCR) NEGATIVE (Negative) Independent Interpretation I performed an independent interpretation of an: EKG Discharge Plan Discharge Clinical Impression: Near syncope Patient Disposition: Left Against Medical Advice Instructions: Near Syncope (ED) Additional Instructions: ideally, you should be staying in the hospital for observation . You declined the IV magnesium. If anything changes, please called 911 and return immediately to the hospital. Please follow-up with your primary care physician tomorrow. If you have any worsening or new symptoms, please return to the emergency room or call 911 Prescriptions: New magnesium oxide 300 mg magnesium tablet 300 mg PO DAILY Qty: 30 0RF No Action naloxone 4 mg/actuation spray,non-aerosol 4 mg intranasal Q2M PRN (Reason: Opioid Overdose) Qty: 2 0RF Patient Comments: Patient has been off medications for awhile (told RN a few days, told MD a few months) calcium carbonate 300 mg (750 mg) Tablet,Chewable 300 mg PO Q4H PRN (Reason: Heartburn) nicotine 7 mg/24 hr Patch 24 Hour 7 mg transdermal DAILY PRN (Reason: smoking cessation) 28 Days Qty: 28 0RF Rx Instructions: Remove at bedtime lisinopril 20 mg Tablet 20 mg PO DAILY 30 Days Qty: 30 0RF Protocol: Hold for SBP< HOLD for SBP < : 90 tamsulosin 0.4 mg Capsule 0.4 mg PO BEDTIME 30 Days Qty: 30 0RF prazosin 2 mg capsule 2 mg PO BEDTIME 30 Days Qty: 30 0RF buprenorphine-naloxone [Suboxone] 8-2 mg Film 1 film sublingual DAILY Qty: 0 0RF quetiapine 150 mg tablet 150 mg PO DAILY 30 Days Qty: 30 0RF sertraline 50 mg Tablet 50 mg PO DAILY 30 Days Qty: 30 0RF furosemide 40 mg tablet 40 mg PO DAILY 30 Days Qty: 30 0RF sennosides [senna] 8.6 mg tablet 17.2 mg PO BEDTIME PRN (Reason: constipation) 30 Days Qty: 30 0RF melatonin 5 mg tablet 5 mg PO BEDTIME PRN (Reason: sleep) 30 Days Qty: 30 0RF Print Language: Italian
[2024-08-29 17:27] VITALS: BP 131/64; PULSE 72; RESP 16; TEMP 36.6; O2SAT 95; BMI 30.3
--- NOTE | 2024-08-29 17:31 | ECG_ITS ---
Test Reason : dizziness Blood Pressure : */* mmHG Vent. Rate : 73 BPM Atrial Rate : 73 BPM P-R Int : 166 ms QRS Dur : 94 ms QT Int : 394 ms P-R-T Axes : 45 7 39 degrees QTcB Int : 434 ms Normal sinus rhythm Normal ECG When compared with ECG of 13-Aug-2024 23:57, No significant change was found Referred By: Alexus Soliman Electronically Signed By: CHARITY HUYNH MD
[2024-08-29 17:57] LABS: MANUAL DIFF FLAG NO
[2024-08-29 18:11] LABS: Basophils Percent Auto 0.4 % (0-2); Eosinophils Absolute Auto 0.1 X10*3/uL (0.0-0.4); Eosinophils Percent Auto 1.1 % (0-4); Hematocrit 36.1 % (42.0-52.0); Imm Gran Abs Auto 0.04 X10*3/uL (0.00-0.03); Imm Gran Pct Auto 0.4 % (0.0-0.4); Lymphocytes Percent Auto 30.7 % (20-40); Mean Corpuscular HGB Conc 33.2 g/dl (31.0-36.0); Mean Corpuscular Hemoglobin 30.3 pg (27.0-33.0); Mean Corpuscular Volume 91.2 fL (80.0-98.0); Mean Platelet Volume 9.6 fL (9.4-12.4); Monocytes Absolute Auto 0.6 X10*3/uL (0.1-1.2); Monocytes Percent Auto 6.5 % (2-11); Neutrophils Absolute Auto 5.9 x10*3/uL (2.0-8.3); Neutrophils Percent Auto 60.9 % (45-73); Platelet Count 208 X10*3/uL (160-400); Red Blood Count 3.96 X10*6/uL (4.60-5.80); Red Cell Distribution Width 14.6 % (11.0-16.0); White Blood Count 9.7 X10*3/uL (4.8-10.8)
[2024-08-29 18:18] LABS: Alanine Aminotransferase 20 U/L (0-40); Albumin Level 4.2 g/dL (3.5-5.0); Alkaline Phosphatase 74 U/L (39-117); Anion Gap 13 (12-20); Aspartate Amino Transferase 28 U/L (5-37); Bilirubin Direct 0.2 mg/dL (0.0-0.5); Bilirubin Total 0.4 mg/dL (0.0-1.0); Blood Urea Nitrogen 15 mg/dL (9-16); Calcium 9.4 mg/dL (8.4-10.2); Carbon Dioxide 26 mmol/L (22-29); Chloride 107 mmol/L (96-108); Creatinine Clr Calc Pharmacy 90.5; Estimated Glomerular Filt Rate > 60; Ethanol < 10 mg/dL; Glucose Random 75 mg/dL (60-115); Lipase 5 U/L (8-78); Magnesium 1.4 mg/dL (1.6-2.6); Potassium 3.9 mmol/L (3.3-5.1); Sodium 142 mmol/L (135-145); Total Protein 7.4 g/dL (6.5-8.0)
[2024-08-29 18:20] LABS: Troponin-I High Sensitivity 3.5 ng/L (<3.5-35.0)
[2024-08-29 18:34] LABS: Influenza A PCR NEGATIVE (Negative); Influenza B PCR NEGATIVE (Negative); Resp Syncy Virus RNA Qual PCR NEGATIVE (Negative); SARS COV2 PCR INHOUSE NEGATIVE (Negative)
[2024-08-29 20:15] VITALS: BP 148/66; BP 154/74; PULSE 56; PULSE 58
[2024-08-29 20:16] VITALS: BP 140/87; PULSE 60
--- NOTE | 2024-08-29 22:04 | MHC.EDTECH ---
pt was trying to leave. came in and talked to him.
[2024-08-29 22:09] LABS: Appearance Urine Clear; Color Urine Yellow; Glucose Urine UA Negative (Negative); Leukocyte Esterase Urine Negative (Negative); Nitrite Urine Negative (Negative); Specific Gravity - Urine 1.015 (1.005-1.025); Urine Blood Negative (Negative); Urine Ketones Negative (Negative); Urine Protein Negative (Neg-Trace)
--- NOTE | 2024-08-29 22:11 | PC.NURSE ---
Pt declined IV/meds, states I have to be somewhere by 10:30pm. Dr. Mendenhall made aware. Pt leaving AMA.
[2024-08-29 22:18] LABS: Amphetamine Screen Urine Not Detected (Not Detect); Barbiturates, Urine POSITIVE (Not Detect); Benzodiazepines Screen Urine Not Detected (Not Detect); Buprenorphine Scr Not Detected (Not Detect); Cannabinoid Screen Urine Not Detected (Not Detect); Cocaine Screen Urine POSITIVE (Not Detect); Fentanyl, urine POSITIVE (Not Detect); Methadone Screen, Urine Not Detected (Not Detect); Opiate Screen Urine POSITIVE (Not Detect); Oxycodone Screen Urine Not Detected (Not Detect); Phencyclidine Screen Urine Not Detected (Not Detect)
[2024-08-29 22:19] VITALS: BP 162/79; PULSE 61; RESP 16; TEMP 36.7; O2SAT 95
[2024-08-29 22:25] VITALS: BP 162/79; PULSE 61; RESP 16; TEMP 36.7; O2SAT 95
== END 2024-08-29 22:26 | disposition left against medical advice (07) ==
PROVIDERS: Physician Assistant; Emergency Provider Emergency Medicine; PCP Internal Medicine Geriatric Medicine
DX: R55 Syncope and collapse (principal); R42 Dizziness and giddiness; F17.210 Nicotine dependence, cigarettes, uncomplicated; Z51.81 Encounter for therapeutic drug level monitoring; Z03.818 Encounter for observation for suspected exposure to other biological agents ruled out; Z79.899 Other long term (current) drug therapy
CPT/HCPCS: 0241U; 36415; 71045; 80048; 80076; 80307; 81003; 83690; 83735; 84484; 85025; 93005; 99283; 99284

== ENCOUNTER → 2024-08-29 17:31 | Outpatient (BNV) | payer MEDICAID, SELFPAY | PROVIDERS: Emergency Provider Emergency Medicine; PCP Internal Medicine Geriatric Medicine; Visit Provider Internal Medicine Cardiovascular Disease | DX: R42 Dizziness and giddiness (principal) | CPT/HCPCS: 93010 ==

== ENCOUNTER → 2024-08-29 17:31 | Outpatient (BNV) | payer MEDICAID, SELFPAY | PROVIDERS: PCP Internal Medicine Geriatric Medicine; Visit Provider Specialist | DX: R55 Syncope and collapse (principal) | CPT/HCPCS: 71045 ==